=== PATIENT | female | born 1980 | race Caucasian/White ===

== ENCOUNTER 2016-11-21 04:15 | Emergency (ER) | payer BC, OTHER ==
[~2016-11-21] VITALS: Ht 160 cm; Wt 46.7 kg
[~2016-11-21 04:15] MED LIST: ASPI81TA28 PO; BUSP5TAB59 PO; CINN1CAP2 PO; FERR1TAB61 PO; GARL500T PO; MIRT15TA2 PO; MISCTAB26 PO; ONDA4TAB46 SL; PSYL55.43 PO; ZYP25 PO
[2016-11-21 04:24] VITALS: TEMP 37.1; Ht 160 cm; Wt 46.7 kg
[2016-11-21 05:11] LABS: BASO % 0.2 %; BASO ABS # 0.01 K/uL (0-0.2); COMPLETE YES; EOS % 8.4 %; IG% 0.5 %; LYMPH % 20.4 %; LYMPH ABS # 1.23 K/uL (1.2-3.4); MEAN CORPUSCULAR HEMOGLOBIN 28.9 pg (25-34); MEAN CORPUSCULAR HGB CONC 33.9 g/dl (32-36); MEAN PLATELET VOLUME 9.3 fL (7.4-10.4); MONO % 9.6 %; NEUT % 60.9 %; PLATELET COUNT 204 K/uL (130-400); RED BLOOD COUNT 4.47 M/uL (4.2-5.4); WHITE BLOOD COUNT 6.04 K/uL (4.8-10.8)
[2016-11-21 05:29] LABS: BUN/CREATININE RATIO 14.3 (10-20); CALCIUM 8.8 mg/dl (8.5-10.1); CREATININE 0.74 mg/dl (0.60-1.20); POTASSIUM 3.3 mmol/L (3.5-5.1)
[2016-11-21 05:31] LABS: ALB/GLOB RATIO 1.2 (0.9-2)
[2016-11-21 05:34] LABS: URINE APPEARANCE CLEAR (CLEAR); URINE BILIRUBIN NEG (NEG); URINE COLOR YELLOW; URINE EPITHELIAL CELL AUTO >30 /lpf (0-5); URINE NITRITE NEG (NEG); URINE PH 6.5 (4.5-7.5); URINE SPECIFIC GRAVITY 1.012 (1.000-1.030); UROBILINOGEN NEG (NEG); ZZUR CULT IF INDIC CLEAN CATCH YES
[2016-11-21 05:35] LABS: MANUAL MICROSCOPIC REQUIRED? NO; REVIEW REQ? YES
[2016-11-21] MEDS ORDERED: SEPTRA DS HOME PACK 1 EA VIAL PO ONE (06:15)
[2016-11-21] MEDS ORDERED: SULF800T23 PO (06:21)
[2016-11-21 06:48] VITALS: BP 103/65; PULSE 89; O2SAT 98
--- NOTE | 2016-11-21 09:18 | DIAGNOSTIC IMAGING REPORT ---
PA CHEST RADIOGRAPH AND UPRIGHT AND SUPINE AP RADIOGRAPHS OF THE ABDOMEN CLINICAL HISTORY: Left upper quadrant abdominal pain. Epigastric pain. COMPARISON STUDY: CT of the abdomen and pelvis April 16, 2013 and chest radiograph March 14, 2015. FINDINGS: Lung volumes are normal. Lungs are clear. There is no pneumothorax or pleural effusion. Nipple shadows project over each lower lung. Cardiomediastinal silhouette is normal. There is no free air. The bowel gas pattern is normal. There is a moderate amount of stool within the ascending colon. IMPRESSION: 1. No free air or evidence of bowel obstruction. 2. No acute cardiopulmonary findings. Electronically signed by: Arvin Page M.D. 11/21/2016 9:17 AM Dictated Date/Time: 11/21/2016 9:16 AM
--- NOTE | 2016-11-22 04:40 | EMERGENCY ROOM VISIT NOTE ---
History First contact with patient: 04:26 Chief Complaint: ABDOMINAL PAIN Stated Complaint: PAIN IN LEFT ABD AREA Nursing Triage Summary: History of Present Illness The patient is a 36 year old female who presents to the Emergency Room with complaints of left-sided abdominal/flank pain for the past 2-3 days. The patient has had difficulty sleeping tonight because of her symptoms, prompting her to come to the ER. She has not had fever or chills. No nausea, vomiting, diarrhea, or lower abdominal discomfort. She has been using the bathroom as normal. She denies chance of . Her discomfort does not radiate into her chest or across her abdomen. The pain as dull and rated a 4/10. She does not report aggravating or ameliorating symptoms. Review of Systems More than 10 systems were reviewed and otherwise negative with the exception of history of present illness. Past Medical/Surgical History Medical Problems: (1) Low BMI (2) Past Psych Meds (3) UTI (urinary tract infection) Surgical Problems: (1) H/O tubal ligation Family History Diabetes mellitus FH: heart disease Hypertension Social History Smoking Status: Current Every Day Smoker Alcohol Use: none Housing Status: lives with family Occupation Status: employed Current/Historical Medications Scheduled Amitriptyline HCl (Amitriptyline HCl), 10 MG PO HS Aspirin (Aspirin Ec), 81 MG PO DAILY Buspirone HCl (Buspirone HCl), 7.5 MG PO QAM Cinnamon (Cinnamon), 1,000 MG PO DAILY Garlic (Garlic), 1 TAB PO DAILY Mirtazapine (Mirtazapine), 7.5 MG PO HS Sulfa/Trimethoprim (Bactrim Ds 800MG/160MG), 1 TAB PO BID Allergies Coded Allergies: No Known Allergies (Unverified , 06/03/16) Physical Exam Vital Signs Date Time Temp Pulse Resp B/P Pulse Ox O2 Delivery O2 Flow Rate FiO2 11/21/16 06:48 89 18 103/65 98 Room Air 11/21/16 04:24 37.1 97 18 114/73 100 Room Air Pain Rating (0-10): 0 Physical Exam VITALS: Vitals are noted on the nurse's note and reviewed by myself. Vital signs stable. GENERAL: Well-developed, well-nourished, white female, who is in no acute distress and resting comfortably. Patient is cooperative with the examination. HEAD: Normocephalic atraumatic. EARS: External ear normal. External auditory canals clear, tympanic membranes pearly hodge without erythema or effusion bilaterally. EYES: Pupils equal round and reactive to light and accommodation. Conjunctivae without injection, sclerae without icterus. Extraocular movements intact. NOSE: Patent, turbinates without inflammation or discharge. MOUTH: Mucous membranes moist. Tonsils are not enlarged. Pharynx without erythema, blood, or exudate. Uvula midline. Airway patent. NECK: Supple without nuchal rigidity. No lymphadenopathy. No thyromegaly. Cervical spine is nontender. HEART: Regular rate and rhythm without murmurs gallops or rubs. LUNGS: Clear to auscultation bilaterally without wheezes, rales or rhonchi. No retractions or accessory muscle use. ABDOMEN: Positive normal bowel sounds x 4. Soft, nontender, without masses or organomegaly. No guarding or rebound tenderness. Medical Decision & Procedures ER Provider Diagnostic Interpretation: PA CHEST RADIOGRAPH AND UPRIGHT AND SUPINE AP RADIOGRAPHS OF THE ABDOMEN CLINICAL HISTORY: Left upper quadrant abdominal pain. Epigastric pain. COMPARISON STUDY: CT of the abdomen and pelvis April 16, 2013 and chest radiograph March 14, 2015. FINDINGS: Lung volumes are normal. Lungs are clear. There is no pneumothorax or pleural effusion. Nipple shadows project over each lower lung. Cardiomediastinal silhouette is normal. There is no free air. The bowel gas pattern is normal. There is a moderate amount of stool within the ascending colon. IMPRESSION: 1. No free air or evidence of bowel obstruction. 2. No acute cardiopulmonary findings. Laboratory Results 11/21/16 05:00 Red Blood Count 4.47, Mean Corpuscular Volume 85.0, Mean Corpuscular Hemoglobin 28.9, Mean Corpuscular Hemoglobin Concent 33.9, Mean Platelet Volume 9.3, Neutrophils (%) (Auto) 60.9, Lymphocytes (%) (Auto) 20.4, Monocytes (%) (Auto) 9.6, Eosinophils (%) (Auto) 8.4, Basophils (%) (Auto) 0.2, Neutrophils # (Auto) 3.68, Lymphocytes # (Auto) 1.23, Monocytes # (Auto) 0.58, Eosinophils # (Auto) 0.51, Basophils # (Auto) 0.01 11/21/16 05:00 Test 11/21/16 05:00 11/21/16 05:05 11/21/16 05:08 White Blood Count 6.04 K/uL (4.8-10.8) Red Blood Count 4.47 M/uL (4.2-5.4) Hemoglobin 12.9 g/dL (12.0-16.0) Hematocrit 38.0 % (37-47) Mean Corpuscular Volume 85.0 fL (80-100) Mean Corpuscular Hemoglobin 28.9 pg (25-34) Mean Corpuscular Hemoglobin Concent 33.9 g/dl (32-36) Platelet Count 204 K/uL (130-400) Mean Platelet Volume 9.3 fL (7.4-10.4) Neutrophils (%) (Auto) 60.9 % Lymphocytes (%) (Auto) 20.4 % Monocytes (%) (Auto) 9.6 % Eosinophils (%) (Auto) 8.4 % Basophils (%) (Auto) 0.2 % Neutrophils # (Auto) 3.68 K/uL (1.4-6.5) Lymphocytes # (Auto) 1.23 K/uL (1.2-3.4) Monocytes # (Auto) 0.58 K/uL (0.11-0.59) Eosinophils # (Auto) 0.51 K/uL (0-0.5) Basophils # (Auto) 0.01 K/uL (0-0.2) RDW Standard Deviation 38.1 fL (36.4-46.3) RDW Coefficient of Variation 12.4 % (11.5-14.5) Immature Granulocyte % (Auto) 0.5 % Immature Granulocyte # (Auto) 0.03 K/uL (0.00-0.02) Anion Gap 8.0 mmol/L (3-11) Est Creatinine Clear Calc Drug Dose 76.7 ml/min Estimated GFR () 120.0 Estimated GFR (Non- 103.5 BUN/Creatinine Ratio 14.3 (10-20) Calcium Level 8.8 mg/dl (8.5-10.1) Total Bilirubin 0.7 mg/dl (0.2-1) Aspartate Amino Transf (AST/SGOT) 15 U/L (15-37) Alanine Aminotransferase (ALT/SGPT) 35 U/L (12-78) Alkaline Phosphatase 55 U/L (45-117) Total Protein 7.4 gm/dl (6.4-8.2) Albumin 4.0 gm/dl (3.4-5.0) Globulin 3.4 gm/dl (2.5-4.0) Albumin/Globulin Ratio 1.2 (0.9-2) Lipase 100 U/L (73-393) Monoscreen NEG (NEG) Bedside Troponin I 0.000 ng/ml (0-0.045) Urine Color YELLOW Urine Appearance CLEAR (CLEAR) Urine pH 6.5 (4.5-7.5) Urine Specific Walker 1.012 (1.000-1.030) Urine Protein NEG (NEG) Urine Glucose (UA) NEG (NEG) Urine Ketones NEG (NEG) Urine Occult Blood TRACE (NEG) Urine Nitrite NEG (NEG) Urine Bilirubin NEG (NEG) Urine Urobilinogen NEG (NEG) Urine Leukocyte Esterase MODERATE (NEG) Urine WBC (Auto) 10-30 /hpf (0-5) Urine RBC (Auto) 0-4 /hpf (0-4) Urine Hyaline Casts (Auto) 1-5 /lpf (0-5) Urine Epithelial Cells (Auto) >30 /lpf (0-5) Urine Bacteria (Auto) 2+ (NEG) Urine Test NEG (NEG) Medications Administered Medications (Trade) Dose Ordered Sig/Zheng Route Start Time Stop Time Status Last Admin Dose Admin Trimethoprim/ Sulfamethoxazole (Sulfameth/ Trimeth Ds 800/ 160MG Home Pack) 1 homepack UD ONCE PO 11/21/16 06:15 11/21/16 06:17 DC 11/21/16 06:50 1 HOMEPACK ED Course Physical exam and history were performed. Nursing notes and EMR were reviewed. Patient appears to have vague left upper quadrant and left flank pain. On examination she does not have tenderness throughout the abdomen. She certainly does not appear toxic. IV access was established and labs were obtained. Plain films were performed and urine was collected. The patient will is as above and was reviewed. She does not have a significantly elevated white blood cell count, gross anemia, bandemia, or significant electrolyte imbalance. Lipase and transaminases are nondiagnostic. Andrew is negative. Troponin 1 is negative. X-ray does not show acute process of the chest or abdomen. The patient urinalysis is consistent with UTI , and the patient may have an uncomplicated early pyelonephritis. I discussed options of care with the patient, who states that she has had UTI symptoms in the past. She certainly does not seem to be septic or history to suggest ureteral calculi. While discussing the possibility of a UTI, she states that she has had some mild dysuria symptoms for the past one day, and this certainly could be the cause of her symptoms. She will be started on Bactrim and given a continuation course of the antibiotic. Recommended that she follow with her primary care physician in the next few days for recheck. She was otherwise invited back to the ER with any new, worsening, or concerning symptoms. The chart was completed utilizing [employer] Speech Voice Recognition Software. Grammatical errors, random word insertions, pronoun errors, and incomplete sentences are an occasional consequence of this system due to software limitations, ambient noise, and hardware issues. Any formal questions or concerns about the content, text, or information contained within the body of this dictation should be directly addressed to the provider for clarification. . Medical Decision Differential diagnosis: Etiologies such as renal colic, appendicitis, diverticulitis, mesenteric ischemia, aortic pathology, infections, inflammatory bowel disease, PUD, biliary pathology, UTI, as well as others were entertained. Impression Primary Impression: Urinary tract infection Departure Information Dispostion Home / Self-Care Condition GOOD Prescriptions Sulfa/Trimethoprim (Bactrim Ds 800MG/160MG) Tab 1 TAB PO BID for 6 Days, #12 TAB Prov: Frantz Weeks PA-C 11/21/16 Forms Call Back Authorization, HOME CARE DOCUMENTATION FORM, IMPORTANT VISIT INFORMATION Patient Instructions My [facility] Additional Instructions You were seen and evaluated today on an emergency basis only. This is not a substitute for, or an effort to provide, complete comprehensive medical care. It is not possible to recognize and treat all injuries or illnesses in a single emergency department visit. For this reason it is recommended that you followup with your primary care physician this week for ongoing care and evaluation. Trimethoprim-Sulfamethoxazole(Bactrim DS): Take one pill twice daily for 7 days for your infection. All antibiotics can cause diarrhea. If this occurs and you feel worse or it does not resolve in 1-2 days follow up with your doctor or return to the Emergency Department as this could be signs of serious underlying problems. Any medication can cause an allergic reaction, stop the pills immediately and return to the ER for rash, hives, breathing difficulties, or swelling. You are welcome to return to the emergency department anytime with new, worsening, or concerning symptoms.
--- NOTE | 2016-11-23 16:30 | Pharmacy Progress Note ---
ED Pharmacist Culture FollowUp Date of Service: Nov 23, 2016. Patient was sent home with a prescription for Bactrim, for pyelonephritis. Lactobacillus isolated from urine culture. UA with significant epithelial cells. This likely represents a contaminant. No intervention required. Case discussed with Frantz Weeks.
[2016-12-11] MEDS ORDERED: BSP15 PO (06:16)
[2016-12-11] MEDS ORDERED: MIRT1TAB27 PO (06:16)
== END 2016-11-21 06:51 | disposition home or self-care (01) ==
LOC: C.EDB 04:17
DX: N39.0 Urinary tract infection, site not specified (principal); F17.200 Nicotine dependence, unspecified, uncomplicated; R63.6 Underweight; Z79.82 Long term (current) use of aspirin; Z98.51 Tubal ligation status; Z83.3 Family history of diabetes mellitus; Z82.49 Family history of ischemic heart disease and other diseases of the circulatory system

== ENCOUNTER 2016-12-11 15:37 | Emergency (ER) | payer OTHER ==
[~2016-12-11] VITALS: Ht 162.6 cm; Wt 47.3 kg
[~2016-12-11 15:37] MED LIST changes: +BSP15 PO; -BUSP5TAB59 PO; -FERR1TAB61 PO; -MIRT15TA2 PO; +MIRT1TAB27 PO; -MISCTAB26 PO; -ONDA4TAB46 SL; -PSYL55.43 PO; -ZYP25 PO
[2016-12-11 15:40] VITALS: TEMP 36.9; Ht 162.6 cm; Wt 47.3 kg
[2016-12-11] MEDS ORDERED: ONDANSETRON 4MG OD TAB PO ONE (16:15)
--- NOTE | 2016-12-11 16:16 | EMERGENCY ROOM VISIT NOTE ---
History Report prepared by Mauricio: Aly Morales Under the Supervision of: Dr. Dagoberto Coppola D.O. First contact with patient: 15:49 Chief Complaint: MENTAL HEALTH EVALUATION Stated Complaint: NAUSEA,PAIN IN KIDNEYS,FATIGUE,POSSIBLY FROM MEDS History of Present Illness The patient is a 36 year old female who presents to the Emergency Room with complaints of fatigue and generalized malaise. The patient has a history of mental health problems. She's been seen in our facility before for similar episodes. She was recently started on a new antipsychotic medication. She is received 4 injections so far and she receives an injection every month. This was started after an admission to our facility for mental health inpatient management. The patient is currently from her significant other. She has been having significant fatigue. 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 She has had decreased energy. She also thinks she may have a urinary tract infection because she's been having abdominal pain and nausea which is been ongoing for quite some time. The patient denies having any rectal bleeding. She did have one episode of a very heavy period but states that she is not currently as far she knows. She denies having any recent fevers. She denies having any chest pain or cough. The patient denies having any suicidal or homicidal ideation but she states that she's had significant depression symptoms and feels as though this is the cause of her underlying issue today. Source of History: patient Onset: recently Position: other (global) Symptom Intensity: moderate Quality: other (fatigue) Timing: worsening Associated Symptoms: + abdominal pain, + nausea, No chest pain, No cough, No fevers Note: She is having significant depression symptoms. She denies any suicidal ideation or homicidal ideation. Review of Systems See HPI for pertinent positives & negatives. A total of 10 systems reviewed and were otherwise negative. Past Medical & Surgical Medical Problems: (1) Low BMI (2) Past Psych Meds (3) UTI (urinary tract infection) Surgical Problems: (1) H/O tubal ligation Family History Diabetes mellitus FH: heart disease Hypertension Social History Smoking Status: Current Some Day Smoker Alcohol Use: none Housing Status: lives with family Occupation Status: employed Current/Historical Medications Scheduled Amitriptyline HCl (Amitriptyline HCl), 10 MG PO HS Buspirone HCl (Buspirone HCl), 7.5 MG PO QAM Ciprofloxacin Hcl (Cipro), 500 MG PO BID Mirtazapine (Mirtazapine), 7.5 MG PO HS Multivit/Min/Iron/Fol Ac/Pren ( Vitamin), 1 TAB PO DAILY Allergies Coded Allergies: No Known Allergies (Unverified , 06/03/16) Physical Exam Vital Signs Date Time Temp Pulse Resp B/P Pulse Ox O2 Delivery O2 Flow Rate FiO2 12/11/16 17:35 84 16 102/72 99 Room Air 12/11/16 15:40 36.9 98 20 112/79 96 Room Air Physical Exam GENERAL: Patient is awake alert in no acute distress patient is resting comfortably and showing no signs of anxiety EYES: The conjunctivae are clear. The pupils are round and reactive. EARS, NOSE, MOUTH AND THROAT: The nose is without any evidence of any deformity. Mucous membranes are moist tongue is midline NECK: The neck is nontender and supple. RESPIRATORY: Normal respiratory effort is noted there is no evidence of wheezing rhonchi or rales CARDIOVASCULAR: Regular rate and rhythm noted there no murmurs rubs or gallops normal S1 normal S2 GASTROINTESTINAL: The abdomen is soft. Bowel sounds are present in all quadrants. Abdomen is nontender MUSCULOSKELETAL/EXTREMITIES: There is no evidence of gross deformity full range of motion is noted in the hips and shoulders SKIN: There is no obvious evidence of any rash. There are no petechiae, pallor or cyanosis noted. NEUROLOGIC: Patient is awake alert and oriented x3 strength is symmetric patellar reflexes are 2+ bilaterally PSYCH: Patient is awake and alert. She is currently denying any suicidal or homicidal ideation. Her affect is flat. She makes very poor eye contact. Medical Decision & Procedures Laboratory Results 12/11/16 16:14 Red Blood Count 4.40, Mean Corpuscular Volume 86.1, Mean Corpuscular Hemoglobin 29.8, Mean Corpuscular Hemoglobin Concent 34.6, Mean Platelet Volume 9.2, Neutrophils (%) (Auto) 67.9, Lymphocytes (%) (Auto) 23.1, Monocytes (%) (Auto) 5.2, Eosinophils (%) (Auto) 3.2, Basophils (%) (Auto) 0.3, Neutrophils # (Auto) 4.61, Lymphocytes # (Auto) 1.57, Monocytes # (Auto) 0.35, Eosinophils # (Auto) 0.22, Basophils # (Auto) 0.02 12/11/16 16:14 Test 12/11/16 15:58 12/11/16 16:14 Urine Color DK YELLOW Urine Appearance CLEAR (CLEAR) Urine pH 7.0 (4.5-7.5) Urine Specific Eckert 1.026 (1.000-1.030) Urine Protein NEG (NEG) Urine Glucose (UA) NEG (NEG) Urine Ketones 1+ (NEG) Urine Occult Blood NEG (NEG) Urine Nitrite NEG (NEG) Urine Bilirubin NEG (NEG) Urine Urobilinogen NEG (NEG) Urine Leukocyte Esterase MODERATE (NEG) Urine WBC (Auto) 5-10 /hpf (0-5) Urine RBC (Auto) 5-10 /hpf (0-4) Urine Hyaline Casts (Auto) 1-5 /lpf (0-5) Urine Epithelial Cells (Auto) >30 /lpf (0-5) Urine Bacteria (Auto) NEG (NEG) Urine Test NEG (NEG) Urine Opiates Screen NEG (NEG) Urine Methadone, Qualitative NEG (NEG) Urine Barbiturates NEG (NEG) Urine Phencyclidine (PCP) Level NEG (NEG) Ur Amphetamine/Methamphetamine NEG (NEG) MDMA (Ecstasy) Screen NEG (NEG) Urine Benzodiazepines Screen NEG (NEG) Urine Cocaine Metabolite NEG (NEG) Urine Marijuana (THC) NEG (NEG) White Blood Count 6.79 K/uL (4.8-10.8) Red Blood Count 4.40 M/uL (4.2-5.4) Hemoglobin 13.1 g/dL (12.0-16.0) Hematocrit 37.9 % (37-47) Mean Corpuscular Volume 86.1 fL (80-100) Mean Corpuscular Hemoglobin 29.8 pg (25-34) Mean Corpuscular Hemoglobin Concent 34.6 g/dl (32-36) Platelet Count 210 K/uL (130-400) Mean Platelet Volume 9.2 fL (7.4-10.4) Neutrophils (%) (Auto) 67.9 % Lymphocytes (%) (Auto) 23.1 % Monocytes (%) (Auto) 5.2 % Eosinophils (%) (Auto) 3.2 % Basophils (%) (Auto) 0.3 % Neutrophils # (Auto) 4.61 K/uL (1.4-6.5) Lymphocytes # (Auto) 1.57 K/uL (1.2-3.4) Monocytes # (Auto) 0.35 K/uL (0.11-0.59) Eosinophils # (Auto) 0.22 K/uL (0-0.5) Basophils # (Auto) 0.02 K/uL (0-0.2) RDW Standard Deviation 39.4 fL (36.4-46.3) RDW Coefficient of Variation 12.3 % (11.5-14.5) Immature Granulocyte % (Auto) 0.3 % Immature Granulocyte # (Auto) 0.02 K/uL (0.00-0.02) Anion Gap 5.0 mmol/L (3-11) Est Creatinine Clear Calc Drug Dose 62.5 ml/min Estimated GFR () 92.2 Estimated GFR (Non- 79.5 BUN/Creatinine Ratio 19.6 (10-20) Calcium Level 9.1 mg/dl (8.5-10.1) Total Bilirubin 1.3 mg/dl (0.2-1) Direct Bilirubin 0.2 mg/dl (0-0.2) Aspartate Amino Transf (AST/SGOT) 14 U/L (15-37) Alanine Aminotransferase (ALT/SGPT) 36 U/L (12-78) Alkaline Phosphatase 60 U/L (45-117) Total Protein 7.6 gm/dl (6.4-8.2) Albumin 4.2 gm/dl (3.4-5.0) Thyroid Stimulating Hormone (TSH) 1.180 uIu/ml (0.300-4.500) Laboratory results per my review. Medications Administered Medications (Trade) Dose Ordered Sig/Zheng Route Start Time Stop Time Status Last Admin Dose Admin Ondansetron HCl (Zofran Odt) 4 mg ONE ONCE PO 12/11/16 16:15 12/11/16 16:18 DC 12/11/16 16:27 4 MG Ciprofloxacin (Cipro Tab) 500 mg NOW STAT PO 12/11/16 17:42 12/11/16 17:43 DC 12/11/16 17:52 500 MG ED Course 1549: The patient was evaluated in room A6. A complete history and physical examination were performed. 1615: Ordered Zofran Odt 4 mg PO 1742: Ordered Cipro Tab 500 mg PO 1753: Upon reevaluation, the patient is resting. I discussed the results and treatment plan with her. She verbalized agreement of the treatment plan. She was discharged home. Medical Decision Differential diagnosis: Etiologies such as mood disorder, infection, hypoglycemia, electrolyte abnormalities, cardiac sources, intracerebral event, toxicologic, neurologic, as well as others were entertained. Nursing notes reviewed. The patient is a 36-year-old female who presented to the emergency department for an evaluation of mental health problems as well as generalized weakness. The patient has a history of mental health problems but also has been having problems with dysuria and thinks she may either have a urinary tract infection or possibly a kidney stone. Her abdominal exam was not consistent with an acute surgical abdomen. She did not have severe back pain. The patient was evaluated by the emergency Department mental health case finisher. She does not meet criteria for involuntary admission. At this time she does not meet criteria for involuntary admission either. I discussed patient's laboratory and radiographic studies with her. Urine was sent for culture and she was started on antibiotic. I encouraged her to drink plenty clear liquids and continue all medications as prescribed. She was also encouraged to follow-up with her primary care physician as well as her primary therapist this is possible. She was also encouraged to return to the emergency Department immediately if symptoms change worsen or the need arises. Impression Primary Impression: Generalized weakness Additional Impression: UTI (urinary tract infection) Scribe Attestation The scribe's documentation has been prepared under my direction and personally reviewed by me in its entirety. I confirm that the note above accurately reflects all work, treatment, procedures, and medical decision making performed by me. Departure Information Dispostion Home / Self-Care Prescriptions Ciprofloxacin Hcl (CIPRO) 500 Mg Tab 500 MG PO BID, #10 TAB Prov: Dagoberto Coppola, 12/11/16 Referrals Kimmy Griffin M.D. (PCP) Forms HOME CARE DOCUMENTATION FORM, IMPORTANT VISIT INFORMATION, Work Instructions Patient Instructions My [facility], Urinary Tract Infecs Women Additional Instructions Continue all medications as prescribed. Drink plenty clear liquids. Call crisis or return the emergency Department immediately if symptoms worsen or if need arises. Otherwise follow-up with your family as well as her primary care physician is possible. Problem Qualifiers Additional Impression: UTI (urinary tract infection) Urinary tract infection type: site unspecified Hematuria presence: without hematuria Qualified Codes: N39.0 - Urinary tract infection, site not specified
[2016-12-11] MEDS ORDERED: PRENTAB26 PO (16:29)
[2016-12-11 16:32] LABS: BASO % 0.3 %; BASO ABS # 0.02 K/uL (0-0.2); COMPLETE YES; EOS % 3.2 %; HEMATOCRIT 37.9 % (37-47); IG% 0.3 %; LYMPH % 23.1 %; LYMPH ABS # 1.57 K/uL (1.2-3.4); MEAN CELL VOLUME 86.1 fL (80-100); MEAN CORPUSCULAR HEMOGLOBIN 29.8 pg (25-34); MEAN CORPUSCULAR HGB CONC 34.6 g/dl (32-36); MEAN PLATELET VOLUME 9.2 fL (7.4-10.4); MONO % 5.2 %; NEUT % 67.9 %; PLATELET COUNT 210 K/uL (130-400); WHITE BLOOD COUNT 6.79 K/uL (4.8-10.8)
[2016-12-11 16:32] LABS: MANUAL MICROSCOPIC REQUIRED? NO; REVIEW REQ? NO; URINE APPEARANCE CLEAR (CLEAR); URINE BILIRUBIN NEG (NEG); URINE COLOR DK YELLOW; URINE EPITHELIAL CELL AUTO >30 /lpf (0-5); URINE NITRITE NEG (NEG); URINE SPECIFIC GRAVITY 1.026 (1.000-1.030); UROBILINOGEN NEG (NEG)
[2016-12-11 16:48] LABS: BUN/CREATININE RATIO 19.6 (10-20); CALCIUM 9.1 mg/dl (8.5-10.1); CREATININE 0.92 mg/dl (0.60-1.20); POTASSIUM 3.4 mmol/L (3.5-5.1)
[2016-12-11 16:52] LABS: BENZODIAZEPINE, URINE NEG (NEG); COCAINE,URINE NEG (NEG); PHENCYCLIDINE, URINE NEG (NEG)
[2016-12-11 16:58] LABS: THYROID STIMULATING HORMONE 1.18 uIu/ml (0.300-4.500)
[2016-12-11 17:35] VITALS: BP 102/72; PULSE 84; O2SAT 99
[2016-12-11] MEDS ORDERED: CIPROFLOXACIN 500 MG TAB PO STA (17:42)
[2016-12-11] MEDS ORDERED: CIPR-255 PO (17:43)
[2016-12-11] MEDS ORDERED: AMT10 PO (18:21)
== END 2016-12-11 17:58 | disposition home or self-care (01) ==
LOC: C.EDB 15:38 → C.EDA 17:58
DX: N39.0 Urinary tract infection, site not specified (principal); F17.200 Nicotine dependence, unspecified, uncomplicated; Z83.3 Family history of diabetes mellitus; Z82.49 Family history of ischemic heart disease and other diseases of the circulatory system

== ENCOUNTER 2016-12-27 13:15 | Emergency (ER) | payer OTHER ==
[~2016-12-27] VITALS: Ht 160 cm; Wt 46.5 kg
[~2016-12-27 13:15] MED LIST changes: +AMT10 PO; -ASPI81TA28 PO; -CINN1CAP2 PO; +CIPR-255 PO; -GARL500T PO; +PRENTAB26 PO
[2016-12-27 13:36] VITALS: TEMP 36.6; Ht 160 cm; Wt 46.5 kg
[2016-12-27 14:15] LABS: URINE APPEARANCE CLEAR (CLEAR); URINE BILIRUBIN NEG (NEG); URINE COLOR YELLOW; URINE EPITHELIAL CELL AUTO >30 /lpf (0-5); URINE NITRITE NEG (NEG); URINE SPECIFIC GRAVITY 1.011 (1.000-1.030); UROBILINOGEN NEG (NEG)
[2016-12-27] MEDS ORDERED: QUET1TAB32 PO (14:20)
[2016-12-27 14:22] LABS: MANUAL MICROSCOPIC REQUIRED? NO; REVIEW REQ? NO
[2016-12-27] MEDS ORDERED: PHEN-876 PO (14:25)
--- NOTE | 2016-12-27 14:25 | EMERGENCY ROOM VISIT NOTE ---
ED Visit Note First contact with patient: 13:50 CHIEF COMPLAINT: Frequent urination times one week HISTORY OF PRESENT ILLNESS: Patient is a 36-year-old female who presents to the emergency department complaining of urinary frequency. She notes that she is going to the bathroom more often and she has a throbbing pain across her low back. She took a home urine test which she reports was positive for a UTI. She denies any burning or hematuria. Patient recently finished a course of Cipro for urinary symptoms. She denies any fevers or vomiting. No vaginal discharge. Last menstrual period was 11/26/2016. REVIEW OF SYSTEMS: GENERAL: No fever or chills, easy fatigue, loss of appetite , or significant weight change. GASTROINTESTINAL: No abdominal pain, vomiting , loss of appetite, or diarrhea. PMH: Electronic medical records are reviewed and summarized as above/below. See Problem List. SOCIAL HISTORY: Patient lives at home. Smoker. PHYSICAL EXAM: Vital Signs: Reviewed Nurse's notes. CONSTITUTIONAL: Well-appearing 36-year-old white female who is awake and alert and in no acute distress. CARDIOVASCULAR: Regular rate and rhythm. RESPIRATORY: Breath sounds equal and clear to auscultation. ABDOMEN: Bowel sounds are present. Abdomen is soft, nontender, nondistended. No guarding, rebound or rigidity. No CVA tenderness. INTEGUMENTARY: No lesions or rash, normal skin turgor. LYMPH: No lymphadenopathy. EMERGENCY DEPARTMENT COURSE: The patient was seen and assessed as above. Her old records were reviewed. She recently finished a course of ciprofloxacin. Urine microscopy today noted moderate leukocyte esterase, 5-10 RBCs and greater than 30 epithelial cells indicating contamination. No bacteria and no nitrates. Past urine cultures were reviewed, and had never grown pathologic bacteria, only lactobacillus. Given this, and that the patient just recently finished antibiotics, it was recommended that the patient wait until the urine culture is resulted prior to initiation of any antibiotic therapy. This was reviewed with the patient and she expressed understanding. Differential diagnosis includes UTI, pyelonephritis, renal colic, cystitis, cervicitis, PID, among others. The patient was given a prescription for Pyridium and was encouraged to follow up with her primary care provider for further care and management. Problem List Medical Problems: (1) UTI (urinary tract infection) Status: Chronic Surgical Problems: (1) H/O tubal ligation Status: Resolved Current/Historical Medications Scheduled Amitriptyline HCl (Amitriptyline HCl), 10 MG PO HS Buspirone HCl (Buspirone HCl), 7.5 MG PO QAM Mirtazapine (Mirtazapine), 7.5 MG PO HS Multivit/Min/Iron/Fol Ac/Pren ( Vitamin), 1 TAB PO DAILY Phenazopyridine HCl (Pyridium), 200 MG PO TID Quetiapine Fumarate (Seroquel), 50 MG PO HS Allergies Coded Allergies: No Known Allergies (Unverified , 12/27/16) Vital Signs Date Time Temp Pulse Resp B/P Pulse Ox O2 Delivery O2 Flow Rate FiO2 12/27/16 14:57 80 18 118/76 100 12/27/16 13:36 36.6 82 18 116/79 100 Room Air Laboratory Results Test 12/27/16 13:50 Urine Color YELLOW Urine Appearance CLEAR (CLEAR) Urine pH 8.0 (4.5-7.5) Urine Specific [place] 1.011 (1.000-1.030) Urine Protein NEG (NEG) Urine Glucose (UA) NEG (NEG) Urine Ketones NEG (NEG) Urine Occult Blood NEG (NEG) Urine Nitrite NEG (NEG) Urine Bilirubin NEG (NEG) Urine Urobilinogen NEG (NEG) Urine Leukocyte Esterase MODERATE (NEG) Urine WBC (Auto) 1-5 /hpf (0-5) Urine RBC (Auto) 5-10 /hpf (0-4) Urine Hyaline Casts (Auto) 0 /lpf (0-5) Urine Epithelial Cells (Auto) >30 /lpf (0-5) Urine Bacteria (Auto) NEG (NEG) Departure Information Impression Primary Impression: Urinary frequency Prescriptions Phenazopyridine HCl (Pyridium) 200 Mg Tab 200 MG PO TID, #12 TAB Prov: Scarlet Dukes PA 12/27/16 Referrals Kimmy Griffin M.D. (PCP) Patient Instructions My [facility] Additional Instructions Pyridium 200mg: Take one pill three times daily as needed for urinary discomfort. This medication will turn your urine orange. This is normal and nothing to be concerned about. Ibuprofen(Motrin, Advil) may be used for fever or pain. Use 600mg every six hours as needed. Take with food. Avoid using more than 2400mg in a 24 hour period. Do not use 2400mg per day for more than three consecutive days without physician direction. Prolonged inappropriate use can lead to stomach upset or ulcers. This is available over the counter and typically comes in 200mg tablets. (AND/OR) Acetaminophen(Tylenol) may be used for fever or pain. Use 1000mg every eight hours as needed. Avoid using more than 3000mg in a 24 hour period. This is available over the counter. Read all the package inserts or medication information paperwork provided. If you have any questions or concerns call your primary provider, pharmacist or the ER for assistance. Rest and drink plenty of fluids. Continue current medications. Return to the ER immediately for worsening or persistent abdominal pain, vomiting, fevers, back or flank pain, worsening of your condition, or as needed. Follow up with your primary physician within 2-3 days for a recheck of the current condition.
[2016-12-27 14:57] VITALS: BP 118/76; PULSE 80; O2SAT 100
== END 2016-12-27 14:58 | disposition home or self-care (01) ==
LOC: C.EDB 13:16 → C.EDD 14:58
DX: R35.0 Frequency of micturition (principal); F17.200 Nicotine dependence, unspecified, uncomplicated; Z87.440 Personal history of urinary (tract) infections; Z98.51 Tubal ligation status; Z79.899 Other long term (current) drug therapy

== ENCOUNTER 2017-01-14 14:44 | Emergency (ER) | payer OTHER ==
[~2017-01-14] VITALS: Ht 160 cm; Wt 45.2 kg
[~2017-01-14 14:44] MED LIST changes: -CIPR-255 PO; +PHEN-876 PO; +QUET1TAB32 PO
[2017-01-14] MEDS ORDERED: SULF800T23 PO (14:57)
[2017-01-14] MEDS ORDERED: ONDA4TAB9 PO (14:57)
[2017-01-14 14:59] VITALS: Ht 160 cm; Wt 45.2 kg
[2017-01-14] MEDS ORDERED: SODIUM CHLORIDE 0.9% 1000ML 1,000 ML IV STA (14:59)
--- NOTE | 2017-01-14 15:16 | DIAGNOSTIC IMAGING REPORT ---
CHEST ONE VIEW PORTABLE CLINICAL HISTORY: EVALUATE ALTERED MENTAL STATUS/WEAKNESS dyspnea COMPARISON STUDY: 11/21/2016 FINDINGS: The bones soft tissues and hemidiaphragms are normal. The cardiomediastinal silhouette is normal. The lungs are clear. The pulmonary vasculature is normal. IMPRESSION: Negative chest. Electronically signed by: Adin Reyes M.D. 01/14/2017 3:15 PM Dictated Date/Time: 01/14/2017 3:15 PM
[2017-01-14 15:34] LABS: URINE APPEARANCE CLEAR (CLEAR); URINE BILIRUBIN NEG (NEG); URINE COLOR YELLOW; URINE EPITHELIAL CELL AUTO >30 /lpf (0-5); URINE NITRITE NEG (NEG); URINE PH 7.5 (4.5-7.5); URINE SPECIFIC GRAVITY 1.009 (1.000-1.030); UROBILINOGEN NEG (NEG)
[2017-01-14 15:34] LABS: BASO % 0.3 %; BASO ABS # 0.02 K/uL (0-0.2); COMPLETE YES; EOS % 1.5 %; HEMATOCRIT 37.6 % (37-47); IG% 0.3 %; LYMPH % 16.8 %; LYMPH ABS # 1.13 K/uL (1.2-3.4); MEAN CELL VOLUME 87.9 fL (80-100); MEAN CORPUSCULAR HEMOGLOBIN 29.9 pg (25-34); MEAN PLATELET VOLUME 9.3 fL (7.4-10.4); NEUT % 75.1 %; PLATELET COUNT 193 K/uL (130-400); RED BLOOD COUNT 4.28 M/uL (4.2-5.4); WHITE BLOOD COUNT 6.72 K/uL (4.8-10.8)
[2017-01-14 15:43] LABS: MANUAL MICROSCOPIC REQUIRED? NO; REVIEW REQ? NO; ZZUR CULT IF INDIC CLEAN CATCH YES
[2017-01-14 15:45] LABS: BENZODIAZEPINE, URINE NEG (NEG); COCAINE,URINE NEG (NEG); PHENCYCLIDINE, URINE NEG (NEG)
[2017-01-14 15:48] LABS: INR 1.1 (0.9-1.1); PARTIAL THROMBOPLASTIN RATIO 1.1; PROTHROMBIN TIME (PATIENT) 11.4 SECONDS (9.0-12.0)
[2017-01-14 15:53] LABS: ALT/SGPT 18 U/L (12-78); BLOOD UREA NITROGEN 7 mg/dl (7-18); BUN/CREATININE RATIO 8.4 (10-20); CARBON DIOXIDE 28 mmol/L (21-32); CHLORIDE 103 mmol/L (98-107); CREATININE 0.88 mg/dl (0.60-1.20); GLUCOSE 85 mg/dl (70-99); MAGNESIUM 2.2 mg/dl (1.8-2.4); POTASSIUM 3.7 mmol/L (3.5-5.1); SODIUM 138 mmol/L (136-145)
[2017-01-14 15:57] LABS: CALCIUM 9.3 mg/dl (8.5-10.1)
[2017-01-14 16:03] LABS: PREG INTERNAL NEGATIVE QC NEG CLEAR BACKGROUND; PREG INTERNAL POSITIVE QC POS CONTROL LINE
[2017-01-14 16:04] LABS: ALKALINE PHOSPHATASE 46 U/L (45-117); AST/SGOT 11 U/L (15-37); THYROID STIMULATING HORMONE 0.942 uIu/ml (0.300-4.500)
--- NOTE | 2017-01-14 17:01 | EMERGENCY ROOM VISIT NOTE ---
History Report prepared by Mauricio: Aly Morales Under the Supervision of: Dr. Ezra Bustillos D.O. First contact with patient: 14:50 History of Present Illness The patient is a 36 year old female who presents to the Emergency Room with complaints of an altered mental status that occurred today. She states that she is on Seroquel, but it has been making her feel "off." She then decided to stop taking the Seroquel and to increase her dosage of Remeron to 3 pills instead of 1. She took three last night and three this morning. She states that today she has been feeling very "spaced out." She states that she cannot take care of her kids like this. Her supervisor furnace room told her that she had a drooping right side to her mouth and abnormal speech, so she should go to the ER. She is currently being treated for a recurrent UTI. She denies any other abnormal symptoms. Her last menstrual period was November 27. She denies any . She says that this is the first time she has missed a menstrual cycle. Source of History: patient Onset: today Position: other (global) Symptom Intensity: moderate Quality: other (AMS) Timing: constant Note: She feels very "spaced out." She denies any other abnormal symptoms. Review of Systems See HPI for pertinent positives & negatives. A total of 10 systems reviewed and were otherwise negative. Past Medical & Surgical Medical Problems: (1) Low BMI (2) Past Psych Meds (3) UTI (urinary tract infection) Surgical Problems: (1) H/O tubal ligation Family History Diabetes mellitus FH: heart disease Hypertension Social History Smoking Status: Current Every Day Smoker Alcohol Use: none Housing Status: lives with family Occupation Status: employed Current/Historical Medications Scheduled Amitriptyline HCl (Amitriptyline HCl), 10 MG PO HS Buspirone HCl (Buspirone HCl), 7.5 MG PO QAM Mirtazapine (Mirtazapine), 7.5 MG PO HS Multivit/Min/Iron/Fol Ac/Pren ( Vitamin), 1 TAB PO DAILY Ondansetron (Ondansetron HCl), 4 MG PO Q8 Phenazopyridine HCl (Pyridium), 200 MG PO TID Quetiapine Fumarate (Seroquel), 50 MG PO HS Sulfa/Trimethoprim (Bactrim Ds 800MG/160MG), 1 TAB PO BID Allergies Coded Allergies: No Known Allergies (Unverified , 12/27/16) Physical Exam Vital Signs Date Time Temp Pulse Resp B/P Pulse Ox O2 Delivery O2 Flow Rate FiO2 01/14/17 16:04 76 18 100 01/14/17 16:01 122/83 01/14/17 15:59 73 15 100 01/14/17 15:54 78 14 99 01/14/17 15:49 73 14 100 01/14/17 15:44 83 19 99 01/14/17 15:39 78 28 99 01/14/17 15:34 79 19 98 01/14/17 15:30 128/77 01/14/17 15:29 80 20 98 01/14/17 15:25 112/74 01/14/17 15:24 80 18 01/14/17 15:19 82 27 01/14/17 15:17 86 01/14/17 15:14 84 22 01/14/17 14:59 36.7 90 18 117/79 95 Room Air 01/14/17 14:48 117/79 Physical Exam CONSTITUTIONAL/VITAL SIGNS: Reviewed / noted above. GENERAL: Non-toxic in appearance. INTEGUMENTARY: Warm, dry, and [place]. HEAD: Normocephalic. EYES: without scleral icterus or trauma. ENT/OROPHARYNX: clear and moist. LYMPHADENOPATHY/NECK: Is supple without lymphadenopathy or meningismus. RESPIRATORY: Lungs clear and equal. CARDIOVASCULAR: Regular rate and rhythm. GI/ABDOMEN: Soft and nontender. No organomegaly or pulsatile mass. No rebound or guarding. Normal bowel sounds. EXTREMITIES: Warm and well perfused. BACK: No CVA tenderness. NEUROLOGICAL: Intact without focal deficits. PSYCHIATRIC: Flat affect. MUSCULOSKELETAL: Normally developed with good muscle tone. Medical Decision & Procedures ER Provider Diagnostic Interpretation: X ray results and stated below per my interpretation and radiology interpretation. CHEST ONE VIEW PORTABLE CLINICAL HISTORY: EVALUATE ALTERED MENTAL STATUS/WEAKNESS dyspnea COMPARISON STUDY: 11/21/2016 FINDINGS: The bones soft tissues and hemidiaphragms are normal. The cardiomediastinal silhouette is normal. The lungs are clear. The pulmonary vasculature is normal. IMPRESSION: Negative chest. Electronically signed by: Adin Reyes M.D. 01/14/2017 3:15 PM Dictated Date/Time: 01/14/2017 3:15 PM Laboratory Results 01/14/17 15:20 Red Blood Count 4.28, Mean Corpuscular Volume 87.9, Mean Corpuscular Hemoglobin 29.9, Mean Corpuscular Hemoglobin Concent 34.0, Mean Platelet Volume 9.3, Neutrophils (%) (Auto) 75.1, Lymphocytes (%) (Auto) 16.8, Monocytes (%) (Auto) 6.0, Eosinophils (%) (Auto) 1.5, Basophils (%) (Auto) 0.3, Neutrophils # (Auto) 5.05, Lymphocytes # (Auto) 1.13, Monocytes # (Auto) 0.40, Eosinophils # (Auto) 0.10, Basophils # (Auto) 0.02 01/14/17 15:20 Test 01/14/17 15:05 01/14/17 15:20 Urine Color YELLOW Urine Appearance CLEAR (CLEAR) Urine pH 7.5 (4.5-7.5) Urine Specific [place] 1.009 (1.000-1.030) Urine Protein NEG (NEG) Urine Glucose (UA) NEG (NEG) Urine Ketones NEG (NEG) Urine Occult Blood TRACE (NEG) Urine Nitrite NEG (NEG) Urine Bilirubin NEG (NEG) Urine Urobilinogen NEG (NEG) Urine Leukocyte Esterase LARGE (NEG) Urine WBC (Auto) >30 /hpf (0-5) Urine RBC (Auto) 5-10 /hpf (0-4) Urine Hyaline Casts (Auto) 1-5 /lpf (0-5) Urine Epithelial Cells (Auto) >30 /lpf (0-5) Urine Bacteria (Auto) 1+ (NEG) Urine Opiates Screen NEG (NEG) Urine Methadone, Qualitative NEG (NEG) Urine Barbiturates NEG (NEG) Urine Phencyclidine (PCP) Level NEG (NEG) Ur Amphetamine/Methamphetamine NEG (NEG) MDMA (Ecstasy) Screen NEG (NEG) Urine Benzodiazepines Screen NEG (NEG) Urine Cocaine Metabolite NEG (NEG) Urine Marijuana (THC) NEG (NEG) White Blood Count 6.72 K/uL (4.8-10.8) Red Blood Count 4.28 M/uL (4.2-5.4) Hemoglobin 12.8 g/dL (12.0-16.0) Hematocrit 37.6 % (37-47) Mean Corpuscular Volume 87.9 fL (80-100) Mean Corpuscular Hemoglobin 29.9 pg (25-34) Mean Corpuscular Hemoglobin Concent 34.0 g/dl (32-36) Platelet Count 193 K/uL (130-400) Mean Platelet Volume 9.3 fL (7.4-10.4) Neutrophils (%) (Auto) 75.1 % Lymphocytes (%) (Auto) 16.8 % Monocytes (%) (Auto) 6.0 % Eosinophils (%) (Auto) 1.5 % Basophils (%) (Auto) 0.3 % Neutrophils # (Auto) 5.05 K/uL (1.4-6.5) Lymphocytes # (Auto) 1.13 K/uL (1.2-3.4) Monocytes # (Auto) 0.40 K/uL (0.11-0.59) Eosinophils # (Auto) 0.10 K/uL (0-0.5) Basophils # (Auto) 0.02 K/uL (0-0.2) RDW Standard Deviation 39.3 fL (36.4-46.3) RDW Coefficient of Variation 12.2 % (11.5-14.5) Immature Granulocyte % (Auto) 0.3 % Immature Granulocyte # (Auto) 0.02 K/uL (0.00-0.02) Prothrombin Time 11.4 SECONDS (9.0-12.0) Prothromb Time International Ratio 1.1 (0.9-1.1) Activated Partial Thromboplast Time 27.3 SECONDS (21.0-31.0) Partial Thromboplastin Ratio 1.1 Anion Gap 7.0 mmol/L (3-11) Est Creatinine Clear Calc Drug Dose 62.5 ml/min Estimated GFR () 97.3 Estimated GFR (Non- 83.9 BUN/Creatinine Ratio 8.4 (10-20) Calcium Level 9.3 mg/dl (8.5-10.1) Magnesium Level 2.2 mg/dl (1.8-2.4) Total Bilirubin 0.9 mg/dl (0.2-1) Direct Bilirubin 0.2 mg/dl (0-0.2) Aspartate Amino Transf (AST/SGOT) 11 U/L (15-37) Alanine Aminotransferase (ALT/SGPT) 18 U/L (12-78) Alkaline Phosphatase 46 U/L (45-117) Total Creatine Kinase 37 U/L (26-192) Creatine Kinase MB < 0.5 ng/ml (0.5-3.6) Creatine Kinase MB Ratio (0-3.0) Troponin I < 0.015 ng/ml (0-0.045) Total Protein 7.3 gm/dl (6.4-8.2) Albumin 4.2 gm/dl (3.4-5.0) Lipase 90 U/L (73-393) Thyroid Stimulating Hormone (TSH) 0.942 uIu/ml (0.300-4.500) Human Chorionic Gonadotropin, Qual NEG (NEG) Laboratory results as stated above per my review. Medications Administered Medications (Trade) Dose Ordered Sig/Zheng Route Start Time Stop Time Status Last Admin Dose Admin Sodium Chloride (Nss 1000ml) 1,000 ml @ 999 mls/hr Q1H1M STAT IV 01/14/17 14:59 01/14/17 15:59 DC 01/14/17 14:59 999 MLS/HR ECG Indication: altered mental status Rate (beats per minute): 81 Rhythm: normal sinus Findings: no acute ischemic change, no ectopy ED Course 1450: Previous medical records were reviewed. The patient was evaluated in room C9. A complete history and physical examination was performed. 1459: Ordered Sodium Chloride 1000 ml @ 999 mls/hr IV 1700: On reevaluation, the patient is resting. I discussed the results and findings with the patient. She verbalized agreement of the treatment plan. She was discharged home. Medical Decision Differential includes acute coronary syndrome, myocardial infarction, CVA, TIA, anemia, infection, pneumonia, UTI, pyelonephritis, poor nutrition, dehydration, electrolyte disturbance, hypoglycemia. This is a 36-year-old female who presents the ED with a chief complaint of feeling a sound and not her normal self. The patient states that she has been taking extra Remeron the past couple of nights to help her sleep. She denies any other specific complaints. Her exam was normal. Her vital signs are stable. Blood work including a CBC, complete metabolic panel, troponin and TSH are normal. Tox screen is negative. test was negative. Urine appears contaminated. She denies any urinary symptoms and is currently on Bactrim. We will await culture on this. The patient was told the results of the test. She has no additional complaints. She is felt to be stable for discharge. Impression Primary Impression: Malaise Additional Impression: inappropriate use of prescribed medications Scribe Attestation The scribe's documentation has been prepared under my direction and personally reviewed by me in its entirety. I confirm that the note above accurately reflects all work, treatment, procedures, and medical decision making performed by me. Departure Information Dispostion Home / Self-Care Referrals Kimmy Griffin M.D. (PCP) Forms HOME CARE DOCUMENTATION FORM, IMPORTANT VISIT INFORMATION, WORK / SCHOOL INSTRUCTIONS Patient Instructions My [facility] Additional Instructions Avoid taking extra medications that you are prescribed. Follow-up with your doctor for further care and evaluation in 1-2 days. Return to the emergency department for worsening or new symptoms or any concerns. You have been examined and treated today on an emergency basis only. This is not a substitute for, or an effort to provide, complete comprehensive medical care. It is impossible to recognize and treat all injuries or illnesses in a single emergency department visit. It is therefore important that you follow up closely with your doctor. Call as soon as possible for an appointment. Problem Qualifiers
[2017-01-14 17:09] VITALS: BP 122/75; PULSE 83; TEMP 36.7; O2SAT 98
== END 2017-01-14 17:10 | disposition home or self-care (01) ==
LOC: EDBD 14:44 → C.EDC 14:45
DX: R53.81 Other malaise (principal); Z91.14 Patient's other noncompliance with medication regimen; Z82.49 Family history of ischemic heart disease and other diseases of the circulatory system; Z83.3 Family history of diabetes mellitus; F17.200 Nicotine dependence, unspecified, uncomplicated

== ENCOUNTER → 2017-02-02 | Outpatient (CLI) | payer SELFPAY ==
[~2017-02-02] MED LIST changes: +CHOL1000 PO; +INVEGA INJ; +MULT-506 PO; +ONDA4TAB9 PO; +OREGCAP PO; +PHEN500T PO; +SULF800T23 PO; +TYRO500C2 PO
== END ==
LOC: C.LAB 08:28
PROVIDERS: ATTEND Nutritionist

== ENCOUNTER 2017-04-21 15:48 | Emergency (ER) | payer OTHER ==
[~2017-04-21] VITALS: Ht 160 cm; Wt 42.8 kg
[~2017-04-21 15:48] MED LIST changes: -CHOL1000 PO; -INVEGA INJ; -MULT-506 PO; -OREGCAP PO; -PHEN500T PO; -TYRO500C2 PO
[2017-04-21 15:52] VITALS: TEMP 36.8; Ht 160 cm; Wt 42.8 kg
[2017-04-21] MEDS ORDERED: PHEN500T PO (17:11)
[2017-04-21] MEDS ORDERED: OREGCAP PO (17:11)
[2017-04-21] MEDS ORDERED: INVEGA INJ (17:11)
[2017-04-21] MEDS ORDERED: TYRO500C2 PO (17:11)
[2017-04-21] MEDS ORDERED: CHOL1000 PO (17:11)
--- NOTE | 2017-04-21 17:36 | EMERGENCY ROOM VISIT NOTE ---
History Report prepared by Mauricio: Dariusz Soria Under the Supervision of: Juliette Gu.O. First contact with patient: 17:05 Chief Complaint: HEADACHE Stated Complaint: PRESSURE IN HEAD, FEELING ZONED OUT ALL DAY History of Present Illness The patient is a 37 year old female who presents to the Emergency Room with complaints of worsening, intermittent, pressure headaches beginning two weeks ago. The patient states that she has not been feeling well for the past two weeks with similar symptoms, but they have not been this severe. She reports that she has been out of it all day, can not concentrate, and has pressure in the back of her head. The patient notes that she has also been nauseous, but staying up on her fluids. She states that she just started Invega injections 3 days ago, and she thinks this may be the cause of her symptoms. The patient reports that she has been experiencing intermittent head pain on and off for the past year. She notes that she has seen her PCP, but she has not been diagnosed yet. The patient states that she called her PCP today and was told to come to the ED. She reports her last brain scan was performed in January 2016. The patient denies vomiting, vision changes, ringing in the ear, numbness, tingling , change in diet, chance of , recent injury, fever, chills, cough, and neck pain. Patient denies any other recent illness, denies any injury or head trauma. Patient denies any other systemic symptoms. Source of History: patient Onset: two weeks ago Position: head Quality: ache, pressure Timing: worsening Associated Symptoms: + nausea, No fevers, No chills, No cough, No neck pain , No vomiting, No numbness Note: The patient denies vision changes, ringing in the ear,tingling, change in diet, chance of , and recent injury. Review of Systems See HPI for pertinent positives & negatives. A total of 10 systems reviewed and were otherwise negative. Past Medical & Surgical Medical Problems: (1) Low BMI (2) Past Psych Meds (3) UTI (urinary tract infection) Surgical Problems: (1) H/O tubal ligation Family History Diabetes mellitus FH: heart disease Hypertension Social History Smoking Status: Former Smoker Alcohol Use: none Housing Status: lives with family Occupation Status: employed Current/Historical Medications Scheduled Cholecalciferol (Vitamin D3), 1,000 INTER.UNIT PO DAILY Multivit/Min/Iron/Fol Ac/Pren ( Vitamin), 1 TAB PO BID Oregano (Oil Of Oregano), 1,500 MG PO DAILY Phenylalanine (L-Phenylalanine), 1,000 MG PO BID Tyrosine (Tyrosine), 500 MG PO BID [Invega], 1 DOSE INJ Q4WK Allergies Coded Allergies: No Known Allergies (Unverified , 04/21/17) Physical Exam Vital Signs Date Time Temp Pulse Resp B/P (MAP) Pulse Ox O2 Delivery O2 Flow Rate FiO2 04/21/17 19:40 78 16 104/64 97 04/21/17 19:18 78 16 104/64 100 Room Air 04/21/17 18:10 88 16 120/80 100 04/21/17 15:52 36.8 99 16 124/83 98 Room Air Physical Exam GENERAL: alert, well appearing, well nourished, no distress, non-toxic EYE EXAM: normal conjunctiva, PERRL and EOM's grossly intact. Mild photophobia. OROPHARYNX: no exudate, no erythema, lips, buccal mucosa, and tongue normal and mucous membranes are moist NECK: supple, no nuchal rigidity, no adenopathy, non-tender LUNGS: Clear to auscultation. Normal chest wall mechanics HEART: no murmurs, S1 normal and S2 normal ABDOMEN: abdomen soft, non-tender, normo-active bowel sounds, no masses, no rebound or guarding. BACK: Back is symmetrical on inspection and there is no deformity, no midline tenderness, no CVA tenderness. SKIN: no rashes and no bruising UPPER EXTREMITIES: upper extremities are grossly normal. LOWER EXTREMITIES: No pitting edema. NEURO EXAM: Normal sensorium, cranial nerves II-XII grossly intact, normal speech, no gross weakness of arms, no gross weakness of legs. Medical Decision & Procedures ER Provider Diagnostic Interpretation: CT:Per my review, radiologist interpretation. CT SCAN OF THE BRAIN WITHOUT IV CONTRAST CLINICAL HISTORY: Headache. COMPARISON STUDY: No priors. TECHNIQUE: Unenhanced axial CT scan of the brain is performed from the vertex to the skull base. Automated dose control exposure was utilized. A dose lowering technique was utilized adhering to the principles of ALARA. CT DOSE: 537.48 mGy.cm FINDINGS: Brain parenchyma: The brain parenchyma is normal in appearance. There is no hemorrhage, mass effect, or evidence of acute territorial ischemia by CT criteria. Henderson-white matter is preserved. No extra-axial fluid collection is seen. Ventricles, sulci, cisterns: Normal in configuration. Intracranial vasculature: The visualized intracranial vasculature at the skull base is normal in appearance. Calvarium: Unremarkable. Sinuses and mastoids: The visualized paranasal sinuses are clear. The mastoid air cells are well pneumatized. Orbits: The bony orbits are grossly intact. IMPRESSION: No acute intracranial abnormality. Electronically signed by: Christian Betancourt M.D. 04/21/2017 6:56 PM Dictated Date/Time: 04/21/2017 6:54 PM Medications Administered Medications (Trade) Dose Ordered Sig/Zheng Route Start Time Stop Time Status Last Admin Dose Admin Ondansetron HCl (Zofran 8mg Iv) 8 mg NOW STAT IV 04/21/17 18:11 04/21/17 18:21 DC 04/21/17 18:35 8 MG Ketorolac Tromethamine (Toradol Inj) 30 mg NOW STAT IV 04/21/17 18:11 04/21/17 18:21 DC 04/21/17 18:37 30 MG Diphenhydramine HCl (Benadryl Inj) 25 mg NOW STAT IV 04/21/17 18:11 04/21/17 18:21 DC 04/21/17 18:36 25 MG Lorazepam (Ativan Inj) 0.5 mg NOW STAT IV 04/21/17 18:11 04/21/17 18:21 DC 04/21/17 18:36 0.5 MG Sodium Chloride 1,000 ml @ 999 mls/hr Q1H1M STAT IV 04/21/17 18:11 04/21/17 19:11 DC 04/21/17 18:35 999 MLS/HR Dexamethasone Sodium Phosphate (Decadron Inj) 10 mg STK-MED ONCE .ROUTE 04/21/17 18:23 04/21/17 18:24 DC 04/21/17 18:31 10 MG ED Course 1714: The patient was evaluated in room C11B. A complete history and physical exam was performed. 1810: Ordered Sodium Chloride 1000 ml @ 999 mls/hr IV, Ativan Inj 0.5mg IV, Benadryl Inj 25mg IV, Dexamethasone 10mg PO, Toradol Inj 30mg IV, Zofran 8mg IV 1822: Ordered Decadron Inj 10mg .ROUTE 1906: Upon reevaluation, the patient is feeling better. I discussed the findings and the treatment plan with the patient. She verbalizes agreement and understanding. The patient was discharged home. Medical Decision Differential Diagnosis includes but is not limited to headache, tension headache , cluster headache, migraine, subarachnoid hemorrhage, meningitis, mass, central venous thrombus, concussion, trauma and epidural/subdural hemorrhage. Doubt subarachnoid hemorrhage, meningitis, dissection, central venous sinus thrombus, CVA. Patient with a normal nonfocal exam at bedside. Feel there is possible component of underlying psychiatric illness. Patient admits to intermittent headaches over the course of last year with a prior head CT showed an system January of last year. Patient does follow up with neurology regarding her headaches as well as psychiatry for her underlying depression and anxiety. Patient had a recent medication change that she feels could've been contributing to worsening headaches over the last several days. Patient's head CT here reassuring, did not feel patient warranted additional neuro imaging such as MRI at this time. Patient with no fevers or other complaints, did not feel labs would be contributory. Patient's vital signs stable, patient felt improved following medications. Discussed with patient follow-up with PCP and neurology, symptoms to watch and return for, discussion of her medications with psychiatry, she verbalized understanding of all this was agreeable with plan. Medication Reconcilliation Current Medication List: was personally reviewed by me Blood Pressure Screening Patient's blood pressure: Normal blood pressure Impression Primary Impression: Headache Scribe Attestation The scribe's documentation has been prepared under my direction and personally reviewed by me in its entirety. I confirm that the note above accurately reflects all work, treatment, procedures, and medical decision making performed by me. Departure Information Dispostion Home / Self-Care Referrals Kimmy Griffin M.D. (PCP) Forms HOME CARE DOCUMENTATION FORM, IMPORTANT VISIT INFORMATION Patient Instructions [facility] Additional Instructions Please call and follow-up with your family doctor, neurologist, and/or psychiatrist. Please discuss with them the recent initiation of a new medication which could be contributing to worsening chronic headaches. If you develop any worsening headaches, vision changes, dizziness, fevers, vomiting, feels though you're going to faint, are unable to walk, or you have any other new concerns, please return to the emergency room. Problem Qualifiers Primary Impression: Headache Headache type: unspecified Headache chronicity pattern: unspecified pattern Intractability: not intractable Qualified Codes: R51 - Headache
[2017-04-21] MEDS ORDERED: ONDANSETRON 8 MG/54 ML D5W IV STA (18:11)
[2017-04-21] MEDS ORDERED: SODIUM CHLORIDE 0.9% 1000ML 1,000 ML IV STA (18:11)
[2017-04-21] MEDS ORDERED: DiphenhydrAMINE HCL 50 MG/ML VIAL IV STA (18:11)
[2017-04-21] MEDS ORDERED: KETOROLAC TROMETHAMINE 30 MG/ML VIAL IV STA (18:11)
[2017-04-21] MEDS ORDERED: LORAZEPAM 2 MG/ML 1 ML VIAL IV STA (18:11)
[2017-04-21] MEDS ORDERED: DEXAMETHASONE CONC 1 MG/ML 30 ML PO STA (18:11)
[2017-04-21] MEDS ORDERED: DEXAMETHASONE SOD INJ 10 MG/ML VIAL ONE (18:23)
--- NOTE | 2017-04-21 18:57 | DIAGNOSTIC IMAGING REPORT ---
CT SCAN OF THE BRAIN WITHOUT IV CONTRAST CLINICAL HISTORY: Headache. COMPARISON STUDY: No priors. TECHNIQUE: Unenhanced axial CT scan of the brain is performed from the vertex to the skull base. Automated dose control exposure was utilized. A dose lowering technique was utilized adhering to the principles of ALARA. CT DOSE: 537.48 mGy.cm FINDINGS: Brain parenchyma: The brain parenchyma is normal in appearance. There is no hemorrhage, mass effect, or evidence of acute territorial ischemia by CT criteria. Henderson-white matter is preserved. No extra-axial fluid collection is seen. Ventricles, sulci, cisterns: Normal in configuration. Intracranial vasculature: The visualized intracranial vasculature at the skull base is normal in appearance. Calvarium: Unremarkable. Sinuses and mastoids: The visualized paranasal sinuses are clear. The mastoid air cells are well pneumatized. Orbits: The bony orbits are grossly intact. IMPRESSION: No acute intracranial abnormality. Electronically signed by: Christian Betancourt M.D. 04/21/2017 6:56 PM Dictated Date/Time: 04/21/2017 6:54 PM
[2017-04-21 19:40] VITALS: BP 104/64; PULSE 78; O2SAT 97
== END 2017-04-21 19:41 | disposition home or self-care (01) ==
LOC: C.EDB 15:48 → C.EDC 19:41
DX: R51 Headache (principal); Z83.3 Family history of diabetes mellitus; Z82.49 Family history of ischemic heart disease and other diseases of the circulatory system; Z87.891 Personal history of nicotine dependence

== ENCOUNTER 2017-05-03 08:46 | Emergency (ER) | payer OTHER ==
[~2017-05-03] VITALS: Ht 160 cm; Wt 42.2 kg
[~2017-05-03 08:46] MED LIST changes: -AMT10 PO; -BSP15 PO; +CHOL1000 PO; +INVEGA INJ; -MIRT1TAB27 PO; -ONDA4TAB9 PO; +OREGCAP PO; -PHEN-876 PO; +PHEN500T PO; -QUET1TAB32 PO; -SULF800T23 PO; +TYRO500C2 PO
[2017-05-03 08:49] VITALS: TEMP 36.7; Ht 160 cm; Wt 42.2 kg
[2017-05-03] MEDS ORDERED: SODIUM CHLORIDE 0.9% 1000ML 1,000 ML IV STA (09:19)
[2017-05-03] MEDS ORDERED: MULT-506 PO (09:28)
[2017-05-03 09:50] LABS: URINE APPEARANCE CLEAR (CLEAR); URINE BILIRUBIN NEG (NEG); URINE COLOR YELLOW; URINE EPITHELIAL CELL AUTO >30 /lpf (0-5); URINE NITRITE NEG (NEG); URINE PH 6.5 (4.5-7.5); URINE SPECIFIC GRAVITY 1.024 (1.000-1.030); UROBILINOGEN NEG (NEG)
[2017-05-03 09:52] LABS: BASO % 0.1 %; BASO ABS # 0.01 K/uL (0-0.2); COMPLETE YES; EOS % 1.2 %; HEMATOCRIT 39.6 % (37-47); IG% 0.4 %; LYMPH ABS # 1.21 K/uL (1.2-3.4); MEAN CELL VOLUME 88.8 fL (80-100); MEAN CORPUSCULAR HEMOGLOBIN 28.5 pg (25-34); MEAN CORPUSCULAR HGB CONC 32.1 g/dl (32-36); MEAN PLATELET VOLUME 9.3 fL (7.4-10.4); MONO % 7.5 %; NEUT % 72.8 %; PLATELET COUNT 218 K/uL (130-400); RED BLOOD COUNT 4.46 M/uL (4.2-5.4); WHITE BLOOD COUNT 6.71 K/uL (4.8-10.8)
[2017-05-03 10:08] LABS: MANUAL MICROSCOPIC REQUIRED? NO; REVIEW REQ? NO
[2017-05-03 10:14] LABS: BUN/CREATININE RATIO 17.5 (10-20); CREATININE 0.81 mg/dl (0.60-1.20); POTASSIUM 3.6 mmol/L (3.5-5.1)
[2017-05-03 11:45] VITALS: BP 113/75; PULSE 70; O2SAT 99
--- NOTE | 2017-05-04 12:56 | EMERGENCY ROOM VISIT NOTE ---
ED Visit Note First contact with patient: 09:11 Chief Complaint: I'm having pain on the right side of my abdomen. History of Present Illness: Ms. Hendrickson is a 37 year-old white female complaining of anal over the lateral abdomen in the mid quadrant area on the right. . Historically patient reports no significant gastrointestinal disorders Patient reports for the last 2 weeks she has been having intermittent pain over the lateral aspect of the abdomen in the mid right quadrant area. She describes a pattern of acute onset with severe pain lasting for a proximally 30 seconds and then self resolving. She reports she can have up to 10-15 episodes of this cyclic pain per day. She describes her discomfort as a building pressure that becomes sharp. When she has her pain it radiates minimally inferiorly but not into the anterior abdomen. She has not identified any aggravating or alleviating factors related to the pain. Because it only lasts 30 seconds she does not take any medications for her pain. When she is having the pain she has not identified any associated symptoms. Currently she reports she is pain-free A onset of quadrant abdominal pain that started approximately hours ago. Since that time the pain has been . The pain is currently described as . The pain is nonradiating. The pain worsens with and is improved by . has been taken for pain and relief has been achieved. Associated with the pain there has been . Patient denies fevers, chills, sweats, skin eruptions, skin color changes, upper respiratory tract symptoms, shortness of breath, chest pain, nausea, vomiting, diarrhea, constipation, rectal bleeding, black/tarry stools, urinary symptoms, hematuria, vaginal bleeding, vaginal discharge, back/flank pain. Review of Systems: As noted above in history of present illness. All body systems were reviewed and found to be negative as noted above. Past Medical History: Asthma, pneumonia, frequent urinary tract infection, kidney stone, unspecified psychiatric disorders and status post tubal ligation. Current Medications: Medications Dose Route/Sig Max Daily Dose Days Date Category Multivitamin (Multivitamins) Tab 1 Tab PO BID 05/03/17 Reported Tyrosine 500 Mg Cap 500 Mg PO BID 04/21/17 Reported Vitamin D3 (Cholecalciferol) 1,000 Unit Tab 1,000 Inter.unit PO DAILY 90 04/21/17 Reported Oil Of Oregano (Oregano) 1,500 Mg Cap 1,500 Mg PO DAILY 04/21/17 Reported L-Phenylalanine (Phenylalanine) 500 Mg Tab 1,000 Mg PO BID 04/21/17 Reported [Invega] 1 Dose INJ Q4WK 04/21/17 Reported Allergies to Medications: Patient denies. Social History: Patient is not currently employed; she feels safe in her home environment; she denies tobacco and alcohol use. Physical Examination: Vital Signs: Date Time Temp Pulse Resp B/P (MAP) Pulse Ox O2 Delivery O2 Flow Rate FiO2 05/03/17 11:45 70 14 113/75 99 05/03/17 08:49 36.7 99 16 109/72 99 Room Air GENERAL: 37-year-old female in no acute distress, nontoxic-appearing, afebrile and hemodynamically stable. NEUROLOGICAL: Awake, alert and oriented to person, place and time. Answering questions appropriately and following commands. Normal gait. Good hand eye coordination. SKIN: Warm, dry and pink. No soft tissue eruptions or trauma noted. HEENT: Atraumatic and normocephalic. PERRL. Sclera white and conjunctiva pink. Oral cavity moist and pink. Pharynx is nonerythematous or edematous. Speech normal. No lymphadenopathy. Trachea midline. No jugular venous distention. BACK: No tenderness over the bony spine. No CVA tenderness. THORAX: Lungs sounds are clear to auscultation and equal bilaterally with symmetrical chest wall. No wheezing, rales or rhonchi. No crepitus, tenderness , subcutaneous air or deformities noted. HEART: Regular rate and rhythm. No gallops, rubs or murmurs are appreciated. ABDOMEN: Flat, soft and nontender. Positive bowel sounds in all quadrants. No guarding, rigidity or organomegaly. EXTREMITIES: Moves all extremities well on command and with purpose. All distal neurovascular statuses are intact and equal bilaterally. ED Course: Patient is assessed as noted above. Laboratory Testing: Test 05/03/17 09:02 05/03/17 09:35 Range/Units Urine Color YELLOW Urine Appearance CLEAR CLEAR Urine pH 6.5 4.5-7.5 Urine Specific [place] 1.024 1.000-1.030 Urine Protein NEG NEG Urine Glucose (UA) NEG NEG Urine Ketones NEG NEG Urine Occult Blood TRACE NEG Urine Nitrite NEG NEG Urine Bilirubin NEG NEG Urine Urobilinogen NEG NEG Urine Leukocyte Esterase SMALL NEG Urine WBC (Auto) 5-10 0-5 /hpf Urine RBC (Auto) 5-10 0-4 /hpf Urine Hyaline Casts (Auto) 1-5 0-5 /lpf Urine Epithelial Cells (Auto) >30 0-5 /lpf Urine Bacteria (Auto) NEG NEG White Blood Count 6.71 4.8-10.8 K/uL Red Blood Count 4.46 4.2-5.4 M/uL Hemoglobin 12.7 12.0-16.0 g/dL Hematocrit 39.6 37-47 % Mean Corpuscular Volume 88.8 80-100 fL Mean Corpuscular Hemoglobin 28.5 25-34 pg Mean Corpuscular Hemoglobin Concent 32.1 32-36 g/dl Platelet Count 218 130-400 K/uL Mean Platelet Volume 9.3 7.4-10.4 fL Neutrophils (%) (Auto) 72.8 % Lymphocytes (%) (Auto) 18.0 % Monocytes (%) (Auto) 7.5 % Eosinophils (%) (Auto) 1.2 % Basophils (%) (Auto) 0.1 % Neutrophils # (Auto) 4.88 1.4-6.5 K/uL Lymphocytes # (Auto) 1.21 1.2-3.4 K/uL Monocytes # (Auto) 0.50 0.11-0.59 K/uL Eosinophils # (Auto) 0.08 0-0.5 K/uL Basophils # (Auto) 0.01 0-0.2 K/uL RDW Standard Deviation 39.6 36.4-46.3 fL RDW Coefficient of Variation 12.4 11.5-14.5 % Immature Granulocyte % (Auto) 0.4 % Immature Granulocyte # (Auto) 0.03 0.00-0.02 K/uL Sodium Level 141 136-145 mmol/L Potassium Level 3.6 3.5-5.1 mmol/L Chloride Level 106 98-107 mmol/L Carbon Dioxide Level 30 21-32 mmol/L Anion Gap 5.0 3-11 mmol/L Blood Urea Nitrogen 14 7-18 mg/dl Creatinine 0.81 0.60-1.20 mg/dl Est Creatinine Clear Calc Drug Dose 62.7 ml/min Estimated GFR () 106.8 Estimated GFR (Non- 92.1 BUN/Creatinine Ratio 17.5 10-20 Random Glucose 98 70-99 mg/dl Calcium Level 9.0 8.5-10.1 mg/dl Total Bilirubin 1.5 0.2-1 mg/dl Direct Bilirubin 0.2 0-0.2 mg/dl Aspartate Amino Transf (AST/SGOT) 7 15-37 U/L Alanine Aminotransferase (ALT/SGPT) 16 12-78 U/L Alkaline Phosphatase 52 45-117 U/L Total Protein 6.9 6.4-8.2 gm/dl Albumin 3.8 3.4-5.0 gm/dl Lipase 122 73-393 U/L Patient was offered imaging study; initially a noncontrast CT of her abdomen because of her previous history of stones and blood in her urine, she initially accepted but then refused. Patient was hydrated with normal saline. Patient was reassessed multiple times during her stay in the emergency department. Patient was educated about today's findings and instructed on her treatment plan ; she verbalized understanding and agreement with this plan. Clinical Impression: Right lateral abdominal pain. Decision-Making: Initially my differential diagnosis I considered kidney stone, pyelonephritis, constipation, bowel obstruction, musculoskeletal disorder, early zoster and other causes. Disposition: Patient discharged home in stable condition; prior to departure she was reassessed and subjectively reported she was pain and symptom-free. Plan: Patient was encouraged use ibuprofen or acetaminophen as needed for pain. Patient was encouraged to stay well-hydrated with increased clear fluids. Patient was encouraged to call her family physician for follow-up care and treatment. Patient was encouraged return ED for worsening/uncontrolled pain, fevers, vomiting or any new/concerning symptoms.
== END 2017-05-03 11:45 | disposition home or self-care (01) ==
LOC: C.EDB 08:47 → C.EDC 11:45
DX: R10.9 Unspecified abdominal pain (principal); J45.909 Unspecified asthma, uncomplicated; Z87.440 Personal history of urinary (tract) infections; Z87.442 Personal history of urinary calculi; Z98.51 Tubal ligation status

== ENCOUNTER 2017-08-21 16:18 | Emergency (ER) | payer OTHER ==
[~2017-08-21] VITALS: Ht 160 cm; Wt 41.2 kg
[~2017-08-21 16:18] MED LIST changes: +MULT-506 PO; -PRENTAB26 PO
[2017-08-21 16:19] VITALS: TEMP 36.7; Ht 160 cm; Wt 41.2 kg
[2017-08-21] MEDS ORDERED: ASPIRIN 81 MG CHEW PO STA (16:28)
[2017-08-21] MEDS ORDERED: ASCO100061 PO (16:42)
[2017-08-21 16:54] LABS: BASO % 0.3 %; BASO ABS # 0.03 K/uL (0-0.2); COMPLETE YES; EOS % 1.8 %; HEMATOCRIT 43.5 % (37-47); IG% 0.5 %; LYMPH % 22.6 %; LYMPH ABS # 2.19 K/uL (1.2-3.4); MEAN CELL VOLUME 89.1 fL (80-100); MEAN CORPUSCULAR HEMOGLOBIN 30.5 pg (25-34); MEAN CORPUSCULAR HGB CONC 34.3 g/dl (32-36); MEAN PLATELET VOLUME 9.6 fL (7.4-10.4); MONO % 7.1 %; NEUT % 67.7 %; PLATELET COUNT 273 K/uL (130-400); RED BLOOD COUNT 4.88 M/uL (4.2-5.4); WHITE BLOOD COUNT 9.69 K/uL (4.8-10.8)
[2017-08-21 17:07] LABS: POINT OF CARE TROPONIN I < 0.030 ng/ml (0-0.045)
[2017-08-21 17:10] LABS: BUN/CREATININE RATIO 16.6 (10-20); CALCIUM 9.8 mg/dl (8.5-10.1); CREATININE 0.75 mg/dl (0.60-1.20); POTASSIUM 3.3 mmol/L (3.5-5.1)
[2017-08-21 17:15] LABS: MANUAL MICROSCOPIC REQUIRED? NO; REVIEW REQ? NO; URINE APPEARANCE CLEAR (CLEAR); URINE BILIRUBIN NEG (NEG); URINE COLOR YELLOW; URINE EPITHELIAL CELL AUTO >30 /lpf (0-5); URINE NITRITE NEG (NEG); URINE PH 6.5 (4.5-7.5); URINE SPECIFIC GRAVITY 1.013 (1.000-1.030); UROBILINOGEN NEG (NEG); ZZUR CULT IF INDIC CLEAN CATCH YES
[2017-08-21 17:31] VITALS: BP 108/79; PULSE 76; O2SAT 100
--- NOTE | 2017-08-21 17:37 | DIAGNOSTIC IMAGING REPORT ---
CHEST 2 VIEWS ROUTINE CLINICAL HISTORY: Atypical chest pain. Right-sided. Smoker. COMPARISON STUDY: 01/14/2017 FINDINGS: The cardiac and mediastinal contours are normal. There is no evidence of focal pulmonary consolidation. There is no evidence of failure. No pleural effusions are visualized.[ No pneumothorax is visualized. IMPRESSION: No active disease in the chest. Electronically signed by: Donell Malin M.D. 08/21/2017 5:36 PM Dictated Date/Time: 08/21/2017 5:36 PM
--- NOTE | 2017-08-21 18:10 | EMERGENCY ROOM VISIT NOTE ---
History Report prepared by Mauricio: Stephanie Adames Under the Supervision of: Dr. Melinda Marques M.D. First contact with patient: 16:23 Chief Complaint: CHEST PAIN Stated Complaint: SHARP PAINS R SIDE OF CHEST History of Present Illness The patient is a 37 year old female who presents to the Emergency Room with complaints of worsening right sided chest pains starting last night. The patient states that they became sharp. She reports that last night it was worse when taking a deep breath. She notes that she has been around her friend who has Pneumonia, but has been on antibiotics. The patient states that she felt like she had a fever last night, but didn't take it till this morning and it was normal. She notes that she normally smoke daily, but has not smoked all day today. The patient denies being on control, any recent travel, and swelling in her legs. She denies ever having a stress test, echocardiogram, and heart catheterization. The patient notes that she has a chance of since she recently had unprotected sex, but reports that she had a tubal ligation. The patient notes that she once saw on her records that she has coronary artery disease. Source of History: patient Onset: last night Position: chest (right) Quality: sharp Timing: worsening Modifying Factors (Worsening): breathing Associated Symptoms: + fevers Note: The patient denies swelling in her legs. Review of Systems See HPI for pertinent positives & negatives. A total of 10 systems reviewed and were otherwise negative. Past Medical & Surgical Medical Problems: (1) Low BMI (2) Past Psych Meds (3) UTI (urinary tract infection) Surgical Problems: (1) H/O tubal ligation Family History Diabetes mellitus FH: heart disease Hypertension Social History Smoking Status: Current Every Day Smoker Alcohol Use: none Housing Status: lives with family Occupation Status: employed Current/Historical Medications Scheduled Ascorbic Acid (Ascorbic Acid), 1 TAB PO DAILY Allergies Coded Allergies: No Known Allergies (Unverified , 08/21/17) Physical Exam Vital Signs Date Time Temp Pulse Resp B/P (MAP) Pulse Ox O2 Delivery O2 Flow Rate FiO2 08/21/17 17:31 76 15 108/79 100 Room Air 08/21/17 16:51 81 08/21/17 16:49 79 17 119/67 99 Room Air 08/21/17 16:37 99 Room Air 08/21/17 16:19 36.7 87 18 132/89 98 Room Air Physical Exam Vital signs reviewed. General: Well-appearing, in no significant distress. HEENT: No scleral icterus, PERRLA, neck supple. Atraumatic. Cardiovascular: Regular rate and rhythm, no extra sounds. Pulmonary: Clear to auscultation bilaterally, normal work of breathing. Abdomen: Soft, nontender, nondistended, positive bowel sounds. Musculoskeletal: Atraumatic, no peripheral edema. Neurologic: Patient awake alert and oriented x 3 Skin: Warm, dry, no rash Medical Decision & Procedures ER Provider Diagnostic Interpretation: Radiology results as stated below per my review and radiologist interpretation: CHEST 2 VIEWS ROUTINE CLINICAL HISTORY: Atypical chest pain. Right-sided. Smoker. COMPARISON STUDY: 01/14/2017 FINDINGS: The cardiac and mediastinal contours are normal. There is no evidence of focal pulmonary consolidation. There is no evidence of failure. No pleural effusions are visualized.[ No pneumothorax is visualized. IMPRESSION: No active disease in the chest. Electronically signed by: Donell Malin M.D. 08/21/2017 5:36 PM Dictated Date/Time: 08/21/2017 5:36 PM Laboratory Results 08/21/17 16:37 Red Blood Count 4.88, Mean Corpuscular Volume 89.1, Mean Corpuscular Hemoglobin 30.5, Mean Corpuscular Hemoglobin Concent 34.3, Mean Platelet Volume 9.6, Neutrophils (%) (Auto) 67.7, Lymphocytes (%) (Auto) 22.6, Monocytes (%) (Auto) 7.1, Eosinophils (%) (Auto) 1.8, Basophils (%) (Auto) 0.3, Neutrophils # (Auto) 6.56, Lymphocytes # (Auto) 2.19, Monocytes # (Auto) 0.69, Eosinophils # (Auto) 0.17, Basophils # (Auto) 0.03 08/21/17 16:37 Test 08/21/17 16:37 08/21/17 16:48 08/21/17 16:49 White Blood Count 9.69 K/uL (4.8-10.8) Red Blood Count 4.88 M/uL (4.2-5.4) Hemoglobin 14.9 g/dL (12.0-16.0) Hematocrit 43.5 % (37-47) Mean Corpuscular Volume 89.1 fL (80-100) Mean Corpuscular Hemoglobin 30.5 pg (25-34) Mean Corpuscular Hemoglobin Concent 34.3 g/dl (32-36) Platelet Count 273 K/uL (130-400) Mean Platelet Volume 9.6 fL (7.4-10.4) Neutrophils (%) (Auto) 67.7 % Lymphocytes (%) (Auto) 22.6 % Monocytes (%) (Auto) 7.1 % Eosinophils (%) (Auto) 1.8 % Basophils (%) (Auto) 0.3 % Neutrophils # (Auto) 6.56 K/uL (1.4-6.5) Lymphocytes # (Auto) 2.19 K/uL (1.2-3.4) Monocytes # (Auto) 0.69 K/uL (0.11-0.59) Eosinophils # (Auto) 0.17 K/uL (0-0.5) Basophils # (Auto) 0.03 K/uL (0-0.2) RDW Standard Deviation 41.4 fL (36.4-46.3) RDW Coefficient of Variation 12.8 % (11.5-14.5) Immature Granulocyte % (Auto) 0.5 % Immature Granulocyte # (Auto) 0.05 K/uL (0.00-0.02) Anion Gap 7.0 mmol/L (3-11) Est Creatinine Clear Calc Drug Dose 66.1 ml/min Estimated GFR () 117.2 Estimated GFR (Non- 101.1 BUN/Creatinine Ratio 16.6 (10-20) Calcium Level 9.8 mg/dl (8.5-10.1) Total Bilirubin 1.4 mg/dl (0.2-1) Direct Bilirubin 0.3 mg/dl (0-0.2) Aspartate Amino Transf (AST/SGOT) 16 U/L (15-37) Alanine Aminotransferase (ALT/SGPT) 26 U/L (12-78) Alkaline Phosphatase 69 U/L (45-117) Total Protein 8.7 gm/dl (6.4-8.2) Albumin 4.7 gm/dl (3.4-5.0) Bedside D-Dimer 104 ng/mlFEU (0-450) Bedside Troponin I < 0.030 ng/ml (0-0.045) Urine Color YELLOW Urine Appearance CLEAR (CLEAR) Urine pH 6.5 (4.5-7.5) Urine Specific [place] 1.013 (1.000-1.030) Urine Protein NEG (NEG) Urine Glucose (UA) NEG (NEG) Urine Ketones TRACE (NEG) Urine Occult Blood NEG (NEG) Urine Nitrite NEG (NEG) Urine Bilirubin NEG (NEG) Urine Urobilinogen NEG (NEG) Urine Leukocyte Esterase MODERATE (NEG) Urine WBC (Auto) 10-30 /hpf (0-5) Urine RBC (Auto) 5-10 /hpf (0-4) Urine Hyaline Casts (Auto) 0 /lpf (0-5) Urine Epithelial Cells (Auto) >30 /lpf (0-5) Urine Bacteria (Auto) NEG (NEG) Urine Test NEG (NEG) Laboratory results per my review. Medications Administered Medications (Trade) Dose Ordered Sig/Zheng Route Start Time Stop Time Status Last Admin Dose Admin Aspirin (Aspirin Chew) 324 mg NOW STAT PO 08/21/17 16:28 08/21/17 16:30 DC 08/21/17 16:32 324 MG ECG Indication: chest pain Rate (beats per minute): 81 Rhythm: normal sinus Findings: no acute ischemic change, no ectopy ED Course 1627: Past medical records reviewed. The patient was evaluated in room A2. A complete history and physical examination was performed. 162: Ordered Aspirin 324 mg PO. 1755: Upon reevaluation, the patient appeared to have improvement of her symptoms. I discussed findings with the patient. She verbalized agreement of the treatment plan. The patient was discharged home. Medical Decision Differential diagnosis: Etiologies such as cardiac ischemia, aortic dissection, pulmonary embolism, pneumonia, pneumothorax, musculoskeletal, infections, pericarditis, myocarditis , esophageal rupture, gastrointestinal, as well as others were entertained. This patient was evaluated and appeared to be in no significant distress. IV access was obtained and laboratory work was drawn. The patient was placed on the resourcing consultant and found to be in a normal sinus rhythm. EKG reveals no evidence of acute ischemic change. Patient was given aspirin 324 mg orally. Laboratory work including cardiac enzymes and a d-dimer is fairly reassuring. Chest x-ray is clear. Patient was advised of the findings. Patient was discharged follow-up with her PCP. She was advised to stop smoking and to use ibuprofen as needed for pain. She will return to the ER for worsening of symptoms or any medical concerns. Medication Reconcilliation Current Medication List: was personally reviewed by me Blood Pressure Screening Patient's blood pressure: Normal blood pressure Blood pressure disposition: Did not require urgent referral Impression Primary Impression: Atypical chest pain Scribe Attestation The scribe's documentation has been prepared under my direction and personally reviewed by me in its entirety. I confirm that the note above accurately reflects all work, treatment, procedures, and medical decision making performed by me. Departure Information Dispostion Home / Self-Care Referrals Kimmy Griffin M.D. (PCP) Forms Call Back Authorization, HOME CARE DOCUMENTATION FORM, IMPORTANT VISIT INFORMATION Patient Instructions My [facility] [employer] Additional Instructions Diagnosis: Chest pain Stop smoking Ibuprofen 600 mg every 6 hours as needed for pain with food Follow up with your doctor this week for reevaluation. Return to the ED for worsening of symptoms or any medical concerns.
== END 2017-08-21 18:56 | disposition left against medical advice (07) ==
LOC: C.EDB 16:18 → C.EDA 18:56
DX: R07.89 Other chest pain (principal); F17.200 Nicotine dependence, unspecified, uncomplicated; Z98.51 Tubal ligation status; Z83.3 Family history of diabetes mellitus; Z82.49 Family history of ischemic heart disease and other diseases of the circulatory system

== ENCOUNTER 2018-12-11 00:02 | Inpatient (IN) ==
[2018-12-11 01:07] LABS: Basophils # (auto) 0.01 K/uL (0-0.2); Basophils % (auto) 0.2 %; Eosinophils # (auto) 0.01 K/uL (0-0.5); Eosinophils % (auto) 0.2 %; Hematocrit (blood only) 39.9 % (37-47); Hemoglobin 13.7 g/dL (12.0-16.0); Immature Granulocytes # (auto) 0.03 K/uL (0.00-0.02); Immature Granulocytes % (auto) 0.5 %; Lymphocytes # (auto) 1.79 K/uL (1.2-3.4); Lymphocytes % (auto) 27.9 %; Mean Corpuscular Hgb Conc 34.3 g/dL (32-36); Mean Corpuscular Volume 87.1 fL (80-100); Mean Platelet Volume 9.8 fL (7.4-10.4); Monocytes # (auto) 0.44 K/uL (0.11-0.59); Monocytes % (auto) 6.9 %; Neutrophils # (auto) 4.14 K/uL (1.4-6.5); Neutrophils % (auto) 64.3 %; Platelet Count 247 K/uL (130-400); RDW Coefficient of Variation 11.6 % (11.5-14.5); RDW Standard Deviation 36.4 fL (36.4-46.3); Red Blood Count 4.58 M/uL (4.2-5.4); White Blood Count 6.42 K/uL (4.8-10.8)
[2018-12-11 01:25] LABS: Alanine Aminotransferase 15 U/L (12-78); Albumin Level 3.9 gm/dl (3.4-5.0); Aspartate Aminotransferase 8 U/L (15-37); BUN Creatinine Ratio 9.7 (10-20); Blood Urea Nitrogen 6 mg/dl (7-18); Calcium 8.7 mg/dl (8.5-10.1); Carbon Dioxide 20 mmol/L (21-32); Chloride 106 mmol/L (98-107); Est GFR (African American) 130.3; Est GFR (Non-African American) 112.4; Glucose 72 mg/dl (70-99); Potassium 3.5 mmol/L (3.5-5.1); Sodium 137 mmol/L (136-145)
[2018-12-11 01:35] LABS: Albumin Globulin Ratio 1.2 (0.9-2); Alkaline Phosphatase 45 U/L (45-117); Bilirubin,Total 1.8 mg/dl (0.2-1); Globulin 3.3 gm/dl (2.5-4.0); Total Protein 7.2 gm/dl (6.4-8.2)
[2018-12-11 02:36] LABS: Appearance Urine Clear (Clear); Bacteria Urine Automated Negative (Negative); Bilirubin Urine Negative (Negative); Blood Urine Trace (Negative); Color Urine Yellow; Epithelial Cell Urine Auto >30 /lpf (0-5); Glucose Urine UA Negative (Negative); Leukocyte Esterase Urine 1+ (Negative); Nitrite Urine Negative (Negative); Protein Urine Negative (Negative); RBC Urine Automated 0-4 /hpf (0-4); Specific Gravity Urine 1.016 (1.000-1.030); Urobilinogen Urine Negative (Negative); pH Urine 5.5 (4.5-7.5)
[2018-12-11 02:46] LABS: Ketones Urine 4+ (Negative)
--- NOTE | 2018-12-11 03:35 | Emergency Department Note ---
Entered by Dariusz Soria acting as a scribe for History of Present Illness General Chief complaint: Mental Health Evaluation Stated complaint: mental health Time Seen by Provider: 12/11/18 00:13 Source: patient History of Present Illness Onset (ago): day(s) (few) Location: head Pain Consistency: + other (worsening) Maximum Pain Intensity: 7 Quality: + other (SI) Associated symptoms: + other (headfullness) The patient is a 38 year old female who presents to the Emergency Room with complaints of worsening suicidal ideations beginning a few days ago. The patient states she used to live in the area but moved to [place] one year ago for a relationship. She reports the relationship was not abusive. The patient notes she has been suicidal with a plan to overdose on sleeping pills and/or alcohol. She states these thoughts have worsened, and she now has fullness in her head. The patient reports she took a bus here the other day and met her friends. She notes her friends called the ambulance on her tonight. The patient states she has a history of paranoid schizophrenia. She reports she was not able to eat today, and she has been losing weight recently. The patient notes she also has a history of fluctuating BSG (her BSG for EMS today was 71). She states she also has two children, 8 and 9 y/o, that stay with her parents. The patient reports she does not have a good relationship with her mother and father, and she last saw her children a year ago. She notes she does not have a past history or family history of diabetes. The patient states she does occasionally take cinnamon for her vision and elevated blood sugar. She denies alcohol and drug use. The patient notes she is voluntary for treatment currently. Home Medications Home Medications Medication Instructions Recorded Confirmed Type No Known Home Medications 12/11/18 12/11/18 History Allergies Allergy/AdvReac Type Severity Reaction Status Date / Time No Known Allergies Allergy Unverified 08/21/17 16:19 Past Med/Surg History Medical History UTI (urinary tract infection) (Chronic) Surgical History H/O tubal ligation (Resolved) Family History Other No pertinent family history Social History Feels Safe at Home: No Smoking Status: Current every day smoker Review of Systems See HPI for pertinent positives & negatives. and A total of 10 systems reviewed and were otherwise negative Physical Exam Vital Signs Vital Signs - 24 hr 12/11/18 00:17 Temperature 36.7 C Temperature Source Oral Sepsis Recent Fever Within 48 Hours No Sepsis Action Taken by Nursing No Action Required Pulse Rate 107 H Respiratory Rate 16 Blood Pressure 129/71 Blood Pressure Mean 90 Blood Pressure Position Sitting Pulse Oximetry 98 Oxygen Delivery Method Room Air HEENT: Head - normocephalic and atraumatic Pupils are equal, round, and reactive to light. Extraocular eye muscles are intact, and sclera are anicteric. Nose - moist nasal mucosa without discharge. Mouth - moist buccal mucosa. Oropharynx is nonerythematous and there is no tonsillar exudate or edema noted. Neck: Supple; no JVD, nuchal rigidity, cervical lymphadenopathy. Heart: Regular rate and rhythm. There is a normal S1 and S2 with no murmurs, clicks, or gallops appreciated. Lungs: Clear to auscultation bilaterally with no wheezes, rales, or rhonchi. Abdomen: Soft, completely nontender, nondistended, with good bowel sounds. There are no palpable pulsatile masses or hepatosplenomegaly. There is no guarding, rigidity, or rebound noted. Extremities: No evidence of cyanosis, clubbing, or edema. There are easily palpable peripheral pulses. Skin: warm and dry with good turgor and no rashes. Psych: Flat affect. Speaks softly with her eyes closed. Admits to SI with a plan to OD. Course 0011: The patient was evaluated in room A06, and a complete history and physical examination were performed. Previous electronic medical records were reviewed. 0131: I had a long conversation with the patient's friends. They state she moved to [place] to be with a man. Their relationship was going well until August. They note the patient then kept threatening to kill the people that lived above them because she was delusional. Even after moving into a house her symptoms worsened. They note they picked her up from the bus station the other day. They state that she has been unwilling to communicate with them and appeared catatonic today. I have known the patient for many years. They describe a long history of schizophrenia that has been untreated. The patient is not compliant with medications. 0311: The patient is medically cleared. A bed search is being conducted. 0415: The patient was accepted at [facility]. Medical Decision Making Differential Diagnosis Differential Diagnosis includes:mood disorder, thought disorder, drug abuse, hyperglycemia, dehydration Medical Records Attestation: I reviewed the patient's medical records. Home Medications Current Medication List: was personally reviewed by me Laboratory Data Attestation: I reviewed the patient's lab results. Result diagrams: 12/11/18 00:56 12/11/18 00:56 Lab Results 12/11/18 12/11/18 12/11/18 Range/Units 00:56 00:56 00:56 WBC 6.42 (4.8-10.8) K/uL RBC 4.58 (4.2-5.4) M/uL Hgb 13.7 (12.0-16.0) g/dL Hct 39.9 (37-47) % MCV 87.1 (80-100) fL MCH 29.9 (25-34) pg MCHC 34.3 (32-36) g/dL RDW Std Deviation 36.4 (36.4-46.3) fL RDW Coeff of Yaya 11.6 (11.5-14.5) % Plt Count 247 (130-400) K/uL MPV 9.8 (7.4-10.4) fL Immature Gran % (Auto) 0.5 % Neut % (Auto) 64.3 % Lymph % (Auto) 27.9 % Rock % (Auto) 6.9 % Eos % (Auto) 0.2 % Baso % (Auto) 0.2 % Immature Gran # (Auto) 0.03 H (0.00-0.02) K/uL Neut # (Auto) 4.14 (1.4-6.5) K/uL Lymph # (Auto) 1.79 (1.2-3.4) K/uL Rock # (Auto) 0.44 (0.11-0.59) K/uL Eos # (Auto) 0.01 (0-0.5) K/uL Baso # (Auto) 0.01 (0-0.2) K/uL Sodium 137 (136-145) mmol/L Potassium 3.5 (3.5-5.1) mmol/L Chloride 106 (98-107) mmol/L Carbon Dioxide 20 L (21-32) mmol/L Anion Gap 11.0 (3-11) BUN 6 L (7-18) mg/dl Creatinine 0.64 (0.6-1.2) mg/dl Est Cr Clr Drug Dosing Not Reportable Est GFR ( Amer) 130.3 Est GFR (Non-Af Amer) 112.4 BUN/Creatinine Ratio 9.7 L (10-20) Glucose 72 (70-99) mg/dl Calcium 8.7 (8.5-10.1) mg/dl Total Bilirubin 1.8 H (0.2-1) mg/dl AST 8 L (15-37) U/L ALT 15 (12-78) U/L Alkaline Phosphatase 45 (45-117) U/L Total Protein 7.2 (6.4-8.2) gm/dl Albumin 3.9 (3.4-5.0) gm/dl Globulin 3.3 (2.5-4.0) gm/dl Albumin/Globulin Ratio 1.2 (0.9-2) TSH 1.500 (0.300-4.500) uIu/ml Urine Color Urine Appearance (Clear) Urine pH (4.5-7.5) Ur Specific [place] (1.000-1.030) Urine Protein (Negative) Urine Glucose (UA) (Negative) Urine Ketones (Negative) Urine Blood (Negative) Urine Nitrite (Negative) Urine Bilirubin (Negative) Urine Urobilinogen (Negative) Ur Leukocyte Esterase (Negative) Urine WBC (Auto) (0-5) /hpf Urine RBC (Auto) (0-4) /hpf U Hyaline Cast (Auto) (0-5) /lpf U Epithel Cells (Auto) (0-5) /lpf Urine Bacteria (Auto) (Negative) POC Ur Test (NEG) Salicylates Cancelled Urine Opiates Screen (Neg) Ur Methadone, Qual (Neg) Acetaminophen Cancelled Urine Barbiturates (Neg) Ur Phencyclidine (PCP) (Neg) U Amphetamin/Meth Scrn (Neg) MDMA (Ecstasy) Screen (Neg) U Benzodiazepines Scrn (Neg) Ur Cocaine Metabolite (Neg) U Marijuana (THC) Screen (Neg) Ethyl Alcohol mg/dL (0-3) mg/dl 12/11/18 12/11/18 12/11/18 Range/Units 00:56 02:05 02:05 WBC (4.8-10.8) K/uL RBC (4.2-5.4) M/uL Hgb (12.0-16.0) g/dL Hct (37-47) % MCV (80-100) fL MCH (25-34) pg MCHC (32-36) g/dL RDW Std Deviation (36.4-46.3) fL RDW Coeff of Yaya (11.5-14.5) % Plt Count (130-400) K/uL MPV (7.4-10.4) fL Immature Gran % (Auto) % Neut % (Auto) % Lymph % (Auto) % Rock % (Auto) % Eos % (Auto) % Baso % (Auto) % Immature Gran # (Auto) (0.00-0.02) K/uL Neut # (Auto) (1.4-6.5) K/uL Lymph # (Auto) (1.2-3.4) K/uL Rock # (Auto) (0.11-0.59) K/uL Eos # (Auto) (0-0.5) K/uL Baso # (Auto) (0-0.2) K/uL Sodium (136-145) mmol/L Potassium (3.5-5.1) mmol/L Chloride (98-107) mmol/L Carbon Dioxide (21-32) mmol/L Anion Gap (3-11) BUN (7-18) mg/dl Creatinine (0.6-1.2) mg/dl Est Cr Clr Drug Dosing Est GFR ( Amer) Est GFR (Non-Af Amer) BUN/Creatinine Ratio (10-20) Glucose (70-99) mg/dl Calcium (8.5-10.1) mg/dl Total Bilirubin (0.2-1) mg/dl AST (15-37) U/L ALT (12-78) U/L Alkaline Phosphatase (45-117) U/L Total Protein (6.4-8.2) gm/dl Albumin (3.4-5.0) gm/dl Globulin (2.5-4.0) gm/dl Albumin/Globulin Ratio (0.9-2) TSH (0.300-4.500) uIu/ml Urine Color Urine Appearance (Clear) Urine pH (4.5-7.5) Ur Specific [place] (1.000-1.030) Urine Protein (Negative) Urine Glucose (UA) (Negative) Urine Ketones (Negative) Urine Blood (Negative) Urine Nitrite (Negative) Urine Bilirubin (Negative) Urine Urobilinogen (Negative) Ur Leukocyte Esterase (Negative) Urine WBC (Auto) (0-5) /hpf Urine RBC (Auto) (0-4) /hpf U Hyaline Cast (Auto) (0-5) /lpf U Epithel Cells (Auto) (0-5) /lpf Urine Bacteria (Auto) (Negative) POC Ur Test NEG (NEG) Salicylates Urine Opiates Screen Neg (Neg) Ur Methadone, Qual Neg (Neg) Acetaminophen Urine Barbiturates Neg (Neg) Ur Phencyclidine (PCP) Neg (Neg) U Amphetamin/Meth Scrn Neg (Neg) MDMA (Ecstasy) Screen Neg (Neg) U Benzodiazepines Scrn Neg (Neg) Ur Cocaine Metabolite Neg (Neg) U Marijuana (THC) Screen Neg (Neg) Ethyl Alcohol mg/dL < 3.0 (0-3) mg/dl 12/11/18 Range/Units 02:05 WBC (4.8-10.8) K/uL RBC (4.2-5.4) M/uL Hgb (12.0-16.0) g/dL Hct (37-47) % MCV (80-100) fL MCH (25-34) pg MCHC (32-36) g/dL RDW Std Deviation (36.4-46.3) fL RDW Coeff of Yaya (11.5-14.5) % Plt Count (130-400) K/uL MPV (7.4-10.4) fL Immature Gran % (Auto) % Neut % (Auto) % Lymph % (Auto) % Rock % (Auto) % Eos % (Auto) % Baso % (Auto) % Immature Gran # (Auto) (0.00-0.02) K/uL Neut # (Auto) (1.4-6.5) K/uL Lymph # (Auto) (1.2-3.4) K/uL Rock # (Auto) (0.11-0.59) K/uL Eos # (Auto) (0-0.5) K/uL Baso # (Auto) (0-0.2) K/uL Sodium (136-145) mmol/L Potassium (3.5-5.1) mmol/L Chloride (98-107) mmol/L Carbon Dioxide (21-32) mmol/L Anion Gap (3-11) BUN (7-18) mg/dl Creatinine (0.6-1.2) mg/dl Est Cr Clr Drug Dosing Est GFR ( Amer) Est GFR (Non-Af Amer) BUN/Creatinine Ratio (10-20) Glucose (70-99) mg/dl Calcium (8.5-10.1) mg/dl Total Bilirubin (0.2-1) mg/dl AST (15-37) U/L ALT (12-78) U/L Alkaline Phosphatase (45-117) U/L Total Protein (6.4-8.2) gm/dl Albumin (3.4-5.0) gm/dl Globulin (2.5-4.0) gm/dl Albumin/Globulin Ratio (0.9-2) TSH (0.300-4.500) uIu/ml Urine Color Yellow Urine Appearance Clear (Clear) Urine pH 5.5 (4.5-7.5) Ur Specific [place] 1.016 (1.000-1.030) Urine Protein Negative (Negative) Urine Glucose (UA) Negative (Negative) Urine Ketones 4+ H (Negative) Urine Blood Trace H (Negative) Urine Nitrite Negative (Negative) Urine Bilirubin Negative (Negative) Urine Urobilinogen Negative (Negative) Ur Leukocyte Esterase 1+ H (Negative) Urine WBC (Auto) 1-5 (0-5) /hpf Urine RBC (Auto) 0-4 (0-4) /hpf U Hyaline Cast (Auto) 1-5 (0-5) /lpf U Epithel Cells (Auto) >30 H (0-5) /lpf Urine Bacteria (Auto) Negative (Negative) POC Ur Test (NEG) Salicylates Urine Opiates Screen (Neg) Ur Methadone, Qual (Neg) Acetaminophen Urine Barbiturates (Neg) Ur Phencyclidine (PCP) (Neg) U Amphetamin/Meth Scrn (Neg) MDMA (Ecstasy) Screen (Neg) U Benzodiazepines Scrn (Neg) Ur Cocaine Metabolite (Neg) U Marijuana (THC) Screen (Neg) Ethyl Alcohol mg/dL (0-3) mg/dl Blood Pressure Blood Pressure Findings: Normal blood pressure Blood Pressure Disposition: did not require urgent referral MDM Narrative The patient is a 38 year old female who presents to the Emergency Room with complaints of worsening suicidal ideations beginning a few days ago. The patient has a history of paranoid schizophrenia and does not take any medications for it. She has recently returned home after living in [place]. The patient was not able to communicate with her friends. However, she did make suicidal threats stating that she was going to overdose. The patient was evaluated here in the emergency department and is willing to sign herself in voluntarily for inpatient psychiatric care. She will be admitted to [facility]. Impression & Plan Thought disorder Discharge Plan Visit Data Chief Complaint: Mental Health Evaluation Stated Complaint: mental health ED Provider: Marla Hammonds Discharge Problem: Thought disorder Patient Disposition: Transfer Behavioral Health Fac The scribe's documentation has been prepared under my direction and personally reviewed by me in its entirety. I confirm that the note above accurately reflects all work, treatment, procedures, and medical decision making performed by me.
[2018-12-11] MEDS ORDERED: ACETAMINOPHEN 325 MG TAB PO PRN (03:54)
[2018-12-11] MEDS ORDERED: MAGNESIUM HYDROXIDE SUSP 30 ML UDC PO PRN (03:54)
[2018-12-11] MEDS ORDERED: ALUMINUM/MAGNESIUM SUSP 30 ML UDC PO PRN (03:54)
[2018-12-11] MEDS ORDERED: BISMUTH SUBSALICYLATE PER ML OMNICELL CHARGE PO PRN (03:54)
[2018-12-11] MEDS ORDERED: SODIUM CHLORIDE 0.65% NA SOLN 45 ML (OCEAN) PRN (03:54)
[2018-12-11 03:55] LABS: Amphetamines+Metham, Urine Neg (Neg); Barbiturates, Urine Neg (Neg); Benzodiazepine, Urine Neg (Neg); Cocaine, Urine Neg (Neg); MDMA (Ecstacy), Urine Neg (Neg); Methadone, Urine Neg (Neg); Opiate, Urine Neg (Neg); Phencyclidine, Urine Neg (Neg)
--- NOTE | 2018-12-11 09:36 | History & Physical ---
Date of Service December 11, 2018 Impression / Recommendations Impression 38-year-old woman with paranoid schizophrenia, admitted with an acute exacerbation. She has not been on medications for more than a year and is presenting with depressed mood and delusional thoughts. Of concern is the fact that her BMI is 14.8 and she is showing 4+ ketones in her urine. We will need to place some focus on her eating, encouraging her to eat something at every meal. We will put her on weights 3 times per week. She is agreeable to medications and so we will target her mood with Lexapro 5 today increasing to 10 tomorrow. Risks, benefits and alternatives were reviewed and accepted. She is also willing to accept medications for her delusions and we will start Zyprexa 2.5 mg at bedtime +2.5 mg 3 times daily as needed psychosis. Risks, benefits, alternatives reviewed and accepted including risk for tardive dyskinesia. We will need to obtain last records from Dr. Baptiste, arrangements for psychiatric aftercare she is going to remain in this area. She is staying with friends and so they would likely be the people to have a meeting with. We will employ reality testing as well. At this time, the patient requires inpatient mental health treatment due to the severity of her condition and her inability to function outside of a structured environment. (1) Schizophrenia: 12/11 - Start Zyprexa 2.5 mg HS and 2.5 mg TID prn - FLP and FBS for monitoring on atypicals - Reality testing - Obtain last records from [facility] - Will need aftercare - Family meeting if indicated - Reality testing - Q 15 min checks for safety - Encourage participation in group and individual counseling - Safety planning Present on Admission?: Yes (2) Low body mass index (BMI): 12/11 - Will flag for dietary consult - Observe meal trays with each meal - Weights 3X per week Present on Admission?: Yes Inventory Assets Strengths: Has friends with whom she can stay Risk Factors Assessment Medication compliance Male: No : Yes Do You Have Access To A Gun?: No Health Problems: Yes Mental Health Diagnoses: Yes Substance Use Disorders: No Previous Attempt: No Family History of Suicide: No Previous Psychiatric Hospitalization: No Protective Factors Assessment : No Responsible for Young Children: No Employed: No Stable Relationships: No Supportive Family: No Psychiatric History Identifying Data MIRYAM BUSTOS is a 38-year-old F who returned to [place] from [place] last , presented to the ED at the encouragement of friends due to feeling unable to speak or function. She is admitted voluntarily. Information gathered by the patient is considered to be reliable. Chief Complaint "I was having a problem yesterday.". History of Present Illness Miryam is a 38 yo female, last seen on our unit in 2015 with delusions that she was diabetic. After discharge in [address] Baptiste at [facility], but didn't like the meds she was being prescribed and so stopped going. About a year ago she moved to [place] for a new boyfriend and by her description had been doing well until recently when she began to feel more depressed. She says that her boyfriend has been more "meredith" which she felt was making her own mood worse, and she felt that "bikers" were intentionally stopping of the road nearest her dining room window and intentionally rev'ing their engines to bother her. She also felt that she could hear someone "banging around" on the roof. This led her to returning to [place] last and is now staying with some friends. Over the last 2 days, she describes herself as feeling increasingly tired, unable to function, describing "head pressure, like there is fluid running through it" leading her to feel unable to walk or speak for several hours. Her friends became concerned and brought her to the ED. Today the patient continues to describe herself as depressed and admits to having thoughts that "my life isn't worth living" and having suicidal thoughts to OD on meds or alcohol. She denies having made any attempts and doesn't think that she would have the courage to do so. ED notes indicate that her friends think that she started to deteriorate sometime around July 2018 when her parents wouldn't allow her to talk with her children, of whom they have custody. She reports that her sleep has been increased for at least the last 3 days. Her appetite is "not that great" and reports that her weight has been decreasing over the last year. She also notes nausea especially in the morning. When asked about anxiety, she says "I always had a problem with that" but denies having panic attacks. She denies clear auditory or visual hallucinations but does as above, mentioned that she thought she heard people banging around on the roof. She endorses some paranoia, as above, saying that she felt that the bikers were intentionally revving their engines. She continues to have concerns about diabetes and is not eating, and she shows 4+ ketones in her urinalysis. She believes that all of her problems, physical and emotional, stem from an affair she had with a man in 2007. She also believes that she lost custody of her children because she felt "spaced out" on psychiatric medications. She denies that she is purging her food. She denies any discrete episodes of euphoric mood, sleeplessness or pleasure seeking behaviors that would be congruent with bipolar disorder. Past Psychiatric History Previous Psych History: 2 hospitalizations at [facility], one at the [facility] Current Psychiatric Diagnosis: Paranoid schizophrenia Outpatient Services: None Previous Psych Admissions: [facility] and [facility] Do You Have Access To A Gun?: No History of Previous Suicide Attempt: No Describe Attempts in the Past: Ideations, no attempts Past Medication Trials: Risperdaldid not like how she felt Effexor Paxil Allergies Allergy/AdvReac Type Severity Reaction Status Date / Time No Known Allergies Allergy Unverified 08/21/17 16:19 Home Medications Home Medications Medication Instructions Recorded Confirmed Type No Known Home Medications 12/11/18 12/11/18 History Family History Family History of: Depression Family Mental Health History Comment: Depression in mother Alcohol History Hx of Alcohol Use Over the Past 12 Months: No AUDIT Total Score: 0 Admits to a history of problems with alcohol, last drink October 2017 Smoking Use tobacco type: e-cigarettes Smoking Status: Current every day smoker Substance History Hx of Prescription Med Misuse Over the Past 12 Months: No Hx of Over the Counter Med Misuse Over the Past 12 Months: No Hx of Inhalent Misuse Over the Past 12 Months: No Hx of Organic Substance Use Over the Past 12 Months: No Hx of Illegal Substances/Street Drug Use Over Past 12 Months: No Problems as a Result of Past Substance Use: None Identified Personal History Living Arrangements: Home Living Arrangements Comments: Currently staying with friends Born In: Grew up locally. Raised by both mother and father. She has 2 sisters Highest Grade Completed: College (Bachelor's degree in [employer]) Employment Status: Disabled (For mental health reasons) Marital Status: Single Number Of Children: 2, ages 8 and 9, in the custody of her parents Beliefs That Will Affect Care: None Current Legal Problems: No Hx Traumatic Life Events: Yes Psychological Trauma History Comment: Thought there was a lot of chaos and yelling in her household growing up which she felt was traumatic Patient History Medical History UTI (urinary tract infection) (Chronic) Surgical History H/O tubal ligation (Resolved) Family History Other No pertinent family history Social History Preferred Language: Tongan Communication Ability: Effective Beliefs That Will Affect Care: None Feels Safe at Home: Yes Smoking Status: Current every day smoker Review of Systems All systems reviewed & are unremarkable except as noted in HPI & below Blurring in left eye occasionally Cardiovascular: + chest pain (When lying in bed occasionally, denies associated shortness of breath or other symptoms) Gastrointestinal: + nausea Physical Exam Mental Examination Exam performed by Dr. Hammonds in the emergency department has been reviewed and accepted as medical clearance for our unit Psychiatric Orientation: alert and cooperative Apperance: appropriately dressed and appropriately groomed Extremely lean Eye Contact: good eye contact Motor Behavior: steady gait and station and no abnormal motor movements Speech: normal rate/rhythm/volume of speech Affect: + anxious affect Mood: + depressed mood and + anxious mood Thought Process: goal directed thought process Thought Content: + delusions (Somatic delusions of diabetes, paranoid delusions) Suicidal Thoughts: denies suicidal intent; + reports suicidal thoughts and + reports suicidal plan Homicidal Thoughts: denies homicidal thoughts Hallucinations: + auditory hallucinations (Hears people on the roof) Cognition: recent memory grossly intact, remote memory grossly intact, attention grossly intact and language grossly intact Estimated Intelligence: average estimated intelligence Insight: + impaired insight Judgement: + impaired judgement Vital Signs (Past 24 Hours) Last Vital Signs Temp 36.9 C 12/11/18 06:56 Pulse 56 L 12/11/18 06:58 Resp 16 12/11/18 06:56 BP 123/85 12/11/18 06:58 Pulse Ox 98 12/11/18 04:30 Results & Data Laboratory Results Laboratory Results - last 24 hr 12/11/18 12/11/18 12/11/18 00:56 00:56 00:56 WBC 6.42 RBC 4.58 Hgb 13.7 Hct 39.9 MCV 87.1 MCH 29.9 MCHC 34.3 RDW Std Deviation 36.4 RDW Coeff of Yaya 11.6 Plt Count 247 MPV 9.8 Immature Gran % (Auto) 0.5 Neut % (Auto) 64.3 Lymph % (Auto) 27.9 Foard % (Auto) 6.9 Eos % (Auto) 0.2 Baso % (Auto) 0.2 Immature Gran # (Auto) 0.03 H Neut # (Auto) 4.14 Lymph # (Auto) 1.79 Foard # (Auto) 0.44 Eos # (Auto) 0.01 Baso # (Auto) 0.01 Sodium 137 Potassium 3.5 Chloride 106 Carbon Dioxide 20 L Anion Gap 11.0 BUN 6 L Creatinine 0.64 Est Cr Clr Drug Dosing Not Reportable Est GFR ( Amer) 130.3 Est GFR (Non-Af Amer) 112.4 BUN/Creatinine Ratio 9.7 L Glucose 72 Calcium 8.7 Total Bilirubin 1.8 H AST 8 L ALT 15 Alkaline Phosphatase 45 Total Protein 7.2 Albumin 3.9 Globulin 3.3 Albumin/Globulin Ratio 1.2 TSH 1.500 Urine Color Urine Appearance Urine pH Ur Specific [place] Urine Protein Urine Glucose (UA) Urine Ketones Urine Blood Urine Nitrite Urine Bilirubin Urine Urobilinogen Ur Leukocyte Esterase Urine WBC (Auto) Urine RBC (Auto) U Hyaline Cast (Auto) U Epithel Cells (Auto) Urine Bacteria (Auto) POC Ur Test Salicylates Cancelled Urine Opiates Screen Ur Methadone, Qual Acetaminophen Cancelled Urine Barbiturates Ur Phencyclidine (PCP) U Amphetamin/Meth Scrn MDMA (Ecstasy) Screen U Benzodiazepines Scrn Ur Cocaine Metabolite U Marijuana (THC) Screen Ethyl Alcohol mg/dL 12/11/18 12/11/18 12/11/18 00:56 02:05 02:05 WBC RBC Hgb Hct MCV MCH MCHC RDW Std Deviation RDW Coeff of Yaya Plt Count MPV Immature Gran % (Auto) Neut % (Auto) Lymph % (Auto) Foard % (Auto) Eos % (Auto) Baso % (Auto) Immature Gran # (Auto) Neut # (Auto) Lymph # (Auto) Foard # (Auto) Eos # (Auto) Baso # (Auto) Sodium Potassium Chloride Carbon Dioxide Anion Gap BUN Creatinine Est Cr Clr Drug Dosing Est GFR ( Amer) Est GFR (Non-Af Amer) BUN/Creatinine Ratio Glucose Calcium Total Bilirubin AST ALT Alkaline Phosphatase Total Protein Albumin Globulin Albumin/Globulin Ratio TSH Urine Color Urine Appearance Urine pH Ur Specific [place] Urine Protein Urine Glucose (UA) Urine Ketones Urine Blood Urine Nitrite Urine Bilirubin Urine Urobilinogen Ur Leukocyte Esterase Urine WBC (Auto) Urine RBC (Auto) U Hyaline Cast (Auto) U Epithel Cells (Auto) Urine Bacteria (Auto) POC Ur Test NEG Salicylates Urine Opiates Screen Neg Ur Methadone, Qual Neg Acetaminophen Urine Barbiturates Neg Ur Phencyclidine (PCP) Neg U Amphetamin/Meth Scrn Neg MDMA (Ecstasy) Screen Neg U Benzodiazepines Scrn Neg Ur Cocaine Metabolite Neg U Marijuana (THC) Screen Neg Ethyl Alcohol mg/dL < 3.0 12/11/18 02:05 WBC RBC Hgb Hct MCV MCH MCHC RDW Std Deviation RDW Coeff of Yaya Plt Count MPV Immature Gran % (Auto) Neut % (Auto) Lymph % (Auto) Foard % (Auto) Eos % (Auto) Baso % (Auto) Immature Gran # (Auto) Neut # (Auto) Lymph # (Auto) Foard # (Auto) Eos # (Auto) Baso # (Auto) Sodium Potassium Chloride Carbon Dioxide Anion Gap BUN Creatinine Est Cr Clr Drug Dosing Est GFR ( Amer) Est GFR (Non-Af Amer) BUN/Creatinine Ratio Glucose Calcium Total Bilirubin AST ALT Alkaline Phosphatase Total Protein Albumin Globulin Albumin/Globulin Ratio TSH Urine Color Yellow Urine Appearance Clear Urine pH 5.5 Ur Specific [place] 1.016 Urine Protein Negative Urine Glucose (UA) Negative Urine Ketones 4+ H Urine Blood Trace H Urine Nitrite Negative Urine Bilirubin Negative Urine Urobilinogen Negative Ur Leukocyte Esterase 1+ H Urine WBC (Auto) 1-5 Urine RBC (Auto) 0-4 U Hyaline Cast (Auto) 1-5 U Epithel Cells (Auto) >30 H Urine Bacteria (Auto) Negative POC Ur Test Salicylates Urine Opiates Screen Ur Methadone, Qual Acetaminophen Urine Barbiturates Ur Phencyclidine (PCP) U Amphetamin/Meth Scrn MDMA (Ecstasy) Screen U Benzodiazepines Scrn Ur Cocaine Metabolite U Marijuana (THC) Screen Ethyl Alcohol mg/dL Current Inpatient Medications Current Inpatient Medications: Current Inpatient Medications Acetaminophen (Tylenol) 650 mg PO Q4H PRN PRN Reason: Headache or Minor Fever Stop: 01/10/19 03:53 Al Hydrox/Mg Hydrox/Simethicone (Maalox) 30 ml PO Q4H PRN PRN Reason: GI Upset Stop: 01/10/19 03:53 Last Admin: 12/11/18 08:32 Dose: 30 ml Documented by: Bismuth Subsalicylate (Kaopectate) 15 ml PO PRN PRN PRN Reason: Loose Stool Stop: 01/10/19 03:53 Hydroxyzine HCl (Vistaril) 50 mg PO HSZ PRN PRN Reason: Insomnia Stop: 01/10/19 03:53 Hydroxyzine HCl (Vistaril) 25 mg PO Q4H PRN PRN Reason: Anxiety Stop: 01/10/19 03:53 Magnesium Hydroxide (Milk Of Magnesia) 30 ml PO DAILY PRN PRN Reason: Constipation Stop: 01/10/19 03:53 Sodium Chloride ([place] Nasal) 1 - 2 sprays NA PRN PRN PRN Reason: Nasal Dryness/Congestion Stop: 01/10/19 03:53 CPT Code CPT Code Initial Hospital Care: 98603
[2018-12-11] MEDS ORDERED: OLANZAPINE 2.5 MG TAB PO PRN (10:05)
[2018-12-11] MEDS ORDERED: ESCITALOPRAM OXALATE 10 MG TAB PO STA (10:05)
[2018-12-11] MEDS: OLANZAPINE 2.5 MG TAB PO SCH (21:06)
[2018-12-12 08:04] LABS: Glucose Fasting 81 mg/dl (70-99)
[2018-12-12 08:10] LABS: Chol HDL Ratio 3; Cholesterol 196 mg/dl (0-200); HDL Cholesterol 61 mg/dl; LDL Cholesterol Calculated 122 mg/dl; Triglycerides 63 mg/dl (0-150); VLDL Cholesterol 13 mg/dl
[2018-12-12] MEDS: ESCITALOPRAM OXALATE 10 MG TAB PO SCH (08:53)
[2018-12-12] MEDS: NICOTINE POLACRILEX 2 MG GUM MT PRN (09:48)
--- NOTE | 2018-12-12 10:03 | Psychiatric Progress Note ---
Date of Service December 12, 2018 Impression / Recommendations Impression 38-year-old woman with paranoid schizophrenia, admitted with an acute exacerbation. She has not been on medications for more than a year and is presenting with depressed mood and delusional thoughts. She is extremely underweight and malnourished, with BMI of 14.8 and 4+ ketones in her urine. Although she is reporting good appetite and eating here, we will continue to monitor this, as she shows evidence of starvation. Her friend indicates she has herbal pills to speed up her metabolism, and has been refusing to eat certain foods believing she has heart disease and diabetes. She has been started on escitalopram to target mood and olanzapine for psychosis. She requires inpatient mental health treatment due to the severity of her condition and her inability to function outside of a structured environment. (1) Schizophrenia: 12/11 - Start Zyprexa 2.5 mg HS and 2.5 mg TID prn - FLP and FBS for monitoring on atypicals - Reality testing - Obtain last records from [facility] - Will need aftercare - Family meeting if indicated - Reality testing - Q 15 min checks for safety - Encourage participation in group and individual counseling - Safety planning 12/12 - Continue olanzapine 2.5 mg at bedtime, and titrate as tolerated. Fasting glucose and lipid profile within normal limits. - Family meeting with friends who she is living with locally. - Social work to continue to explore options for aftercare, will need additional insurance coverage or financial assistance from the [facility]. Present on Admission?: Yes (2) Depression: 12/12 -continue escitalopram, which was increased to 10 mg today. Encourage the patient to be out of bed and attending and participating in rouej. -Patient reports ongoing suicidal thoughts, and encouraged her to notify staff if they are worsening or if she is feeling unsafe, which she agreed to do. -Reviewing history, patient appears to have dependent personality traits, given pattern of going to excessive lengths to obtain nurturance and support for others. Present on Admission?: Yes (3) Low body mass index (BMI): 12/11 - Will flag for dietary consult - Observe meal trays with each meal - Weights 3X per week 12/12 -There appears to be both an eating disorder component (taking supplements to speed up metabolism), as well as decreased p.o. intake as a result of delusions (that she has diabetes, that she cannot eat meat due to a heart condition). Continue to monitor intake and encourage adequate fluids and food. Present on Admission?: Yes Inventory Assets Strengths: Has friends with whom she can stay treatment Needs: Outpatient treatment, improved nutrition, antipsychotic medication Risk Factors Assessment Male: No : Yes Do You Have Access To A Gun?: No Health Problems: Yes Mental Health Diagnoses: Yes Substance Use Disorders: No Previous Attempt: No Family History of Suicide: No Previous Psychiatric Hospitalization: No Protective Factors Assessment : No Responsible for Young Children: No Employed: No Stable Relationships: No Supportive Family: No Interval History Chief Complaint "Feeling dizzy". Review of Systems Notes Reports dizziness, fatigue, and mild nausea. Denies chest pain or tightness, shortness of breath, weakness. Sleep Information Total Hours of Sleep: 0.75 Sleep Comments: pt NPO during the night. pt on q-15 minute checks Meal Information Percent Meal Consumed - Breakfast: 100 Percent Meal Consumed - Lunch: 80 Percent Meal Consumed - Dinner: 100 Subjective Subjective The patient was seen and assessed, and progress reviewed with nursing and social work. Staff report she has been cooperative with assessments, agreed to a referral to [facility] where she was seen in the past, and was withdrawn to her room much of the day yesterday, refusing most groups and coming out only for meals. When she did attend group, she had minimal to no participation. The social media specialist attempted to make a referral to [facility], who stated that due to her insurance, she will have to go through [facility] for financial assistance, she does not have coverage for outpatient treatment. The couple that she lives with visited last evening, and a meeting was scheduled with them for this afternoon. The social media specialist spoke with her friend today for selena reyes; she has known the patient since she was 17 years old, and believes she started showing signs of psychosis in [id number]. She was in [place] with a boyfriend at the time, became paranoid, thought people were watching her and was paranoid about food. Last year, she was living with her parents and children, when she met a man online (Nick) who lived in [place]. She said she was going to visit him for a few days, and did not return until a year later. In the interim, her parents got custody of her children. Although the patient reported issues in her relationship with Nick, he says he loves her and wants her to return to [place]. While living there, she was very picky about her food, would not eat at home, and would only eat if they went out. She said she cannot eat red meat because she has coronary heart disease and could not eat a lot of other food due to having diabetes, neither of which are true per her friend, and are delusions. He had told her friend that there were bikers parked outside her apartment, revving their engines to bother her, but at he said that was not true, and it was just school age kids on their bikes. She said the patient had herbal pills to help speed up her metabolism. On my assessment, the patient was seen in her room, where she is returned to bed after showering. She states that she felt dizzy and tired after her shower, reports this is a frequent occurrence, and says she has been eating and drinking well today. Mood remains depressed, has not changed since admission, and she reports ongoing "hopelessness about my life and my situation. Just wish I was someone else." She reports ongoing suicidal thoughts, and says she does not think she would hurt herself here as "it is impossible." When encouraged to go to staff if she is feeling unsafe, she says "no one can help me." She was encouraged to attend groups and talk about her stressors, but says she has gone to some and they did nothing for her. She is aware her friends are coming in this afternoon for a visit, and says that they are good supports "most of the time." She cannot think of any goals for her treatment here. She denies side effects to medications. Summary of Past History Diagnosed with schizophrenia during previous hospitalization here. Prior to that, she was diagnosed with depression. Previous hospitalizations here in 2014 and 2016. Medication Trials Risperidone Aripiprazole Venlafaxine Sertraline Physical Exam Psychiatric Orientation: alert and oriented x 3 Apperance: appropriately dressed and appropriately groomed Just showered. Extremely thin/cachectic. Eye Contact: + poor eye contact Motor Behavior: no abnormal motor movements Speech: normal rate/rhythm/volume of speech Affect: + depressed affect, + constricted affect and mood congruent with affect Mood: + depressed mood Thought Process: goal directed thought process Gives very brief answers Thought Content: + delusions (That she has diabetes) Suicidal Thoughts: + reports suicidal thoughts Report suicidal thoughts Homicidal Thoughts: denies homicidal thoughts Hallucinations: no auditory hallucinations Cognition: recent memory grossly intact, attention grossly intact and language grossly intact Estimated Intelligence: average estimated intelligence Insight: + severely impaired insight Judgement: + severely impaired judgement Vital Signs (Past 24 Hours) Last Vital Signs Temp 36.6 C 12/12/18 06:46 Pulse 105 H 12/12/18 06:48 Resp 16 12/12/18 06:46 BP 108/70 12/12/18 06:48 Pulse Ox 98 12/11/18 04:30 Results & Data Laboratory Results Laboratory Results - last 24 hr 12/12/18 07:19 Fasting Glucose 81 Triglycerides 63 Cholesterol 196 LDL Cholesterol, Calc 122 VLDL Cholesterol, Calc 13 HDL Cholesterol 61 Cholesterol/HDL Ratio 3 Current Inpatient Medications Current Inpatient Medications: Current Inpatient Medications Acetaminophen (Tylenol) 650 mg PO Q4H PRN PRN Reason: Headache or Minor Fever Stop: 01/10/19 03:53 Al Hydrox/Mg Hydrox/Simethicone (Maalox) 30 ml PO Q4H PRN PRN Reason: GI Upset Stop: 01/10/19 03:53 Last Admin: 12/11/18 08:32 Dose: 30 ml Documented by: Bismuth Subsalicylate (Kaopectate) 15 ml PO PRN PRN PRN Reason: Loose Stool Stop: 01/10/19 03:53 Escitalopram Oxalate (Lexapro) 10 mg PO QAM ABHIJEET Stop: 01/11/19 08:59 Last Admin: 12/12/18 08:53 Dose: 10 mg Documented by: Hydroxyzine HCl (Vistaril) 50 mg PO HSZ PRN PRN Reason: Insomnia Stop: 01/10/19 03:53 Hydroxyzine HCl (Vistaril) 25 mg PO Q4H PRN PRN Reason: Anxiety Stop: 01/10/19 03:53 Magnesium Hydroxide (Milk Of Magnesia) 30 ml PO DAILY PRN PRN Reason: Constipation Stop: 01/10/19 03:53 Nicotine Polacrilex (Nicorette 2mg) 1 piece MT PRN PRN PRN Reason: cravings Stop: 01/11/19 09:24 Last Admin: 12/12/18 09:48 Dose: 1 piece Documented by: Olanzapine (Zyprexa) 2.5 mg PO TID PRN PRN Reason: psychosis Stop: 01/10/19 13:59 Olanzapine (Zyprexa) 2.5 mg PO HS ABHIJEET Stop: 01/10/19 21:59 Last Admin: 12/11/18 21:06 Dose: 2.5 mg Documented by: Sodium Chloride ([place] Nasal) 1 - 2 sprays NA PRN PRN PRN Reason: Nasal Dryness/Congestion Stop: 01/10/19 03:53 Post Discharge Appointments Therapist Name of Therapist: denies Flight Crew Time Clerk Name of Flight Crew Time Clerk: Denies Contact Information Discharge Discharge Address: [address] [place] [address] CPT Code CPT Code 64320 (1) Schizophrenia Schizophrenia type: paranoid schizophrenia Qualified Code(s): F20.0 - Paranoid schizophrenia
[2018-12-12] MEDS: OLANZAPINE 2.5 MG TAB PO SCH (21:08)
[2018-12-13] MEDS: ESCITALOPRAM OXALATE 10 MG TAB PO SCH (09:03)
[2018-12-13] MEDS: NICOTINE POLACRILEX 2 MG GUM MT PRN ×3 (10:06→18:19)
--- NOTE | 2018-12-13 12:18 | Psychiatric Progress Note ---
Date of Service December 13, 2018 Impression / Recommendations Impression 38-year-old single female with a history of paranoid schizophrenia, admitted with psychosis after being out of treatment and off medications for more than a year. She has both severe depression and psychotic symptoms, with prominent delusions which have been influencing her behavior and leading to severe dietary restriction and very low body weight. She is extremely underweight and malnourished, with BMI of 14.8 and 4+ ketones in her urine on admission. Although she is reporting good appetite and eating here, we will continue to monitor this, as she shows evidence of starvation (weight up 1 kg from admission today). She has been living with friends, since returning from [place] where she had been with a boyfriend for the past year. Friend indicates she has herbal pills to speed up her metabolism, and has been refusing to eat certain foods believing she has heart disease and diabetes. They will have a family meeting today. She has been started on escitalopram to target mood and olanzapine for psychosis. She requires inpatient mental health treatment due to the severity of her condition and her inability to function outside of a structured environment. (1) Schizophrenia: 12/11 - Start Zyprexa 2.5 mg HS and 2.5 mg TID prn - FLP and FBS for monitoring on atypicals - Reality testing - Obtain last records from [facility] - Will need aftercare - Family meeting if indicated - Reality testing - Q 15 min checks for safety - Encourage participation in group and individual counseling - Safety planning 12/12 - Continue olanzapine 2.5 mg at bedtime, and titrate as tolerated. Fasting glucose and lipid profile within normal limits. - Family meeting with friends who she is living with locally. - Social work to continue to explore options for aftercare, will need additional insurance coverage or financial assistance from the [facility]. 12/13 -Continue current dose of olanzapine, as she continues to report feeling "spaced out" and intermittent dizziness, which may be side effects. She has not been focused on her delusions here, but will need to engage her in talking about these more while working on discharge plans. -Family meeting with friends she has been living with in [place] today. -She will need outpatient care, but currently does not have the appropriate insurance. We will need to refer her to the [facility] for financial assistance for outpatient treatment until she can obtain insurance. She would also benefit from a casey saw operator, and possibly psych rehab or [facility]. (2) Depression: 12/12 -continue escitalopram, which was increased to 10 mg today. Encourage the patient to be out of bed and attending and participating in groups. -Patient reports ongoing suicidal thoughts, and encouraged her to notify staff if they are worsening or if she is feeling unsafe, which she agreed to do. -Reviewing history, patient appears to have dependent personality traits, given pattern of going to excessive lengths to obtain nurturance and support for others. 12/13 -patient is reporting improved mood today, but low threshold to increase the dose of escitalopram if mood does not continue to improve. (3) Low body mass index (BMI): 12/11 - Will flag for dietary consult - Observe meal trays with each meal - Weights 3X per week 12/12 -There appears to be both an eating disorder component (taking supplements to speed up metabolism), as well as decreased p.o. intake as a result of delusions (that she has diabetes, that she cannot eat meat due to a heart condition). Continue to monitor intake and encourage adequate fluids and food. Inventory Assets Strengths: Has friends with whom she can stay, willing for treatment Needs: Outpatient treatment, improved nutrition, antipsychotic medication Risk Factors Assessment Male: No : Yes Do You Have Access To A Gun?: No Health Problems: Yes Mental Health Diagnoses: Yes Substance Use Disorders: No Previous Attempt: No Family History of Suicide: No Previous Psychiatric Hospitalization: No Protective Factors Assessment : No Responsible for Young Children: No Employed: No Stable Relationships: No Supportive Family: No Interval History Chief Complaint Okay"". Review of Systems Notes Denies dizziness since yesterday morning. Sleep Information Total Hours of Sleep: 9 Sleep Comments: pt NPO during the night. pt on q-15 minute checks Meal Information Percent Meal Consumed - Breakfast: 100 Percent Meal Consumed - Lunch: 100 Percent Meal Consumed - Dinner: 90 Medication Trials Risperidone Aripiprazole Venlafaxine Sertraline Subjective Subjective Patient was seen & assessed and interval progress reviewed with Treatment Team. Staff report she has been attending groups, but does not volunteer information or participate spontaneously. She says she misses her children, but did not want her father to bring them in for a visit, as he does not want to see him. She is eating 100% of meals, and weight today is increased 1 kg from admission. She spends her free time in her room reading. On my assessment, she was seen in her room, where she was lying on her bed reading a book. Although she answered questions, answers were vague and brief, and she did not look up from her book or make eye contact throughout the assessment. She says her mood is "okay," and when asked to clarify initially said "a little spaced out," but later stated she felt "a little bit better" than yesterday. Her suicidal thoughts are less intense today, and she is able to contract for safety within the hospital. She has a family meeting with her friend who she has been living with this afternoon, but says she is not sure what she wants to discuss. She is not sure how her friend can help support her after discharge, but states she plans to return to live with her. She cannot say what she does during the day, stating "I mostly sleep," and says she doesn't know how to structure her time after discharge. She cannot identify any goals for treatment here. Summary of Past History Diagnosed with schizophrenia during previous hospitalization here. Prior to that, she was diagnosed with depression. Previous hospitalizations here in 2013 and 2015. Medication Trials Risperidone Aripiprazole Venlafaxine Sertraline Physical Exam Psychiatric Orientation: alert and cooperative (But a limited historian, very vague in responses.) Apperance: appropriately dressed, appropriately groomed and appeared stated age Cachectic Eye Contact: + poor eye contact Does not look up from her book or make eye contact. Motor Behavior: no abnormal motor movements Speech is nonspontaneous, minimal, monotone Affect: + flat affect "Okay" Answers questions directly, goal-directed, but bag Thought Content: + delusions (That she has various medical conditions that restrict her diet) Suicidal Thoughts: + reports suicidal thoughts Homicidal Thoughts: denies homicidal thoughts Hallucinations: no auditory hallucinations and no visual hallucinations Cognition: attention grossly intact and language grossly intact Insight: + severely impaired insight Judgement: + severely impaired judgement Vital Signs (Past 24 Hours) Last Vital Signs Temp 36.4 C L 12/13/18 06:49 Pulse 98 H 12/13/18 06:50 Resp 16 12/13/18 06:49 BP 87/54 L 12/13/18 06:50 Pulse Ox 98 12/11/18 04:30 Results & Data Current Inpatient Medications Current Inpatient Medications: Current Inpatient Medications Acetaminophen (Tylenol) 650 mg PO Q4H PRN PRN Reason: Headache or Minor Fever Stop: 01/10/19 03:53 Al Hydrox/Mg Hydrox/Simethicone (Maalox) 30 ml PO Q4H PRN PRN Reason: GI Upset Stop: 01/10/19 03:53 Last Admin: 12/11/18 08:32 Dose: 30 ml Documented by: Bismuth Subsalicylate (Kaopectate) 15 ml PO PRN PRN PRN Reason: Loose Stool Stop: 01/10/19 03:53 Escitalopram Oxalate (Lexapro) 10 mg PO QAM ABHIJEET Stop: 01/11/19 08:59 Last Admin: 12/13/18 09:03 Dose: 10 mg Documented by: Hydroxyzine HCl (Vistaril) 50 mg PO HSZ PRN PRN Reason: Insomnia Stop: 01/10/19 03:53 Hydroxyzine HCl (Vistaril) 25 mg PO Q4H PRN PRN Reason: Anxiety Stop: 01/10/19 03:53 Magnesium Hydroxide (Milk Of Magnesia) 30 ml PO DAILY PRN PRN Reason: Constipation Stop: 01/10/19 03:53 Nicotine Polacrilex (Nicorette 2mg) 1 piece MT PRN PRN PRN Reason: cravings Stop: 01/11/19 09:24 Last Admin: 12/13/18 10:06 Dose: 1 piece Documented by: Olanzapine (Zyprexa) 2.5 mg PO TID PRN PRN Reason: psychosis Stop: 01/10/19 13:59 Olanzapine (Zyprexa) 2.5 mg PO HS ABHIJEET Stop: 01/10/19 21:59 Last Admin: 12/12/18 21:08 Dose: 2.5 mg Documented by: Sodium Chloride ([place] Nasal) 1 - 2 sprays NA PRN PRN PRN Reason: Nasal Dryness/Congestion Stop: 01/10/19 03:53 Post Discharge Appointments Therapist Name of Therapist: denies Wellness Nurse Name of Wellness Nurse: Denies Contact Information Discharge Discharge Address: [address] [place] [address] CPT Code CPT Code 85569 (1) Schizophrenia Schizophrenia type: paranoid schizophrenia Qualified Code(s): F20.0 - Paranoid schizophrenia
[2018-12-13] MEDS: OLANZAPINE 2.5 MG TAB PO SCH (21:02)
[2018-12-14] MEDS: ESCITALOPRAM OXALATE 10 MG TAB PO SCH (08:50)
--- NOTE | 2018-12-14 09:49 | Psychiatric Progress Note ---
Date of Service December 14, 2018 Impression / Recommendations Impression 38-year-old single female with a history of paranoid schizophrenia, admitted with psychosis after being out of treatment and off medications for more than a year. She has both severe depression and psychotic symptoms, with prominent delusions which have been influencing her behavior and leading to severe dietary restriction and very low body weight. She is extremely underweight and malnourished, with BMI of 14.8 and 4+ ketones in her urine on admission. Although she is reporting good appetite and eating here, we will continue to monitor this, as she shows evidence of starvation (weight up 1 kg from admission today). She has been living with friends, since returning from [place] where she had been with a boyfriend for the past year. Friend indicates she has herbal pills to speed up her metabolism, and has been refusing to eat certain foods believing she has heart disease and diabetes. They will have a family meeting today. She has been started on escitalopram to target mood and olanzapine for psychosis. Reporting cloudiness which may be related to initiation of olanzapine - patient encouraged to increase activity if able, as she has been very isolative this morning. Due to possible side effects, will continue current dose of olanzapine. Mood does not appear to be improved, but patient admits to feeling better, will hold on titration of escitalopram today until better able to observe mood and interaction on the unit. She requires inpatient mental health treatment due to the severity of her condition and her inability to function outside of a structured environment. (1) Schizophrenia: 12/11 - Start Zyprexa 2.5 mg HS and 2.5 mg TID prn - FLP and FBS for monitoring on atypicals - Reality testing - Obtain last records from [facility] - Will need aftercare - Family meeting if indicated - Reality testing - Q 15 min checks for safety - Encourage participation in group and individual counseling - Safety planning 12/12 - Continue olanzapine 2.5 mg at bedtime, and titrate as tolerated. Fasting glucose and lipid profile within normal limits. - Family meeting with friends who she is living with locally. - Social work to continue to explore options for aftercare, will need additional insurance coverage or financial assistance from the [facility]. 12/13 -Continue current dose of olanzapine, as she continues to report feeling "spaced out" and intermittent dizziness, which may be side effects. She has not been focused on her delusions here, but will need to engage her in talking about these more while working on discharge plans. -Family meeting with friends she has been living with in [place] today. -She will need outpatient care, but currently does not have the appropriate insurance. We will need to refer her to the [facility] ID office for financial assistance for outpatient treatment until she can obtain insurance. She would also benefit from a family service caseworker, and possibly psych rehab or [facility]. 12/14 - Continue current medications - unclear if clouding is due to medication side effects or a result of limited activity and engagement today - Minimally productive family meeting held yesterday - still requires a large amount of aftercare planning (2) Depression: 12/12 -continue escitalopram, which was increased to 10 mg today. Encourage the patient to be out of bed and attending and participating in groups. -Patient reports ongoing suicidal thoughts, and encouraged her to notify staff if they are worsening or if she is feeling unsafe, which she agreed to do. -Reviewing history, patient appears to have dependent personality traits, given pattern of going to excessive lengths to obtain nurturance and support for others. 12/13 -patient is reporting improved mood today, but low threshold to increase the dose of escitalopram if mood does not continue to improve. 12/14 - Continue escitalopram 10mg - consider further titration, admits mood is improving, though affect if not consistent with reports (3) Low body mass index (BMI): 12/11 - Will flag for dietary consult - Observe meal trays with each meal - Weights 3X per week 12/12 -There appears to be both an eating disorder component (taking supplements to speed up metabolism), as well as decreased p.o. intake as a result of delusions (that she has diabetes, that she cannot eat meat due to a heart condition). Continue to monitor intake and encourage adequate fluids and food. Inventory Assets Strengths: Has friends with whom she can stay, willing for treatment Needs: Outpatient treatment, improved nutrition, antipsychotic medication Risk Factors Assessment Male: No : Yes Do You Have Access To A Gun?: No Health Problems: Yes Mental Health Diagnoses: Yes Substance Use Disorders: No Previous Attempt: No Family History of Suicide: No Previous Psychiatric Hospitalization: No Protective Factors Assessment : No Responsible for Young Children: No Employed: No Stable Relationships: No Supportive Family: No Interval History Identifying Information CAROL BUSTOS is a 38-year-old F who returned to [place] from [place] last , presented to the ED at the encouragement of friends due to feeling unable to speak or function. She is admitted voluntarily. Information gathered by the patient is considered to be reliable. Chief Complaint "Tired". Review of Systems Notes Constitutional: reports fatigue, feeling "spaced out" Cardiovascular: denied Respiratory: denied Gastrointestinal: denied Neurological: denied Psychiatric: denies symptoms other than stated above Total of at least 10 systems reviewed, pertinent positives as above and in HPI. Sleep Information Total Hours of Sleep: 7.75 Sleep Comments: pt NPO during the night. pt on q-15 minute checks Meal Information Percent Meal Consumed - Breakfast: 75 Percent Meal Consumed - Lunch: 100 Percent Meal Consumed - Dinner: 100 Medication Trials Risperidone Aripiprazole Venlafaxine Sertraline Subjective Subjective Patient was seen & assessed and interval progress reviewed with Nursing. Staff reports the patient continues to partial participation in groups and recreational programming. She did complete a meeting yesterday with her roommate/friend's , patient reportedly unable to process various aspects of her delusions. Pt was seen today to assess progress since admission. Pt states she is "tired" today. Took several attempts to wake her from sleep for an interview. Pt reports feeling "spaced out" and "my thoughts aren't clear", but does not verbalized any specific delusions for this provider. She states she is not doing as well today as she had been yesterday - though admits her mood is still "better" when compared to admission. Pt does admit she was up to eat breakfast this morning, then returned to bed. Pt was encouraged to try some physical activity and get out of her room today in order to see if her cloudiness clears up when she is out of bed. Encouraged her to attend all groups today, pt was only minimally agreeable. She denies any needs at this time. Medication Trials Risperidone Aripiprazole Venlafaxine Sertraline Physical Exam Psychiatric Orientation: alert, oriented x 3 and cooperative (vague in responses, only minimal participation) Apperance: appropriately dressed, appropriately groomed and appeared stated age Eye Contact: + poor eye contact (participates in interview with eyes shut) Motor Behavior: no abnormal motor movements (observed while laying in bed) Speech: normal rate/rhythm/volume of speech Affect: + depressed affect, + flat affect and mood congruent with affect Mood: + depressed mood and + anxious mood "better" - when compared to admission; admits mood is reduced from yesterday Thought Process: goal directed thought process Thought Content: + delusions (that she has various medical conditions that restrict her diet) Suicidal Thoughts: denies suicidal intent; + reports suicidal thoughts and + reports suicidal plan Homicidal Thoughts: denies homicidal thoughts Hallucinations: no auditory hallucinations and no visual hallucinations Cognition: recent memory grossly intact, remote memory grossly intact, attention grossly intact and language grossly intact Estimated Intelligence: average estimated intelligence Insight: + impaired insight Judgement: + impaired judgement Vital Signs (Past 24 Hours) Last Vital Signs Temp 36.5 C 12/14/18 06:49 Pulse 96 H 12/14/18 06:50 Resp 16 12/14/18 06:49 BP 85/56 L 12/14/18 06:50 Pulse Ox 98 12/11/18 04:30 Results & Data Current Inpatient Medications Current Inpatient Medications: Current Inpatient Medications Acetaminophen (Tylenol) 650 mg PO Q4H PRN PRN Reason: Headache or Minor Fever Stop: 01/10/19 03:53 Al Hydrox/Mg Hydrox/Simethicone (Maalox) 30 ml PO Q4H PRN PRN Reason: GI Upset Stop: 01/10/19 03:53 Last Admin: 12/11/18 08:32 Dose: 30 ml Documented by: Bismuth Subsalicylate (Kaopectate) 15 ml PO PRN PRN PRN Reason: Loose Stool Stop: 01/10/19 03:53 Escitalopram Oxalate (Lexapro) 10 mg PO QAM ABHIJEET Stop: 01/11/19 08:59 Last Admin: 12/14/18 08:50 Dose: 10 mg Documented by: Hydroxyzine HCl (Vistaril) 50 mg PO HSZ PRN PRN Reason: Insomnia Stop: 01/10/19 03:53 Hydroxyzine HCl (Vistaril) 25 mg PO Q4H PRN PRN Reason: Anxiety Stop: 01/10/19 03:53 Magnesium Hydroxide (Milk Of Magnesia) 30 ml PO DAILY PRN PRN Reason: Constipation Stop: 01/10/19 03:53 Nicotine Polacrilex (Nicorette 2mg) 1 piece MT PRN PRN PRN Reason: cravings Stop: 01/11/19 09:24 Last Admin: 12/13/18 18:19 Dose: 1 piece Documented by: Olanzapine (Zyprexa) 2.5 mg PO TID PRN PRN Reason: psychosis Stop: 01/10/19 13:59 Olanzapine (Zyprexa) 2.5 mg PO HS ABHIJEET Stop: 01/10/19 21:59 Last Admin: 12/13/18 21:02 Dose: 2.5 mg Documented by: Sodium Chloride ([place] Nasal) 1 - 2 sprays NA PRN PRN PRN Reason: Nasal Dryness/Congestion Stop: 01/10/19 03:53 Post Discharge Appointments Therapist Name of Therapist: denies Sterilisation Technician Name of Sterilisation Technician: Denies Contact Information Discharge Discharge Address: [address] [place] [address] CPT Code CPT Code 63419 (1) Schizophrenia Schizophrenia type: paranoid schizophrenia Qualified Code(s): F20.0 - Paranoid schizophrenia
[2018-12-14] MEDS: OLANZAPINE 2.5 MG TAB PO SCH (21:26)
[2018-12-15] MEDS: ESCITALOPRAM OXALATE 10 MG TAB PO SCH (08:48)
--- NOTE | 2018-12-15 15:22 | Psychiatric Progress Note ---
Date of Service December 15, 2018 Impression / Recommendations Impression The patient is a 38-year-old woman who reportedly carries a diagnosis of schizophrenia (paranoid type). At the same time, she presents with significant symptoms of depression. Her affect is blunted and at times tearful. Much of the patient's thought content demonstrates hopelessness, helplessness, and a number of depressive themes. She has some insight into the fact that she is underweight and realizes that it is dangerous for her to not eat regularly and maintain normal body weight. At the same time, she continues to harbor delusional believes, such as the belief that she has diabetes and needs to avoid calorie intake in order to avoid elevated blood sugars. Today, she is able to discuss paranoid believes in the past tense, at least in reference to certain past events and circumstances. At the same time, she does continue to harbor certain delusional believes. For example, today she tells me that she was given a "secret" that she only learned about retrospectively from her sister. Her report is that she would not do the hospital, complained of nausea, was hooked up to an IV, and was given " medicine" through the IV. I am equally impressed with the patient's level of depression and her level of psychosis. In fact, if anything, she appears more depressed than thought disordered. Today, the patient tells me that she does feel that olanzapine has been helpful in organizing her thoughts and she has been "less spacey" and more organized since beginning to take it. She also feels that she has been somewhat less depressed. She was recently started on Lexapro, and while her report is that she has been somewhat less depressed, it seems unlikely that her improvement is secondary to the Lexapro 10 mg daily. Her report is that she has, in the past, responded favorably to the venlafaxine. She notes that she tends to have more energy with venlafaxine, is less anxious, less depressed, and may feel "more normal." Accordingly, I am recommending that we discontinue Lexapro 10 mg daily, in favor of venlafaxine extended release 75 mg daily, and titrate as indicated. We will also increase her dose of olanzapine from a dose of 2.5 mg at bedtime to a dose of 5 mg at bedtime. I reviewed the material risks and anticipated benefit of both of these medications with the patient, and she indicated understanding. I believe the patient's correct diagnosis may be schizoaffective disorder, depressed type. This may also be a somewhat atypical case of major depressive disorder, severe, with psychotic features. (1) Schizophrenia: 12/11 - Start Zyprexa 2.5 mg HS and 2.5 mg TID prn - FLP and FBS for monitoring on atypicals - Reality testing - Obtain last records from [facility] - Will need aftercare - Family meeting if indicated - Reality testing - Q 15 min checks for safety - Encourage participation in group and individual counseling - Safety planning 12/12 - Continue olanzapine 2.5 mg at bedtime, and titrate as tolerated. Fasting glucose and lipid profile within normal limits. - Family meeting with friends who she is living with locally. - Social work to continue to explore options for aftercare, will need additional insurance coverage or financial assistance from the [facility]. 12/13 -Continue current dose of olanzapine, as she continues to report feeling "spaced out" and intermittent dizziness, which may be side effects. She has not been focused on her delusions here, but will need to engage her in talking about these more while working on discharge plans. -Family meeting with friends she has been living with in [place] today. -She will need outpatient care, but currently does not have the appropriate insurance. We will need to refer her to the [facility] ID office for financial assistance for outpatient treatment until she can obtain insurance. She would also benefit from a complex case manager, and possibly psych rehab or [facility]. 12/14 - Continue current medications - unclear if clouding is due to medication side effects or a result of limited activity and engagement today - Minimally productive family meeting held yesterday - still requires a large amount of aftercare planning 12/15 -Today, the patient tells me that, if anything, she is feeling less "spacey" than she had prior to the admission, and thinks that perhaps olanzapine has been helpful to her in terms of helping her mood and helping her feel more "together." -We will increase the dose of olanzapine to 5 mg daily at bedtime. (2) Depression: 12/12 -continue escitalopram, which was increased to 10 mg today. Encourage the patient to be out of bed and attending and participating in groups. -Patient reports ongoing suicidal thoughts, and encouraged her to notify staff if they are worsening or if she is feeling unsafe, which she agreed to do. -Reviewing history, patient appears to have dependent personality traits, given pattern of going to excessive lengths to obtain nurturance and support for others. 12/13 -patient is reporting improved mood today, but low threshold to increase the dose of escitalopram if mood does not continue to improve. 12/14 - Continue escitalopram 10mg - consider further titration, admits mood is improving, though affect if not consistent with reports 12/15 -While the patient does report that her mood has improved somewhat and that she has been less depressed, it would seem unlikely that this is attributable to the Lexapro on day four. An option would be to increase the dose of Lexapro to a dose of 15-20 mg daily, and the patient does indicate that she is tolerating Lexapro well. However, following discussion with her, she tells me that she feels fairly strongly that of all the medication she is ever taken venlafaxine (dose unspecified dose (has been the most effective in terms of addressing her anxiety, her depression, and her "low energy." She told me that she would like a trial of venlafaxine at this point and I agreed to begin venlafaxine extended release 75 mg a day and discontinue escitalopram. (3) Low body mass index (BMI): 12/11 - Will flag for dietary consult - Observe meal trays with each meal - Weights 3X per week 12/12 -There appears to be both an eating disorder component (taking supplements to speed up metabolism), as well as decreased p.o. intake as a result of delusions (that she has diabetes, that she cannot eat meat due to a heart condition). Continue to monitor intake and encourage adequate fluids and food. 12/15 -The patient does seem to have some insight into the risks associated with her low body weight, and today she was able to accept that lab testing is not consistent with diabetes. She has been eating 100% of her meals on the unit, with support and encouragement from staff. Inventory Assets Strengths: Has friends with whom she can stay, willing for treatment Needs: Outpatient treatment, improved nutrition, antipsychotic medication Risk Factors Assessment Male: No : Yes Do You Have Access To A Gun?: No Health Problems: Yes Mental Health Diagnoses: Yes Substance Use Disorders: No Previous Attempt: No Family History of Suicide: No Previous Psychiatric Hospitalization: No Protective Factors Assessment : No Responsible for Young Children: No Employed: No Stable Relationships: No Supportive Family: No Interval History Identifying Information CAROL BUSTOS is a 38-year-old F who returned to [place] from [place] last , presented to the ED at the encouragement of friends due to feeling unable to speak or function. She is admitted voluntarily. Information gathered by the patient is considered to be reliable. Chief Complaint "I feel spacey". Review of Systems Sleep Information Total Hours of Sleep: 9.75 Sleep Comments: pt on q-15 minute checks Meal Information Percent Meal Consumed - Breakfast: 100 Percent Meal Consumed - Lunch: 100 Percent Meal Consumed - Dinner: 100 Medication Trials Risperidone Aripiprazole Venlafaxine Sertraline Subjective Subjective Patient was seen & assessed and interval progress reviewed with Treatment Team. I met with the patient individually in order to assess her current mental status, evaluate her response to treatment, make any necessary adjustments in her medication regimen and the patient, and address issues and concerns that may arise. The patient spontaneously tells me that she was admitted to the hospital after she came to [facility] from [facility] where she had been living with her boyfriend. She tells me that after arriving in [facility] where she is living with an old friend and her friend's , she began to feel a pressure in her head, difficulty coordinating her movements, inability to identify or form words, and gross confusion that persisted. She tells us that this lasted for "several days" but has improved since entering the hospital. Nevertheless, she continues to report that she feels "spacey" and "out of it." She attributes this to "[her] diabetes," and when I pointed out to her that she does not carry a diagnosis of diabetes and, in fact, her blood sugar was 78 at admission, the patient tells me that "I can just sense that my blood sugar is elevated." Patient also notes that she has been told that her diagnosis was "psychosis," and that, more recently, she was told that her diagnosis was "paranoid schizophrenia." She acknowledges that when she was living in [place], and at other times, she has felt as if she is being watched and, potentially threatened. For example, she describes situations such as hearing a motorcycle engine being gone and and worrying that that is a signal that she is in some sort of danger. She also tells me that she has had to leave jobs because she feels that people are watching her, trying to play tricks on her, or sabotaging her work. However, she reports that she has never experienced any perceptual disturbances, and she also reports that she feels that much of her time her mood has been depressed, particularly since her early 20s. During today's interview she was tearful on several occasions, for example when discussing the fact that she is from her children. She is also tearful while discussing the fact that her father tends to act as if he is angry or disappointed with her. There were also tears exhibited when she discussed her failed marriage and problems in her relationship with her boyfriend and saw. We reviewed the patient's medication history. She indicates that she has taken aripiprazole and risperidone in the past, but does not remember that they helped particularly. She does say that she feels that olanzapine has been somewhat helpful in organizing her thoughts and in improving her mood. The patient also says that of all the medication she is ever taken, venlafaxine is the one that seems to have helped her the most, both in terms of depression and anxiety. She has "I seem to have more energy and think more clearly when I take Effexor." We discussed several treatment options, the patient said that she would be interested in trying a somewhat higher dose of olanzapine and switching to venlafaxine from Lexapro, even though she does note that her mood has improved slightly since arriving at the hospital. Medication Trials Risperidone Aripiprazole Venlafaxine Sertraline Physical Exam Psychiatric Orientation: oriented x 3 Apperance: appropriately dressed The patient is mildly disheveled and significantly underweight. She reports that her appetite has been poor and, as above, she worries that she will develop "diabetes." Eye Contact: + fair eye contact Motor Behavior: + psychomotor retardation The patient's speech is spontaneous, but somewhat slowed and fairly soft. Affect: + depressed affect and + tearful affect Mood: + depressed mood and + anxious mood Thought Process: + looseness of associations (The patient will appear to be following a train of thought, but then will gradually slipping into a topic that is illogical, disconnected, or unable to be understood. She does respond to external structure.) Thought Content: + delusions (The patient tells me that she has diabetes, even though her blood sugars are consistently normal and she has never been told she has diabetes. She also tells me that when she went to the hospital for nausea they hooked her up to an IV "and gave me an ." She talks about believing that other people follow her, watch her, and may be making threatening gestures towards her.) and + derealization Suicidal Thoughts: denies suicidal thoughts The patient acknowledges that she has had suicidal thoughts in the past and Homicidal Thoughts: denies homicidal thoughts Hallucinations: no auditory hallucinations, no visual hallucinations, no tactile hallucinations and no gustatory hallucinations Cognition: recent memory grossly intact, remote memory grossly intact and language grossly intact Estimated Intelligence: average estimated intelligence Insight: + impaired insight Judgement: + poor judgement Vital Signs (Past 24 Hours) Last Vital Signs Temp 36.3 C L 12/15/18 06:45 Pulse 102 H 12/15/18 06:46 Resp 16 12/15/18 06:45 BP 84/54 L 12/15/18 06:46 Pulse Ox 98 12/11/18 04:30 Results & Data Current Inpatient Medications Current Inpatient Medications: Current Inpatient Medications Acetaminophen (Tylenol) 650 mg PO Q4H PRN PRN Reason: Headache or Minor Fever Stop: 01/10/19 03:53 Al Hydrox/Mg Hydrox/Simethicone (Maalox) 30 ml PO Q4H PRN PRN Reason: GI Upset Stop: 01/10/19 03:53 Last Admin: 12/11/18 08:32 Dose: 30 ml Documented by: Bismuth Subsalicylate (Kaopectate) 15 ml PO PRN PRN PRN Reason: Loose Stool Stop: 01/10/19 03:53 Hydroxyzine HCl (Vistaril) 50 mg PO HSZ PRN PRN Reason: Insomnia Stop: 01/10/19 03:53 Hydroxyzine HCl (Vistaril) 25 mg PO Q4H PRN PRN Reason: Anxiety Stop: 01/10/19 03:53 Magnesium Hydroxide (Milk Of Magnesia) 30 ml PO DAILY PRN PRN Reason: Constipation Stop: 01/10/19 03:53 Nicotine Polacrilex (Nicorette 2mg) 1 piece MT PRN PRN PRN Reason: cravings Stop: 01/11/19 09:24 Last Admin: 12/13/18 18:19 Dose: 1 piece Documented by: Olanzapine (Zyprexa) 2.5 mg PO TID PRN PRN Reason: psychosis Stop: 01/10/19 13:59 Olanzapine (Zyprexa) 5 mg PO HS ABHIJEET Stop: 01/14/19 21:59 Sodium Chloride (Pleak Nasal) 1 - 2 sprays NA PRN PRN PRN Reason: Nasal Dryness/Congestion Stop: 01/10/19 03:53 Venlafaxine HCl (Effexor Extended Release) 75 mg PO QAM ABHIJEET Stop: 01/15/19 08:59 Post Discharge Appointments Therapist Name of Therapist: denies Ditch Tender Name of Ditch Tender: [facility] Contact Information Discharge Discharge Address: [address] [place] [address] CPT Code CPT Code 86189 (1) Schizophrenia Schizophrenia type: paranoid schizophrenia Qualified Code(s): F20.0 - Paranoid schizophrenia
[2018-12-15] MEDS: OLANZapine 5 MG TABLET PO SCH (21:33)
[2018-12-16] MEDS: VENLAFAXINE HCL XR 75 MG CAPXR PO SCH (08:51)
[2018-12-16] MEDS: NICOTINE POLACRILEX 2 MG GUM MT PRN (10:16)
--- NOTE | 2018-12-16 16:04 | Psychiatric Progress Note ---
Date of Service December 16, 2018 Impression / Recommendations Impression The patient is a 38-year-old woman who reportedly carries a diagnosis of schizophrenia (paranoid type). At the same time, she presents with significant symptoms of depression. Her affect is blunted and at times tearful. Much of the patient's thought content demonstrates hopelessness, helplessness, and a number of depressive themes. She has some insight into the fact that she is underweight and realizes that it is dangerous for her to not eat regularly and maintain normal body weight. At the same time, she continues to harbor delusional believes, such as the belief that she has diabetes and needs to avoid calorie intake in order to avoid elevated blood sugars. Today, she is able to discuss paranoid believes in the past tense, at least in reference to certain past events and circumstances. At the same time, she does continue to harbor certain delusional believes. For example, today she tells me that she was given a "secret" that she only learned about retrospectively from her sister. Her report is that she would not do the hospital, complained of nausea, was hooked up to an IV, and was given " medicine" through the IV. I am equally impressed with the patient's level of depression and her level of psychosis. In fact, if anything, she appears more depressed than thought disordered. Today, the patient tells me that she does feel that olanzapine has been helpful in organizing her thoughts and she has been "less spacey" and more organized since beginning to take it. She also feels that she has been somewhat less depressed. She was recently started on Lexapro, and while her report is that she has been somewhat less depressed, it seems unlikely that her improvement is secondary to the Lexapro 10 mg daily. Her report is that she has, in the past, responded favorably to the venlafaxine. She notes that she tends to have more energy with venlafaxine, is less anxious, less depressed, and may feel "more normal." Accordingly, I am recommending that we discontinue Lexapro 10 mg daily, in favor of venlafaxine extended release 75 mg daily, and titrate as indicated. We will also increase her dose of olanzapine from a dose of 2.5 mg at bedtime to a dose of 5 mg at bedtime. I reviewed the material risks and anticipated benefit of both of these medications with the patient, and she indicated understanding. I believe the patient's correct diagnosis may be schizoaffective disorder, depressed type. This may also be a somewhat atypical case of major depressive disorder, severe, with psychotic features. (1) Schizophrenia: 12/11 - Start Zyprexa 2.5 mg HS and 2.5 mg TID prn - FLP and FBS for monitoring on atypicals - Reality testing - Obtain last records from [facility] - Will need aftercare - Family meeting if indicated - Reality testing - Q 15 min checks for safety - Encourage participation in group and individual counseling - Safety planning 12/12 - Continue olanzapine 2.5 mg at bedtime, and titrate as tolerated. Fasting glucose and lipid profile within normal limits. - Family meeting with friends who she is living with locally. - Social work to continue to explore options for aftercare, will need additional insurance coverage or financial assistance from the [facility]. 12/13 -Continue current dose of olanzapine, as she continues to report feeling "spaced out" and intermittent dizziness, which may be side effects. She has not been focused on her delusions here, but will need to engage her in talking about these more while working on discharge plans. -Family meeting with friends she has been living with in [place] today. -She will need outpatient care, but currently does not have the appropriate insurance. We will need to refer her to the [facility] ID office for financial assistance for outpatient treatment until she can obtain insurance. She would also benefit from a transplant case manager, and possibly psych rehab or [facility]. 12/14 - Continue current medications - unclear if clouding is due to medication side effects or a result of limited activity and engagement today - Minimally productive family meeting held yesterday - still requires a large amount of aftercare planning 12/15 -Today, the patient tells me that, if anything, she is feeling less "spacey" than she had prior to the admission, and thinks that perhaps olanzapine has been helpful to her in terms of helping her mood and helping her feel more "together." -We will increase the dose of olanzapine to 5 mg daily at bedtime. 12/16 maintained meds given changes from yesterday and responses to date, consider further increase of olanzapine (2) Depression: 12/12 -continue escitalopram, which was increased to 10 mg today. Encourage the patient to be out of bed and attending and participating in groups. -Patient reports ongoing suicidal thoughts, and encouraged her to notify staff if they are worsening or if she is feeling unsafe, which she agreed to do. -Reviewing history, patient appears to have dependent personality traits, given pattern of going to excessive lengths to obtain nurturance and support for others. 12/13 -patient is reporting improved mood today, but low threshold to increase the dose of escitalopram if mood does not continue to improve. 12/14 - Continue escitalopram 10mg - consider further titration, admits mood is improving, though affect if not consistent with reports 12/15 -While the patient does report that her mood has improved somewhat and that she has been less depressed, it would seem unlikely that this is attributable to the Lexapro on day four. An option would be to increase the dose of Lexapro to a dose of 15-20 mg daily, and the patient does indicate that she is tolerating Lexapro well. However, following discussion with her, she tells me that she feels fairly strongly that of all the medication she is ever taken venlafaxine (dose unspecified dose (has been the most effective in terms of addressing her anxiety, her depression, and her "low energy." She told me that she would like a trial of venlafaxine at this point and I agreed to begin venlafaxine extended release 75 mg a day and discontinue escitalopram. (3) Low body mass index (BMI): 12/11 - Will flag for dietary consult - Observe meal trays with each meal - Weights 3X per week 12/12 -There appears to be both an eating disorder component (taking supplements to speed up metabolism), as well as decreased p.o. intake as a result of delusions (that she has diabetes, that she cannot eat meat due to a heart condition). Continue to monitor intake and encourage adequate fluids and food. 12/15 -The patient does seem to have some insight into the risks associated with her low body weight, and today she was able to accept that lab testing is not consistent with diabetes. She has been eating 100% of her meals on the unit, with support and encouragement from staff. 12/16 continued to encouagee full po intake and reassure lack of DM concerns Inventory Assets Strengths: Has friends with whom she can stay, willing for treatment Needs: Outpatient treatment, improved nutrition, antipsychotic medication Risk Factors Assessment Male: No : Yes Do You Have Access To A Gun?: No Health Problems: Yes Mental Health Diagnoses: Yes Substance Use Disorders: No Previous Attempt: No Family History of Suicide: No Previous Psychiatric Hospitalization: No Protective Factors Assessment : No Responsible for Young Children: No Employed: No Stable Relationships: No Supportive Family: No Interval History Identifying Information CAROL BUSTOS is a 38-year-old F who returned to [place] from [place] last , presented to the ED at the encouragement of friends due to feeling unable to speak or function. She is admitted voluntarily. Information gathered by the patient is considered to be reliable. Chief Complaint "my spacines improved earleir today. Review of Systems Sleep Information Total Hours of Sleep: 7.5 Sleep Comments: pt on q-15 minute checks Meal Information Percent Meal Consumed - Breakfast: 75 Percent Meal Consumed - Lunch: 75 Percent Meal Consumed - Dinner: 90 Nutrition Comment: pt. reported she ate 75% but it appears she ate 100% Medication Trials Risperidone Aripiprazole Venlafaxine Sertraline Subjective Subjective Patient was seen & assessed and interval progress reviewed with nurses and social media director. Pt endorsed having her spaciness be milder today and improved by noon today instead of improving only in the evening the other day. She is comfortable with the med changes to date and denied s/e to the Meds. She thinks her anxiety is lessening and she seems to be less fixated in her paranoid delusional thinking. When telegraphic typewriter operator chief reviewed that she does not have DM she inquired why does her boost indicated glycemic controlled version and I reviewed how is tied to the hospital supply verus her being ordered it for her needing the GC version. Pt reported ok on that response but telegraphic typewriter operator chief is not sure if she accepted it. Pt earning 75-100 of recent meals. Seep intact. pt denied AH or VH. reported mood was ok this morning. Staff reported some concerns about her organization including today. denied eps or akathasia Medication Trials Risperidone Aripiprazole Venlafaxine Sertraline Physical Exam Psychiatric Orientation: alert, oriented x 3 and cooperative (vague in responses, only minimal participation) Apperance: appropriately dressed, appropriately groomed and appeared stated age Eye Contact: + fair eye contact Motor Behavior: steady gait and station, no abnormal motor movements (observed while laying in bed) and + psychomotor retardation Speech: normal rate/rhythm/volume of speech Affect: + depressed affect, + anxious affect and + constricted affect Mood: + anxious mood Thought Process: goal directed thought process Thought Content: + delusions (The patient tells me that she has diabetes, even though her blood sugars are consistently normal and she has never been told she has diabetes. She also tells me that when she went to the hospital for nausea they hooked her up to an IV "and gave me an ." She talks about believing that other people follow her, watch her, and may be making threatening gestures towards her.) and + derealization Suicidal Thoughts: denies suicidal thoughts Homicidal Thoughts: denies homicidal thoughts Hallucinations: no auditory hallucinations, no visual hallucinations, no tactile hallucinations and no gustatory hallucinations Cognition: recent memory grossly intact, remote memory grossly intact, attention grossly intact and language grossly intact Estimated Intelligence: average estimated intelligence Insight: + impaired insight Judgement: + poor judgement and + impaired judgement Vital Signs (Past 24 Hours) Last Vital Signs Temp 36.5 C 12/16/18 07:19 Pulse 112 H 12/16/18 07:20 Resp 16 12/16/18 07:19 BP 87/56 L 12/16/18 07:20 Pulse Ox 98 12/11/18 04:30 Results & Data Current Inpatient Medications Current Inpatient Medications: Current Inpatient Medications Acetaminophen (Tylenol) 650 mg PO Q4H PRN PRN Reason: Headache or Minor Fever Stop: 01/10/19 03:53 Al Hydrox/Mg Hydrox/Simethicone (Maalox) 30 ml PO Q4H PRN PRN Reason: GI Upset Stop: 01/10/19 03:53 Last Admin: 12/11/18 08:32 Dose: 30 ml Documented by: Bismuth Subsalicylate (Kaopectate) 15 ml PO PRN PRN PRN Reason: Loose Stool Stop: 01/10/19 03:53 Hydroxyzine HCl (Vistaril) 50 mg PO HSZ PRN PRN Reason: Insomnia Stop: 01/10/19 03:53 Hydroxyzine HCl (Vistaril) 25 mg PO Q4H PRN PRN Reason: Anxiety Stop: 01/10/19 03:53 Magnesium Hydroxide (Milk Of Magnesia) 30 ml PO DAILY PRN PRN Reason: Constipation Stop: 01/10/19 03:53 Nicotine Polacrilex (Nicorette 2mg) 1 piece MT PRN PRN PRN Reason: cravings Stop: 01/11/19 09:24 Last Admin: 12/16/18 10:16 Dose: 1 piece Documented by: Olanzapine (Zyprexa) 2.5 mg PO TID PRN PRN Reason: psychosis Stop: 01/10/19 13:59 Olanzapine (Zyprexa) 5 mg PO HS ABHIJEET Stop: 01/14/19 21:59 Last Admin: 12/15/18 21:33 Dose: 5 mg Documented by: Sodium Chloride (Corn Nasal) 1 - 2 sprays NA PRN PRN PRN Reason: Nasal Dryness/Congestion Stop: 01/10/19 03:53 Venlafaxine HCl (Effexor Extended Release) 75 mg PO QAM ABHIJEET Stop: 01/15/19 08:59 Last Admin: 12/16/18 08:51 Dose: 75 mg Documented by: Post Discharge Appointments Therapist Name of Therapist: denies Principal Investigator Name of Principal Investigator: Denies Contact Information Discharge Discharge Address: [address] [place] [address] CPT Code CPT Code 26030 (1) Schizophrenia Schizophrenia type: paranoid schizophrenia Qualified Code(s): F20.0 - Paranoid schizophrenia
[2018-12-16] MEDS: OLANZapine 5 MG TABLET PO SCH (21:27)
[2018-12-17] MEDS: VENLAFAXINE HCL XR 75 MG CAPXR PO SCH (08:26)
[2018-12-17] MEDS: NICOTINE POLACRILEX 2 MG GUM MT PRN ×2 (09:08→16:54)
--- NOTE | 2018-12-17 11:26 | Psychiatric Progress Note ---
Date of Service December 17, 2018 Impression / Recommendations Impression The patient is a 38-year-old woman who reportedly carries a diagnosis of schizophrenia (paranoid type). At the same time, she presents with significant symptoms of depression. Her affect is blunted and at times tearful. Much of the patient's thought content demonstrates hopelessness, helplessness, and a number of depressive themes. She has some insight into the fact that she is underweight and realizes that it is dangerous for her to not eat regularly and maintain normal body weight. At the same time, she continues to harbor delusional believes, such as the belief that she has diabetes and needs to avoid calorie intake in order to avoid elevated blood sugars. Today, she is able to discuss paranoid believes in the past tense, at least in reference to certain past events and circumstances. At the same time, she does continue to harbor certain delusional believes. For example, today she tells me that she was given a "secret" that she only learned about retrospectively from her sister. Her report is that she would not do the hospital, complained of nausea, was hooked up to an IV, and was given " medicine" through the IV. I am equally impressed with the patient's level of depression and her level of psychosis. In fact, if anything, she appears more depressed than thought disordered. Today, the patient tells me that she does feel that olanzapine has been helpful in organizing her thoughts and she has been "less spacey" and more organized since beginning to take it. She also feels that she has been somewhat less depressed. She was recently started on Lexapro, and while her report is that she has been somewhat less depressed, it seems unlikely that her improvement is secondary to the Lexapro 10 mg daily. Her report is that she has, in the past, responded favorably to the venlafaxine. She notes that she tends to have more energy with venlafaxine, is less anxious, less depressed, and may feel "more normal." Accordingly, I am recommending that we discontinue Lexapro 10 mg daily, in favor of venlafaxine extended release 75 mg daily, and titrate as indicated. We will also increase her dose of olanzapine from a dose of 2.5 mg at bedtime to a dose of 5 mg at bedtime. I reviewed the material risks and anticipated benefit of both of these medications with the patient, and she indicated understanding. I believe the patient's correct diagnosis may be schizoaffective disorder, depressed type. This may also be a somewhat atypical case of major depressive disorder, severe, with psychotic features. (1) Schizophrenia: 12/11 - Start Zyprexa 2.5 mg HS and 2.5 mg TID prn - FLP and FBS for monitoring on atypicals - Reality testing - Obtain last records from [facility] - Will need aftercare - Family meeting if indicated - Reality testing - Q 15 min checks for safety - Encourage participation in group and individual counseling - Safety planning 12/12 - Continue olanzapine 2.5 mg at bedtime, and titrate as tolerated. Fasting glucose and lipid profile within normal limits. - Family meeting with friends who she is living with locally. - Social work to continue to explore options for aftercare, will need additional insurance coverage or financial assistance from the [facility]. 12/13 -Continue current dose of olanzapine, as she continues to report feeling "spaced out" and intermittent dizziness, which may be side effects. She has not been focused on her delusions here, but will need to engage her in talking about these more while working on discharge plans. -Family meeting with friends she has been living with in [place] today. -She will need outpatient care, but currently does not have the appropriate insurance. We will need to refer her to the [facility] ID office for financial assistance for outpatient treatment until she can obtain insurance. She would also benefit from a case specialist, and possibly psych rehab or [facility]. 12/14 - Continue current medications - unclear if clouding is due to medication side effects or a result of limited activity and engagement today - Minimally productive family meeting held yesterday - still requires a large amount of aftercare planning 12/15 -Today, the patient tells me that, if anything, she is feeling less "spacey" than she had prior to the admission, and thinks that perhaps olanzapine has been helpful to her in terms of helping her mood and helping her feel more "together." -We will increase the dose of olanzapine to 5 mg daily at bedtime. 12/16 maintained meds given changes from yesterday and responses to date, consider further increase of olanzapine 12/17 raised olanzapine to 7.5mg hs, maintained venflaxine er at 75mg daily (2) Depression: 12/12 -continue escitalopram, which was increased to 10 mg today. Encourage the patient to be out of bed and attending and participating in groups. -Patient reports ongoing suicidal thoughts, and encouraged her to notify staff if they are worsening or if she is feeling unsafe, which she agreed to do. -Reviewing history, patient appears to have dependent personality traits, given pattern of going to excessive lengths to obtain nurturance and support for others. 12/13 -patient is reporting improved mood today, but low threshold to increase the dose of escitalopram if mood does not continue to improve. 12/14 - Continue escitalopram 10mg - consider further titration, admits mood is improving, though affect if not consistent with reports 12/15 -While the patient does report that her mood has improved somewhat and that she has been less depressed, it would seem unlikely that this is attributable to the Lexapro on day four. An option would be to increase the dose of Lexapro to a dose of 15-20 mg daily, and the patient does indicate that she is tolerating Lexapro well. However, following discussion with her, she tells me that she feels fairly strongly that of all the medication she is ever taken venlafaxine (dose unspecified dose (has been the most effective in terms of addressing her anxiety, her depression, and her "low energy." She told me that she would like a trial of venlafaxine at this point and I agreed to begin venlafaxine extended release 75 mg a day and discontinue escitalopram. (3) Low body mass index (BMI): 12/11 - Will flag for dietary consult - Observe meal trays with each meal - Weights 3X per week 12/12 -There appears to be both an eating disorder component (taking supplements to speed up metabolism), as well as decreased p.o. intake as a result of delusions (that she has diabetes, that she cannot eat meat due to a heart condition). Continue to monitor intake and encourage adequate fluids and food. 12/15 -The patient does seem to have some insight into the risks associated with her low body weight, and today she was able to accept that lab testing is not consistent with diabetes. She has been eating 100% of her meals on the unit, wi th support and encouragement from staff. 12/16 continued to encouraged po intake and reassure lack of DM concerns 12/17 plan unchanged Inventory Assets Strengths: Has friends with whom she can stay, willing for treatment Needs: Outpatient treatment, improved nutrition, antipsychotic medication Risk Factors Assessment Male: No : Yes Do You Have Access To A Gun?: No Health Problems: Yes Mental Health Diagnoses: Yes Substance Use Disorders: No Previous Attempt: No Family History of Suicide: No Previous Psychiatric Hospitalization: No Protective Factors Assessment : No Responsible for Young Children: No Employed: No Stable Relationships: No Supportive Family: No Interval History Identifying Information CAROL BUSTOS is a 38-year-old F who returned to [place] from [place] last , presented to the ED at the encouragement of friends due to feeling unable to speak or function. She is admitted voluntarily. Information gathered by the patient is considered to be reliable. Chief Complaint "I was spacey this morning". Review of Systems Sleep Information Total Hours of Sleep: 7 Sleep Comments: pt on q-15 minute checks Meal Information Percent Meal Consumed - Breakfast: 100 Percent Meal Consumed - Lunch: 75 Percent Meal Consumed - Dinner: 75 Nutrition Comment: pt. reported she ate 75% but it appears she ate 100% Medication Trials Risperidone Aripiprazole Venlafaxine Sertraline Subjective Subjective Patient was seen & assessed and interval progress reviewed with nurses. Pt endorsed times of various spaceiness during which her concentration is worsened and tasks like reading is harder for her. Staff noted that at times yesterday interactions with her were limited and pt would provide more yes or no responses to questions at such times. She did not complete her goals of showering by self or doing her laundry per staff. However, she indicated to staff that she read some yesterday. This morning she was struggling to read the newspaper. PT is still quite weary of DM and elevated blood sugar concerns. She does not view herself as having paranoid thinking and she thinks her anxiety is at her usual somewhat anxious baseline. She reports her depression has improved from a week or so ago and similar to yesterday. She denied SI or HI. She denied s/e to her Meds. She shared that she vapes significant throughout the day and can use up to 2 cartridges with her vape a day and that she thinks her spaceyness is impacted by not having that. She is using the nicotine gum Medication Trials Risperidone Aripiprazole Venlafaxine Sertraline Physical Exam Psychiatric Orientation: alert, oriented x 3 and cooperative (vague in responses, only mini mal participation) Apperance: appropriately dressed, appropriately groomed and appeared stated age Eye Contact: + fair eye contact Motor Behavior: steady gait and station and no abnormal motor movements (observed while laying in bed) Speech: normal rate/rhythm/volume of speech Affect: + constricted affect similar to yesterday Thought Process: goal directed thought process Thought Content: + delusions (The patient tells me that she has diabetes, even though her blood sugars are consistently normal and she has never been told she has diabetes. She also tells me that when she went to the hospital for nausea they hooked her up to an IV "and gave me an ." She talks about believing that other people follow her, watch her, and may be making threatening gestures towards her.) and + derealization Suicidal Thoughts: denies suicidal thoughts and denies suicidal intent; + reports suicidal plan Homicidal Thoughts: denies homicidal thoughts Hallucinations: no auditory hallucinations, no visual hallucinations, no tactile hallucinations and no gustatory hallucinations Cognition: recent memory grossly intact and language grossly intact concentration with some impairment Estimated Intelligence: average estimated intelligence Insight: + impaired insight Judgement: + impaired judgement Vital Signs (Past 24 Hours) Last Vital Signs Temp 36.7 C 12/17/18 06:53 Pulse 90 12/17/18 06:55 Resp 16 12/17/18 06:53 BP 73/48 L 12/17/18 06:55 Pulse Ox 98 12/11/18 04:30 Results & Data Current Inpatient Medications Current Inpatient Medications: Current Inpatient Medications Acetaminophen (Tylenol) 650 mg PO Q4H PRN PRN Reason: Headache or Minor Fever Stop: 01/10/19 03:53 Al Hydrox/Mg Hydrox/Simethicone (Maalox) 30 ml PO Q4H PRN PRN Reason: GI Upset Stop: 01/10/19 03:53 Last Admin: 12/11/18 08:32 Dose: 30 ml Documented by: Bismuth Subsalicylate (Kaopectate) 15 ml PO PRN PRN PRN Reason: Loose Stool Stop: 01/10/19 03:53 Hydroxyzine HCl (Vistaril) 50 mg PO HSZ PRN PRN Reason: Insomnia Stop: 01/10/19 03:53 Hydroxyzine HCl (Vistaril) 25 mg PO Q4H PRN PRN Reason: Anxiety Stop: 01/10/19 03:53 Magnesium Hydroxide (Milk Of Magnesia) 30 ml PO DAILY PRN PRN Reason: Constipation Stop: 01/10/19 03:53 Nicotine Polacrilex (Nicorette 2mg) 1 piece MT PRN PRN PRN Reason: cravings Stop: 01/11/19 09:24 Last Admin: 12/17/18 09:08 Dose: 1 piece Documented by: Olanzapine (Zyprexa) 2.5 mg PO TID PRN PRN Reason: psychosis Stop: 01/10/19 13:59 Olanzapine (Zyprexa) 7.5 mg PO HS ABHIJEET Stop: 01/16/19 21:59 Sodium Chloride ([place] Nasal) 1 - 2 sprays NA PRN PRN PRN Reason: Nasal Dryness/Congestion Stop: 01/10/19 03:53 Venlafaxine HCl (Effexor Extended Release) 75 mg PO QAM ABHIJEET Stop: 01/15/19 08:59 Last Admin: 12/17/18 08:26 Dose: 75 mg Documented by: Post Discharge Appointments Therapist Name of Therapist: denies Shell Assembler Name of Shell Assembler: Denies Contact Information Discharge Discharge Address: [address] [place] [address] CPT Code CPT Code 84470 (1) Schizophrenia Schizophrenia type: paranoid schizophrenia Qualified Code(s): F20.0 - Paranoid schizophrenia
[2018-12-17] MEDS: NICOTINE 14 MG/24 HR PATCH TD SCH (12:47)
[2018-12-17] MEDS: OLANZapine 5 MG TABLET PO SCH (21:10)
[2018-12-18] MEDS: NICOTINE 14 MG/24 HR PATCH TD SCH (08:34)
[2018-12-18] MEDS: VENLAFAXINE HCL XR 75 MG CAPXR PO SCH (08:34)
--- NOTE | 2018-12-18 09:33 | Psychiatric Progress Note ---
Date of Service December 18, 2018 Impression / Recommendations Impression Slow progress but still with somatic delusions, most recently that she is , but able to reality test. Social service is working on arranging aftercare through the [facility] as she only has Medicare inpatient, and will likely be referred to [facility], where she has been seen before. She notes that her mood is not where she wants it to be so will increase Effexor XR to 112.5 mg daily (1) Schizophrenia: 12/11 - Start Zyprexa 2.5 mg HS and 2.5 mg TID prn - FLP and FBS for monitoring on atypicals - Reality testing - Obtain last records from [facility] - Will need aftercare - Family meeting if indicated - Reality testing - Q 15 min checks for safety - Encourage participation in group and individual counseling - Safety planning 12/12 - Continue olanzapine 2.5 mg at bedtime, and titrate as tolerated. Fasting glucose and lipid profile within normal limits. - Family meeting with friends who she is living with locally. - Social work to continue to explore options for aftercare, will need additional insurance coverage or financial assistance from the [facility]. 12/13 -Continue current dose of olanzapine, as she continues to report feeling "spaced out" and intermittent dizziness, which may be side effects. She has not been focused on her delusions here, but will need to engage her in talking about these more while working on discharge plans. -Family meeting with friends she has been living with in [place] today. -She will need outpatient care, but currently does not have the appropriate insurance. We will need to refer her to the [facility] ID office for financial assistance for outpatient treatment until she can obtain insurance. She would also benefit from a pillowcase maker, and possibly psych rehab or [facility]. 12/14 - Continue current medications - unclear if clouding is due to medication side effects or a result of limited activity and engagement today - Minimally productive family meeting held yesterday - still requires a large amount of aftercare planning 12/15 -Today, the patient tells me that, if anything, she is feeling less "spacey" than she had prior to the admission, and thinks that perhaps olanzapine has been helpful to her in terms of helping her mood and helping her feel more "together." -We will increase the dose of olanzapine to 5 mg daily at bedtime. 12/16 maintained meds given changes from yesterday and responses to date, consider further increase of olanzapine 12/17 raised olanzapine to 7.5mg hs, maintained venflaxine er at 75mg daily 12/18 -Continue current dose of olanzapine (2) Depression: 12/12 -continue escitalopram, which was increased to 10 mg today. Encourage the patient to be out of bed and attending and participating in groups. -Patient reports ongoing suicidal thoughts, and encouraged her to notify staff if they are worsening or if she is feeling unsafe, which she agreed to do. -Reviewing history, patient appears to have dependent personality traits, given pattern of going to excessive lengths to obtain nurturance and support for others. 12/13 -patient is reporting improved mood today, but low threshold to increase the dose of escitalopram if mood does not continue to improve. 12/14 - Continue escitalopram 10mg - consider further titration, admits mood is improving, though affect if not consistent with reports 12/15 -While the patient does report that her mood has improved somewhat and that she has been less depressed, it would seem unlikely that this is attributable to the Lexapro on day four. An option would be to increase the dose of Lexapro to a dose of 15-20 mg daily, and the patient does indicate that she is tolerating Lexapro well. However, following discussion with her, she tells me that she feels fairly strongly that of all the medication she is ever taken venlafaxine (dose unspecified dose (has been the most effective in terms of addressing her anxiety, her depression, and her "low energy." She told me that she would like a trial of venlafaxine at this point and I agreed to begin venlafaxine extended release 75 mg a day and discontinue escitalopram. 12/18 - Increase Effexor XR to 112.5 mg daily (3) Low body mass index (BMI): 12/11 - Will flag for dietary consult - Observe meal trays with each meal - Weights 3X per week 12/12 -There appears to be both an eating disorder component (taking supplements to speed up metabolism), as well as decreased p.o. intake as a result of delusions (that she has diabetes, that she cannot eat meat due to a heart condition). Continue to monitor intake and encourage adequate fluids and food. 12/15 -The patient does seem to have some insight into the risks associated with her low body weight, and today she was able to accept that lab testing is not consistent with diabetes. She has been eating 100% of her meals on the unit, with support and encouragement from staff. 12/16 continued to encouraged po intake and reassure lack of DM concerns 12/17 plan unchanged Inventory Assets Strengths: Has friends with whom she can stay, willing for treatment Needs: Outpatient treatment, improved nutrition, antipsychotic medication Risk Factors Assessment Male: No : Yes Do You Have Access To A Gun?: No Health Problems: Yes Mental Health Diagnoses: Yes Substance Use Disorders: No Previous Attempt: No Family History of Suicide: No Previous Psychiatric Hospitalization: No Protective Factors Assessment : No Responsible for Young Children: No Employed: No Stable Relationships: No Supportive Family: No Interval History Identifying Information MIRYAM BUSTOS is a 38-year-old F who returned to [place] from [place] last , presented to the ED at the encouragement of friends due to feeling unable to speak or function. She is admitted voluntarily. Information gathered by the patient is considered to be reliable. Chief Complaint "I think I'm better. ". Review of Systems Sleep Information Total Hours of Sleep: 7.5 Sleep Comments: pt on q-15 minute checks Meal Information Percent Meal Consumed - Breakfast: 90 Percent Meal Consumed - Lunch: 75 Percent Meal Consumed - Dinner: 100 Nutrition Comment: pt. reported she ate 75% but it appears she ate 100% Medication Trials Risperidone Aripiprazole Venlafaxine Sertraline Subjective Subjective Patient was seen & assessed and interval progress reviewed with Treatment Team. Miryam says that overall, she is feeling better in terms of not feeling "foggy" on the meds. She says that her mood is better, but thinks it still needs to improve. We reviewed information from staff that she was thinking she was based on a perception that she felt something moving in her RLQ. I reviewed neg preg test and she replied, "That's good.". She says that she is ea ting, and sleeping OK. She denies SI/HI, denies aud/vis hallucinations. Nursing reports that she has had more spontaneous interaction with staff and peers and has been out of her room more. She denies side effects to meds. Medication Trials Risperidone Aripiprazole Venlafaxine Sertraline Physical Exam Psychiatric Orientation: alert and cooperative Apperance: appropriately dressed and appropriately groomed Extremely lean Eye Contact: + fair eye contact Motor Behavior: steady gait and station and no abnormal motor movements Speech: normal rate/rhythm/volume of speech Affect: + flat affect Mood: + depressed mood Thought Process: goal directed thought process Thought Content: + cognitive distortions (misinterpreting abd sensations as being ) Suicidal Thoughts: denies suicidal thoughts Homicidal Thoughts: denies homicidal thoughts Hallucinations: no auditory hallucinations and no visual hallucinations Cognition: recent memory grossly intact, remote memory grossly intact, attention grossly intact and language grossly intact Estimated Intelligence: consistent with education level Insight: + impaired insight Judgement: + impaired judgement Vital Signs (Past 24 Hours) Last Vital Signs Temp 36.5 C 12/18/18 06:47 Pulse 99 H 12/18/18 06:49 Resp 16 12/18/18 06:47 BP 101/67 12/18/18 06:49 Pulse Ox 98 12/11/18 04:30 Results & Data Current Inpatient Medications Current Inpatient Medications: Current Inpatient Medications Acetaminophen (Tylenol) 650 mg PO Q4H PRN PRN Reason: Headache or Minor Fever Stop: 01/10/19 03:53 Al Hydrox/Mg Hydrox/Simethicone (Maalox) 30 ml PO Q4H PRN PRN Reason: GI Upset Stop: 01/10/19 03:53 Last Admin: 12/11/18 08:32 Dose: 30 ml Documented by: Bismuth Subsalicylate (Kaopectate) 15 ml PO PRN PRN PRN Reason: Loose Stool Stop: 01/10/19 03:53 Hydroxyzine HCl (Vistaril) 50 mg PO HSZ PRN PRN Reason: Insomnia Stop: 01/10/19 03:53 Hydroxyzine HCl (Vistaril) 25 mg PO Q4H PRN PRN Reason: Anxiety Stop: 01/10/19 03:53 Magnesium Hydroxide (Milk Of Magnesia) 30 ml PO DAILY PRN PRN Reason: Constipation Stop: 01/10/19 03:53 Miscellaneous (Remove Nicoderm Patch) 1 ea N/A HS [facility] Stop: 01/16/19 20:59 Last Admin: 12/18/18 00:24 Dose: Not Given Documented by: Nicotine (Nicoderm Cq) 14 mg TD QAM ABHIJEET Stop: 01/16/19 11:29 Last Admin: 12/18/18 08:34 Dose: 14 mg Documented by: Nicotine Polacrilex (Nicorette 2mg) 1 piece MT PRN PRN PRN Reason: cravings Stop: 01/11/19 09:24 Last Admin: 12/17/18 16:54 Dose: 1 piece Documented by: Olanzapine (Zyprexa) 2.5 mg PO TID PRN PRN Reason: psychosis Stop: 01/10/19 13:59 Olanzapine (Zyprexa) 7.5 mg PO HS ABHIJEET Stop: 01/16/19 21:59 Last Admin: 12/17/18 21:10 Dose: 7.5 mg Documented by: Sodium Chloride ([place] Nasal) 1 - 2 sprays NA PRN PRN PRN Reason: Nasal Dryness/Congestion Stop: 01/10/19 03:53 Venlafaxine HCl (Effexor Extended Release) 75 mg PO QAM ABHIJEET Stop: 01/15/19 08:59 Last Admin: 12/18/18 08:34 Dose: 75 mg Documented by: Post Discharge Appointments Therapist Name of Therapist: bobbi Fretted String Instrument Repairer Name of Fretted String Instrument Repairer: Bobbi Contact Information Discharge Discharge Address: [address] [place] [address] CPT Code CPT Code 51427 (1) Schizophrenia Schizophrenia type: paranoid schizophrenia Qualified Code(s): F20.0 - Paranoid schizophrenia
[2018-12-18] MEDS: NICOTINE POLACRILEX 2 MG GUM MT PRN (18:29)
[2018-12-18] MEDS: OLANZapine 5 MG TABLET PO SCH (21:06)
[2018-12-19] MEDS: NICOTINE 14 MG/24 HR PATCH TD SCH (08:03)
--- NOTE | 2018-12-19 08:14 | Psychiatric Progress Note ---
Date of Service December 19, 2018 Impression / Recommendations Impression Slow progress but still with somatic delusions, most recently that she is , but able to reality test. Social service is working on arranging aftercare through the [facility] as she only has Medicare inpatient, and will likely be referred to [facility], where she has been seen before. She notes that her mood is not where she wants it to be so will increase Effexor XR to 112.5 mg daily (1) Schizophrenia: 12/11 - Start Zyprexa 2.5 mg HS and 2.5 mg TID prn - FLP and FBS for monitoring on atypicals - Reality testing - Obtain last records from [facility] - Will need aftercare - Family meeting if indicated - Reality testing - Q 15 min checks for safety - Encourage participation in group and individual counseling - Safety planning 12/12 - Continue olanzapine 2.5 mg at bedtime, and titrate as tolerated. Fasting glucose and lipid profile within normal limits. - Family meeting with friends who she is living with locally. - Social work to continue to explore options for aftercare, will need additional insurance coverage or financial assistance from the [facility]. 12/13 -Continue current dose of olanzapine, as she continues to report feeling "spaced out" and intermittent dizziness, which may be side effects. She has not been focused on her delusions here, but will need to engage her in talking about these more while working on discharge plans. -Family meeting with friends she has been living with in [place] today. -She will need outpatient care, but currently does not have the appropriate insurance. We will need to refer her to the [facility] ID office for financial assistance for outpatient treatment until she can obtain insurance. She would also benefit from a nurse case manager, and possibly psych rehab or [facility]. 12/14 - Continue current medications - unclear if clouding is due to medication side effects or a result of limited activity and engagement today - Minimally productive family meeting held yesterday - still requires a large amount of aftercare planning 12/15 -Today, the patient tells me that, if anything, she is feeling less "spacey" than she had prior to the admission, and thinks that perhaps olanzapine has been helpful to her in terms of helping her mood and helping her feel more "together." -We will increase the dose of olanzapine to 5 mg daily at bedtime. 12/16 maintained meds given changes from yesterday and responses to date, consider further increase of olanzapine 12/17 raised olanzapine to 7.5mg hs, maintained venflaxine er at 75mg daily 12/18 -Continue current dose of olanzapine (2) Depression: 12/12 -continue escitalopram, which was increased to 10 mg today. Encourage the patient to be out of bed and attending and participating in groups. -Patient reports ongoing suicidal thoughts, and encouraged her to notify staff if they are worsening or if she is feeling unsafe, which she agreed to do. -Reviewing history, patient appears to have dependent personality traits, given pattern of going to excessive lengths to obtain nurturance and support for others. 12/13 -patient is reporting improved mood today, but low threshold to increase the dose of escitalopram if mood does not continue to improve. 12/14 - Continue escitalopram 10mg - consider further titration, admits mood is improving, though affect if not consistent with reports 12/15 -While the patient does report that her mood has improved somewhat and that she has been less depressed, it would seem unlikely that this is attributable to the Lexapro on day four. An option would be to increase the dose of Lexapro to a dose of 15-20 mg daily, and the patient does indicate that she is tolerating Lexapro well. However, following discussion with her, she tells me that she feels fairly strongly that of all the medication she is ever taken venlafaxine (dose unspecified dose (has been the most effective in terms of addressing her anxiety, her depression, and her "low energy." She told me that she would like a trial of venlafaxine at this point and I agreed to begin venlafaxine extended release 75 mg a day and discontinue escitalopram. 12/18 - Increase Effexor XR to 112.5 mg daily (3) Low body mass index (BMI): 12/11 - Will flag for dietary consult - Observe meal trays with each meal - Weights 3X per week 12/12 -There appears to be both an eating disorder component (taking supplements to speed up metabolism), as well as decreased p.o. intake as a result of delusions (that she has diabetes, that she cannot eat meat due to a heart condition). Continue to monitor intake and encourage adequate fluids and food. 12/15 -The patient does seem to have some insight into the risks associated with her low body weight, and today she was able to accept that lab testing is not consistent with diabetes. She has been eating 100% of her meals on the unit, with support and encouragement from staff. 12/16 continued to encouraged po intake and reassure lack of DM concerns 12/17 plan unchanged Inventory Assets Strengths: Has friends with whom she can stay, willing for treatment Needs: Outpatient treatment, improved nutrition, antipsychotic medication Risk Factors Assessment Male: No : Yes Do You Have Access To A Gun?: No Health Problems: Yes Mental Health Diagnoses: Yes Substance Use Disorders: No Previous Attempt: No Family History of Suicide: No Previous Psychiatric Hospitalization: No Protective Factors Assessment : No Responsible for Young Children: No Employed: No Stable Relationships: No Supportive Family: No Interval History Identifying Information CAROL BUSTOS is a 38-year-old F who presented to the ED at the encouragement of friends due to feeling unable to speak or function. She is admitted voluntarily. Chief Complaint "[]". Review of Systems Sleep Information Total Hours of Sleep: 8.75 Sleep Comments: pt appeared to sleep 1.75 hrs during evening shift. pt on q-15 minute checks Meal Information Percent Meal Consumed - Breakfast: 90 Percent Meal Consumed - Lunch: 75 Percent Meal Consumed - Dinner: 75 Nutrition Comment: pt. reported she ate 75% but it appears she ate 100% Medication Trials Risperidone Aripiprazole Venlafaxine Sertraline Subjective Subjective Patient was seen & assessed and interval progress reviewed with Nursing and social work. Staff report she has been referred for a nurse case manager, and cannot get OP psychiatric care as she does not have insurance. Summary of Past History Diagnosed with schizophrenia during previous hospitalization here. Prior to that, she was diagnosed with depression. Previous hospitalizations here in 2013 and 2015. Medication Trials Risperidone Aripiprazole Venlafaxine Sertraline Physical Exam Vital Signs (Past 24 Hours) Last Vital Signs Temp 36.3 C L 12/19/18 06:56 Pulse 103 H 12/19/18 06:58 Resp 16 12/19/18 06:56 BP 75/46 L 12/19/18 06:58 Pulse Ox 98 12/11/18 04:30 Results & Data Current Inpatient Medications Current Inpatient Medications: Current Inpatient Medications Acetaminophen (Tylenol) 650 mg PO Q4H PRN PRN Reason: Headache or Minor Fever Stop: 01/10/19 03:53 Al Hydrox/Mg Hydrox/Simethicone (Maalox) 30 ml PO Q4H PRN PRN Reason: GI Upset Stop: 01/10/19 03:53 Last Admin: 12/11/18 08:32 Dose: 30 ml Documented by: Bismuth Subsalicylate (Kaopectate) 15 ml PO PRN PRN PRN Reason: Loose Stool Stop: 01/10/19 03:53 Hydroxyzine HCl (Vistaril) 50 mg PO HSZ PRN PRN Reason: Insomnia Stop: 01/10/19 03:53 Hydroxyzine HCl (Vistaril) 25 mg PO Q4H PRN PRN Reason: Anxiety Stop: 01/10/19 03:53 Magnesium Hydroxide (Milk Of Magnesia) 30 ml PO DAILY PRN PRN Reason: Constipation Stop: 01/10/19 03:53 Miscellaneous (Remove Nicoderm Patch) 1 ea N/A [facility] Stop: 01/16/19 20:59 Last Admin: 12/18/18 21:08 Dose: Not Given Documented by: Nicotine (Nicoderm Cq) 14 mg TD [facility] Stop: 01/16/19 11:29 Last Admin: 12/19/18 08:03 Dose: 14 mg Documented by: Nicotine Polacrilex (Nicorette 2mg) 1 piece MT PRN PRN PRN Reason: cravings Stop: 01/11/19 09:24 Last Admin: 12/18/18 18:29 Dose: 1 piece Documented by: Olanzapine (Zyprexa) 2.5 mg PO TID PRN PRN Reason: psychosis Stop: 01/10/19 13:59 Olanzapine (Zyprexa) 7.5 mg PO [facility] Stop: 01/16/19 21:59 Last Admin: 12/18/18 21:06 Dose: 7.5 mg Documented by: Sodium Chloride ([place] Nasal) 1 - 2 sprays NA PRN PRN PRN Reason: Nasal Dryness/Congestion Stop: 01/10/19 03:53 Venlafaxine HCl (Effexor Extended Release) 112.5 mg PO QAM [facility] Stop: 01/18/19 08:59 Last Admin: 12/19/18 08:03 Dose: 112.5 mg Documented by: Post Discharge Appointments Therapist Name of Therapist: denies Straight Ruling Machine Operator Name of Straight Ruling Machine Operator: Denies Contact Information Discharge Discharge Address: [address] [place] [address] CPT Code CPT Code 69332 [id number] (1) Schizophrenia Schizophrenia type: paranoid schizophrenia Qualified Code(s): F20.0 - Paranoid schizophrenia
[2018-12-19] MEDS ORDERED: VENLAFAXINE HCL XR 37.5 MG CAPXR PO SCH (09:00)
--- NOTE | 2018-12-19 09:05 | Discharge Summary ---
Date of Service December 19, 2018 History of Present Illness Miryam is a 38 yo female, last seen on our unit in 2016 with delusions that she was diabetic. After discharge in [address] Baptiste at [facility], but didn't like the meds she was being prescribed and so stopped going. About a year ago she moved to [place] for a new boyfriend and by her description had been doing well until recently when she began to feel more depressed. She says that her boyfriend has been more "meredith" which she felt was making her own mood worse, and she felt that "bikers" were intentionally stopping of the road nearest her dining room window and intentionally rev'ing their engines to bother her. She also felt that she could hear someone "banging around" on the roof. This led her to returning to [place] last and is now staying with some friends. Over the last 2 days, she describes herself as feeling increasingly tired, unable to function, describing "head pressure, like there is fluid running through it" leading her to feel unable to walk or speak for several hours. Her friends became concerned and brought her to the ED. Today the patient continues to describe herself as depressed and admits to having thoughts that "my life isn't worth living" and having suicidal thoughts to OD on meds or alcohol. She denies having made any attempts and doesn't think that she would have the courage to do so. ED notes indicate that her friends think that she started to deteriorate sometime around July 2018 when her parents wouldn't allow her to talk with her children, of whom they have custody. She reports that her sleep has been increased for at least the last 3 days. Her appetite is "not that great" and reports that her weight has been decreasing over the last year. She also notes nausea especially in the morning. When asked about anxiety, she says "I always had a problem with that" but denies having panic attacks. She denies clear auditory or visual hallucinations but does as above, mentioned that she thought she heard people banging around on the roof. She endorses some paranoia, as above, saying that she felt that the bikers were intentionally revving their engines. She continues to have concerns about diabetes and is not eating, and she shows 4+ ketones in her urinalysis. She believes that all of her problems, physical and emotional, stem from an affair she had with a man in 2007. She also believes that she lost custody of her children because she felt "spaced out" on psychiatric medications. She denies that she is purging her food. She denies any discrete episodes of euphoric mood, sleeplessness or pleasure seeking behaviors that would be congruent with bipolar disorder. Physical Exam Mental Examination Extremely thin white female, casually dressed, good grooming and hygiene. Se ated in no acute distress, with poor eye contact and no abnormal movements. Gait and station are normal. Alert and oriented. Calm and cooperative with the assessment. Speech is nonspontaneous, slightly slowed, normal volume and tone. Mood is "okay," and affect is blunted. Thoughts are linear and goal directed. Denies SI, HI, paranoia, and hallucinations. Ongoing delusions that she has multiple medical conditions that limit what food she can eat. Attention and language are grossly intact. Insight and judgment are impaired. Vital Signs (Past 24 Hours) Last Vital Signs Temp 36.3 C L 12/19/18 06:56 Pulse 103 H 12/19/18 06:58 Resp 16 12/19/18 06:56 BP 75/46 L 12/19/18 06:58 Pulse Ox 98 12/11/18 04:30 Principal Diagnosis Schizophrenia Major depressive disorder, recurrent, severe Low body weight Psychiatric Data Patient was hospitalized on our unit for 8 days. On admission, she reported she had not been in psychiatric treatment for at least a year, with prominent depressive and psychotic symptoms. She was also noted to be severely underweight and malnourished, stating she was not eating because she believes she had diabetes and heart disease, which is not supported by laboratory data or past records. She was started on olanzapine, which was titrated to 7.5 mg daily at bedtime, and escitalopram to target depressive symptoms. She later reported that venlafaxine XR had been very beneficial in the past for anxiety, depression, and low energy, so escitalopram was discontinued and venlafaxine started, and her dose increased to 112.5 mg daily. She was prescribed a nicotine patch and gum for cravings to smoke. She tolerated her medications well. She had a dietary consult given her extremely low body weight (115 pounds, BMI 14.8), and was noted to be eating well on the unit. Although she denied symptoms of eating disorder, there was concern that she was intentionally maintaining a low weight, as the friend who she was living with reported the patient had been taking supplements to speed up metabolism. She maintained her delusions throughout hospitalization that she cannot eat many foods because she has diabetes and heart disease, although neither of these things have been diagnosed in her fasting blood sugar here was 81. She met with the dietitian, and agreed to add Boost and snacks. She stated barriers to good nutrition were that she did not like to prepare food, and that at times appetite was low which she attributed to stress over the loss of her children. Her weight went up slightly (1 kg) over the course of her hospitalization, and no purging behavior or excessive exercise was observed. Her mood improved throughout her hospitalization, as initially she was extremely depressed, isolated in bed in her room, and gave very short vague answers to questions on interview. She gradually came out of her room more, was able to participate in groups and programming, and talk about her stressors. Her psychotic symptoms also improved, specifically her disorganization and thought blocking, but she continued to endorse delusions regarding her medical conditions. She had visits from her friends, Chelsea and Rodrigue, whom she was staying with prior to admission. Chelsea provided collateral information: she has known the patient since she was 17 years old, and believes she started showing signs of psychosis in [id number]. She was in [place] with a boyfriend at the time, became paranoid, thought people were watching her and was paranoid about food. Last year, she was living with her parents and children, when she met a man online (Nick) who lived in [place]. She said she was going to visit him for a few days, and did not return until a year later. In the interim, her parents got custody of her children. Although the patient reported issues in her relationship with Nick, he says he loves her and wants her to return to [place]. While living there, she was very picky about her food, would not eat at home, and would only eat if they went out. She said she cannot eat red meat because she has coronary heart disease and could not eat a lot of other food due to having diabetes, neither of which are true per her friend, and are delusions. He had told her friend that there were bikers parked outside her apartment, revving their engines to bother her, but at he said that was not true, and it was just school age kids on their bikes. A family meeting was held with Chelsea and Rodrigue on 12/13/2018. She indicated she was not sure if she intended to stay in [place] long-term, or might return to [place] with her boyfriend, Nick, at some point. Her friends attempted to point out her delusions, but she demonstrated very poor insight, and insisted that they were true. She said her relationship with her boyfriend had been good until the last month, when he got "meredith," which made her mood worse and led to her moving back to [place]. She agreed to outpatient services in [facility], and was referred to the [facility] for case management. Attempts were made to refer her for outpatient psychiatric care and therapy, but appointments were unable to be scheduled due to her lack of insurance. A request for assistance with funding was submitted to [facility], but we have not yet received an answer from them at the time of discharge, so she is being given information on [facility] for therapy and [facility] for medical and psychiatric care. Day of Discharge Assessment Staff report the patient has been attending groups, has consistently been eating and sleeping well here, and is performing her ADLs independently with good grooming and hygiene, is reporting improved mood, clear thoughts, denying thoughts of harming herself or others. She is stating hope for the future, and is planning to contact her mother after discharge to arrange a visit with her children. She is complaining of being bored in the hospital, and is requesting discharge. On my assessment, she states her mood is "okay," "better than it was." She denies thoughts of harming herself or anyone else, hallucinations, and paranoia. She continues to believe that she has diabetes and heart disease, despite evidence to the contrary, but is eating well here and weight has increased from admission. She continues to have episodic lightheadedness and "feels spaced out," with episodic low blood pressure. She says she is drinking water throughout the day, and denies syncopal episodes and falls. She plans to return to live with her friends Chelsea and Rodrigue, and is hoping to eventually get her own place, or to possibly move in with her sister. She is willing to follow up with outpatient care, and was encouraged to follow through on obtaining appropriate insurance so that she can be scheduled with an outpatient psychiatrist and therapist. She denies any safety concerns with leaving the hospital, but states she fears she will be "bored" at her friends' house in [place]. She was encouraged to explore options for activities in the community and ways to get her out of the house and around other people. She denies side effects to medications. She says she has not yet talked to her mother, but plans to contact her after discharge, and hopes to set up a time to visit with her children. She is able to review her discharge safety plan, including calling her sister, talking with her friends whom she lives with, calling her window caser, 911, or going to the ER. Transition of Care Transition Of Care Record: was reviewed with the patient Advance Directives Advance Directives Information Provided: Yes Advance Directives: No Mental Health Advance Directive: No Advance Directives on File: No Living Will: No Power of Automation Lead: No Advance Directives Reason:: Declines as Mental Health Visit. Risk Factors Assessment Risk factors were mitigated by admission to the inpatient unit, use of medications to target mood and psychotic symptoms, addressing low body weight with a dietary consult, monitoring oral intake and weights, and education regarding the importance of good nutrition, psychoeducation about her diagnoses and the recommended treatments, involving her in groups and therapy, working on healthy coping skills and a discharge safety plan, a family meeting with her friends whom she is living with, and referring her for outpatient care. She has demonstrated improvement in mood and psychotic symptoms, is eating and sleeping well, taking medications as prescribed, performing ADLs independently, and consistently denying thoughts of harming herself or others. She is requesting discharge, and as she is no longer at acute risk of harm to herself, can be managed as an outpatient at this time. She does not have significant risk factors for harm to others. Male: No : Yes Do You Have Access To A Gun?: No Health Problems: Yes Mental Health Diagnoses: Yes Substance Use Disorders: No Previous Attempt: No Family History of Suicide: No Previous Psychiatric Hospitalization: No Protective Factors Assessment : No Responsible for Young Children: No Employed: No Stable Relationships: No Supportive Family: No Tobacco Cessation at Discharge Tobacco Cessation Medication Prescribed at Discharge: Offered & Prescribed Total Time Total Time Spent: Greater Than 30 Minutes Total Time Includes: Examination of the patient, Discharge Planning and Medication Reconciliation Discharge Data Lab Results 12/11/18 12/11/18 12/11/18 00:56 00:56 00:56 WBC 6.42 RBC 4.58 Hgb 13.7 Hct 39.9 MCV 87.1 MCH 29.9 MCHC 34.3 RDW Std Deviation 36.4 RDW Coeff of Yaya 11.6 Plt Count 247 MPV 9.8 Immature Gran % (Auto) 0.5 Neut % (Auto) 64.3 Lymph % (Auto) 27.9 Cass % (Auto) 6.9 Eos % (Auto) 0.2 Baso % (Auto) 0.2 Immature Gran # (Auto) 0.03 H Neut # (Auto) 4.14 Lymph # (Auto) 1.79 Cass # (Auto) 0.44 Eos # (Auto) 0.01 Baso # (Auto) 0.01 Sodium 137 Potassium 3.5 Chloride 106 Carbon Dioxide 20 L Anion Gap 11.0 BUN 6 L Creatinine 0.64 Est Cr Clr Drug Dosing Not Reportable Est GFR ( Amer) 130.3 Est GFR (Non-Af Amer) 112.4 BUN/Creatinine Ratio 9.7 L Glucose 72 Fasting Glucose Calcium 8.7 Total Bilirubin 1.8 H AST 8 L ALT 15 Alkaline Phosphatase 45 Total Protein 7.2 Albumin 3.9 Globulin 3.3 Albumin/Globulin Ratio 1.2 Triglycerides Cholesterol LDL Cholesterol, Calc VLDL Cholesterol, Calc HDL Cholesterol Cholesterol/HDL Ratio TSH 1.500 Urine Color Urine Appearance Urine pH Ur Specific [place] Urine Protein Urine Glucose (UA) Urine Ketones Urine Blood Urine Nitrite Urine Bilirubin Urine Urobilinogen Ur Leukocyte Esterase Urine WBC (Auto) Urine RBC (Auto) U Hyaline Cast (Auto) U Epithel Cells (Auto) Urine Bacteria (Auto) POC Ur Test Salicylates Cancelled Urine Opiates Screen Ur Methadone, Qual Acetaminophen Cancelled Urine Barbiturates Ur Phencyclidine (PCP) U Amphetamin/Meth Scrn MDMA (Ecstasy) Screen U Benzodiazepines Scrn Ur Cocaine Metabolite U Marijuana (THC) Screen Ethyl Alcohol mg/dL 0412/11/18 12/11/18 00:56 02:05 02:05 WBC RBC Hgb Hct MCV MCH MCHC RDW Std Deviation RDW Coeff of Yaya Plt Count MPV Immature Gran % (Auto) Neut % (Auto) Lymph % (Auto) Cass % (Auto) Eos % (Auto) Baso % (Auto) Immature Gran # (Auto) Neut # (Auto) Lymph # (Auto) Cass # (Auto) Eos # (Auto) Baso # (Auto) Sodium Potassium Chloride Carbon Dioxide Anion Gap BUN Creatinine Est Cr Clr Drug Dosing Est GFR ( Amer) Est GFR (Non-Af Amer) BUN/Creatinine Ratio Glucose Fasting Glucose Calcium Total Bilirubin AST ALT Alkaline Phosphatase Total Protein Albumin Globulin Albumin/Globulin Ratio Triglycerides Cholesterol LDL Cholesterol, Calc VLDL Cholesterol, Calc HDL Cholesterol Cholesterol/HDL Ratio TSH Urine Color Urine Appearance Urine pH Ur Specific [place] Urine Protein Urine Glucose (UA) Urine Ketones Urine Blood Urine Nitrite Urine Bilirubin Urine Urobilinogen Ur Leukocyte Esterase Urine WBC (Auto) Urine RBC (Auto) U Hyaline Cast (Auto) U Epithel Cells (Auto) Urine Bacteria (Auto) POC Ur Test NEG Salicylates Urine Opiates Screen Neg Ur Methadone, Qual Neg Acetaminophen Urine Barbiturates Neg Ur Phencyclidine (PCP) Neg U Amphetamin/Meth Scrn Neg MDMA (Ecstasy) Screen Neg U Benzodiazepines Scrn Neg Ur Cocaine Metabolite Neg U Marijuana (THC) Screen Neg Ethyl Alcohol mg/dL < 3.0 12/11/18 12/12/18 02:05 07:19 WBC RBC Hgb Hct MCV MCH MCHC RDW Std Deviation RDW Coeff of Yaya Plt Count MPV Immature Gran % (Auto) Neut % (Auto) Lymph % (Auto) Cass % (Auto) Eos % (Auto) Baso % (Auto) Immature Gran # (Auto) Neut # (Auto) Lymph # (Auto) Cass # (Auto) Eos # (Auto) Baso # (Auto) Sodium Potassium Chloride Carbon Dioxide Anion Gap BUN Creatinine Est Cr Clr Drug Dosing Est GFR ( Amer) Est GFR (Non-Af Amer) BUN/Creatinine Ratio Glucose Fasting Glucose 81 Calcium Total Bilirubin AST ALT Alkaline Phosphatase Total Protein Albumin Globulin Albumin/Globulin Ratio Triglycerides 63 Cholesterol 196 LDL Cholesterol, Calc 122 VLDL Cholesterol, Calc 13 HDL Cholesterol 61 Cholesterol/HDL Ratio 3 TSH Urine Color Yellow Urine Appearance Clear Urine pH 5.5 Ur Specific [place] 1.016 Urine Protein Negative Urine Glucose (UA) Negative Urine Ketones 4+ H Urine Blood Trace H Urine Nitrite Negative Urine Bilirubin Negative Urine Urobilinogen Negative Ur Leukocyte Esterase 1+ H Urine WBC (Auto) 1-5 Urine RBC (Auto) 0-4 U Hyaline Cast (Auto) 1-5 U Epithel Cells (Auto) >30 H Urine Bacteria (Auto) Negative POC Ur Test Salicylates Urine Opiates Screen Ur Methadone, Qual Acetaminophen Urine Barbiturates Ur Phencyclidine (PCP) U Amphetamin/Meth Scrn MDMA (Ecstasy) Screen U Benzodiazepines Scrn Ur Cocaine Metabolite U Marijuana (THC) Screen Ethyl Alcohol mg/dL Hospital Course (1) Schizophrenia: 12/11 - Start Zyprexa 2.5 mg HS and 2.5 mg TID prn - FLP and FBS for monitoring on atypicals - Reality testing - Obtain last records from [facility] - Will need aftercare - Family meeting if indicated - Reality testing - Q 15 min checks for safety - Encourage participation in group and individual counseling - Safety planning 12/12 - Continue olanzapine 2.5 mg at bedtime, and titrate as tolerated. Fasting glucose and lipid profile within normal limits. - Family meeting with friends who she is living with locally. - Social work to continue to explore options for aftercare, will need additional insurance coverage or financial assistance from the [facility]. 12/13 -Continue current dose of olanzapine, as she continues to report feeling "spaced out" and intermittent dizziness, which may be side effects. She has not been focused on her delusions here, but will need to engage her in talking about these more while working on discharge plans. -Family meeting with friends she has been living with in [place] today. -She will need outpatient care, but currently does not have the appropriate insurance. We will need to refer her to the [facility] office for financial assistance for outpatient treatment until she can obtain insurance. She would also benefit from a window caser, and possibly psych rehab or [facility]. 12/14 - Continue current medications - unclear if clouding is due to medication side effects or a result of limited activity and engagement today - Minimally productive family meeting held yesterday - still requires a large amount of aftercare planning 12/15 -Today, the patient tells me that, if anything, she is feeling less "spacey" than she had prior to the admission, and thinks that perhaps olanzapine has been helpful to her in terms of helping her mood and helping her feel more "together." -We will increase the dose of olanzapine to 5 mg daily at bedtime. 12/16 maintained meds given changes from yesterday and responses to date, consider further increase of olanzapine 12/17 raised olanzapine to 7.5mg hs, maintained venflaxine er at 75mg daily 12/18 -Continue current dose of olanzapine 12/19 -discharge to friend's home. Prescriptions issued for 30-day supply of olanzapine 7.5 mg at bedtime and venlafaxine XR 112.5 mg daily. -Prescription issued for nicotine patch, and patient will be referred to the [facility] for smoking cessation. -Follow-up with blended window caser at [facility]. -Attempted to refer to [facility] for therapy and psychiatric care, but they were unable to schedule her due to lack of insurance. Requested financial assistance through [facility] for appointments until she can get adequate outpatient insurance. In the interim, we will schedule follow up with her PCP [facility], and we will give her information on [facility] for therapy. (2) Depression: 12/12 -continue escitalopram, which was increased to 10 mg today. Encourage the patient to be out of bed and attending and participating in groups. -Patient reports ongoing suicidal thoughts, and encouraged her to notify staff if they are worsening or if she is feeling unsafe, which she agreed to do. -Reviewing history, patient appears to have dependent personality traits, given pattern of going to excessive lengths to obtain nurturance and support for others. 12/13 -patient is reporting improved mood today, but low threshold to increase the dose of escitalopram if mood does not continue to improve. 12/14 - Continue escitalopram 10mg - consider further titration, admits mood is improving, though affect if not consistent with reports 12/15 -While the patient does report that her mood has improved somewhat and that she has been less depressed, it would seem unlikely that this is attributable to the Lexapro on day four. An option would be to increase the dose of Lexapro to a dose of 15-20 mg daily, and the patient does indicate that she is tolerating Lexapro well. However, following discussion with her, she tells me that she feels fairly strongly that of all the medication she is ever taken venlafaxine (dose unspecified dose (has been the most effective in terms of addressing her anxiety, her depression, and her "low energy." She told me that she would like a trial of venlafaxine at this point and I agreed to begin venlafaxine extended release 75 mg a day and discontinue escitalopram. 12/18 - Increase Effexor XR to 112.5 mg daily (3) Low body mass index (BMI): 12/11 - Will flag for dietary consult - Observe meal trays with each meal - Weights 3X per week 12/12 -There appears to be both an eating disorder component (taking supplements to speed up metabolism), as well as decreased p.o. intake as a result of delusions (that she has diabetes, that she cannot eat meat due to a heart condition). Continue to monitor intake and encourage adequate fluids and food. 12/15 -The patient does seem to have some insight into the risks associated with her low body weight, and today she was able to accept that lab testing is not consistent with diabetes. She has been eating 100% of her meals on the unit, with support and encouragement from staff. 12/16 continued to encouraged po intake and reassure lack of DM concerns 12/17 plan unchanged Post Discharge Appointments Therapist Name of Therapist: denies Pack Press Operator Name of Pack Press Operator: Denies Smoking Cessation Counseling Tobacco Cessation Medication Prescribed at Discharge: Offered & Prescribed Contact Information Discharge Discharge Address: [address] [place] [address] Discharge Plan Discharge Items Patient Disposition: Home - Self-Care Reason For Visit: PARANOID SCHIZOPHRENIA Discharge Diagnosis: Schizophrenia and depression Discharge Goals: Decrease discomfort, Improve disease control, Improve function, Improve nutritional status, Learn about illness, Specific goals and Therapeutic intervention Specific Goals: Refer for outpatient care Activity: Per 'Additional Instructions' section Non-emergency contact: Primary Care Provider, Psychiatrist, Therapist and Electric Organ Inspector And Repairer Call non-emergency contact if: you have any medication questions and your symptoms worsen Follow-up/Referrals: Kimmy Griffin MD [Primary Care Provider] - Diet: Regular Addtl Provider Instructions: SPECIAL CARE INSTRUCTIONS: 1. Follow through with your scheduled aftercare appointments. If unable to keep an appointment, please call to reschedule. 2. Take your medication only as prescribed. Medication should not be changed or stopped without the approval of your doctor. In the event of worsening symptoms or concerns about side effects, contact your doctor immediately. 3. Utilize new healthy coping skills, anger management skills, and stress management skills learned during your hospitalization. Journal feelings and process them with a support person. Identify stressors or situations that may result in relapse, deterioration or inappropriate behaviors and develop a plan to deal with those issues. 4. If your coping skills are ineffective and you are in crisis, contact your outpatient providers for direction. If unable to reach your providers, please call the CAN HELP LINE AT or go to the closest Emergency Room. 5. Avoid alcohol and un-prescribed drugs. 6. You have been provided with the Mental Health Advance Directives Pamphlet for your review. AFTERCARE APPOINTMENTS: * Please call your insurance company prior to your scheduled appointment to confirm your aftercare providers are covered. Take your insurance information to your appointments. WHO TO CALL AND WHEN: Medical Emergencies: For questions or emergencies related to your hospital stay, please contact the Inpatient Behavioral Health Unit at [phone]. A tax accountant is on-call 21/03 for the Behavioral Health Unit for emergencies At any time you feel your situation is an emergency, you may also call 911 immediately. Your Doctors Instructions noted above were prepared by provider Alina Biswas MD. Prescriptions: New venlafaxine 37.5 mg Capsule,Extended Release 24hr 112.5 mg PO QAM Qty: 90 RF: 0 nicotine [Nicoderm CQ] 14 mg/24 hr Patch 24 Hour 14 mg transdermal QAM Qty: 14 RF: 0 olanzapine 5 mg Tablet 7.5 mg PO HS Qty: 45 RF: 0 No Action No Known Home Medications RF: 0 Stand-Alone Forms: [facility] Discharge Orders: Discharge Order (Routine); Ordered 12/19/18 Ordered By: Alina Biswas Admission Data Admit Date/Time: 12/11/18 03:54 Attending Provider: Alina Biswas Admit Provider: Huan Rockwell Primary Care Provider: Kimmy Griffin Service: Psychiatry Other Interventions: PSY Interdisciplinary Discharge Planning Last Done: 12/12/18 09:46 Pending Studies at Discharge: No
== END 2018-12-19 12:55 | disposition home or self-care (01) | DRG 885 ==
LOC: ED 00:02 → 3S 03:54

== ENCOUNTER 2020-03-27 14:31 | Inpatient (IN) ==
--- NOTE | 2020-03-27 15:03 | Emergency Department Note ---
Impression & Plan Overdose, Depression with suicidal ideation ED Provider Note Provider: Rickie Rod MD DATE OF SERVICE: 03/27/2020 CHIEF COMPLAINT: Overdose HISTORY OF PRESENT ILLNESS: Patient is a 39-year-old female history of schizophrenia presenting today after an overdose attempt. Patient states yest erday around 4:30 5:30 PM she took 8 tablets of [id number]-[id number] sleep aid. Patient states she made her somewhat sleepy but then she was up all night. Came here for further evaluation today. Patient states she is been more depressed over last several weeks she broke up with her boyfriend. She does not like how her psychiatric medications make her feel has not been taking it reliably. Patient denies way to harm anybody else. Patient states she has had some delusional thoughts but denies any visual or auditory hallucinations. Patient is unsure she needs further inpatient care or not. Patient denies any physical pain or actual falls. REVIEW OF SYSTEMS: A total of 10 review of systems was obtained and negative except as stated above in the HPI. PAST MEDICAL HISTORY: As noted above and includes a history of anorexia MEDICATIONS: Reviewed home medication list SOCIAL HISTORY: Patient states she is chews Nicorette gum and is no longer smoker, denies alcohol use today. PHYSICAL EXAM: GENERAL: alert and oriented in no acute distress on stretcher, thin in appearance Head: normocephalic and atraumatic EYES: No injection, discharge or icterus. Pupils are moderately dilated bilaterally. NECK: Trachea midline. Supple. ENT: Mucous membranes pink and moist. LUNGS: Airway patent. No retractions. Breath sounds clear HEART: Regular rate and rhythm. No chest wall tenderness SKIN: Acyanotic, warm, dry, without rashes EXTREMITIES: Without swelling or deformity NEUROLOGICAL: No focal deficits. No aphasia. No facial droop or slurred speech.\Ambulatory. Psych: States no SI at this time but did have SI last night and overdosed and attempt to kill her self. Patient denies hallucinations but does states she has some delusional thoughts at times. EK 6 bpm sinus rhythm with PVC noted. No acute ST segment elevation is notable. QTC 465. No PACs. Patient's hypertension was referred to PCP HOSPITAL COURSE: 1450 Patient was first seen and H&P performed. 1605 Patient reassessed and updated. Patient was endorsing some urinary frequency. Discussed plan for IV fluids and recollect of laboratory studies. 191 reevaluate the patient is resting comfortably in bed. Patient requesting dinner tray. Will add PRN nicotine gum. 1955 discussed the case with the Poison Control Center regarding difficulty obtaining Tylenol level. They they recommend a repeat LFT panel at 11 PM to ensure no elevation of AST ALT. Would be medically cleared at this time. 2020 signed to my colleague pending medical clearance. Patient's laboratory studies and imaging reviewed. Differential includes Mood disorder, infection, hypoglycemia, electrolyte abnormalities, cardiac sources, intracerebral event, toxicologic, trauma, neurologic, as well as other pathologies. IMPRESSION/MEDICAL DECISION MAKING: Patient presents after attempting to overdose last night and her life complaining of delusions as well. States she does not like her psychiatric medications not compliant with it. Denies acute SI at this time however given the history I have concerns for her safety. Seen conjunction with the psych educates manager ecommerce. Medical clearance was completed. Almost 24 hours out from the event and no obvious sedation at this point. No trauma history reported no signs of significant trauma the patient. Initial Tylenol and salicylate levels had difficulty in lab due to mild bilirubin elevation. Given some fluid. Does endorse of urinary symptoms and treated with Macrobid for question of UTI. I doubt pyelonephritis. Repeat Tylenol and salicylate levels were sent and still on reportable. Patient is obviously not in a salicylate overdose as she has no stigmata on exam consistent with this. I believe likely she overdosed on a anticholinergic/antihistamine substance probably along the lines of Benadryl but again now 24 hours out. I discussed the case with poison control who states an abundance of caution I recommend a 30-hour LFT level at 11 PM tonight and if there is no evidence of significant abnormality at that time patient will be medically cleared. Given the signed to my colleague pending medical clearance and then psychiatric bed placement. DIAGNOSIS: Overdose, depression with suicidal ideation, delusions DISPOSITION: Signed out pending medical clearance for inpatient psychiatric care on a voluntary basis Observation note: Indication: Medical clearance from overdose Patient, with Family History of depression, was first seen at 1450 hrs and the observation time began at 1450 hrs and was necessary in order to determine safety after overdose and avoid unnecessary medical admission. Signed to my colleague pending repeat laboratory studies recommended poison control to ensure no liver injury as Tylenol level is unable be resulted in the lab at this time. Patient resting calmly and wishes for voluntary inpatient treatment will be made when this is available. Past Med/Surg History Social History Smoking Status: Former smoker Preferred Language: Lao Communication Ability: Effective Beliefs That Will Affect Care: None Feels Safe at Home: Yes Allergies Allergies Allergy/AdvReac Type Severity Reaction Status Date / Time No Known Drug Allergies Allergy Verified 01/29/20 14:59 Home Meds Home Medications Medication Instructions Recorded Confirmed paliperidone 3 mg PO QAM 03/27/20 03/27/20 Results & Data (ED) Vital Signs Vital Signs - 24 hr 03/27/20 14:32 03/27/20 16:41 Temperature 36.9 C Temperature Source Oral Pulse Rate 95 H Pulse Rate [Finger] 85 Respiratory Rate 16 17 Blood Pressure 135/80 Blood Pressure [Right Arm] 127/81 Blood Pressure Mean 98 Blood Pressure Mean [Right Arm] 96 Pulse Oximetry 98 99 Oxygen Delivery Method Room Air Room Air Sepsis Recent Fever Within 48 Hours No Sepsis New/Unexplained Change in Mental Status N/A Sepsis Action Taken by Nursing No Action Required Laboratory Data Result diagrams: 03/27/20 15:09 03/27/20 15:09 Lab Results 03/27/20 03/27/20 03/27/20 Range/Units 14:42 14:42 14:42 WBC (4.8-10.8) K/uL RBC (4.2-5.4) M/uL Hgb (12.0-16.0) g/dL Hct (37-47) % MCV (80-100) fL MCH (25-34) pg MCHC (32-36) g/dL RDW Std Deviation (36.4-46.3) fL RDW Coeff of Yaya (11.5-14.5) % Plt Count (130-400) K/uL MPV (7.4-10.4) fL Immature Gran % (Auto) % Neut % (Auto) % Lymph % (Auto) % [place]duffie % (Auto) % Eos % (Auto) % Baso % (Auto) % Neut # (Auto) (1.4-6.5) K/uL Lymph # (Auto) (1.2-3.4) K/uL Mcduffie # (Auto) (0.11-0.59) K/uL Eos # (Auto) (0-0.5) K/uL Baso # (Auto) (0-0.2) K/uL Immature Gran # (Auto) (0.00-0.02) K/uL Sodium (136-145) mmol/L Potassium (3.5-5.1) mmol/L Chloride (98-107) mmol/L Carbon Dioxide (21-32) mmol/L Anion Gap (3-11) BUN (7-18) mg/dl Creatinine (0.6-1.2) mg/dl Est Cr Clr Drug Dosing ml/min Est GFR ( Amer) Est GFR (Non-Af Amer) BUN/Creatinine Ratio (10-20) Glucose (70-99) mg/dl Calcium (8.5-10.1) mg/dl Total Bilirubin (0.2-1) mg/dl AST (15-37) U/L ALT (12-78) U/L Alkaline Phosphatase (45-117) U/L Total Protein (6.4-8.2) gm/dl Albumin (3.4-5.0) gm/dl Globulin (2.5-4.0) gm/dl Albumin/Globulin Ratio (0.9-2) TSH (0.300-4.500) uIu/ml Urine Color [place] Urine Appearance Cloudy A (Clear) Urine pH 7.5 (4.5-7.5) Ur Specific [place] 1.007 (1.000-1.030) Urine Protein 1+ H (Negative) Urine Glucose (UA) Negative (Negative) Urine Ketones 1+ H (Negative) Urine Blood 3+ H (Negative) Urine Nitrite Negative (Negative) Urine Bilirubin Negative (Negative) Urine Urobilinogen Negative (Negative) Ur Leukocyte Esterase 3+ H (Negative) Urine WBC (Auto) >30 H (0-5) /hpf Urine RBC (Auto) 5-10 H (0-4) /hpf U Hyaline Cast (Auto) 0 (0-5) /lpf U Epithel Cells (Auto) >30 H (0-5) /lpf Urine Bacteria (Auto) 1+ H (Negative) Urine Yeast Not Reportable POC Ur Test NEG (NEG) Salicylates Urine Opiates Screen Neg (Neg) Ur Methadone, Qual Neg (Neg) Acetaminophen Urine Barbiturates Neg (Neg) Ur Phencyclidine (PCP) Neg (Neg) U Amphetamin/Meth Scrn Neg (Neg) MDMA (Ecstasy) Screen Neg (Neg) U Benzodiazepines Scrn Neg (Neg) Ur Cocaine Metabolite Neg (Neg) U Marijuana (THC) Screen Neg (Neg) Ethyl Alcohol mg/dL (0-3) mg/dl 03/27/20 03/27/20 03/27/20 Range/Units 15:09 15:09 15:09 WBC 8.75 (4.8-10.8) K/uL RBC 4.71 (4.2-5.4) M/uL Hgb 14.1 (12.0-16.0) g/dL Hct 40.8 (37-47) % MCV 86.6 (80-100) fL MCH 29.9 (25-34) pg MCHC 34.6 (32-36) g/dL RDW Std Deviation 39.7 (36.4-46.3) fL RDW Coeff of Yaya 12.4 (11.5-14.5) % Plt Count 277 (130-400) K/uL MPV 9.7 (7.4-10.4) fL Immature Gran % (Auto) 0.3 % Neut % (Auto) 73.9 % Lymph % (Auto) 18.3 % [place]duffie % (Auto) 6.9 % Eos % (Auto) 0.5 % Baso % (Auto) 0.1 % Neut # (Auto) 6.47 (1.4-6.5) K/uL Lymph # (Auto) 1.60 (1.2-3.4) K/uL [place]duffie # (Auto) 0.60 H (0.11-0.59) K/uL Eos # (Auto) 0.04 (0-0.5) K/uL Baso # (Auto) 0.01 (0-0.2) K/uL Immature Gran # (Auto) 0.03 H (0.00-0.02) K/uL Sodium 137 (136-145) mmol/L Potassium 3.8 (3.5-5.1) mmol/L Chloride 105 (98-107) mmol/L Carbon Dioxide 26 (21-32) mmol/L Anion Gap 6.0 (3-11) BUN 7 (7-18) mg/dl Creatinine 0.75 (0.6-1.2) mg/dl Est Cr Clr Drug Dosing 61.4 ml/min Est GFR ( Amer) 115.6 Est GFR (Non-Af Amer) 99.7 BUN/Creatinine Ratio 9.6 L (10-20) Glucose 107 H (70-99) mg/dl Calcium 9.7 (8.5-10.1) mg/dl Total Bilirubin 2.2 H (0.2-1) mg/dl AST 11 L (15-37) U/L ALT 19 (12-78) U/L Alkaline Phosphatase 48 (45-117) U/L Total Protein 7.9 (6.4-8.2) gm/dl Albumin 4.4 (3.4-5.0) gm/dl Globulin 3.5 (2.5-4.0) gm/dl Albumin/Globulin Ratio 1.3 (0.9-2) TSH 2.200 (0.300-4.500) uIu/ml Urine Color Urine Appearance (Clear) Urine pH (4.5-7.5) Ur Specific [place] (1.000-1.030) Urine Protein (Negative) Urine Glucose (UA) (Negative) Urine Ketones (Negative) Urine Blood (Negative) Urine Nitrite (Negative) Urine Bilirubin (Negative) Urine Urobilinogen (Negative) Ur Leukocyte Esterase (Negative) Urine WBC (Auto) (0-5) /hpf Urine RBC (Auto) (0-4) /hpf U Hyaline Cast (Auto) (0-5) /lpf U Epithel Cells (Auto) (0-5) /lpf Urine Bacteria (Auto) (Negative) Urine Yeast POC Ur Test (NEG) Salicylates Cancelled Urine Opiates Screen (Neg) Ur Methadone, Qual (Neg) Acetaminophen Cancelled Urine Barbiturates (Neg) Ur Phencyclidine (PCP) (Neg) U Amphetamin/Meth Scrn (Neg) MDMA (Ecstasy) Screen (Neg) U Benzodiazepines Scrn (Neg) Ur Cocaine Metabolite (Neg) U Marijuana (THC) Screen (Neg) Ethyl Alcohol mg/dL (0-3) mg/dl 03/27/20 03/27/20 Range/Units 15:09 17:53 WBC (4.8-10.8) K/uL RBC (4.2-5.4) M/uL Hgb (12.0-16.0) g/dL Hct (37-47) % MCV (80-100) fL MCH (25-34) pg MCHC (32-36) g/dL RDW Std Deviation (36.4-46.3) fL RDW Coeff of Yaya (11.5-14.5) % Plt Count (130-400) K/uL MPV (7.4-10.4) fL Immature Gran % (Auto) % Neut % (Auto) % Lymph % (Auto) % [place]duffie % (Auto) % Eos % (Auto) % Baso % (Auto) % Neut # (Auto) (1.4-6.5) K/uL Lymph # (Auto) (1.2-3.4) K/uL [place]duff[place] # (Auto) (0.11-0.59) K/uL Eos # (Auto) (0-0.5) K/uL Baso # (Auto) (0-0.2) K/uL Immature Gran # (Auto) (0.00-0.02) K/uL Sodium (136-145) mmol/L Potassium (3.5-5.1) mmol/L Chloride (98-107) mmol/L Carbon Dioxide (21-32) mmol/L Anion Gap (3-11) BUN (7-18) mg/dl Creatinine (0.6-1.2) mg/dl Est Cr Clr Drug Dosing ml/min Est GFR ( Amer) Est GFR (Non-Af Amer) BUN/Creatinine Ratio (10-20) Glucose (70-99) mg/dl Calcium (8.5-10.1) mg/dl Total Bilirubin (0.2-1) mg/dl AST (15-37) U/L ALT (12-78) U/L Alkaline Phosphatase (45-117) U/L Total Protein (6.4-8.2) gm/dl Albumin (3.4-5.0) gm/dl Globulin (2.5-4.0) gm/dl Albumin/Globulin Ratio (0.9-2) TSH (0.300-4.500) uIu/ml Urine Color Urine Appearance (Clear) Urine pH (4.5-7.5) Ur Specific [place] (1.000-1.030) Urine Protein (Negative) Urine Glucose (UA) (Negative) Urine Ketones (Negative) Urine Blood (Negative) Urine Nitrite (Negative) Urine Bilirubin (Negative) Urine Urobilinogen (Negative) Ur Leukocyte Esterase (Negative) Urine WBC (Auto) (0-5) /hpf Urine RBC (Auto) (0-4) /hpf U Hyaline Cast (Auto) (0-5) /lpf U Epithel Cells (Auto) (0-5) /lpf Urine Bacteria (Auto) (Negative) Urine Yeast POC Ur Test (NEG) Salicylates Cancelled Urine Opiates Screen (Neg) Ur Methadone, Qual (Neg) Acetaminophen Cancelled Urine Barbiturates (Neg) Ur Phencyclidine (PCP) (Neg) U Amphetamin/Meth Scrn (Neg) MDMA (Ecstasy) Screen (Neg) U Benzodiazepines Scrn (Neg) Ur Cocaine Metabolite (Neg) U Marijuana (THC) Screen (Neg) Ethyl Alcohol mg/dL < 3.0 (0-3) mg/dl Administered Medications Discontinued Medications Sodium Chloride (Nss 1000ml) 1,000 mls @ 999 mls/hr IV .[id number] ONE Stop: 03/27/20 16:58 Last Infusion: 03/27/20 17:43 Dose: 0 mls/hr Documented by: [id number] Admin: 03/27/20 16:41 Dose: 999 mls/hr Documented by: [id number] Nitrofurantoin Macrocrystals (Macrobid) 100 mg PO NOW STA Stop: 03/27/20 16:10 Last Admin: 03/27/20 17:15 Dose: 100 mg Documented by: [id number] Discharge Plan Visit Data Chief Complaint: Overdose (Intentional) Stated Complaint: OVERDOSE ON SLEEPING PILLS LAST NIGHT ED Provider: Rickie Rod Discharge Problem: Overdose, Depression with suicidal ideation Forms Stand Alone Forms: [facility], Suicide Prevention Resources Prescriptions Prescriptions: No Action paliperidone 3 mg Tablet Extended Release 24hr 3 mg PO QAM RF: 0 Discharge Problem: Overdose Qualifiers: Encounter type: initial encounter Injury intent: intentional self-harm Qualified Code(s): T50.902A - Poisoning by unspecified drugs, medicaments and biological substances, intentional self-harm, initial encounter
[2020-03-27 15:20] LABS: Appearance Urine Cloudy (Clear); Bacteria Urine Automated 1+ (Negative); Bilirubin Urine Negative (Negative); Blood Urine 3+ (Negative); Color Urine Orange; Epithelial Cell Urine Auto >30 /lpf (0-5); Glucose Urine UA Negative (Negative); Ketones Urine 1+ (Negative); Leukocyte Esterase Urine 3+ (Negative); Nitrite Urine Negative (Negative); Specific Gravity Urine 1.007 (1.000-1.030); Urobilinogen Urine Negative (Negative); WBC Urine Automated >30 /hpf (0-5); pH Urine 7.5 (4.5-7.5)
[2020-03-27 15:22] LABS: Protein Urine 1+ (Negative)
[2020-03-27 15:24] LABS: Basophils # (auto) 0.01 K/uL (0-0.2); Basophils % (auto) 0.1 %; Eosinophils # (auto) 0.04 K/uL (0-0.5); Eosinophils % (auto) 0.5 %; Hematocrit (blood only) 40.8 % (37-47); Hemoglobin 14.1 g/dL (12.0-16.0); Immature Granulocytes # (auto) 0.03 K/uL (0.00-0.02); Immature Granulocytes % (auto) 0.3 %; Lymphocytes % (auto) 18.3 %; Mean Corpuscular Hemoglobin 29.9 pg (25-34); Mean Corpuscular Hgb Conc 34.6 g/dL (32-36); Mean Corpuscular Volume 86.6 fL (80-100); Mean Platelet Volume 9.7 fL (7.4-10.4); Monocytes % (auto) 6.9 %; Neutrophils # (auto) 6.47 K/uL (1.4-6.5); Neutrophils % (auto) 73.9 %; Platelet Count 277 K/uL (130-400); RDW Coefficient of Variation 12.4 % (11.5-14.5); RDW Standard Deviation 39.7 fL (36.4-46.3); Red Blood Count 4.71 M/uL (4.2-5.4); White Blood Count 8.75 K/uL (4.8-10.8)
[2020-03-27 15:28] LABS: Sulfosalicylic Acid Urine Positive (Negative)
[2020-03-27 15:31] LABS: Cast Urine Automated 0 /lpf (0-5)
[2020-03-27 15:34] LABS: Amphetamines+Metham, Urine Neg (Neg); Barbiturates, Urine Neg (Neg); Benzodiazepine, Urine Neg (Neg); Cocaine, Urine Neg (Neg); MDMA (Ecstacy), Urine Neg (Neg); Methadone, Urine Neg (Neg); Opiate, Urine Neg (Neg); Phencyclidine, Urine Neg (Neg)
[2020-03-27 15:42] LABS: Albumin Level 4.4 gm/dl (3.4-5.0); BUN Creatinine Ratio 9.6 (10-20); Calcium 9.7 mg/dl (8.5-10.1); Creatinine Clr Calc Pharmacy 61.4 ml/min; Est GFR (African American) 115.6; Est GFR (Non-African American) 99.7; Potassium 3.8 mmol/L (3.5-5.1)
[2020-03-27 15:53] LABS: Albumin Globulin Ratio 1.3 (0.9-2); Bilirubin,Total 2.2 mg/dl (0.2-1); Globulin 3.5 gm/dl (2.5-4.0); Thyroid Stimulating Hormone 2.2 uIu/ml (0.300-4.500); Total Protein 7.9 gm/dl (6.4-8.2)
[2020-03-27] MEDS ORDERED: SODIUM CHLORIDE 0.9% 1000ML 1,000 ML IV ONE (15:58)
[2020-03-27] MEDS ORDERED: NITROFURANTOIN MONOHYDRATE 100 MG CAP PO STA (16:09)
[2020-03-27] MEDS ORDERED: NICOTINE POLACRILEX 2 MG GUM MT PRN (20:17)
[2020-03-27 20:18] LABS: Albumin Level 4.2 gm/dl (3.4-5.0); Bilirubin Direct 0.3 mg/dl (0-0.2); Bilirubin,Total 2.4 mg/dl (0.2-1); Total Protein 7.4 gm/dl (6.4-8.2)
[2020-03-27 23:40] LABS: Bilirubin Direct 0.4 mg/dl (0-0.2); Bilirubin,Total 2.7 mg/dl (0.2-1)
--- NOTE | 2020-03-28 01:09 | Emergency Department Note ---
ED Visit Note I did assume care from Dr. Rod pending reevaluation disposition. The patient reportedly had taken some sleeping medication but the patient reportedly had an elevated bilirubin and was too icteric in order to result a Tylenol level. The patient is already had unremarkable AST and ALT but does have a repeat transaminase levels pending at 11 PM. Patient's repeat liver enzymes are unremarkable with regard AST ALT and alk phos. The patient does have an elevated bilirubin. Dr. Rod spoke with poison control and the patient had a 30-hour level at this point without any change in the AST or ALT the patient would be deemed medically cleared. Patient was subsequently medically cleared and admitted to [facility] for voluntary inpatient psychiatric treatment. Observation: Patient has PMX of depression. Observation began at 1459 and was necessary in order to rule out, monitor, reassess and mitigate the risk of the patient, ensure their relative safety, and potentially avoid a medical admission. Upon re-evaluation, observation revealed that the patient could be safely admitted to inpatient psychiatry at this time after multiple repeat liver function testing which did not show a rise in her AST or ALT after 10 hours of observation and a 30-hour AST and ALT resulted normally. Patient was subsequently admitted to inpatient psych. . : Overdose Qualifiers: Encounter type: initial encounter Injury intent: intentional self-harm Qualified Code(s): T50.902A - Poisoning by unspecified drugs, medicaments and biological substances, intentional self-harm, initial encounter
[2020-03-28] MEDS ORDERED: ALUMINUM/MAGNESIUM SUSP 30 ML UDC PO PRN (02:02)
[2020-03-28] MEDS ORDERED: ACETAMINOPHEN 325 MG TAB PO PRN (02:02)
[2020-03-28] MEDS ORDERED: MAGNESIUM HYDROXIDE SUSP 30 ML UDC PO PRN (02:02)
[2020-03-28] MEDS ORDERED: BISMUTH SUBSALICYLATE PER ML OMNICELL CHARGE PO PRN (02:02)
[2020-03-28] MEDS ORDERED: SODIUM CHLORIDE 0.65% NA SOLN 45 ML (OCEAN) PRN (02:02)
[2020-03-28] MEDS: NICOTINE POLACRILEX 2 MG GUM MT PRN ×3 (07:33→20:36)
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
[2020-03-28] MEDS: NITROFURANTOIN MONOHYDRATE 100 MG CAP PO SCH ×2 (11:28→21:15)
[2020-03-28] MEDS: PALIPERIDONE 3 MG TABCR PO SCH (11:30)
--- NOTE | 2020-03-29 06:50 | Electrocardiogram Report ---
Test Reason : Blood Pressure : / mmHG Vent. Rate : 066 BPM Atrial Rate : 066 BPM P-R Int : 138 ms QRS Dur : 076 ms QT Int : 444 ms P-R-T Axes : 060 073 073 degrees QTc Int : 465 ms Sinus rhythm with frequent Premature ventricular complexes Otherwise normal ECG When compared with ECG of 21-AUG-2017 16:25, Premature ventricular complexes are now Present Confirmed by Rolly Cuevas ([id number]) on 03/29/2020 6:50:02 AM Referred By: REFERRED SELF Confirmed By:Rolly Cuevas
[2020-03-29] MEDS: NITROFURANTOIN MONOHYDRATE 100 MG CAP PO SCH ×2 (09:28→21:17)
[2020-03-29] MEDS: NICOTINE POLACRILEX 2 MG GUM MT PRN ×3 (09:28→21:42)
[2020-03-29] MEDS: PALIPERIDONE 3 MG TABCR PO SCH (09:28)
--- NOTE | 2020-03-29 12:08 | Psychiatric Progress Note ---
Date of Service March 29, 2020 Impression / Recommendations Impression 39-year-old female admitted voluntarily for inpatient psychiatric treatment on 03/28/2020 after presenting to the ED and reporting an intentional overdose of OTC sleeping pills in a suicide attempt. Pt has a historical diagnosis of paranoid schizophrenia which had been reported during her stay on our unit in 11/2018. Outpatient psychology records indicate diagnoses of schizoaffective disorder, depressed type and eating disorder unspecified. At this time, patient's major concern is increased depression related to a recent break-up with her boyfriend of almost 3 years. Pt admits that she had suicidal ideation about 1 week prior to admission when she took 4 OTC sleeping pills - "I didn't want to be alive, but I was too scared to take a large amount." The day prior to her ED presentation, the patient admits to taking 8 of the same OTC sleeping pills in an attempt to end her life. Pt did not seek psychiatric treatment immediately - in fact, she attended an eye doctor appointment and had a brief call with her therapist before presenting to the ED with ongoing SI and concern she might overdose if not in the hospital. Pt is being treated with paliperidone on an outpatient basis. She admits the dose was increased to 3mg daily within the last week, but she has not started taking this amount. Outpatient provider suggest a goal of initiating Invega Sustenna, as they are concern about patient's poor medication compliance. Pt was agreeable with titrating her dose of paliperidone to 3mg while in the hospital - with further titration or initiation of Sustenna if agreeable. Will attempt to gather collateral information from patient's outpatient providers. Will encourage phone meeting with parents or other outpatient supports. Will suggest patient process the break-up through either individual counseling on the unit, or in group programming if she feels comfortable. Inpatient psychiatric treatment remains medically necessary as patient continues to be at high risk of suicide if she is discharged prematurely. 03/29--reviewed. (1) Overdose: 03/28 - Overdose on 8 tablets of OTC sleeping pills the night prior to her ED presentation, but came to the ED the next day with ongoing depression and concerns she would attempt to overdose again - Pt denies active SI at present, but is unable to contract for safety outside of the hospital setting - Pt cleared medically in the ED prior to referral and acceptance to our unit 03/29--reviewed (2) Depression with suicidal ideation: 03/28 - Pt reports depressive symptoms for the past two weeks, since breaking up with her boyfriend. - Given short duration of depressive symptoms, will begin with recommendation for supportive treatment which includes attendance of group programming and individual counseling as indicated - Pt denies active SI at this time, but is not necessarily remorseful about her suicide attempt. She is frustrated and confused about her request to end the relationship and would benefit from processing these thoughts and feelings - Encourage development of healthy and effective coping strategies - Schedule phone meeting with outpatient supports 03/29--consider Remeron given BMI and presentation. (3) Schizoaffective disorder, depressive type: 03/28 - Historical diagnosis of paranoid schizophrenia reported during 11/2018 admission to our unit. More recent records indicate a diagnosis of schizoaffective disorder, depressed type - no clearly active symptomatology at this time; however, recommendations for adjustment of paliperidone have been made by her outpatient psychiatrist which certainly seems reasonable - We have requested records and will attempt to coordinate care with her outpatient providers - Will order paliperidone 3mg (patient states she had not started the increased dose prior to admission) - Discuss consideration for an MCCULLOUGH to ensure compliance 03/29--tolerating Invega, consider dose increase tomorrow, she is not yet agreeing to MCCULLOUGH. (4) Eating disorder, unspecified: 03/28 - Pt is denying active eating disorder symptoms, but BMI is concerning at 14.9 - Potassium and other electrolytes appeared stable in the ED - Encourage patient to eat regular meals and make healthy food choices during admission, monitor intake per usual - Likely to trigger for dietary involvement due to low BMI - Assist with outpatient referrals for livestock nutritionist or eating disorder treatment if willing 03/29--unclear how much boost is taking, if no improvement today in PO will repeat labs and institute regular weights. (5) Urinary tract infection: 03/28 - Patient initiated on UTI treatment from the ED with recommendation for Macrobid 100mg BID x 5 days - will finish recommended course - Sample sent for culture, results pending 03/29--culture grew normal mixed syeda, will d/c Macrobid if N worsened. Currently requested Zofran. Risk Factors Assessment Male: No : Yes Do You Have Access To A Gun?: No Mental Health Diagnoses: Yes Substance Use Disorders: No Previous Attempt: Yes Family History of Suicide: No Previous Psychiatric Hospitalization: Yes Hopelessness: Yes Smoker: No (quit 2 weeks prior to admission with use of nicotine gum) Protective Factors Assessment Amish Beliefs: No : No Responsible for Young Children: No (2 children in custody of patient's parents) Employed: No Stable Relationships: No Supportive Family: Yes Interval History Chief Complaint "I didn't take meds before because they made me feel spacey, this is better so far.". Review of Systems Sleep Information Total Hours of Sleep: 5 Sleep Comments: fransisco was awake shortly before 0300, requested and received a prn hs dose of vistaril to get back to sleep/stay asleep. Meal Information Percent Meal Consumed - Breakfast: 50 Percent Meal Consumed - Lunch: 0 Percent Meal Consumed - Dinner: 90 Nutrition Comment: Pt stated that she was not feeling well this morning Subjective Subjective Patient was seen & assessed and interval progress reviewed with nursing and social work. Reports regret for breaking up with boyfriend in [place] for not being able to sleep in same bed. Today tells me spent much of the day anxious in her room yesterday as her vision was blurry and believed this meant she was losing her sight and would never see her kids again. Staff report only ate 1 meal yesterday. C/o N today but unclear if anxiety related or if to avoid meal. Seems to have some thought blocking as very rote in conversation, perhaps due to chronic malnutririon/low BMI. Physical Exam Psychiatric Orientation: alert, oriented x 3 and cooperative (superificially ) Apperance: appropriately dressed and appropriately groomed; + did not appear stated age Eye Contact: + poor eye contact (avoiding direct eye contact - focused on floor and paperwork) Motor Behavior: steady gait and station and no abnormal motor movements Speech: + abnormal rate/rhythm/volume of speech (speech is slowed, long pauses prior to responding to questions) Affect: + depressed affect and + constricted affect Mood: + depressed mood Thought Process: + thought blocking (significant delay prior to answering questions) and + concrete thought process Thought Content: + preoccupation (questioning decision to break up with her boyfriend ), + hopelessness and + loneliness Suicidal Thoughts: denies suicidal thoughts Homicidal Thoughts: denies homicidal thoughts Hallucinations: no auditory hallucinations and no visual hallucinations Cognition: + attention not intact Estimated Intelligence: + below average estimated intelligence Insight: + impaired insight Judgement: + impaired judgement Vital Signs (Past 24 Hours) Last Vital Signs Temp 36.2 C L 03/29/20 06:46 Pulse 109 H 03/29/20 06:47 Resp 18 03/29/20 06:46 BP 90/58 L 03/29/20 06:47 Pulse Ox 99 03/27/20 23:00 Results & Data ([facility]) Current Inpatient Medications Current Inpatient Medications: Current Inpatient Medications Acetaminophen (Tylenol) 650 mg PO Q4H PRN PRN Reason: Headache or Minor Fever Stop: 04/27/20 02:01 Al Hydrox/Mg Hydrox/Simethicone (Maalox) 30 ml PO Q4H PRN PRN Reason: GI Upset Stop: 04/27/20 02:01 Last Admin: 03/29/20 11:37 Dose: 30 ml Documented by: Bismuth Subsalicylate (Kaopectate) 15 ml PO PRN PRN PRN Reason: Loose Stool Stop: 04/27/20 02:01 Hydroxyzine HCl (Vistaril) 50 mg PO HSZ PRN PRN Reason: Insomnia Stop: 04/27/20 02:01 Last Admin: 03/29/20 03:01 Dose: 50 mg Documented by: Hydroxyzine HCl (Vistaril) 25 mg PO Q4H PRN PRN Reason: Anxiety Stop: 04/27/20 02:01 Magnesium Hydroxide (Milk Of Magnesia) 30 ml PO DAILY PRN PRN Reason: Constipation Stop: 04/27/20 02:01 Nicotine Polacrilex (Nicorette 2mg) 1 piece MT PRN PRN PRN Reason: nicotine withdrawal Stop: 04/27/20 02:04 Last Admin: 03/29/20 09:28 Dose: 1 piece Documented by: Nitrofurantoin Macrocrystals (Macrobid) 100 mg PO BID ABHIJEET; Protocol Stop: 04/01/20 11:14 Last Admin: 03/29/20 09:28 Dose: 100 mg Documented by: Paliperidone (Invega) 3 mg PO QAM ABHIJEET Stop: 04/27/20 11:14 Last Admin: 03/29/20 09:28 Dose: 3 mg Documented by: Sodium Chloride ([place] Nasal) 1 - 2 sprays NA PRN PRN PRN Reason: Nasal Dryness/Congestion Stop: 04/27/20 02:01 Mental Health & Subst Abuse Tx Psychiatrist Name of Psychiatrist: Shelly Farrar Psychiatrist's Date of Appointment with Psychiatrist: 04/22/20 Time of Appointment with Psychiatrist: 1:30 p.m. Psychiatric Appointment Comment: [address] [facility], [place], [place] Therapist Name of Therapist: Haroldo BOX Therapist's Date of Therapist Appointment: 04/03/20 Time of Therapist Appointment: 2:00 p.m. Therapy Appointment Comment: Telehealth Final Inspector Motorcyles Name of Final Inspector Motorcyles: MAXIMINO, gaby started Phone Number for Final Inspector Motorcyles: [phone] Time of Appointment with Final Inspector Motorcyles: As needed Case Management Appointment Comment: [address] [facility], [address], [place] Post Discharge Appointments Primary Care Physician Name Of Family Doctor: Dr. Camilo BOX, Dr. Elias Leslie Primary Care Date of Appointment with PCP: 04/17/20 Time of Appointment with PCP: 10:30 a.m. Provider Appointment Comment: [facility], [place] [address] Contact Information Discharge Discharge Address: [address] [place] [id number] (1) Overdose Encounter type: initial encounter Injury intent: intentional self-harm Qualified Code(s): T50.902A - Poisoning by unspecified drugs, medicaments and biological substances, intentional self-harm, initial encounter
[2020-03-29] MEDS: ONDANSETRON 4 MG OD TAB PO PRN (12:57)
[2020-03-30 08:36] LABS: Calcium 8.9 mg/dl (8.5-10.1); Magnesium 2.2 mg/dl (1.8-2.4)
[2020-03-30 08:43] LABS: Phosphorus 3.7 mg/dl (2.5-4.9)
--- NOTE | 2020-03-30 11:18 | Psychiatric Progress Note ---
Date of Service March 30, 2020 Impression / Recommendations Impression 39-year-old female admitted voluntarily for inpatient psychiatric treatment on 03/28/2020 after presenting to the ED and reporting an intentional overdose of OTC sleeping pills in a suicide attempt. Pt has a historical diagnosis of paranoid schizophrenia which had been reported during her stay on our unit in 11/2018. Outpatient psychology records indicate diagnoses of schizoaffective disorder, depressed type and eating disorder unspecified. At this time, patient's major concern is increased depression related to a recent break-up with her boyfriend of almost 3 years. Pt admits that she had suicidal ideation about 1 week prior to admission when she took 4 OTC sleeping pills - "I didn't want to be alive, but I was too scared to take a large amount." The day prior to her ED presentation, the patient admits to taking 8 of the same OTC sleeping pills in an attempt to end her life. Pt did not seek psychiatric treatment immediately - in fact, she attended an eye doctor appointment and had a brief call with her therapist before presenting to the ED with ongoing SI and concern she might overdose if not in the hospital. Pt is being treated with paliperidone on an outpatient basis. She admits the dose was increased to 3mg daily within the last week, but she has not started taking this amount. Outpatient provider suggest a goal of initiating Invega Sustenna, as they are concern about patient's poor medication compliance. Pt was agreeable with titrating her dose of paliperidone to 3mg while in the hospital - with further titration or initiation of Sustenna if agreeable. Will attempt to gather collateral information from patient's outpatient providers. Will encourage phone meeting with parents or other outpatient supports. Will suggest patient process the break-up through either individual counseling on the unit, or in group programming if she feels comfortable. Inpatient psychiatric treatment remains medically necessary as patient continues to be at high risk of suicide if she is discharged prematurely. 03/29--reviewed. 03/30--ongoing depression, visual symptoms likely somatic delusion, encourage fluids (1) Overdose: 03/28 - Overdose on 8 tablets of OTC sleeping pills the night prior to her ED presentation, but came to the ED the next day with ongoing depression and concerns she would attempt to overdose again - Pt denies active SI at present, but is unable to contract for safety outside of the hospital setting - Pt cleared medically in the ED prior to referral and acceptance to our unit 03/29--reviewed (2) Depression with suicidal ideation: 03/28 - Pt reports depressive symptoms for the past two weeks, since breaking up with her boyfriend. - Given short duration of depressive symptoms, will begin with recommendation for supportive treatment which includes attendance of group programming and individual counseling as indicated - Pt denies active SI at this time, but is not necessarily remorseful about her suicide attempt. She is frustrated and confused about her request to end the relationship and would benefit from processing these thoughts and feelings - Encourage development of healthy and effective coping strategies - Schedule phone meeting with outpatient supports 03/29--consider Remeron given BMI and presentation. (3) Schizoaffective disorder, depressive type: 03/28 - Historical diagnosis of paranoid schizophrenia reported during 11/2018 admission to our unit. More recent records indicate a diagnosis of schizoaffective disorder, depressed type - no clearly active symptomatology at this time; however, recommendations for adjustment of paliperidone have been made by her outpatient psychiatrist which certainly seems reasonable - We have requested records and will attempt to coordinate care with her outpatient providers - Will order paliperidone 3mg (patient states she had not started the increased dose prior to admission) - Discuss consideration for an MCCULLOUGH to ensure compliance 03/29--tolerating Invega, consider dose increase tomorrow, she is not yet agreeing to MCCULLOUGH. 03/30--unable to increase Invega today given physical complaints (4) Eating disorder, unspecified: 03/28 - Pt is denying active eating disorder symptoms, but BMI is concerning at 14.9 - Potassium and other electrolytes appeared stable in the ED - Encourage patient to eat regular meals and make healthy food choices during admission, monitor intake per usual - Likely to trigger for dietary involvement due to low BMI - Assist with outpatient referrals for utility aide or eating disorder treatment if willing 03/29--unclear how much boost is taking, if no improvement today in PO will repeat labs and institute regular weights. (5) Urinary tract infection: 03/28 - Patient initiated on UTI treatment from the ED with recommendation for Macrobid 100mg BID x 5 days - will finish recommended course - Sample sent for culture, results pending 03/29--culture grew normal mixed syeda, will d/c Macrobid if N worsened. Currently requested Zofran. 8/2--d/c Macrobid as could be contributing to N, Zofran could contribute to visual complaints though could also be hypoglycemia. Risk Factors Assessment Male: No : Yes Do You Have Access To A Gun?: No Mental Health Diagnoses: Yes Substance Use Disorders: No Previous Attempt: Yes Family History of Suicide: No Previous Psychiatric Hospitalization: Yes Hopelessness: Yes Smoker: No (quit 2 weeks prior to admission with use of nicotine gum) Protective Factors Assessment Congregational Beliefs: No : No Responsible for Young Children: No (2 children in custody of patient's parents) Employed: No Stable Relationships: No Supportive Family: Yes Interval History Chief Complaint "I'm pretty sure I'm going blind". Review of Systems Sleep Information Total Hours of Sleep: 6 Sleep Comments: fransisco was awake shortly before 0300, requested and received a prn hs dose of vistaril to get back to sleep/stay asleep. Meal Information Percent Meal Consumed - Breakfast: 0 Percent Meal Consumed - Lunch: 50 Percent Meal Consumed - Dinner: 0 Nutrition Comment: Pt stated that she was not feeling well this morning Subjective Subjective Patient was seen & assessed and interval progress reviewed with nursing and social work. PO intake sporadic particularly for fluids, no lytes on am labs but labs only remarkable for glu 69. No response to birthday wish. Cannot recall when she spoke with her parents and children. Physical Exam Psychiatric Orientation: + guarded Apperance: + disheveled; + did not appear stated age Eye Contact: + poor eye contact (avoiding direct eye contact - focused on floor and paperwork) Motor Behavior: no abnormal motor movements Speech: + abnormal rate/rhythm/volume of speech (speech is slowed, long pauses prior to responding to questions) Affect: + depressed affect and + constricted affect Mood: + depressed mood Thought Process: + thought blocking (significant delay prior to answering questions) and + concrete thought process Thought Content: + preoccupation (going blind); not paranoid and no delusions Suicidal Thoughts: denies suicidal thoughts Homicidal Thoughts: denies homicidal thoughts Hallucinations: no auditory hallucinations and no visual hallucinations Cognition: + attention not intact Estimated Intelligence: + below average estimated intelligence Insight: + impaired insight Judgement: + impaired judgement Vital Signs (Past 24 Hours) Last Vital Signs Temp 36.8 C 03/30/20 06:44 Pulse 99 H 03/30/20 06:44 Resp 18 03/30/20 06:44 BP 104/68 03/30/20 06:44 Pulse Ox 99 03/27/20 23:00 Results & Data ([facility]) Laboratory Results Laboratory Results - last 24 hr 03/30/20 07:54 Fasting Glucose 69 L Calcium 8.9 Phosphorus 3.7 Magnesium 2.2 Triglycerides 91 Cholesterol 201 H LDL Cholesterol, Calc 124 VLDL Cholesterol, Calc 18 HDL Cholesterol 59 Cholesterol/HDL Ratio 3 Current Inpatient Medications Current Inpatient Medications: Current Inpatient Medications Acetaminophen (Tylenol) 650 mg PO Q4H PRN PRN Reason: Headache or Minor Fever Stop: 04/27/20 02:01 Al Hydrox/Mg Hydrox/Simethicone (Maalox) 30 ml PO Q4H PRN PRN Reason: GI Upset Stop: 04/27/20 02:01 Last Admin: 03/29/20 11:37 Dose: 30 ml Documented by: Bismuth Subsalicylate (Kaopectate) 15 ml PO PRN PRN PRN Reason: Loose Stool Stop: 04/27/20 02:01 Lorazepam (Ativan) 0.5 mg PO Q6 PRN PRN Reason: Anxiety/Insomnia Stop: 04/28/20 17:23 Magnesium Hydroxide (Milk Of Magnesia) 30 ml PO DAILY PRN PRN Reason: Constipation Stop: 04/27/20 02:01 Nicotine Polacrilex (Nicorette 2mg) 1 piece MT PRN PRN PRN Reason: nicotine withdrawal Stop: 04/27/20 02:04 Last Admin: 03/29/20 21:42 Dose: 1 piece Documented by: Nitrofurantoin Macrocrystals (Macrobid) 100 mg PO BID [facility]; Protocol Stop: 04/01/20 11:14 Last Admin: 03/29/20 21:17 Dose: 100 mg Documented by: Ondansetron HCl (Zofran Odt) 4 mg PO Q8H PRN PRN Reason: Nausea Stop: 04/28/20 12:06 Last Admin: 03/29/20 12:57 Dose: 4 mg Documented by: Paliperidone (Invega) 3 mg PO QAM ABHIJEET Stop: 04/27/20 11:14 Last Admin: 03/29/20 09:28 Dose: 3 mg Documented by: Sodium Chloride ([place] Nasal) 1 - 2 sprays NA PRN PRN PRN Reason: Nasal Dryness/Congestion Stop: 04/27/20 02:01 Mental Health & Subst Abuse Tx Psychiatrist Name of Psychiatrist: Shelly Farrar Psychiatrist's Date of Appointment with Psychiatrist: 04/22/20 Time of Appointment with Psychiatrist: 1:30 p.m. Psychiatric Appointment Comment: [address] [facility], [place], [place] Therapist Name of Therapist: Haroldo BOX Therapist's Date of Therapist Appointment: 04/03/20 Time of Therapist Appointment: 2:00 p.m. Therapy Appointment Comment: Telehealth Vinyl Hanger Name of Vinyl Hanger: MAXIMINO, gaby sparrow Phone Number for Vinyl Hanger: [phone] Time of Appointment with Vinyl Hanger: As needed Case Management Appointment Comment: [address] [facility], [address], [place] Post Discharge Appointments Primary Care Physician Name Of Family Doctor: Dr. Camilo BOX, Dr. Elias Leslie Primary Care Date of Appointment with PCP: 04/17/20 Time of Appointment with PCP: 10:30 a.m. Provider Appointment Comment: [address], [place] [address] Contact Information Discharge Discharge Address: [address] [place] [id number] (1) Overdose Encounter type: initial encounter Injury intent: intentional self-harm Qualified Code(s): T50.902A - Poisoning by unspecified drugs, medicaments and biological substances, intentional self-harm, initial encounter
[2020-03-30] MEDS: PALIPERIDONE 3 MG TABCR PO SCH (11:33)
[2020-03-30] MEDS: NITROFURANTOIN MONOHYDRATE 100 MG CAP PO SCH (12:11)
[2020-03-30 12:20] LABS: Creatinine Clr Calc Pharmacy 68.4 ml/min; Est GFR (African American) 127.8; Est GFR (Non-African American) 110.3; Potassium 3.8 mmol/L (3.5-5.1)
[2020-03-30] MEDS: NICOTINE POLACRILEX 2 MG GUM MT PRN (13:56)
[2020-03-31] MEDS: PALIPERIDONE 3 MG TABCR PO SCH (10:39)
[2020-03-31] MEDS: NICOTINE POLACRILEX 2 MG GUM MT PRN ×3 (11:07→18:37)
[2020-03-31] MEDS: VENLAFAXINE HCL XR 37.5 MG CAPXR PO SCH (13:06)
--- NOTE | 2020-03-31 13:47 | Psychiatric Progress Note ---
Date of Service March 31, 2020 Impression / Recommendations Impression 39-year-old female admitted voluntarily for inpatient psychiatric treatment on 03/28/2020 after presenting to the ED and reporting an intentional overdose of OTC sleeping pills in a suicide attempt. Pt has a historical diagnosis of paranoid schizophrenia which had been reported during her stay on our unit in 11/2018. Outpatient psychology records indicate diagnoses of schizoaffective disorder, depressed type and eating disorder unspecified. At this time, patient's major concern is increased depression related to a recent break-up with her boyfriend of almost 3 years. Pt admits that she had suicidal ideation about 1 week prior to admission when she took 4 OTC sleeping pills - "I didn't want to be alive, but I was too scared to take a large amount." The day prior to her ED presentation, the patient admits to taking 8 of the same OTC sleeping pills in an attempt to end her life. Pt did not seek psychiatric treatment immediately - in fact, she attended an eye doctor appointment and had a brief call with her therapist before presenting to the ED with ongoing SI and concern she might overdose if not in the hospital. Pt is being treated with paliperidone on an outpatient basis. She admits the dose was increased to 3mg daily within the last week, but she has not started taking this amount. Outpatient provider suggest a goal of initiating Invega Sustenna, as they are concern about patient's poor medication compliance. Pt was agreeable with titrating her dose of paliperidone to 3mg while in the hospital - with further titration or initiation of Sustenna if agreeable. Will attempt to gather collateral information from patient's outpatient providers. Will encourage phone meeting with parents or other outpatient supports. Will suggest patient process the break-up through either individual counseling on the unit, or in group programming if she feels comfortable. Inpatient psychiatric treatment remains medically necessary as patient continues to be at high risk of suicide if she is discharged prematurely. 03/29--reviewed. 03/30--ongoing depression, visual symptoms likely somatic delusion, encourage fluids 03/31--more verbal this am, agrees to trial of antidepressant, less visual complaints today and no nausea. (1) Overdose: 03/28 - Overdose on 8 tablets of OTC sleeping pills the night prior to her ED presentation, but came to the ED the next day with ongoing depression and concerns she would attempt to overdose again - Pt denies active SI at present, but is unable to contract for safety outside of the hospital setting - Pt cleared medically in the ED prior to referral and acceptance to our unit 03/29--reviewed (2) Depression with suicidal ideation: 03/28 - Pt reports depressive symptoms for the past two weeks, since breaking up with her boyfriend. - Given short duration of depressive symptoms, will begin with recommendation for supportive treatment which includes attendance of group programming and individual counseling as indicated - Pt denies active SI at this time, but is not necessarily remorseful about her suicide attempt. She is frustrated and confused about her request to end the relationship and would benefit from processing these thoughts and feelings - Encourage development of healthy and effective coping strategies - Schedule phone meeting with outpatient supports 03/29--consider Remeron given BMI and presentation. 03/31--reviewed past med trials, included Remeron, states most helpful was Effexor XR 12 years ago when living in [place], would like to retry that rather than a new medication. Risks/benefits/alternatives reviewed and ordered Effexor XR 37.5 mg daily. (3) Schizoaffective disorder, depressive type: 03/28 - Historical diagnosis of paranoid schizophrenia reported during 11/2018 admission to our unit. More recent records indicate a diagnosis of schizoaffective disorder, depressed type - no clearly active symptomatology at this time; however, recommendations for adjustment of paliperidone have been made by her outpatient psychiatrist which certainly seems reasonable - We have requested records and will attempt to coordinate care with her outpatient providers - Will order paliperidone 3mg (patient states she had not started the increased dose prior to admission) - Discuss consideration for an MCCULLOUGH to ensure compliance 03/29--tolerating Invega, consider dose increase tomorrow, she is not yet agreeing to MCCULLOUGH. 03/30--unable to increase Invega today given physical complaints (4) Eating disorder, unspecified: 03/28 - Pt is denying active eating disorder symptoms, but BMI is concerning at 14.9 - Potassium and other electrolytes appeared stable in the ED - Encourage patient to eat regular meals and make healthy food choices during admission, monitor intake per usual - Likely to trigger for dietary involvement due to low BMI - Assist with outpatient referrals for shoe puller or eating disorder treatment if willing 03/29--unclear how much boost is taking, if no improvement today in PO will repeat labs and institute regular weights. (5) Urinary tract infection: 03/28 - Patient initiated on UTI treatment from the ED with recommendation for Macrobid 100mg BID x 5 days - will finish recommended course - Sample sent for culture, results pending 03/29--culture grew normal mixed syeda, will d/c Macrobid if N worsened. Currently requested Zofran. 03/30--d/c Macrobid as could be contributing to N, Zofran could contribute to visual complaints though could also be hypoglycemia. Risk Factors Assessment Male: No : Yes Do You Have Access To A Gun?: No Mental Health Diagnoses: Yes Substance Use Disorders: No Previous Attempt: Yes Family History of Suicide: No Previous Psychiatric Hospitalization: Yes Hopelessness: Yes Smoker: No (quit 2 weeks prior to admission with use of nicotine gum) Protective Factors Assessment Judaism Beliefs: No : No Responsible for Young Children: No (2 children in custody of patient's parents) Employed: No Stable Relationships: No Supportive Family: Yes Interval History Chief Complaint "I am very depressed, I may not be going blind but I do think if I eat my vision gets worse". Review of Systems Sleep Information Total Hours of Sleep: 6 Sleep Comments: fransisco was awake shortly before 0300, requested and received a prn hs dose of vistaril to get back to sleep/stay asleep. Meal Information Percent Meal Consumed - Breakfast: 0 Percent Meal Consumed - Lunch: 0 Percent Meal Consumed - Dinner: 95 Nutrition Comment: per meal record Subjective Subjective Patient was seen & assessed and interval progress reviewed with treatment team. Patient had spent most of am in bed yesterday but rallied after later in day. Parents brought her a cake which she did eat some of and then the children called her while they were in the healing garden so she could see them through window. She clearly states she was suicidal when she took the OTC meds and denies regretting it though denies SI in hospital. She is still not eating consistently shift to shift and says that her typical adult weight has been 95 lbs for some time and that currently she feels underweight. She did confirm that she has her menses at this time. She denies feeling spacey here due to Invega but is also not getting up as early as at home. Physical Exam Psychiatric Orientation: alert, oriented x 3 and cooperative (superificially ) Apperance: appropriately groomed Eye Contact: + poor eye contact (avoiding direct eye contact - focused on floor and paperwork) Motor Behavior: no abnormal motor movements Speech: + abnormal rate/rhythm/volume of speech (speech is slowed, long pauses prior to responding to questions) Affect: + depressed affect and + constricted affect Mood: + depressed mood Thought Process: + thought blocking (significant delay prior to answering questions) and + concrete thought process Thought Content: + preoccupation (going blind), + delusions (somatic proportions), + loneliness and + guilt Suicidal Thoughts: denies suicidal thoughts Homicidal Thoughts: denies homicidal thoughts Hallucinations: no auditory hallucinations and no visual hallucinations Cognition: + attention not intact Estimated Intelligence: + below average estimated intelligence Insight: + impaired insight Judgement: + impaired judgement Vital Signs (Past 24 Hours) Last Vital Signs Temp 36.6 C 03/31/20 07:05 Pulse 101 H 03/31/20 07:06 Resp 16 03/31/20 07:05 BP 93/59 L 03/31/20 07:06 Pulse Ox 99 03/27/20 23:00 Results & Data ([facility]) Current Inpatient Medications Current Inpatient Medications: Current Inpatient Medications Acetaminophen (Tylenol) 650 mg PO Q4H PRN PRN Reason: Headache or Minor Fever Stop: 04/27/20 02:01 Al Hydrox/Mg Hydrox/Simethicone (Maalox) 30 ml PO Q4H PRN PRN Reason: GI Upset Stop: 04/27/20 02:01 Last Admin: 03/29/20 11:37 Dose: 30 ml Documented by: Bismuth Subsalicylate (Kaopectate) 15 ml PO PRN PRN PRN Reason: Loose Stool Stop: 04/27/20 02:01 Lorazepam (Ativan) 0.5 mg PO Q6 PRN PRN Reason: Anxiety/Insomnia Stop: 04/28/20 17:23 Magnesium Hydroxide (Milk Of Magnesia) 30 ml PO DAILY PRN PRN Reason: Constipation Stop: 04/27/20 02:01 Nicotine Polacrilex (Nicorette 2mg) 1 piece MT PRN PRN PRN Reason: nicotine withdrawal Stop: 04/27/20 02:04 Last Admin: 03/31/20 13:39 Dose: 1 piece Documented by: Ondansetron HCl (Zofran Odt) 4 mg PO Q8H PRN PRN Reason: Nausea Stop: 04/28/20 12:06 Last Admin: 03/29/20 12:57 Dose: 4 mg Documented by: Paliperidone (Invega) 3 mg PO QAM [facility] Stop: 04/27/20 11:14 Last Admin: 03/31/20 10:39 Dose: 3 mg Documented by: Sodium Chloride ([place] Nasal) 1 - 2 sprays NA PRN PRN PRN Reason: Nasal Dryness/Congestion Stop: 04/27/20 02:01 Venlafaxine HCl (Effexor Extended Release) 37.5 mg PO QAM [facility] Stop: 04/30/20 10:44 Last Admin: 03/31/20 13:06 Dose: 37.5 mg Documented by: Mental Health & Subst Abuse Tx Psychiatrist Name of Psychiatrist: [facility] Psych[facility]rist's Date of Appointment with Psychiatrist: 04/22/20 Time of Appointment with Psychiatrist: 1:30 p.m. Psychiatric Appointment Comment: [address] [facility], [place], [place] Therapist Name of Therapist: Haroldo BOX Therapist's Date of Therapist Appointment: 04/03/20 Time of Therapist Appointment: 2:00 p.m. Therapy Appointment Comment: Telehealth Deputy Felony Clerk Name of Deputy Felony Clerk: gaby STANTON Phone Number for Deputy Felony Clerk: [phone] Time of Appointment with Deputy Felony Clerk: As needed Case Management Appointment Comment: [address] [facility], [address], [place] Post Discharge Appointments Primary Care Physician Name Of Family Doctor: Dr. Camilo BOX, Dr. Elias [facility] Date of Appointment with PCP: 04/17/20 Time of Appointment with PCP: 10:30 a.m. Provider Appointment Comment: Saroj Segovia, [place] [address] Contact Information Discharge Discharge Address: [address] [place] [id number] (1) Overdose Encounter type: initial encounter Injury intent: intentional self-harm Qualified Code(s): T50.902A - Poisoning by unspecified drugs, medicaments and biological substances, intentional self-harm, initial encounter
[2020-03-31] MEDS: LORazepam 0.5 MG TAB PO PRN (22:56)
[2020-04-01] MEDS: PALIPERIDONE 3 MG TABCR PO SCH (10:03)
[2020-04-01] MEDS: VENLAFAXINE HCL XR 37.5 MG CAPXR PO SCH (10:03)
--- NOTE | 2020-04-01 10:55 | Psychiatric Progress Note ---
Date of Service April 01, 2020 Impression / Recommendations Impression 39-year-old female admitted voluntarily for inpatient psychiatric treatment on 03/28/2020 after presenting to the ED and reporting an intentional overdose of OTC sleeping pills in a suicide attempt. Pt has a historical diagnosis of paranoid schizophrenia which had been reported during her stay on our unit in 11/2018. Outpatient psychology records indicate diagnoses of schizoaffective disorder, depressed type and eating disorder unspecified. At this time, patient's major concern is increased depression related to a recent break-up with her boyfriend of almost 3 years. Pt admits that she had suicidal ideation about 1 week prior to admission when she took 4 OTC sleeping pills - "I didn't want to be alive, but I was too scared to take a large amount." The day prior to her ED presentation, the patient admits to taking 8 of the same OTC sleeping pills in an attempt to end her life. Pt did not seek psychiatric treatment immediately - in fact, she attended an eye doctor appointment and had a brief call with her therapist before presenting to the ED with ongoing SI and concern she might overdose if not in the hospital. Pt is being treated with paliperidone on an outpatient basis. She admits the dose was increased to 3mg daily within the last week, but she has not started taking this amount. Outpatient provider suggest a goal of initiating Invega Sustenna, as they are concern about patient's poor medication compliance. Pt was agreeable with titrating her dose of paliperidone to 3mg while in the hospital - with further titration or initiation of Sustenna if agreeable. Will attempt to gather collateral information from patient's outpatient providers. Will encourage phone meeting with parents or other outpatient supports. Will suggest patient process the break-up through either individual counseling on the unit, or in group programming if she feels comfortable. Inpatient psychiatric treatment remains medically necessary as patient continues to be at high risk of suicide if she is discharged prematurely. (1) Overdose: 03/28 - Overdose on 8 tablets of OTC sleeping pills the night prior to her ED presentation, but came to the ED the next day with ongoing depression and concerns she would attempt to overdose again - Pt denies active SI at present, but is unable to contract for safety outside of the hospital setting - Pt cleared medically in the ED prior to referral and acceptance to our unit 03/29--reviewed (2) Depression with suicidal ideation: 03/28 - Pt reports depressive symptoms for the past two weeks, since breaking up with her boyfriend. - Given short duration of depressive symptoms, will begin with recommendation for supportive treatment which includes attendance of group programming and individual counseling as indicated - Pt denies active SI at this time, but is not necessarily remorseful about her suicide attempt. She is frustrated and confused about her request to end the relationship and would benefit from processing these thoughts and feelings - Encourage development of healthy and effective coping strategies - Schedule phone meeting with outpatient supports 03/29--consider Remeron given BMI and presentation. 03/31--reviewed past med trials, included Remeron, states most helpful was Effexor XR 12 years ago when living in [place], would like to retry that rather than a new medication. Risks/benefits/alternatives reviewed and ordered Effexor XR 37.5 mg daily. 04/01 - Continue paliperidone and venlafaxine - titrating venlafaxine to 75mg tomorrow morning. Risks and potential side effects reviewed with patient, who is agreeable with dose increase - Schedule phone meeting with family, as patient continues to be somatically preoccupied and is limited in her ability to verbalize concrete treatment goals (3) Schizoaffective disorder, depressive type: 03/28 - Historical diagnosis of paranoid schizophrenia reported during 11/2018 admission to our unit. More recent records indicate a diagnosis of schizoaffective disorder, depressed type - no clearly active symptomatology at this time; however, recommendations for adjustment of paliperidone have been made by her outpatient psychiatrist which certainly seems reasonable - We have requested records and will attempt to coordinate care with her outpatient providers - Will order paliperidone 3mg (patient states she had not started the increased dose prior to admission) - Discuss consideration for an MCCULLOUGH to ensure compliance 03/29--tolerating Invega, consider dose increase tomorrow, she is not yet agreeing to MCCULLOUGH. 03/30--unable to increase Invega today given physical complaints 04/01 - Pt reports she is not interested in titrating paliperidone due to various somatic complaints - collateral received from outpatient psychiatrist suggests that these complaints may actually be somatic preoccupation related to delusions - Pt remains unwilling to consider an MCCULLOUGH at this time - will continue conversation (4) Eating disorder, unspecified: 03/28 - Pt is denying active eating disorder symptoms, but BMI is concerning at 14.9 - Potassium and other electrolytes appeared stable in the ED - Encourage patient to eat regular meals and make healthy food choices during admission, monitor intake per usual - Likely to trigger for dietary involvement due to low BMI - Assist with outpatient referrals for ship painter helper or eating disorder treatment if willing 03/29--unclear how much boost is taking, if no improvement today in PO will repeat labs and institute regular weights. (5) Urinary tract infection: 03/28 - Patient initiated on UTI treatment from the ED with recommendation for Macrobid 100mg BID x 5 days - will finish recommended course - Sample sent for culture, results pending 03/29--culture grew normal mixed syeda, will d/c Macrobid if N worsened. Currently requested Zofran. 03/30--d/c Macrobid as could be contributing to N, Zofran could contribute to visual complaints though could also be hypoglycemia. Risk Factors Assessment Male: No : Yes Do You Have Access To A Gun?: No Mental Health Diagnoses: Yes Substance Use Disorders: No Previous Attempt: Yes Family History of Suicide: No Previous Psychiatric Hospitalization: Yes Hopelessness: Yes Smoker: No (quit 2 weeks prior to admission with use of nicotine gum) Protective Factors Assessment Voodoo Beliefs: No : No Responsible for Young Children: No (2 children in custody of patient's parents) Employed: No Stable Relationships: No Supportive Family: Yes Interval History Identifying Information FRANSISCO ECKERT is a 39-year-old F who currently lives in [place] with her parents and the patient's 2 children (of whom the patient's parents have custody) Pt has a historical diagnosis of paranoid schizophrenia; however she was admitted on 03/28/20 01:00 on a 201 voluntary commitment for increased depression related to a recent break-up and intentional overdose of OTC sleeping pills in a suicide attempt. Chief Complaint "Ok. A little tired." Review of Systems Notes Constitutional: reports ongoing vision concerns, possibly somatic delusions based on history Cardiovascular: denied Respiratory: denied Gastrointestinal: denied; denies nausea today Neurological: denied Psychiatric: denies symptoms other than stated above Total of at least 10 systems reviewed, pertinent positives as above and in HPI. Sleep Information Total Hours of Sleep: 6.25 Sleep Comments: fransisco was awake shortly before 0300, requested and received a prn hs dose of vistaril to get back to sleep/stay asleep. Meal Information Percent Meal Consumed - Breakfast: 0 Percent Meal Consumed - Lunch: 60 Percent Meal Consumed - Dinner: 75 Nutrition Comment: per meal record Subjective Subjective Patient was seen & assessed and interval progress reviewed with nursing and social work. Staff report the patient has been isolative and demonstrating rather slow improvement. She is appropriate with peers and seems to benefit from group programming, but is often declining to attend. Based on collateral obtained from outpatient providers and patient's reports during this admission, it is questioned if patient's various physial complaints are somatic delusions associated with her psychiatric diagnoses. Will assess if patient is appropriate to participate in a phone meeting with outpatient supports. Pt was seen today to assess progress since admission, pt observed while curled up in bed. Pt states she is "ok. A little tired." Pt states that she had a good weekend, and was able to talk with her mother on the phone. She also states that her family brought a "Happy Birthday" banner to the hospital grounds and patient was able to see them from the window, which brightened her day. Pt continues to verbalize complaints about her vision, stating "I was really concerned about my vision. It was better for two days, and then it got worse last night." Pt continues to only verbalize vague complaints of "vision concerns" and feeling "spacey", but is not able to describe these in any greater detail. We again discussed the recommendation for an MCCULLOUGH, which patient is declining, stating "I was on those before, they made me spacey and didn't help." This provider shared information obtained from her outpatient psychiatrist, that it was presumed that she actually was demonstrated the most stability when on Risperdal Consta in the past. Pt continues to disagree with these statements. She is also declining titration of oral paliperidone at this time. When asked about her treatment goals, the patient pauses for a significant time. She then states "just work on figuring out my vision and feeling less depressed." We did discuss titration of venlafaxine, which patient was agreeable with. She reported some nausea when the medication was initiated, but states this has since resolved. Pt denies SI presently, but does states "if my vision doesn't get better, I'm still going to want to just end it." Pt denies any new physical concerns today. Physical Exam Psychiatric Orientation: alert, oriented x 3 and + guarded (superficially cooperative ) Apperance: + disheveled (hair appearing somewhat unkempt) and appeared stated age Covered up to her neck in blanket Eye Contact: + fair eye contact (prolonged staring off in the distance; intermittent direct eye contact) Motor Behavior: no abnormal motor movements (observed while laying in bed, in position, covered in blanket) Speech: + abnormal rate/rhythm/volume of speech (slowed speech, long delays before responding to questions) Affect: + flat affect and + constricted affect Mood: + depressed mood Thought Process: + thought blocking (paucity of thought), + perseveration and + concrete thought process Thought Content: + preoccupation, + delusions (presumed somatic delusions) and + hopelessness Suicidal Thoughts: denies suicidal thoughts But remains focused on perceived vision changes and is unable at this time to contract for safety outside of the hospital setting Homicidal Thoughts: denies homicidal thoughts Cognition: language grossly intact; + attention not intact Insight: + impaired insight Judgement: + impaired judgement Vital Signs (Past 24 Hours) Last Vital Signs Temp 36.8 C 04/01/20 06:00 Pulse 112 H 04/01/20 06:37 Resp 16 04/01/20 06:00 BP 91/58 L 04/01/20 06:37 Pulse Ox 99 03/27/20 23:00 Results & Data ([facility]) Current Inpatient Medications Current Inpatient Medications: Current Inpatient Medications Acetaminophen (Tylenol) 650 mg PO Q4H PRN PRN Reason: Headache or Minor Fever Stop: 04/27/20 02:01 Al Hydrox/Mg Hydrox/Simethicone (Maalox) 30 ml PO Q4H PRN PRN Reason: GI Upset Stop: 04/27/20 02:01 Last Admin: 03/29/20 11:37 Dose: 30 ml Documented by: Bismuth Subsalicylate (Kaopectate) 15 ml PO PRN PRN PRN Reason: Loose Stool Stop: 04/27/20 02:01 Lorazepam (Ativan) 0.5 mg PO Q6 PRN PRN Reason: Anxiety/Insomnia Stop: 04/28/20 17:23 Last Admin: 03/31/20 22:56 Dose: 0.5 mg Documented by: Magnesium Hydroxide (Milk Of Magnesia) 30 ml PO DAILY PRN PRN Reason: Constipation Stop: 04/27/20 02:01 Nicotine Polacrilex (Nicorette 2mg) 1 piece MT PRN PRN PRN Reason: nicotine withdrawal Stop: 04/27/20 02:04 Last Admin: 03/31/20 18:37 Dose: 1 piece Documented by: Ondansetron HCl (Zofran Odt) 4 mg PO Q8H PRN PRN Reason: Nausea Stop: 04/28/20 12:06 Last Admin: 03/29/20 12:57 Dose: 4 mg Documented by: Paliperidone (Invega) 3 mg PO QAM ABHIJEET Stop: 04/27/20 11:14 Last Admin: 04/01/20 10:03 Dose: 3 mg Documented by: Sodium Chloride ([place] Nasal) 1 - 2 sprays NA PRN PRN PRN Reason: Nasal Dryness/Congestion Stop: 04/27/20 02:01 Venlafaxine HCl (Effexor Extended Release) 37.5 mg PO QAM ABHIJEET Stop: 04/30/20 10:44 Last Admin: 04/01/20 10:03 Dose: 37.5 mg Documented by: Mental Health & Subst Abuse Tx Psychiatrist Name of Psychiatrist: Shelly Farrar Psychiatrist's Date of Appointment with Psychiatrist: 04/22/20 Time of Appointment with Psychiatrist: 1:30 p.m. Psychiatric Appointment Comment: [id number] [facility], [place] Therapist Name of Therapist: Haroldo BOX Therapist's Date of Therapist Appointment: 04/03/20 Time of Therapist Appointment: 2:00 p.m. Therapy Appointment Comment: Telehealth Library Clerical Assistant Name of Library Clerical Assistant: gaby STANTON Phone Number for Library Clerical Assistant: [phone] Time of Appointment with Library Clerical Assistant: As needed Case Management Appointment Comment: [address] [facility], [address], [place] Post Discharge Appointments Primary Care Physician Name Of Family Doctor: ISAURO, Dr. Page, Dr. Elias Leslie Primary [facility] Date of Appointment with PCP: 04/17/20 Time of Appointment with PCP: 10:30 a.m. Provider Appointment Comment: [address], [place] [address] Other #1: Name of Aftercare Appointment: ISAURO Shelley Phone Number of Aftercare Appointment: Aftercare Appointment Comment: [address], [place] [address] Contact Information Discharge Discharge Address: [address] [place] [address] (1) Overdose Encounter type: initial encounter Injury intent: intentional self-harm Abdirahman lified Code(s): T50.902A - Poisoning by unspecified drugs, medicaments and biological substances, intentional self-harm, initial encounter
[2020-04-01] MEDS: NICOTINE POLACRILEX 2 MG GUM MT PRN ×2 (11:07→14:46)
[2020-04-01] MEDS: LORazepam 0.5 MG TAB PO PRN (23:40)
[2020-04-02] MEDS: PALIPERIDONE 3 MG TABCR PO SCH (09:46)
[2020-04-02] MEDS: VENLAFAXINE HCL XR 75 MG CAPXR PO SCH (09:46)
[2020-04-02] MEDS: NICOTINE POLACRILEX 2 MG GUM MT PRN (12:10)
--- NOTE | 2020-04-02 12:43 | Psychiatric Progress Note ---
Date of Service April 02, 2020 Impression / Recommendations Impression 39-year-old female admitted voluntarily for inpatient psychiatric treatment on 03/28/2020 after presenting to the ED and reporting an intentional overdose of OTC sleeping pills in a suicide attempt. When hospitalized here in 2018 she was diagnosed with paranoid schizophrenia, and current outpatient records indicate diagnoses of schizoaffective disorder, depressed type and eating disorder unspecified. She presented with depression related to a recent break-up with her boyfriend of almost 3 years, somatic delusions, limited medication adherence, and is underweight with a BMI of 14.9. She admitted to 2 intentional overdoses of oxsc-ulj-xjvheem sleep medication in suicide attempts, and did not seek psychiatric treatment immediately. She is prescribed paliperidone on an outpatient basis, but has been noncompliant, and although transition to Sustenna has been recommended, she is refusing that. She is cognitively impaired and severely slowed, likely multifactorial and due to depression, cognitive impairm ent from starvation, and psychosis. She is also been started on venlafaxine XR as she reported a previous good response to it. Family meeting was held with parents today, who expressed frustration at her ongoing symptoms. Inpatient treatment remains medically necessary due to the severity of her symptoms and risk for harm to self/ either as a result of inadequate p.o. intake and/or intentional overdose or self-harm. (1) Overdose: 03/28 - Overdose on 8 tablets of OTC sleeping pills the night prior to her ED presentation, but came to the ED the next day with ongoing depression and concerns she would attempt to overdose again - Pt denies active SI at present, but is unable to contract for safety outside of the hospital setting - Pt cleared medically in the ED prior to referral and acceptance to our unit 03/29--reviewed (2) Schizoaffective disorder, depressive type: 03/28 - Historical diagnosis of paranoid schizophrenia reported during 11/2018 admission to our unit. More recent records indicate a diagnosis of schizoaffective disorder, depressed type - no clearly active symptomatology at this time; however, recommendations for adjustment of paliperidone have been made by her outpatient psychiatrist which certainly seems reasonable - We have requested records and will attempt to coordinate care with her outpatient providers - Will order paliperidone 3mg (patient states she had not started the increased dose prior to admission) - Discuss consideration for an MCCULLOUGH to ensure compliance - Pt reports depressive symptoms for the past two weeks, since breaking up with her boyfriend. - Given short duration of depressive symptoms, will begin with recommendation for supportive treatment which includes attendance of group programming and individual counseling as indicated - Pt denies active SI at this time, but is not necessarily remorseful about her suicide attempt. She is frustrated and confused about her request to end the relationship and would benefit from processing these thoughts and feelings - Encourage development of healthy and effective coping strategies - Schedule phone meeting with outpatient supports 03/29--tolerating Invega, consider dose increase tomorrow, she is not yet agreeing to MCCULLOUGH. -consider Remeron given BMI and presentation. 03/30--unable to increase Invega today given physical complaints 03/31--reviewed past med trials, included Remeron, states most helpful was Effexor XR 12 years ago when living in [place], would like to retry that rather than a new medication. Risks/benefits/alternatives reviewed and ordered Effexor XR 37.5 mg daily. 04/01 - Pt reports she is not interested in titrating paliperidone due to various somatic complaints - collateral received from outpatient psychiatrist suggests that these complaints may actually be somatic preoccupation related to delusions - Pt remains unwilling to consider an MCCULLOUGH at this time - will continue conversation - Continue paliperidone and venlafaxine - titrating venlafaxine to 75mg tomorrow morning. Risks and potential side effects reviewed with patient, who is agreeable with dose increase - Schedule phone meeting with family, as patient continues to be somatically preoccupied and is limited in her ability to verbalize concrete treatment goals 04/02 -Patient continues to decline recommendations to increase paliperidone as well as transition to Sustenna. She remains psychotic, with poor insight and judgment. She is endorsing delusions that food she eats or medication she takes might cause her to lose her vision. She is severely underweight, is malnourished and some of her cognitive impairment is likely due to that. -Family meeting held with parents today. -Encourage increased outpatient supports, including a blended continuous pillowcase cutter and day programming. (3) Eating disorder, unspecified: 03/28 - Pt is denying active eating disorder symptoms, but BMI is concerning at 14.9 - Potassium and other electrolytes appeared stable in the ED - Encourage patient to eat regular meals and make healthy food choices during admission, monitor intake per usual - Likely to trigger for dietary involvement due to low BMI - Assist with outpatient referrals for journeyman mechanic or eating disorder treatment if willing 03/29--unclear how much boost is taking, if no improvement today in PO will repeat labs and institute regular weights. 04/02 -patient refusing multiple meals daily, appears severely malnourished, cachectic. Will start daily weights, encourage increased oral intake, and consult the dietitian for assistance with supplementation. (4) Urinary tract infection: 03/28 - Patient initiated on UTI treatment from the ED with recommendation for Macrobid 100mg BID x 5 days - will finish recommended course - Sample sent for culture, results pending 03/29--culture grew normal mixed syeda, will d/c Macrobid if N worsened. Currently requested Zofran. 03/30--d/c Macrobid as could be contributing to N, Zofran could contribute to visual complaints though could also be hypoglycemia. Risk Factors Assessment Male: No : Yes Do You Have Access To A Gun?: No Health Problems: Yes Mental Health Diagnoses: Yes Substance Use Disorders: No Previous Attempt: Yes Family History of Suicide: No Previous Psychiatric Hospitalization: Yes Hopelessness: Yes Smoker: No (quit 2 weeks prior to admission with use of nicotine gum) Protective Factors Assessment Confucianist Beliefs: No : No Responsible for Young Children: No (2 children in custody of patient's parents) Employed: No Stable Relationships: No Supportive Family: Yes Interval History Identifying Information FRANSISCO ECKERT is a 39-year-old F who currently lives in [place] with her parents and the patient's 2 children (of whom the patient's parents have custody) Pt has a historical diagnosis of paranoid schizophrenia; however she was admitted on 03/28/20 01:00 on a 201 voluntary commitment for increased depression related to a recent break-up and intentional overdose of OTC sleeping pills in a suicide attempt. Chief Complaint "Alright". Review of Systems Notes 10 systems reviewed; negative except as stated above. Sleep Information Total Hours of Sleep: 5.5 Sleep Comments: fransisco was awake shortly before 0300, requested and received a prn hs dose of vistaril to get back to sleep/stay asleep. Meal Information Percent Meal Consumed - Breakfast: 0 Percent Meal Consumed - Lunch: 50 Percent Meal Consumed - Dinner: 100 Nutrition Comment: per meal record Subjective Subjective Patient was seen & assessed and interval progress reviewed with treatment team. Staff report the patient isolates in her room in bed most of the time, refused groups yesterday, and was slowed and lethargic. She continues to refuse a referral for case management, but continuous pillowcase cutter from the [facility] attempted to meet with and engage her. She continues to ruminate about somatic concerns, stating she feels tired and "foggy" when she gets up in the morning, which she attributes to medications. She also reported regarding the decision to break-up with her boyfriend, stating it was impulsive. She reported fears of confronting her father in the family meeting, stating that he gets upset with her when she stays in bed all day and accuses her of fabricating symptoms. She also reported that her overdose was impulsive in the context of feeling hopeless and that she was unable to function. She has been requesting and receiving lorazepam 0.5 mg nightly. This morning she was late to community meeting and appeared groggy, and reported feeling lightheaded. She is not eating, refusing breakfast daily, and eating only part of lunch and dinner. She had a family meeting with her parents and the social group worker today, during which her parents expressed frustration that treatment had not worked for the patient, feeling that "something has to work" and stating they were "exhausted." The patient was willing for referrals for outpatient therapy and neuro feedback, and was focused on her lack of energy. She is on the wait list for low income housing with a plan to get her own apartment. She saw her primary problem as poor sleep, which is a chronic issue. On my assessment, she states that her mood is improved since admission and rates it as 7/10. She denies suicidal thoughts, reports ongoing anxiety which is triggered by "bad vision, cloudy," and fears that she will lose her vision. She perseverates on this, but is poorly able to describe symptoms or delineate the time course. She initially says it is a new symptom and she wonders if it is from her overdose on the day of admission, but later says it is an ongoing concern and she has been seeing an eye doctor, whom she actually saw the day prior to admission, and who told her that her vision was unchanged from her last exam several years prior. She returned to this topic repeatedly, at one point stating she thinks her medications might be causing it. She continues to refuse recommendations for a long-acting injectable antipsychotic, stating that she thinks medications are causing her to have low energy and feel groggy. Reviewed that this is much more likely to be due to starvation, and that both her physical and mental health will not be optimal if she is not eating. She says that she weighs 83 pounds and has lost 12 pounds and an unclear timeframe, and that her baseline weight is 95 pounds, which is also significantly underweight. She says she is not eating at times because she thinks that it is causing her visual symptoms. She says that when she is in the hospital, "meds work for me, but when I get home, they don't seem to work for me, I feel spaced out, they make me feel like I'm worthless." She is unable to identify any goals for treatment, and when encouraged to reconsider transitioning to Sustenna, so she does not want to do that as she did not like the Risperdal Consta when she was on it in the past, because "it wasn't good at all." She continues to say that she does not need a BCM, saying her family provides the support she needs. Physical Exam Psychiatric Orientation: alert and cooperative Poor historian, gives vague answers and is unable to elaborate. Apperance: appropriately dressed Extremely thin, cachectic female. Casually dressed, seated crosslegged on her bed in no acute distress. Trying to fill out her menu, and appears to be struggling with that. Eye Contact: + poor eye contact Motor Behavior: + psychomotor retardation Very slowed movements. Minimal, slowed, significant delay Affect: + depressed affect, + blunted affect and + constricted affect; + mood not congruent with affect "All right." Thought Process: + concrete thought process Thought Content: + paranoid and + delusions (That food she eats her medication she takes are causing her to lose her vision) Paucity of thought content Suicidal Thoughts: denies suicidal thoughts Homicidal Thoughts: denies homicidal thoughts Hallucinations: no auditory hallucinations and no visual hallucinations Cognition: language grossly intact; + recent memory not intact and + attention not intact Insight: + poor insight Judgement: + poor judgement Vital Signs (Past 24 Hours) Last Vital Signs Temp 36.6 C 04/02/20 07:10 Pulse 98 H 04/02/20 07:11 Resp 16 04/02/20 07:10 BP 75/47 L 04/02/20 07:11 Pulse Ox 99 03/27/20 23:00 Results & Data ([facility]) Current Inpatient Medications Current Inpatient Medications: Current Inpatient Medications Acetaminophen (Tylenol) 650 mg PO Q4H PRN PRN Reason: Headache or Minor Fever Stop: 04/27/20 02:01 Al Hydrox/Mg Hydrox/Simethicone (Maalox) 30 ml PO Q4H PRN PRN Reason: GI Upset Stop: 04/27/20 02:01 Last Admin: 03/29/20 11:37 Dose: 30 ml Documented by: Bismuth Subsalicylate (Kaopectate) 15 ml PO PRN PRN PRN Reason: Loose Stool Stop: 04/27/20 02:01 Lorazepam (Ativan) 0.5 mg PO Q6 PRN PRN Reason: Anxiety/Insomnia Stop: 04/28/20 17:23 Last Admin: 04/01/20 23:40 Dose: 0.5 mg Documented by: Magnesium Hydroxide (Milk Of Magnesia) 30 ml PO DAILY PRN PRN Reason: Constipation Stop: 04/27/20 02:01 Nicotine Polacrilex (Nicorette 2mg) 1 piece MT PRN PRN PRN Reason: nicotine withdrawal Stop: 04/27/20 02:04 Last Admin: 04/02/20 12:10 Dose: 1 piece Documented by: Ondansetron HCl (Zofran Odt) 4 mg PO Q8H PRN PRN Reason: Nausea Stop: 04/28/20 12:06 Last Admin: 03/29/20 12:57 Dose: 4 mg Documented by: Paliperidone (Invega) 3 mg PO QAM ABHIJEET Stop: 04/27/20 11:14 Last Admin: 04/02/20 09:46 Dose: 3 mg Documented by: Sodium Chloride (Leslie Nasal) 1 - 2 sprays NA PRN PRN PRN Reason: Nasal Dryness/Congestion Stop: 04/27/20 02:01 Venlafaxine HCl (Effexor Extended Release) 75 mg PO QAM [facility] Stop: 05/02/20 08:59 Last Admin: 04/02/20 09:46 Dose: 75 mg Documented by: Mental Health & Subst Abuse Tx Psychiatrist Name of Psychiatrist: Shelly Farrar Psychiatrist's Date of Appointment with Psychiatrist: 04/22/20 Time of Appointment with Psychiatrist: 1:30 p.m. Psychiatric Appointment Comment: [id number] [facility], [place], [place] Therapist Name of Therapist: . Therapist's Phone Number: . Date of Therapist Appointment: 04/03/20 Time of Therapist Appointment: . Therapy Appointment Comment: . Relay Telegrapher Name of Relay Telegrapher: [facility] - contact them with any questions or to continue intake if agreeable Phone Number for Relay Telegrapher: [phone] Time of Appointment with Relay Telegrapher: As needed Case Management Appointment Comment: [address], [address], [place] Post Discharge Appointments Primary Care Physician Name Of Family Doctor: ISAURO Page [facility] Date of Appointment with PCP: 04/17/20 Time of Appointment with PCP: 10:30 a.m. Provider Appointment Comment: [address], [place] [address] Contact Information Discharge Discharge [address]: [address] [place] [address] (1) Overdose Encounter type: initial encounter Injury intent: intentional self-harm Qualified Code(s): T50.902A - Poisoning by unspecified drugs, medicaments and biological substances, intentional self-harm, initial encounter
[2020-04-02 15:26] LABS: BUN Creatinine Ratio 15.3 (10-20); Calcium 9.5 mg/dl (8.5-10.1); Creatinine Clr Calc Pharmacy 54.6 ml/min; Est GFR (African American) 101.5; Est GFR (Non-African American) 87.6; Potassium 3.8 mmol/L (3.5-5.1)
[2020-04-03] MEDS: PALIPERIDONE 3 MG TABCR PO SCH (08:41)
[2020-04-03] MEDS: VENLAFAXINE HCL XR 75 MG CAPXR PO SCH (08:41)
--- NOTE | 2020-04-03 12:11 | Psychiatric Progress Note ---
Date of Service April 03, 2020 Impression / Recommendations Impression 39-year-old female admitted voluntarily for inpatient psychiatric treatment on 03/28/2020 after presenting to the ED and reporting an intentional overdose of OTC sleeping pills in a suicide attempt. When hospitalized here in 2018 she was diagnosed with paranoid schizophrenia, and current outpatient records indicate diagnoses of schizoaffective disorder, depressed type and eating disorder unspecified. She presented with depression related to a recent break-up with her boyfriend of almost 3 years, somatic delusions, limited medication adherence, and is underweight with a BMI of 14.9. She admitted to 2 intentional overdoses of [id number] sleep medication in suicide attempts, and did not seek psychiatric treatment immediately. She is prescribed paliperidone on an outpatient basis, but has been noncompliant, and although transition to Sustenna has been recommended, she is refusing that. She is cognitively impaired and severely slowed, likely multifactorial and due to depression, cognitive impairm ent from starvation, and psychosis. She has also been started on venlafaxine XR as she reported a previous good response to it. Inpatient treatment remains medically necessary due to the severity of her symptoms and risk for harm to self/ either as a result of inadequate p.o. intake and/or intentional overdose or self-harm. (1) Overdose: 03/28 - Overdose on 8 tablets of OTC sleeping pills the night prior to her ED presentation, but came to the ED the next day with ongoing depression and concerns she would attempt to overdose again - Pt denies active SI at present, but is unable to contract for safety outside of the hospital setting - Pt cleared medically in the ED prior to referral and acceptance to our unit 03/29--reviewed (2) Schizoaffective disorder, depressive type: 03/28 - Historical diagnosis of paranoid schizophrenia reported during 11/2018 admission to our unit. More recent records indicate a diagnosis of schizoaffective disorder, depressed type - no clearly active symptomatology at this time; however, recommendations for adjustment of paliperidone have been made by her outpatient psychiatrist which certainly seems reasonable - We have requested records and will attempt to coordinate care with her outpatient providers - Will order paliperidone 3mg (patient states she had not started the increased dose prior to admission) - Discuss consideration for an MCCULLOUGH to ensure compliance - Pt reports depressive symptoms for the past two weeks, since breaking up with her boyfriend. - Given short duration of depressive symptoms, will begin with recommendation for supportive treatment which includes attendance of group programming and individual counseling as indicated - Pt denies active SI at this time, but is not necessarily remorseful about her suicide attempt. She is frustrated and confused about her request to end the relationship and would benefit from processing these thoughts and feelings - Encourage development of healthy and effective coping strategies - Schedule phone meeting with outpatient supports 03/29--tolerating Invega, consider dose increase tomorrow, she is not yet agreeing to MCCULLOUGH. -consider Remeron given BMI and presentation. 03/30--unable to increase Invega today given physical complaints 03/31--reviewed past med trials, included Remeron, states most helpful was Effexor XR 12 years ago when living in [place], would like to retry that rather than a new medication. Risks/benefits/alternatives reviewed and ordered Effexor XR 37.5 mg daily. 04/01 - Pt reports she is not interested in titrating paliperidone due to various somatic complaints - collateral received from outpatient psychiatrist suggests that these complaints may actually be somatic preoccupation related to delusions - Pt remains unwilling to consider an MCCULLOUGH at this time - will continue conversation - Continue paliperidone and venlafaxine - titrating venlafaxine to 75mg tomorrow morning. Risks and potential side effects reviewed with patient, who is agreeable with dose increase - Schedule phone meeting with family, as patient continues to be somatically preoccupied and is limited in her ability to verbalize concrete treatment goals 04/02 -Patient continues to decline recommendations to increase paliperidone as well as transition to Sustenna. She remains psychotic, with poor insight and judgment. She is endorsing delusions that food she eats or medication she takes might cause her to lose her vision. She is severely underweight, is malnourished and some of her cognitive impairment is likely due to that. -Family meeting held with parents today. -Encourage increased outpatient supports, including a blended window caser and day programming. 04/03 -Increase paliperidone to 6 mg daily. Encourage transition to Invega Sustenna given history of poor compliance. -Continue venlafaxine XR 75 mg daily, and further increase dose over the next few days. -Encourage [facility] referral, and consider [facility] (although currently here voluntarily). -Encourage patient to be out of her bed during the day and fully participating in treatment. (3) Eating disorder, unspecified: 03/28 - Pt is denying active eating disorder symptoms, but BMI is concerning at 14.9 - Potassium and other electrolytes appeared stable in the ED - Encourage patient to eat regular meals and make healthy food choices during admission, monitor intake per usual - Likely to trigger for dietary involvement due to low BMI - Assist with outpatient referrals for vocational technical education teacher or eating disorder treatment if willing 03/29--unclear how much boost is taking, if no improvement today in PO will repeat labs and institute regular weights. 04/02 -patient refusing multiple meals daily, appears severely malnourished, cachectic. Will start daily weights, encourage increased oral intake, and consu lt the dietitian for assistance with supplementation. Weight 38.8 kg (increased from admission when it was 38.3 kg). 04/03 -nutrition has seen the patient twice since admission, initially ordered boost, but patient then refused it. Continue offering small snacks throughout the day. Electrolytes rechecked yesterday and were normal. She remains hypotensive and tachycardic, continue to encourage adequate fluid intake. (4) Urinary tract infection: 03/28 - Patient initiated on UTI treatment from the ED with recommendation for Macrobid 100mg BID x 5 days - will finish recommended course - Sample sent for culture, results pending 03/29--culture grew normal mixed syeda, will d/c Macrobid if N worsened. Currently requested Zofran. 03/30--d/c Macrobid as could be contributing to N, Zofran could contribute to visual complaints though could also be hypoglycemia. Risk Factors Assessment Male: No : Yes Do You Have Access To A Gun?: No Health Problems: Yes Mental Health Diagnoses: Yes Substance Use Disorders: No Previous Attempt: Yes Family History of Suicide: No Previous Psychiatric Hospitalization: Yes Hopelessness: Yes Smoker: No (quit 2 weeks prior to admission with use of nicotine gum) Protective Factors Assessment Adventism Beliefs: No : No Responsible for Young Children: No (2 children in custody of patient's parents) Employed: No Stable Relationships: No Supportive Family: Yes Interval History Identifying Information FRANSISCO ECKERT is a 39-year-old F who currently lives in [place] with her parents and the patient's 2 children (of whom the patient's parents have custody) Pt has a historical diagnosis of paranoid schizophrenia; however she was admitted on 03/28/20 01:00 on a 201 voluntary commitment for increased depression related to a recent break-up and intentional overdose of OTC sleeping pills in a suicide attempt. Chief Complaint "Alright". Review of Systems Sleep Information Total Hours of Sleep: 7.5 Sleep Comments: fransisco was awake shortly before 0300, requested and received a prn hs dose of vistaril to get back to sleep/stay asleep. Meal Information Percent Meal Consumed - Breakfast: 75 Percent Meal Consumed - Lunch: 10 Percent Meal Consumed - Dinner: 75 Nutrition Comment: pt ate a bowl of fresh fruit for lunch. She has sipped on fluids. Subjective Subjective Patient was seen & assessed and interval progress reviewed with nursing and social work. Staff reports she has required encouragement to eat and drink, and is still eating very little overall. She is withdrawn and isolative, but is attending some groups. She continues to focus on concerns about her vision, and reported it was blurred yesterday. She had a family meeting with her parents during which they all expressed concern that her doctor had not "found the right medication," and attributed her low energy and fogginess to her medication. The patient processed with staff after her meeting, and said she was surprised that her father was more supportive than she expected. On my assessment today she was seen in her room where she has returned to bed midmorning. She describes mood as "all right," and answers multiple questions with "all right." She says her mood has not improved at all since admission, and that she still feels tired and "foggy." She says that her vision is fine today, but she is still worrying about it constantly, stating that "when I first came in, it caused problems anytime I ate anything." She denies suicidal thoughts, and when asked about her discharge planning and discussion with her family, she says "I dunno." She has not able to provide any information about her plans when she goes home or how she will manage that change. She says she does not feel ready to go as she is "worried about being in bed all day and spaced out." Discussed the need to titrate her medications to an effective dose, and she agreed to an increase in Invega. Physical Exam Psychiatric Orientation: alert and cooperative Apperance: appropriately dressed Extremely thin, lying in bed awake and in no acute distress. Does not make any eye contact, gaze is averted. Motor Behavior: + psychomotor retardation Minimal, slowed, long delays prior to answering, sometimes up to 30 seconds. Affect: + blunted affect; + mood not congruent with affect "All right." Thought Content: + delusions and + hopelessness Suicidal Thoughts: denies suicidal thoughts Homicidal Thoughts: denies homicidal thoughts Hallucinations: no auditory hallucinations Cognition: + recent memory not intact and + attention not intact Insight: + severely impaired insight Judgement: + severely impaired judgement Vital Signs (Past 24 Hours) Last Vital Signs Temp 36.3 C L 04/03/20 07:07 Pulse 105 H 04/03/20 07:10 Resp 16 04/03/20 07:07 BP 96/60 L 04/03/20 07:10 Pulse Ox 99 03/27/20 23:00 Results & Data ([facility]) Laboratory Results Laboratory Results - last 24 hr 04/02/20 14:34 Sodium 136 Potassium 3.8 Chloride 101 Carbon Dioxide 31 Anion Gap 4.0 BUN 13 Creatinine 0.83 Est Cr Clr Drug Dosing 54.6 Est GFR ( Amer) 101.5 Est GFR (Non-Af Amer) 87.6 BUN/Creatinine Ratio 15.3 Glucose 102 H Calcium 9.5 Current Inpatient Medications Current Inpatient Medications: Current Inpatient Medications Acetaminophen (Tylenol) 650 mg PO Q4H PRN PRN Reason: Headache or Minor Fever Stop: 04/27/20 02:01 Al Hydrox/Mg Hydrox/Simethicone (Maalox) 30 ml PO Q4H PRN PRN Reason: GI Upset Stop: 04/27/20 02:01 Last Admin: 03/29/20 11:37 Dose: 30 ml Documented by: Bismuth Subsalicylate (Kaopectate) 15 ml PO PRN PRN PRN Reason: Loose Stool Stop: 04/27/20 02:01 Lorazepam (Ativan) 0.5 mg PO Q6 PRN PRN Reason: Anxiety/Insomnia Stop: 04/28/20 17:23 Last Admin: 04/01/20 23:40 Dose: 0.5 mg Documented by: Magnesium Hydroxide (Milk Of Magnesia) 30 ml PO DAILY PRN PRN Reason: Constipation Stop: 04/27/20 02:01 Nicotine Polacrilex (Nicorette 2mg) 1 piece MT PRN PRN PRN Reason: nicotine withdrawal Stop: 04/27/20 02:04 Last Admin: 04/02/20 12:10 Dose: 1 piece Documented by: Ondansetron HCl (Zofran Odt) 4 mg PO Q8H PRN PRN Reason: Nausea Stop: 04/28/20 12:06 Last Admin: 03/29/20 12:57 Dose: 4 mg Documented by: Paliperidone (Invega) 3 mg PO QAM ABHIJEET Stop: 04/27/20 11:14 Last Admin: 04/03/20 08:41 Dose: 3 mg Documented by: Sodium Chloride (Wayne Nasal) 1 - 2 sprays NA PRN PRN PRN Reason: Nasal Dryness/Congestion Stop: 04/27/20 02:01 Venlafaxine HCl (Effexor Extended Release) 75 mg PO QAM [facility] Stop: 05/02/20 08:59 Last Admin: 04/03/20 08:41 Dose: 75 mg Documented by: Mental Health & Subst Abuse Tx Psychiatrist Name of Psychiatrist: [facility] Psychiatrist's Date of Appointment with Psychiatrist: 04/22/20 Time of Appointment with Psychiatrist: 1:30 p.m. Psychiatric Appointment Comment: [address] [facility], [place], [place] Therapist Name of Therapist: . Therapist's Phone Number: . Date of Therapist Appointment: 04/03/20 Time of Therapist Appointment: . Therapy Appointment Comment: . Manager English Name of Manager English: [facility] - contact them with any questions or to continue intake if agreeable Phone Number for Manager English: [phone] Time of Appointment with Manager English: As needed Case Management Appointment Comment: [address] [facility], [address], [place] Post Discharge Appointments Primary Care Physician Name Of Family Doctor: ISAURO [facility] Date of Appointment with PCP: 04/17/20 Time of Appointment with PCP: 10:30 a.m. Provider Appointment Comment: [facility], [place] [address] Contact Information Discharge Discharge [address]: [address] [place] [id number] (1) Overdose Encounter type: initial encounter Injury intent: intentional self-harm Qualified Code(s): T50.902A - Poisoning by unspecified drugs, medicaments and biological substances, intentional self-harm, initial encounter
[2020-04-03] MEDS: NICOTINE POLACRILEX 2 MG GUM MT PRN (14:59)
[2020-04-03] MEDS: LORazepam 0.5 MG TAB PO PRN (22:05)
[2020-04-04] MEDS: PALIPERIDONE 3 MG TABCR PO SCH (08:52)
[2020-04-04] MEDS: VENLAFAXINE HCL XR 75 MG CAPXR PO SCH (08:52)
[2020-04-04] MEDS ORDERED: CEROVITE ADV FORMULA TAB PO SCH (09:00)
--- NOTE | 2020-04-04 09:57 | Psychiatric Progress Note ---
Date of Service April 04, 2020 Impression / Recommendations Impression 39-year-old female admitted voluntarily for inpatient psychiatric treatment on 03/28/2020 after presenting to the ED and reporting an intentional overdose of OTC sleeping pills in a suicide attempt. When hospitalized here in 2018 she was diagnosed with paranoid schizophrenia, and current outpatient records indicate diagnoses of schizoaffective disorder, depressed type and eating disorder unspecified. She presented with depression related to a recent break-up with her boyfriend of almost 3 years, somatic delusions, limited medication adherence, and is underweight with a BMI of 14.9. She admitted to 2 intentional overdoses of istp-[id number] sleep medication in suicide attempts, and did not seek psychiatric treatment immediately. She is prescribed paliperidone on an outpatient basis, but has been noncompliant, and although transition to Sustenna has been recommended, she is refusing that. She is cognitively impaired and severely slowed, likely multifactorial and due to depression, cognitive impairm ent from starvation, and psychosis. She has also been started on venlafaxine XR as she reported a previous good response to it. Inpatient treatment remains medically necessary due to the severity of her symptoms and risk for harm to self/ either as a result of inadequate p.o. intake and/or intentional overdose or self-harm. Consider filing for a 304 IOC given history of noncompliance with medications and aftercare and significantly limited insight related to her nutritional status (which is possibly rooted in her delusional system). (1) Overdose: 03/28 - Overdose on 8 tablets of OTC sleeping pills the night prior to her ED presentation, but came to the ED the next day with ongoing depression and concerns she would attempt to overdose again - Pt denies active SI at present, but is unable to contract for safety outside of the hospital setting - Pt cleared medically in the ED prior to referral and acceptance to our unit 03/29--reviewed (2) Schizoaffective disorder, depressive type: 03/28 - Historical diagnosis of paranoid schizophrenia reported during 11/2018 admission to our unit. More recent records indicate a diagnosis of schizoaffective disorder, depressed type - no clearly active symptomatology at this time; however, recommendations for adjustment of paliperidone have been made by her outpatient psychiatrist which certainly seems reasonable - We have requested records and will attempt to coordinate care with her outpatient providers - Will order paliperidone 3mg (patient states she had not started the increased dose prior to admission) - Discuss consideration for an MCCULLOUGH to ensure compliance - Pt reports depressive symptoms for the past two weeks, since breaking up with her boyfriend. - Given short duration of depressive symptoms, will begin with recommendation for supportive treatment which includes attendance of group programming and individual counseling as indicated - Pt denies active SI at this time, but is not necessarily remorseful about her suicide attempt. She is frustrated and confused about her request to end the relationship and would benefit from processing these thoughts and feelings - Encourage development of healthy and effective coping strategies - Schedule phone meeting with outpatient supports 03/29--tolerating Invega, consider dose increase tomorrow, she is not yet agreeing to MCCULLOUGH. -consider Remeron given BMI and presentation. 03/30--unable to increase Invega today given physical complaints 03/31--reviewed past med trials, included Remeron, states most helpful was Effexor XR 12 years ago when living in [place], would like to retry that rather than a new medication. Risks/benefits/alternatives reviewed and ordered Effexor XR 37.5 mg daily. 04/01 - Pt reports she is not interested in titrating paliperidone due to various somatic complaints - collateral received from outpatient psychiatrist suggests that these complaints may actually be somatic preoccupation related to delusions - Pt remains unwilling to consider an MCCULLOUGH at this time - will continue conversation - Continue paliperidone and venlafaxine - titrating venlafaxine to 75mg tomorrow morning. Risks and potential side effects reviewed with patient, who is agreeable with dose increase - Schedule phone meeting with family, as patient continues to be somatically preoccupied and is limited in her ability to verbalize concrete treatment goals 04/02 -Patient continues to decline recommendations to increase paliperidone as well as transition to Sustenna. She remains psychotic, with poor insight and judgment. She is endorsing delusions that food she eats or medication she takes might cause her to lose her vision. She is severely underweight, is malnourished and some of her cognitive impairment is likely due to that. -Family meeting held with parents today. -Encourage increased outpatient supports, including a blended family preservation caseworker and day programming. 04/03 -Increase paliperidone to 6 mg daily. Encourage transition to Invega Sustenna given history of poor compliance. -Continue venlafaxine XR 75 mg daily, and further increase dose over the next few days. -Encourage [facility] referral, and consider 304 IO (although currently here voluntarily). -Encourage patient to be out of her bed during the day and fully parti cipating in treatment. 04/04 - Continue as above, patient tolerating initial dose of paliperidone 6mg. Pt aware of plan to consider further titration over time and verbalized agreement. - Continue current dosage of venlafaxine 75mg, did not titrate today given reported episode of emesis (though nausea is reported to be chronic) - Will likely move forward with filing for an involuntary outpatient commitment given patient's history of noncompliance with outpatient treatment and limited willingness for appropriate outpatient psychiatric services, hesitancy to consent to appropriate titrate psychotropic medications to effective dosing, and refusal of recommended MCCULLOUGH. (3) Eating disorder, unspecified: 03/28 - Pt is denying active eating disorder symptoms, but BMI is concerning at 14.9 - Potassium and other electrolytes appeared stable in the ED - Encourage patient to eat regular meals and make healthy food choices during admission, monitor intake per usual - Likely to trigger for dietary involvement due to low BMI - Assist with outpatient referrals for hairspring truing inspector or eating disorder treatment if willing 03/29--unclear how much boost is taking, if no improvement today in PO will repeat labs and institute regular weights. 04/02 -patient refusing multiple meals daily, appears severely malnourished, cachectic. Will start daily weights, encourage increased oral intake, and consult the dietitian for assistance with supplementation. Weight 38.8 kg (increased from admission when it was 38.3 kg). 04/03 -nutrition has seen the patient twice since admission, initially ordered boost, but patient then refused it. Continue offering small snacks throughout the day. Electrolytes rechecked yesterday and were normal. She remains hypotensive and tachycardic, continue to encourage adequate fluid intake. 04/04 - Continue as above, patient's BMI is 15.2 today and nutritional intake as been slightly improved. - Pt did have an episode of emesis today after taking her prescribed multivitamin, denies history of purging or any volitional aspect to this event - Appreciate input from dietitian. Continue to encourage appropriate intake and regular healthy snacks. - Unfortunately, it is unlikely patient will make significant progress with improving her eating habits without also demonstrating investment in her mental health treatment, as it is possible some of her disordered eating behaviors may be rooted in delusional thinking. Will continue to work on treatment for patient's entire clinical picture, including adequate nutrition. - There is consideration to pursue an involuntary outpatient commitment, which will likely indirectly benefit patient's consistency with her nutrition and aftercare appointments. (4) Urinary tract infection: 03/28 - Patient initiated on UTI treatment from the ED with recommendation for Macrobid 100mg BID x 5 days - will finish recommended course - Sample sent for culture, results pending 03/29--culture grew normal mixed syeda, will d/c Macrobid if N worsened. Currently requested Zofran. 03/30--d/c Macrobid as could be contributing to N, Zofran could contribute to visual complaints though could also be hypoglycemia. Risk Factors Assessment Male: No : Yes Do You Have Access To A Gun?: No Health Problems: Yes Mental Health Diagnoses: Yes Substance Use Disorders: No Previous Attempt: Yes Family History of Suicide: No Previous Psychiatric Hospitalization: Yes Hopelessness: Yes Smoker: No (quit 2 weeks prior to admission with use of nicotine gum) Protective Factors Assessment Cheondoism Beliefs: No : No Responsible for Young Children: No (2 children in custody of patient's parents) Employed: No Stable Relationships: No Supportive Family: Yes Interval History Identifying Information MIRYAM ECKERT is a 39-year-old F who currently lives in [place] with her parents and the patient's 2 children (of whom the patient's parents have custody) Pt has a historical diagnosis of paranoid schizophrenia; however she was admitted on 03/28/20 01:00 on a 201 voluntary commitment for increased depression related to a recent break-up and intentional overdose of OTC sleeping pills in a suicide attempt. Chief Complaint "Um, better now. I was pretty nauseous this morning. I actually threw up." Review of Systems Notes Constitutional: reports fatigue, dizziness HEENT: reports occasional "floaters" Cardiovascular: denied Respiratory: denied Gastrointestinal: reports nausea, admits to episode of emesis this morning Neurological: feels "like my head is filling up with fluid sometimes" Psychiatric: denies symptoms other than stated above Total of at least 10 systems reviewed, pertinent positives as above and in HPI. Sleep Information Total Hours of Sleep: 6.5 Sleep Comments: received a prn dose of ativan for anxiety management/sleep aid. awakened before getting a new roommate to inform her Meal Information Percent Meal Consumed - Breakfast: 75 Percent Meal Consumed - Lunch: 75 Percent Meal Consumed - Dinner: 100 Nutrition Comment: pt ate a bowl of fresh fruit for lunch. She has sipped on fluids. Subjective Subjective This provider received a return phone call from the patient's mother - psychiatrist had reached out several days ago to discuss patient's history of treatment and current recommendations, but there was no returned call until now. Mother, Ana Maria, feels the patient is "better than when she went in", based on mother's impression during a phone family meeting a few days ago. Mother states "when she's on medications, all she wants to do is sleep. When she's doing well, she wants to be active, she even cooks." This provider attempted to gather what behaviors/factors were apparent during times of stability - but mother was not able to provide any patterns. Mother states the patient was doing well "about 1 year ago when she was at the [facility]", but then clarifies that she means only while the patient was actively hospitalized on their unit. We discussed concern for the patient's poor nutrition and that this is likely the cause of patient's various physical complaints. 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 She did well for a while, but Miryam didn't want to keep up with it." Mother also states the patient believes she is diabetic, and that she believes this is the explanation for the "floaters" the patient complains of in her vision. About 2 years ago, the mother found the patient giving herself insulin to treat the "diabetes", and it was reported "she just got it from someone at a pharmacy, without a prescription." Mother admits she is concerned about the patient and wants to be supportive, but numerous times states "she is not a child or a teenager, I can't be doing things for her." This provider thanked the mother for the additional information. Mother was provided with an explanation of a 304 involuntary outpatient commitment and we did discuss the recommendation for an MCCULLOUGH. Mother was in favor of both options, if the patient was agreeable. Mother was encouraged to call the unit with any questions or concerns. Patient was seen & assessed and interval progress reviewed with treatment team. Staff report the patient continues to be rather somatically preoccupied which continues to contribute to limited nutritional intake (though at least improved since admission). Pt continues to be slowed, though does attend groups with significant prompting. Pt was seen today to assess progress since admission. Pt states that she is feeling "better now. I was pretty nauseous this morning. I actually threw up." Pt states she believes her emesis was related in some way to taking a multivitamin this morning. Explanation for the multivitamin was explained to the patient and she was informed it would be given with all of her morning medications tomorrow. Pt admits to chronic nausea, but denied routine purging and states the emesis was not volitional today. We discussed the increased dose of paliperidone, and this provider outlined potential plan to continue to increase the medication to effective doses over the next few days. Pt hesitated somewhat before simply responding with "ok." Pt was asked again about willingness to consider an MCCULLOUGH, and she states "No, not right now. I just never did well when I was on them." This provider rather bluntly informed the patient that her outpatient providers have evidence to suggest this is not the case, and that the patient has actually had the most stability when she is on an MCCULLOUGH. Pt then begins to verbalize concerns that the medications would contribute to worsening vision or "feeling spacey." Again, this provider bluntly explained to the patient that based on history obtained, it is more likely that these concerns are actually stemming from patient's limited nutritional intake. This provider voiced concerns that patient's diet is not sufficient to adequate fuel her body, and that her poor nutrition is more likely the cause of the complaints she perceives to be "side effects." Pt does not agree with this theory, stating only "I've been doing better and I'm still having the side effects." This provider repeated numerous times that the spacey feelings, dizziness, perceived vision changes, and fatigue are more likely related to patient not adequately fueling her body than to medications she is taking. Pt does admit that her mood is somewhat improved today. She denies SI at this time, but remains preoccupied with "medication side effects." She denies other needs or concerns at this time. Physical Exam Psychiatric Orientation: alert, oriented x 3 and + guarded (superficially cooperative) Apperance: appropriately dressed (casually, in pajama pants and a sweater), appropriately groomed and appeared stated age Appearing cachectic, very frail Eye Contact: + fair eye contact (prolonged staring) Motor Behavior: no abnormal motor movements (observed while laying in bed) Speech: normal rate/rhythm/volume of speech (slowed, brief response to questions. Responses are less delayed today.) Affect: + flat affect and + constricted affect Mood: no depressed mood ("better") and no anxious mood Thought Process: + thought blocking (mild improvement in paucity of thought, but responses are still slowed) and + perseveration (on various somatic complaints) Thought Content: + preoccupation and + delusions Suicidal Thoughts: denies suicidal thoughts Hallucinations: no auditory hallucinations and no visual hallucinations Cognition: attention grossly intact and language grossly intact Insight: + severely impaired insight Judgement: + impaired judgement Vital Signs (Past 24 Hours) Last Vital Signs Temp 36.6 C 04/04/20 06:59 Pulse 95 H 04/04/20 06:59 Resp 16 04/04/20 06:59 BP 87/57 L 04/04/20 06:59 Pulse Ox 99 03/27/20 23:00 Results & Data ([facility]) Current Inpatient Medications Current Inpatient Medications: Current Inpatient Medications Acetaminophen (Tylenol) 650 mg PO Q4H PRN PRN Reason: Headache or Minor Fever Stop: 04/27/20 02:01 Al Hydrox/Mg Hydrox/Simethicone (Maalox) 30 ml PO Q4H PRN PRN Reason: GI Upset Stop: 04/27/20 02:01 Last Admin: 03/29/20 11:37 Dose: 30 ml Documented by: Bismuth Subsalicylate (Kaopectate) 15 ml PO PRN PRN PRN Reason: Loose Stool Stop: 04/27/20 02:01 Lorazepam (Ativan) 0.5 mg PO Q6 PRN PRN Reason: Anxiety/Insomnia Stop: 04/28/20 17:23 Last Admin: 04/03/20 22:05 Dose: 0.5 mg Documented by: Magnesium Hydroxide (Milk Of Magnesia) 30 ml PO DAILY PRN PRN Reason: Constipation Stop: 04/27/20 02:01 Multivitamins/Minerals (Multivitamin W/ Minerals Tab) 1 tab PO QAM ABHIJEET Stop: 05/04/20 08:59 Last Admin: 04/04/20 09:42 Dose: 1 tab Documented by: Nicotine Polacrilex (Nicorette 2mg) 1 piece MT PRN PRN PRN Reason: nicotine withdrawal Stop: 04/27/20 02:04 Last Admin: 04/03/20 14:59 Dose: 1 piece Documented by: Ondansetron HCl (Zofran Odt) 4 mg PO Q8H PRN PRN Reason: Nausea Stop: 04/28/20 12:06 Last Admin: 03/29/20 12:57 Dose: 4 mg Documented by: Paliperidone (Invega) 6 mg PO QAM ABHIJEET Stop: 05/04/20 08:59 Last Admin: 04/04/20 08:52 Dose: 6 mg Documented by: Sodium Chloride (Dickens Nasal) 1 - 2 sprays NA PRN PRN PRN Reason: Nasal Dryness/Congestion Stop: 04/27/20 02:01 Venlafaxine HCl (Effexor Extended Release) 75 [facility] Stop: 05/02/20 08:59 Last Admin: 04/04/20 08:52 Dose: 75 mg Documented by: Mental Health & Subst Abuse Tx Psychiatrist Name of Psychiatrist: Shelly Farrar Psychiatrist's Date of Appointment with Psychiatrist: 04/22/20 Time of Appointment with Psychiatrist: 1:30 p.m. Psychiatric Appointment Comment: [id number] [facility], [place], [place] Therapist Name of Therapist: . Therapist's Phone Number: . Date of Therapist Appointment: 04/03/20 Time of Therapist Appointment: . Therapy Appointment Comment: . Group Worker Name of Group Worker: [facility] - contact them with any questions or to continue int herbert if agreeable Phone Number for Group Worker: [phone] Time of Appointment with Group Worker: As needed Case Management Appointment Comment: [address] [facility], [address], [place] Post Discharge Appointments Primary Care Physician Name Of Family Doctor: ISAURO Page [facility] Date of Appointment with PCP: 04/17/20 Time of Appointment with PCP: 10:30 a.m. Provider Appointment Comment: [address], [place] [address] Other #1: Name of Aftercare Appointment: ISAURO Alexandria Daphney Phone Number of Aftercare Appointment: Time of Aftercare Appointment: Follow up as needed Aftercare Appointment Comment: [address], [place] [address] Contact Information Discharge Discharge [address]: [address] [place] [address] (1) Overdose Encounter type: initial encounter Injury intent: intentional self-harm Qualified Code(s): T50.902A - Poisoning by unspecified drugs, medicaments and biological substances, intentional self-harm, initial encounter
[2020-04-04] MEDS: ONDANSETRON 4 MG OD TAB PO PRN (12:22)
[2020-04-04] MEDS: NICOTINE POLACRILEX 2 MG GUM MT PRN (13:25)
[2020-04-05] MEDS: ONDANSETRON 4 MG OD TAB PO PRN ×2 (07:39→15:30)
[2020-04-05] MEDS: VENLAFAXINE HCL XR 75 MG CAPXR PO SCH (09:58)
[2020-04-05] MEDS: PALIPERIDONE 3 MG TABCR PO SCH (09:58)
--- NOTE | 2020-04-05 10:01 | Psychiatric Progress Note ---
Date of Service April 05, 2020 Impression / Recommendations Impression 39-year-old female admitted voluntarily for inpatient psychiatric treatment on 03/28/2020 after presenting to the ED and reporting an intentional overdose of OTC sleeping pills in a suicide attempt. When hospitalized here in 2018 she was diagnosed with paranoid schizophrenia, and current outpatient records indicate diagnoses of schizoaffective disorder, depressed type and eating disorder unspecified. She presented with depression related to a recent break-up with her boyfriend of almost 3 years, somatic delusions, limited medication adherence, and is underweight with a BMI of 14.9. She admitted to 2 intentional overdoses of okbq-psa-yewwcto sleep medication in suicide attempts, and did not seek psychiatric treatment immediately. She is prescribed paliperidone on an outpatient basis, but has been noncompliant, and although transition to Sustenna has been recommended, she is refusing that. She is cognitively impaired and severely slowed, likely multifactorial and due to depression, cognitive impairm ent from starvation, and psychosis. She has also been started on venlafaxine XR as she reported a previous good response to it. Inpatient treatment remains medically necessary due to the severity of her symptoms and risk for harm to self/ either as a result of inadequate p.o. intake and/or intentional overdose or self-harm. Consider filing for a 304 IOC given history of noncompliance with medications and aftercare and significantly limited insight related to her nutritional status (which is possibly rooted in her delusional system). (1) Overdose: 03/28 - Overdose on 8 tablets of OTC sleeping pills the night prior to her ED presentation, but came to the ED the next day with ongoing depression and concerns she would attempt to overdose again - Pt denies active SI at present, but is unable to contract for safety outside of the hospital setting - Pt cleared medically in the ED prior to referral and acceptance to our unit 03/29--reviewed (2) Schizoaffective disorder, depressive type: 03/28 - Historical diagnosis of paranoid schizophrenia reported during 11/2018 admission to our unit. More recent records indicate a diagnosis of schizoaffective disorder, depressed type - no clearly active symptomatology at this time; however, recommendations for adjustment of paliperidone have been made by her outpatient psychiatrist which certainly seems reasonable - We have requested records and will attempt to coordinate care with her outpatient providers - Will order paliperidone 3mg (patient states she had not started the increased dose prior to admission) - Discuss consideration for an MCCULLOUGH to ensure compliance - Pt reports depressive symptoms for the past two weeks, since breaking up with her boyfriend. - Given short duration of depressive symptoms, will begin with recommendation for supportive treatment which includes attendance of group programming and individual counseling as indicated - Pt denies active SI at this time, but is not necessarily remorseful about her suicide attempt. She is frustrated and confused about her request to end the relationship and would benefit from processing these thoughts and feelings - Encourage development of healthy and effective coping strategies - Schedule phone meeting with outpatient supports 03/29--tolerating Invega, consider dose increase tomorrow, she is not yet agreeing to MCCULLOUGH. -consider Remeron given BMI and presentation. 03/30--unable to increase Invega today given physical complaints 03/31--reviewed past med trials, included Remeron, states most helpful was Effexor XR 12 years ago when living in [place], would like to retry that rather than a new medication. Risks/benefits/alternatives reviewed and ordered Effexor XR 37.5 mg daily. 04/01 - Pt reports she is not interested in titrating paliperidone due to various somatic complaints - collateral received from outpatient psychiatrist suggests that these complaints may actually be somatic preoccupation related to delusions - Pt remains unwilling to consider an MCCULLOUGH at this time - will continue conversation - Continue paliperidone and venlafaxine - titrating venlafaxine to 75mg tomorrow morning. Risks and potential side effects reviewed with patient, who is agreeable with dose increase - Schedule phone meeting with family, as patient continues to be somatically preoccupied and is limited in her ability to verbalize concrete treatment goals 04/02 -Patient continues to decline recommendations to increase paliperidone as well as transition to Sustenna. She remains psychotic, with poor insight and judgment. She is endorsing delusions that food she eats or medication she takes might cause her to lose her vision. She is severely underweight, is malnourished and some of her cognitive impairment is likely due to that. -Family meeting held with parents today. -Encourage increased outpatient supports, including a blended human services case manager and day programming. 04/03 -Increase paliperidone to 6 mg daily. Encourage transition to Invega Sustenna given history of poor compliance. -Continue venlafaxine XR 75 mg daily, and further increase dose over the next few days. -Encourage BCM referral, and consider [facility] (although currently here voluntarily). -Encourage patient to be out of her bed during the day and fully parti cipating in treatment. 04/04 - Continue as above, patient tolerating initial dose of paliperidone 6mg. Pt aware of plan to consider further titration over time and verbalized agreement. - Continue current dosage of venlafaxine 75mg, did not titrate today given reported episode of emesis (though nausea is reported to be chronic) - Will likely move forward with filing for an involuntary outpatient commitment given patient's history of noncompliance with outpatient treatment and limited willingness for appropriate outpatient psychiatric services, hesitancy to consent to appropriate titrate psychotropic medications to effective dosing, and refusal of recommended MCCULLOUGH. 04/05 continue as above, exploring potential to titrate paliperidone and venlafaxine er further but maintaining at current doses for now given nausea concerns and these medications can have this s/e mj as starting and raising doses. as detailed below in eating disorder problem section switching MVI to chewable form and changing to be taken at dinner to minimize risk of nausea coming from MVI. (3) Eating disorder, unspecified: 03/28 - Pt is denying active eating disorder symptoms, but BMI is concerning at 14.9 - Potassium and other electrolytes appeared stable in the ED - Encourage patient to eat regular meals and make healthy food choices during admission, monitor intake per usual - Likely to trigger for dietary involvement due to low BMI - Assist with outpatient referrals for ship construction teacher or eating disorder treatment if willing 03/29--unclear how much boost is taking, if no improvement today in PO will repeat labs and institute regular weights. 04/02 -patient refusing multiple meals daily, appears severely malnourished, cachectic. Will start daily weights, encourage increased oral intake, and consult the dietitian for assistance with supplementation. Weight 38.8 kg (increased from admission when it was 38.3 kg). 04/03 -nutrition has seen the patient twice since admission, initially ordered boost, but patient then refused it. Continue offering small snacks throughout the day. Electrolytes rechecked yesterday and were normal. She remains hypotensive and tachycardic, continue to encourage adequate fluid intake. 04/04 - Continue as above, patient's BMI is 15.2 today and nutritional intake as been slightly improved. - Pt did have an episode of emesis today after taking her prescribed multivitamin, denies history of purging or any volitional aspect to this event - Appreciate input from dietitian. Continue to encourage appropriate intake and regular healthy snacks. - Unfortunately, it is unlikely patient will make significant progress with improving her eating habits without also demonstrating investment in her mental health treatment, as it is possible some of her disordered eating behaviors may be rooted in delusional thinking. Will continue to work on treatment for patient's entire clinical picture, including adequate nutrition. - There is consideration to pursue an involuntary outpatient commitment, which will likely indirectly benefit patient's consistency with her nutrition and aftercare appointments. 04/05 - reviewed ship construction teacher note from 04/05 and switching MVI to chewable form and converting to dinner timing of administration to minimize risk of nausea from MVI (4) Urinary tract infection: 03/28 - Patient initiated on UTI treatment from the ED with recommendation for Macrobid 100mg BID x 5 days - will finish recommended course - Sample sent for culture, results pending 03/29--culture grew normal mixed syeda, will d/c Macrobid if N worsened. Currently requested Zofran. 03/30--d/c Macrobid as could be contributing to N, Zofran could contribute to visual complaints though could also be hypoglycemia. Risk Factors Assessment Male: No : Yes Do You Have Access To A Gun?: No Health Problems: Yes Mental Health Diagnoses: Yes Substance Use Disorders: No Previous Attempt: Yes Family History of Suicide: No Previous Psychiatric Hospitalization: Yes Hopelessness: Yes Smoker: No (quit 2 weeks prior to admission with use of nicotine gum) Protective Factors Assessment Jehovah'S Witness Beliefs: No : No Responsible for Young Children: No (2 children in custody of patient's parents) Employed: No Stable Relationships: No Supportive Family: Yes Interval History Identifying Information CAROL ECKERT is a 39-year-old F who currently lives in [place] with her parents and the patient's 2 children (of whom the patient's parents have custody) Pt has a historical diagnosis of paranoid schizophrenia; however she was admitted on 03/28/20 01:00 on a 201 voluntary commitment for increased depression related to a recent break-up and intentional overdose of OTC sleeping pills in a suicide attempt. Chief Complaint "Don't feel well". Review of Systems Sleep Information Total Hours of Sleep: 8 Sleep Comments: received a prn dose of ativan for anxiety management/sleep aid. awakened before getting a new roommate to inform her Meal Information Percent Meal Consumed - Breakfast: 0 Percent Meal Consumed - Lunch: 100 Percent Meal Consumed - Dinner: 100 Nutrition Comment: Per pt. request; yogurt parfait was dated, labeled and refrigerated Subjective Subjective Patient was seen & assessed and interval progress reviewed with nursing and social work. Pt was assessed by automobile and property underwriter in her room with her laying in her bed. She indicated not feeling well due to nausea this morning. She had obtained a zofran dose about 2 hours prior to this assessment. She was covering her mouth and part of the rest of her face with her blnaket as she layed down on her bed while assessment occured and refused to adjsut the blanket from covering her mouth or sitting upright. She was in process of standing up just prior to automobile and property underwriter starting assessment though. Her only spotanseous speech was that she does not feel well and sorry. She answered automobile and property underwriter's questions with hesitance and very soft quiet speech of just a few words. She indicated ongoing severe depression and severe general anxiety. She expressed conceerns about her health but would not elaborate despite attempts to have her do so. Physical Exam Psychiatric Orientation: alert, oriented x 3 and + guarded (superficially cooperative); + uncooperative Apperance: appropriately dressed (casually, in pajama pants and a sweater), appropriately groomed, + disheveled (hair appearing somewhat unkempt) and appeared stated age Eye Contact: + poor eye contact Motor Behavior: steady gait and station, no abnormal motor movements (observed while laying in bed) and + psychomotor retardation soft minimum speech, hard to hear mj with her blanket covering her mouth Affect: + depressed affect, + blunted affect, + constricted affect and mood congruent with affect Mood: + depressed mood and + anxious mood Thought Process: + thought blocking (mild improvement in paucity of thought, but responses are still slowed) Thought Content: + preoccupation, + paranoid and + delusions Suicidal Thoughts: denies suicidal thoughts Homicidal Thoughts: denies homicidal thoughts Hallucinations: no auditory hallucinations and no visual hallucinations Cognition: language grossly intact Estimated Intelligence: + below average estimated intelligence Insight: + severely impaired insight Judgement: + impaired judgement Vital Signs (Past 24 Hours) Last Vital Signs Temp 36.5 C 04/05/20 06:39 Pulse 118 H 04/05/20 06:43 Resp 16 04/05/20 06:39 BP 75/41 L 04/05/20 06:43 Pulse Ox 99 03/27/20 23:00 Results & Data ([facility]) Current Inpatient Medications Current Inpatient Medications: Current Inpatient Medications Acetaminophen (Tylenol) 650 mg PO Q4H PRN PRN Reason: Headache or Minor Fever Stop: 04/27/20 02:01 Al Hydrox/Mg Hydrox/Simethicone (Maalox) 30 ml PO Q4H PRN PRN Reason: GI Upset Stop: 04/27/20 02:01 Last Admin: 03/29/20 11:37 Dose: 30 ml Documented by: Bismuth Subsalicylate (Kaopectate) 15 ml PO PRN PRN PRN Reason: Loose Stool Stop: 04/27/20 02:01 Lorazepam (Ativan) 0.5 mg PO Q6 PRN PRN Reason: Anxiety/Insomnia Stop: 04/28/20 17:23 Last Admin: 04/03/20 22:05 Dose: 0.5 mg Documented by: Magnesium Hydroxide (Milk Of Magnesia) 30 ml PO DAILY PRN PRN Reason: Constipation Stop: 04/27/20 02:01 Multivitamins/Folic Acid/Vitamin C (Flintstones Complete Chew Tab) 1 tab PO QDD [facility] Stop: 05/06/20 17:44 Nicotine Polacrilex (Nicorette 2mg) 1 piece MT PRN PRN PRN Reason: nicotine withdrawal Stop: 04/27/20 02:04 Last Admin: 04/04/20 13:25 Dose: 1 piece Documented by: Ondansetron HCl (Zofran Odt) 4 mg PO Q8H PRN PRN Reason: Nausea Stop: 04/28/20 12:06 Last Admin: 04/05/20 07:39 Dose: 4 mg Documented by: Paliperidone (Invega) 6 mg PO QAM ABHIJEET Stop: 05/04/20 08:59 Last Admin: 04/04/20 08:52 Dose: 6 mg Documented by: Sodium Chloride (Craig Nasal) 1 - 2 sprays NA PRN PRN PRN Reason: Nasal Dryness/Congestion Stop: 04/27/20 02:01 Venlafaxine HCl (Effexor Extended Release) 75 mg PO QAM ABHIJEET Stop: 05/02/20 08:59 Last Admin: 04/04/20 08:52 Dose: 75 mg Documented by: Mental Health & Subst Abuse Tx Psychiatrist Name of Psychiatrist: Shelly Farrar Psychiatrist's Date of Appointment with Psychiatrist: 04/22/20 Time of Appointment with Psychiatrist: 1:30 p.m. Psychiatric Appointment Comment: [address], [place] Therapist Name of Therapist: . Therapist's Phone Number: . Date of Therapist Appointment: 04/03/20 Time of Therapist Appointment: . Therapy Appointment Comment: . Cage Unloader Name of Cage Unloader: [facility] - contact them with any questions or to continue intake if agreeable Phone Number for Cage Unloader: [phone] Time of Appointment with Cage Unloader: As needed Case Management Appointment Comment: [address] [facility], [address], [place] Post Discharge Appointments Primary Care Physician Name Of Family Doctor: ISAURO Page Primary [facility] Date of Appointment with PCP: 04/17/20 Time of Appointment with PCP: 10:30 a.m. Provider Appointment Comment: [address], [place] [address] Other #1: Name of Aftercare Appointment: ISAURO Shelley Phone Number of Aftercare Appointment: Time of Aftercare Appointment: Follow up as needed Aftercare Appointment Comment: [address], [place] [address] Contact Information Discharge Discharge [address]: [address] [place] [id number] (1) Overdose Encounter type: initial encounter Injury intent: intentional self-harm Qualified Code(s): T50.902A - Poisoning by unspecified drugs, medicaments and biological substances, intentional self-harm, initial encounter
[2020-04-05] MEDS: LORazepam 0.5 MG TAB PO PRN (21:49)
[2020-04-06] MEDS: PALIPERIDONE 3 MG TABCR PO SCH (08:35)
[2020-04-06] MEDS: VENLAFAXINE HCL XR 75 MG CAPXR PO SCH (08:35)
[2020-04-06] MEDS: NICOTINE POLACRILEX 2 MG GUM MT PRN ×2 (10:05→15:23)
--- NOTE | 2020-04-06 15:02 | Psychiatric Progress Note ---
Date of Service April 06, 2020 Impression / Recommendations Impression 39-year-old female admitted voluntarily for inpatient psychiatric treatment on 03/28/2020 after presenting to the ED and reporting an intentional overdose of OTC sleeping pills in a suicide attempt. When hospitalized here in 2018 she was diagnosed with paranoid schizophrenia, and current outpatient records indicate diagnoses of schizoaffective disorder, depressed type and eating disorder unspecified. She presented with depression related to a recent break-up with her boyfriend of almost 3 years, somatic delusions, limited medication adherence, and is underweight with a BMI of 14.9. She admitted to 2 intentional overdoses of [id number] sleep medication in suicide attempts, and did not seek psychiatric treatment immediately. She is prescribed paliperidone on an outpatient basis, but has been noncompliant, and although transition to Sustenna has been recommended, she is refusing that. She is cognitively impaired and severely slowed, likely multifactorial and due to depression, cognitive impair ment from starvation, and psychosis. She has also been started on venlafaxine XR as she reported a previous good response to it. Inpatient treatment remains medically necessary due to the severity of her symptoms and risk for harm to self/ either as a result of inadequate p.o. intake and/or intentional overdose or self-harm. Consider filing for a 304 IOC given history of noncompliance with medications and aftercare and significantly limited insight related to her nutritional status (which is possibly rooted in her delusional system). nausea resolved on 04/06 and eating improving on 04/06 as is engagement, mood and affect improved till pt starts thinking about her breaking up with bf and how she regrets that then depressed. She is wary to raise her med doses at this point as of 04/06 (1) Overdose: 03/28 - Overdose on 8 tablets of OTC sleeping pills the night prior to her ED presentation, but came to the ED the next day with ongoing depression and concerns she would attempt to overdose again - Pt denies active SI at present, but is unable to contract for safety outside of the hospital setting - Pt cleared medically in the ED prior to referral and acceptance to our unit 03/29--reviewed (2) Schizoaffective disorder, depressive type: 03/28 - Historical diagnosis of paranoid schizophrenia reported during 11/2018 admission to our unit. More recent records indicate a diagnosis of schizoaffective disorder, depressed type - no clearly active symptomatology at this time; however, recommendations for adjustment of paliperidone have been made by her outpatient psychiatrist which certainly seems reasonable - We have requested records and will attempt to coordinate care with her outpatient providers - Will order paliperidone 3mg (patient states she had not started the increased dose prior to admission) - Discuss consideration for an MCCULLOUGH to ensure compliance - Pt reports depressive symptoms for the past two weeks, since breaking up with her boyfriend. - Given short duration of depressive symptoms, will begin with recommendation for supportive treatment which includes attendance of group programming and individual counseling as indicated - Pt denies active SI at this time, but is not necessarily remorseful about her suicide attempt. She is frustrated and confused about her request to end the relationship and would benefit from processing these thoughts and feelings - Encourage development of healthy and effective coping strategies - Schedule phone meeting with outpatient supports 03/29--tolerating Invega, consider dose increase tomorrow, she is not yet agreeing to MCCULLOUGH. -consider Remeron given BMI and presentation. 03/30--unable to increase Invega today given physical complaints 03/31--reviewed past med trials, included Remeron, states most helpful was Effexor XR 12 years ago when living in [place], would like to retry that rather than a new medication. Risks/benefits/alternatives reviewed and ordered Effexor XR 37.5 mg daily. 04/01 - Pt reports she is not interested in titrating paliperidone due to various somatic complaints - collateral received from outpatient psychiatrist suggests that these complaints may actually be somatic preoccupation related to delusions - Pt remains unwilling to consider an MCCULLOUGH at this time - will continue conve rsation - Continue paliperidone and venlafaxine - titrating venlafaxine to 75mg tomorrow morning. Risks and potential side effects reviewed with patient, who is agreeable with dose increase - Schedule phone meeting with family, as patient continues to be somatically preoccupied and is limited in her ability to verbalize concrete treatment goals 04/02 -Patient continues to decline recommendations to increase paliperidone as well as transition to Sustenna. She remains psychotic, with poor insight and judgment. She is endorsing delusions that food she eats or medication she takes might cause her to lose her vision. She is severely underweight, is malnourished and some of her cognitive impairment is likely due to that. -Family meeting held with parents today. -Encourage increased outpatient supports, including a blended employment case manager and day programming. 04/03 -Increase paliperidone to 6 mg daily. Encourage transition to Invega Sustenna given history of poor compliance. -Continue venlafaxine XR 75 mg daily, and further increase dose over the next few days. -Encourage BCM referral, and consider [facility] (although currently here voluntarily). -Encourage patient to be out of her bed during the day and fully participating in treatment. 04/04 - Continue as above, patient tolerating initial dose of paliperidone 6mg. Pt aware of plan to consider further titration over time and verbalized agreement. - Continue current dosage of venlafaxine 75mg, did not titrate today given reported episode of emesis (though nausea is reported to be chronic) - Will likely move forward with filing for an involuntary outpatient commitment given patient's history of noncompliance with outpatient treatment and limited willingness for appropriate outpatient psychiatric services, hesitancy to consent to appropriate titrate psychotropic medications to effective dosing, and refusal of recommended MCCULLOUGH. 04/05 continue as above, exploring potential to titrate paliperidone and venlafaxine er further but maintaining at current doses for now given nausea concerns and these medications can have this s/e mj as starting and raising doses. as detailed below in eating disorder problem section switching MVI to chewable form and changing to be taken at dinner to minimize risk of nausea coming from MVI. 04/06 miantained meds unchanged to minimize risk of s/e at this time, consider raising doses as appropiate (3) Eating disorder, unspecified: 03/28 - Pt is denying active eating disorder symptoms, but BMI is concerning at 14.9 - Potassium and other electrolytes appeared stable in the ED - Encourage patient to eat regular meals and make healthy food choices during admission, monitor intake per usual - Likely to trigger for dietary involvement due to low BMI - Assist with outpatient referrals for yarn preparation supervisor or eating disorder treatment if willing 03/29--unclear how much boost is taking, if no improvement today in PO will repeat labs and institute regular weights. 04/02 -patient refusing multiple meals daily, appears severely malnourished, cachectic. Will start daily weights, encourage increased oral intake, and consult the dietitian for assistance with supplementation. Weight 38.8 kg (increased from admission when it was 38.3 kg). 04/03 -nutrition has seen the patient twice since admission, initially ordered boost, but patient then refused it. Continue offering small snacks throughout the day. Electrolytes rechecked yesterday and were normal. She remains hypotensive and tachycardic, continue to encourage adequate fluid intake. 04/04 - Continue as above, patient's BMI is 15.2 today and nutritional intake as been slightly improved. - Pt did have an episode of emesis today after taking her prescribed multivitamin, denies history of purging or any volitional aspect to this event - Appreciate input from dietitian. Continue to encourage appropriate intake and regular healthy snacks. - Unfortunately, it is unlikely patient will make significant progress with improving her eating habits without also demonstrating investment in her mental health treatment, as it is possible some of her disordered eating behaviors may be rooted in delusional thinking. Will continue to work on treatment for patient's entire clinical picture, including adequate nutrition. - There is consideration to pursue an involuntary outpatient commitment, which will likely indirectly benefit patient's consistency with her nutrition and aftercare appointments. 04/05 - reviewed yarn preparation supervisor note from 04/05 and switching MVI to chewable form and converting to dinner timing of administration to minimize risk of nausea from MVI 04/06 eating appears to be improving as of lunch today (4) Urinary tract infection: 03/28 - Patient initiated on UTI treatment from the ED with recommendation for Macrobid 100mg BID x 5 days - will finish recommended course - Sample sent for culture, results pending 03/29--culture grew normal mixed syeda, will d/c Macrobid if N worsened. Currently requested Zofran. 03/30--d/c Macrobid as could be contributing to N, Zofran could contribute to visual complaints though could also be hypoglycemia. Risk Factors Assessment Male: No : Yes Do You Have Access To A Gun?: No Health Problems: Yes Mental Health Diagnoses: Yes Substance Use Disorders: No Previous Attempt: Yes Family History of Suicide: No Previous Psychiatric Hospitalization: Yes Hopelessness: Yes Smoker: No (quit 2 weeks prior to admission with use of nicotine gum) Protective Factors Assessment Jehovah'S Witness Beliefs: No : No Responsible for Young Children: No (2 children in custody of patient's parents) Employed: No Stable Relationships: No Supportive Family: Yes Interval History Identifying Information CAROL ECKETR is a 39-year-old F who currently lives in [place] with her parents and the patient's 2 children (of whom the patient's parents have custody) Pt has a historical diagnosis of paranoid schizophrenia; however she was admitted on 03/28/20 01:00 on a 201 voluntary commitment for increased depression related to a recent break-up and intentional overdose of OTC sleeping pills in a suicide attempt. Chief Complaint "rupset about breaking up with boyfriend". Review of Systems Sleep Information Total Hours of Sleep: 7.5 Meal Information Percent Meal Consumed - Breakfast: 25 Percent Meal Consumed - Lunch: 100 Percent Meal Consumed - Dinner: 5 Nutrition Comment: pt. late to get OOB due to nausea; states she will try a few bites after showering Subjective Subjective Patient was seen & assessed and interval progress reviewed with nursing and social work. Pt denied nausea today after experiencing it most of yesterday, did not eat beyond few bites of food yesterday but eat a piece of toast with jelly on it this morning and 100% of her lunch today. She sleep well last night. She is upset about breaking up with her boyfriend, indicating that she does not trust her decisions that she makes. She has had contact with her bf today and both indicated that they love each other but she does is distressed over the breakup and seems quite unsure of what to do and if can even get back together with him if she sought that. This concern. She is engaging with staff and spending time in the dayroom today. She is brighter in mood and feels good per report till subject goes to her boyfriend then she is depressed in mood and upset rest of the assessment. Physical Exam Psychiatric Orientation: alert, oriented x 3 and cooperative; not guarded (superficially cooperative) Apperance: appropriately dressed (casually, in pajama pants and a sweater), appropriately groomed and appeared stated age Eye Contact: good eye contact Motor Behavior: steady gait and station and no abnormal motor movements (observed while laying in bed) Speech: normal rate/rhythm/volume of speech (slowed, brief response to questions. Responses are less delayed today.) Affect: euthymic affect (at first ), + depressed affect (once subejct moved to her boyfriend ) and + flat affect Mood: + depressed mood (once subject moved to her boyfriend ) Thought Process: + perseveration (on various somatic complaints) and + concrete thought process Thought Content: + preoccupation, + delusions, + loneliness and + guilt Suicidal Thoughts: denies suicidal thoughts Homicidal Thoughts: denies homicidal thoughts Hallucinations: no auditory hallucinations and no visual hallucinations Cognition: attention grossly intact and language grossly intact; + recent memory not intact Estimated Intelligence: + below average estimated intelligence Insight: + severely impaired insight Judgement: + impaired judgement Vital Signs (Past 24 Hours) Last Vital Signs Temp 36.4 C L 04/06/20 06:41 Pulse 88 04/06/20 06:41 Resp 15 04/06/20 06:41 BP 105/70 04/06/20 06:41 Pulse Ox 99 03/27/20 23:00 Results & Data ([facility]) Current Inpatient Medications Current Inpatient Medications: Current Inpatient Medications Acetaminophen (Tylenol) 650 mg PO Q4H PRN PRN Reason: Headache or Minor Fever Stop: 04/27/20 02:01 Al Hydrox/Mg Hydrox/Simethicone (Maalox) 30 ml PO Q4H PRN PRN Reason: GI Upset Stop: 04/27/20 02:01 Last Admin: 03/29/20 11:37 Dose: 30 ml Documented by: Bismuth Subsalicylate (Kaopectate) 15 ml PO PRN PRN PRN Reason: Loose Stool Stop: 04/27/20 02:01 Lorazepam (Ativan) 0.5 mg PO Q6 PRN PRN Reason: Anxiety/Insomnia Stop: 04/28/20 17:23 Last Admin: 04/05/20 21:49 Dose: 0.5 mg Documented by: Magnesium Hydroxide (Milk Of Magnesia) 30 ml PO DAILY PRN PRN Reason: Constipation Stop: 04/27/20 02:01 Multivitamins/Folic Acid/Vitamin C (Flintstones Complete Chew Tab) 1 tab PO QDD ABHIJEET Stop: 05/06/20 17:44 Nicotine Polacrilex (Nicorette 2mg) 1 piece MT PRN PRN PRN Reason: nicotine withdrawal Stop: 04/27/20 02:04 Last Admin: 04/06/20 10:05 Dose: 1 piece Documented by: Ondansetron HCl (Zofran Odt) 4 mg PO Q8H PRN PRN Reason: Nausea Stop: 04/28/20 12:06 Last Admin: 04/05/20 15:30 Dose: 4 mg Documented by: Paliperidone (Invega) 6 mg PO QAM [facility] Stop: 05/04/20 08:59 Last Admin: 04/06/20 08:35 Dose: 6 mg Documented by: Sodium Chloride (Yellowstone Nasal) 1 - 2 sprays NA PRN PRN PRN Reason: Nasal Dryness/Congestion Stop: 04/27/20 02:01 Venlafaxine HCl (Effexor Extended Release) 75 mg PO QAM [facility] Stop: 05/02/20 08:59 Last Admin: 04/06/20 08:35 Dose: 75 mg Documented by: Mental Health & Subst Abuse Tx Psychiatrist Name of Psychiatrist: Shelly Farrar Psychiatrist's Date of Appointment with Psychiatrist: 04/22/20 Time of Appointment with Psychiatrist: 1:30 p.m. Psychiatric Appointment Comment: [address] [facility], [place], [place] Therapist Name of Therapist: . Therapist's Phone Number: . Date of Therapist Appointment: 04/03/20 Time of Therapist Appointment: . Therapy Appointment Comment: . Family Nurse Name of Family Nurse: [facility] - contact them with any questions or to continue intake if agreeable Phone Number for Family Nurse: [phone] Time of Appointment with Family Nurse: As needed Case Management Appointment Comment: [id number] [facility], [address], [place] Post Discharge Appointments Primary Care Physician Name Of Family Doctor: ISAURO Page Primary [facility] Date of Appointment with PCP: 04/17/20 Time of Appointment with PCP: 10:30 a.m. Provider Appointment Comment: [id number], [place] [address] Contact Information Discharge Discharge Address: [address] [place] [id number] (1) Overdose Encounter type: initial encounter Injury intent: intentional self-harm Qualified Code(s): T50.902A - Poisoning by unspecified drugs, medicaments and biological substances, intentional self-harm, initial encounter
[2020-04-06] MEDS: FLINTSTONES COMPLETE CHEWABLE TAB PO SCH (17:27)
[2020-04-07] MEDS: VENLAFAXINE HCL XR 75 MG CAPXR PO SCH (08:29)
[2020-04-07] MEDS: PALIPERIDONE 3 MG TABCR PO SCH (08:29)
--- NOTE | 2020-04-07 08:36 | Psychiatric Progress Note ---
Date of Service April 07, 2020 Impression / Recommendations Impression 39-year-old female admitted voluntarily for inpatient psychiatric treatment on 03/28/2020 after presenting to the ED and reporting an intentional overdose of OTC sleeping pills in a suicide attempt. When hospitalized here in 2018 she was diagnosed with paranoid schizophrenia, and current outpatient records indicate diagnoses of schizoaffective disorder, depressed type and eating disorder unspecified. She presented with depression related to a recent break-up with her boyfriend of almost 3 years, somatic delusions, limited medication adherence, and is underweight. She admitted that in the 2 weeks prior to p resentation she had 2 suicide attempts by overdoses of [id number] sleep medication, and did not seek psychiatric treatment immediately. She is prescribed paliperidone on an outpatient basis, but has been noncompliant, and although transition to Sustenna has been recommended, she is refusing that. She is also refused recommendations for blended case management services. She is cognitively impaired and severely slowed, likely multifactorial and due to depression, cognitive impairment from starvation, and psychosis. She has been started on venlafaxine XR as she reported a previous good response to it. Inpatient treatment remains medically necessary due to the severity of her symptoms and risk for harm to self/ either as a result of inadequate p.o. intake and/or intentional overdose or self-harm. After discussion with her outpatient psychiatrist, I have filed for a 304 IOC given history of noncompliance with medications and aftercare and significantly limited insight related to her mental illness and nutritional status (which is possibly rooted in her delusional system). She has been very reluctant to accept recommended medication changes/dose increases. (1) Overdose: 03/28 - Overdose on 8 tablets of OTC sleeping pills the night prior to her ED presentation, but came to the ED the next day with ongoing depression and conc erns she would attempt to overdose again - Pt denies active SI at present, but is unable to contract for safety outside of the hospital setting - Pt cleared medically in the ED prior to referral and acceptance to our unit 03/29--reviewed 04/07 -patient continues to deny SI, but is unable to engage in safety planning. (2) Schizoaffective disorder, depressive type: 03/28 - Historical diagnosis of paranoid schizophrenia reported during 11/2018 admission to our unit. More recent records indicate a diagnosis of schizoaffective disorder, depressed type - no clearly active symptomatology at this time; however, recommendations for adjustment of paliperidone have been made by her outpatient psychiatrist which certainly seems reasonable - We have requested records and will attempt to coordinate care with her outpatient providers - Will order paliperidone 3mg (patient states she had not started the increased dose prior to admission) - Discuss consideration for an MCCULLOUGH to ensure compliance - Pt reports depressive symptoms for the past two weeks, since breaking up with her boyfriend. - Given short duration of depressive symptoms, will begin with recommendation for supportive treatment which includes attendance of group programming and individual counseling as indicated - Pt denies active SI at this time, but is not necessarily remorseful about her suicide attempt. She is frustrated and confused about her request to end the relationship and would benefit from processing these thoughts and feelings - Encourage development of healthy and effective coping strategies - Schedule phone meeting with outpatient supports 03/29--tolerating Invega, consider dose increase tomorrow, she is not yet agreeing to MCCULLOUGH. -consider Remeron given BMI and presentation. 03/30--unable to increase Invega today given physical complaints 03/31--reviewed past med trials, included Remeron, states most helpful was Effexor XR 12 years ago when living in [place], would like to retry that rather than a new medication. Risks/benefits/alternatives reviewed and ordered Effexor XR 37.5 mg daily. 04/01 - Pt reports she is not interested in titrating paliperidone due to various somatic complaints - collateral received from outpatient psychiatrist suggests that these complaints may actually be somatic preoccupation related to delusions - Pt remains unwilling to consider an MCCULLOUGH at this time - will continue conversation - Continue paliperidone and venlafaxine - titrating venlafaxine to 75mg tomorrow morning. Risks and potential side effects reviewed with patient, who is agreeable with dose increase - Schedule phone meeting with family, as patient continues to be somatically preoccupied and is limited in her ability to verbalize concrete treatment goals 04/02 -Patient continues to decline recommendations to increase paliperidone as well as transition to Sustenna. She remains psychotic, with poor insight and judgment. She is endorsing delusions that food she eats or medication she takes might cause her to lose her vision. She is severely underweight, is malnourished and some of her cognitive impairment is likely due to that. -Family meeting held with parents today. -Encourage increased outpatient supports, including a blended assistant case manager and day programming. 04/03 -Increase paliperidone to 6 mg daily. Encourage transition to Invega Sustenna given history of poor compliance. -Continue venlafaxine XR 75 mg daily, and further increase dose over the next few days. -Encourage BCM referral, and consider 304 IOC (although currently here voluntarily). -Encourage patient to be out of her bed during the day and fully participating in treatment. 04/04 - Continue as above, patient tolerating initial dose of paliperidone 6mg. Pt aware of plan to consider further titration over time and verbalized agreement. - Continue current dosage of venlafaxine 75mg, did not titrate today given reported episode of emesis (though nausea is reported to be chronic) - Will likely move forward with filing for an involuntary outpatient commitment given patient's history of noncompliance with outpatient treatment and limited willingness for appropriate outpatient psychiatric services, hesitancy to consent to appropriate titrate psychotropic medications to effective dosing, and refusal of recommended MCCULLOUGH. 04/05 - continue as above, exploring potential to titrate paliperidone and venlafaxine er further but maintaining at current doses for now given nausea concerns and these medications can have this s/e mj as starting and raising doses. as detailed below in eating disorder problem section switching MVI to chewable form and changing to be taken at dinner to minimize risk of nausea coming from MVI. 04/06 - maintained meds unchanged to minimize risk of s/e at this time, consider raising doses as appropriate. 04/07 - Encouraging MCCULLOUGH (Sustenna) which patient is still refusing; continue paliperidone 6 mg daily. Fasting labs were performed 03/30/2020; cholesterol 201, glucose 69. -Reviewed case w/ outpatient psychiatrist Dr. Duke who [facility] and all are in favor of a 304 IOC. -Continue venlafaxine XR 75 mg daily. (3) Eating disorder, unspecified: 03/28 - Pt is denying active eating disorder symptoms, but BMI is concerning at 14.9 - Potassium and other electrolytes appeared stable in the ED - Encourage patient to eat regular meals and make healthy food choices during admission, monitor intake per usual - Likely to trigger for dietary involvement due to low BMI - Assist with outpatient referrals for editorial assistant or eating disorder treatment if willing 03/29--unclear how much boost is taking, if no improvement today in PO will repeat labs and institute regular weights. 04/02 -patient refusing multiple meals daily, appears severely malnourished, cachectic. Will start daily weights, encourage increased oral intake, and consult the dietitian for assistance with supplementation. Weight 38.8 kg (increased from admission when it was 38.3 kg). 04/03 -nutrition has seen the patient twice since admission, initially ordered boost, but patient then refused it. Continue offering small snacks throughout the day. Electrolytes rechecked yesterday and were normal. She remains hypotensive and tachycardic, continue to encourage adequate fluid intake. 04/04 - Continue as above, patient's BMI is 15.2 today and nutritional intake as been slightly improved. - Pt did have an episode of emesis today after taking her prescribed multivitamin, denies history of purging or any volitional aspect to this event - Appreciate input from dietitian. Continue to encourage appropriate intake and regular healthy snacks. - Unfortunately, it is unlikely patient will make significant progress with improving her eating habits without also demonstrating investment in her mental health treatment, as it is possible some of her disordered eating behaviors may be rooted in delusional thinking. Will continue to work on treatment for patient's entire clinical picture, including adequate nutrition. - There is consideration to pursue an involuntary outpatient commitment, which will likely indirectly benefit patient's consistency with her nutrition and aftercare appointments. 04/05 - reviewed editorial assistant note from 04/05 and switching MVI to chewable form and converting to dinner timing of administration to minimize risk of nausea from MVI 04/06 - eating appears to be improving as of lunch today (4) Urinary tract infection: 03/28 - Patient initiated on UTI treatment from the ED with recommendation for Macrobid 100mg BID x 5 days - will finish recommended course - Sample sent for culture, results pending 03/29--culture grew normal mixed syeda, will d/c Macrobid if N worsened. Currently requested Zofran. 03/30--d/c Macrobid as could be contributing to N, Zofran could contribute to visual complaints though could also be hypoglycemia. Risk Factors Assessment Male: No : Yes Do You Have Access To A Gun?: No Health Problems: Yes Mental Health Diagnoses: Yes Substance Use Disorders: No Previous Attempt: Yes Family History of Suicide: No Previous Psychiatric Hospitalization: Yes Hopelessness: Yes Smoker: No (quit 2 weeks prior to admission with use of nicotine gum) Protective Factors Assessment Mosque Beliefs: No : No Responsible for Young Children: No (2 children in custody of patient's parents) Employed: No Stable Relationships: No Supportive Family: Yes Interval History Identifying Information CAROL ECKERT is a 39-year-old F who currently lives in [place] with her parents and the patient's 2 children (of whom the patient's parents have custody) Pt has a historical diagnosis of paranoid schizophrenia; however she was admitted on 03/28/20 01:00 on a 201 voluntary commitment for increased depression related to a recent break-up and intentional overdose of OTC sleeping pills in a suicide attempt. Chief Complaint " Okay". Review of Systems Sleep Information Total Hours of Sleep: 7.5 Sleep Comments: received a prn dose of ativan for anxiety management/sleep aid. awakened before getting a new roommate to inform her Meal Information Percent Meal Consumed - Breakfast: 25 Percent Meal Consumed - Lunch: 100 Percent Meal Consumed - Dinner: 100 Nutrition Comment: pt. late to get OOB due to nausea; states she will try a few bites after showering Subjective Subjective Patient was seen & assessed and interval progress reviewed with treatment team. Staff report she is going to groups but has limited participation. She continues to report frequent nausea and has poor po intake, although it has improved from admission. On my assessment, she reports mood is "okay, well yesterday was good, Tuesday was not so great." She spent the day in bed because she was nauseated and "my vision was cloudy." She denies problems with nausea or her vision for the past 24 hours, and states she is no longer worried that eating or taking medications will cause her to lose her vision. She admits she is still spending much of her day in bed, but denies suicidal thoughts and thinks that mood is improving. She has been focused on "breaking up with my boyfriend, and bad decisions, taking sleeping pills." She talked to her parents and children on the phone over the weekend, and says it went well. When asked about the recommendations for a assistant case manager, she says "I do not really know," but struggles to explain this, as she also states that she had a assistant case manager in the past and found it helpful, and cannot identify why she has been resistant to the recommendation to work with the assistant case manager. She struggles to identify goals for the future, and when asked about her previous stated goal to get her own place and move out of her parents home, she says she does not think that she could do this because she has "no energy, too spacey." She continues to refuse recommendations for a long-acting injectable antipsychotic, stating "every time I took it before, it just caused more problems." She denies side effects to her current medications. Reviewed treatment recommendations including the recommendations for an involuntary outpatient commitment, and answered her questions about this. Physical Exam Psychiatric Orientation: alert and cooperative Limited historian, vague answers. Apperance: appropriately dressed and appropriately groomed Very thin, lying in bed in no acute distress, awake. Eye Contact: + poor eye contact Makes no eye contact, gaze averted. Motor Behavior: + psychomotor retardation Slowed movements. Minimal, very short answers. Affect: + blunted affect; + mood not congruent with affect "Okay." Thought Process: goal directed thought process Slowed, blocking. Paucity of thought content. Perseverating on "bad decisions," including breaking up with her boyfriend and overdosing. Suicidal Thoughts: denies suicidal thoughts Homicidal Thoughts: denies homicidal thoughts Hallucinations: no auditory hallucinations and no visual hallucinations Cognition: language grossly intact Insight: + impaired insight Judgement: + impaired judgement Vital Signs (Past 24 Hours) Last Vital Signs Temp 36.6 C 04/07/20 06:00 Pulse 90 04/07/20 06:03 Resp 15 04/07/20 06:00 BP 93/62 L 04/07/20 06:03 Pulse Ox 99 03/27/20 23:00 Results & Data (U) Current Inpatient Medications Current Inpatient Medications: Current Inpatient Medications Acetaminophen (Tylenol) 650 mg PO Q4H PRN PRN Reason: Headache or Minor Fever Stop: 04/27/20 02:01 Al Hydrox/Mg Hydrox/Simethicone (Maalox) 30 ml PO Q4H PRN PRN Reason: GI Upset Stop: 04/27/20 02:01 Last Admin: 03/29/20 11:37 Dose: 30 ml Documented by: Bismuth Subsalicylate (Kaopectate) 15 ml PO PRN PRN PRN Reason: Loose Stool Stop: 04/27/20 02:01 Lorazepam (Ativan) 0.5 mg PO Q6 PRN PRN Reason: Anxiety/Insomnia Stop: 04/28/20 17:23 Last Admin: 04/05/20 21:49 Dose: 0.5 mg Documented by: Magnesium Hydroxide (Milk Of Magnesia) 30 ml PO DAILY PRN PRN Reason: Constipation Stop: 04/27/20 02:01 Multivitamins/Folic Acid/Vitamin C (Flintstones Complete Chew Tab) 1 tab PO QDD [facility] Stop: 05/06/20 17:44 Last Admin: 04/06/20 17:27 Dose: Not Given Documented by: Nicotine Polacrilex (Nicorette 2mg) 1 piece MT PRN PRN PRN Reason: nicotine withdrawal Stop: 04/27/20 02:04 Last Admin: 04/06/20 15:23 Dose: 1 piece Documented by: Ondansetron HCl (Zofran Odt) 4 mg PO Q8H PRN PRN Reason: Nausea Stop: 04/28/20 12:06 Last Admin: 04/05/20 15:30 Dose: 4 mg Documented by: Paliperidone (Invega) 6 mg PO QAM [facility] Stop: 05/04/20 08:59 Last Admin: 04/07/20 08:29 Dose: 6 mg Documented by: Sodium Chloride (Converse Nasal) 1 - 2 sprays NA PRN PRN PRN Reason: Nasal Dryness/Congestion Stop: 04/27/20 02:01 Venlafaxine HCl (Effexor Extended Release) 75 mg PO QAM [facility] Stop: 05/02/20 08:59 Last Admin: 04/07/20 08:29 Dose: 75 mg Documented by: Mental Health & Subst Abuse Tx Psychiatrist Name of Psychiatrist: Shelly Farrar Psychiatrist's Date of Appointment with Psychiatrist: 04/22/20 Time of Appointment with Psychiatrist: 1:30 p.m. Psychiatric Appointment Comment: [address] [facility], [place] Therapist Name of Therapist: . Therapist's Phone Number: . Date of Therapist Appointment: 04/03/20 Time of Therapist Appointment: . Therapy Appointment Comment: . Materials Engineer Name of Materials Engineer: MAXIMINO - contact them with any questions or to continue intake if agreeable Phone Number for Materials Engineer: [phone] Time of Appointment with Materials Engineer: As needed Case Management Appointment Comment: [address] [facility], [address], [place] Post Discharge Appointments Primary Care Physician Name Of Family Doctor: ISAURO Page Primary [facility] Date of Appointment with PCP: 04/17/20 Time of Appointment with PCP: 10:30 a.m. Provider Appointment Comment: [facility] [address], [place] [address] Contact Information Discharge Discharge [address]: [address] [place] [id number] (1) Overdose Encounter type: initial encounter Injury intent: intentional self-harm Qualified Code(s): T50.902A - Poisoning by unspecified drugs, medicaments and biological substances, intentional self-harm, initial encounter
[2020-04-07] MEDS: NICOTINE POLACRILEX 2 MG GUM MT PRN (13:10)
[2020-04-07] MEDS: FLINTSTONES COMPLETE CHEWABLE TAB PO SCH (17:20)
[2020-04-07] MEDS: LORazepam 0.5 MG TAB PO PRN (22:34)
[2020-04-08] MEDS: PALIPERIDONE 3 MG TABCR PO SCH (08:35)
[2020-04-08] MEDS: VENLAFAXINE HCL XR 75 MG CAPXR PO SCH (08:35)
[2020-04-08] MEDS: NICOTINE POLACRILEX 2 MG GUM MT PRN ×2 (09:28→12:10)
--- NOTE | 2020-04-08 12:51 | Psychiatric Progress Note ---
Date of Service April 08, 2020 Impression / Recommendations Impression 39-year-old female admitted voluntarily for inpatient psychiatric treatment on 03/28/2020 after presenting to the ED and reporting an intentional overdose of OTC sleeping pills in a suicide attempt. When hospitalized here in 2018 she was diagnosed with paranoid schizophrenia, and current outpatient records indicate diagnoses of schizoaffective disorder, depressed type and eating disorder unspecified. She presented with depression related to a recent break-up with her boyfriend of almost 3 years, somatic delusions, limited medication adherence, and is underweight. She admitted that in the 2 weeks prior to p resentation she had 2 suicide attempts by overdoses of [id number] sleep medication, and did not seek psychiatric treatment immediately. She is prescribed paliperidone on an outpatient basis, but has been noncompliant, and although transition to Sustenna has been recommended, she is refusing that. She is also refused recommendations for blended case management services. She is cognitively impaired and severely slowed, likely multifactorial and due to depression, cognitive impairment from starvation, and psychosis. She has been started on venlafaxine XR as she reported a previous good response to it. Inpatient treatment remains medically necessary due to the severity of her symptoms and risk for harm to self/ either as a result of inadequate p.o. intake and/or intentional overdose or self-harm. After discussion with her outpatient psychiatrist, request for a 304 IOC has been filed - given history of noncompliance with medications and aftercare and significantly limited insight related to her mental illness and nutritional status (which is possibly rooted in her delusional system). She has been very reluctant to accept recommended medication changes/dose increases. (1) Overdose: 03/28 - Overdose on 8 tablets of OTC sleeping pills the night prior to her ED presentation, but came to the ED the next day with ongoing depression and concerns she would attempt to overdose again - Pt denies active SI at present, but is unable to contract for safety outside of the hospital setting - Pt cleared medically in the ED prior to referral and acceptance to our unit 03/29--reviewed 04/07 -patient continues to deny SI, but is unable to engage in safety planning. 04/08 - patient continues to deny SI (2) Schizoaffective disorder, depressive type: 03/28 - Historical diagnosis of paranoid schizophrenia reported during 11/2018 admission to our unit. More recent records indicate a diagnosis of schizoaffective disorder, depressed type - no clearly active symptomatology at this time; however, recommendations for adjustment of paliperidone have been made by her outpatient psychiatrist which certainly seems reasonable - We have requested records and will attempt to coordinate care with her outpatient providers - Will order paliperidone 3mg (patient states she had not started the in creased dose prior to admission) - Discuss consideration for an MCCULLOUGH to ensure compliance - Pt reports depressive symptoms for the past two weeks, since breaking up with her boyfriend. - Given short duration of depressive symptoms, will begin with recommendation for supportive treatment which includes attendance of group programming and individual counseling as indicated - Pt denies active SI at this time, but is not necessarily remorseful about her suicide attempt. She is frustrated and confused about her request to end the relationship and would benefit from processing these thoughts and feelings - Encourage development of healthy and effective coping strategies - Schedule phone meeting with outpatient supports 03/29--tolerating Invega, consider dose increase tomorrow, she is not yet agreeing to MCCULLOUGH. -consider Remeron given BMI and presentation. 03/30--unable to increase Invega today given physical complaints 03/31--reviewed past med trials, included Remeron, states most helpful was Effexor XR 12 years ago when living in [place], would like to retry that rather than a new medication. Risks/benefits/alternatives reviewed and ordered Effexor XR 37.5 mg daily. 04/01 - Pt reports she is not interested in titrating paliperidone due to various somatic complaints - collateral received from outpatient psychiatrist suggests that these complaints may actually be somatic preoccupation related to delusions - Pt remains unwilling to consider an MCCULLOUGH at this time - will continue conversation - Continue paliperidone and venlafaxine - titrating venlafaxine to 75mg tomorrow morning. Risks and potential side effects reviewed with patient, who is agreeable with dose increase - Schedule phone meeting with family, as patient continues to be somatically preoccupied and is limited in her ability to verbalize concrete treatment goals 04/02 -Patient continues to decline recommendations to increase paliperidone as well as transition to Sustenna. She remains psychotic, with poor insight and judgment. She is endorsing delusions that food she eats or medication she takes might cause her to lose her vision. She is severely underweight, is malnourished and some of her cognitive impairment is likely due to that. -Family meeting held with parents today. -Encourage increased outpatient supports, including a blended upper caser and day programming. 04/03 -Increase paliperidone to 6 mg daily. Encourage transition to Invega Sustenna given history of poor compliance. -Continue venlafaxine XR 75 mg daily, and further increase dose over the next few days. -Encourage BCM referral, and consider 304 IOC (although currently here voluntarily). -Encourage patient to be out of her bed during the day and fully participating in treatment. 04/04 - Continue as above, patient tolerating initial dose of paliperidone 6mg. Pt aware of plan to consider further titration over time and verbalized agreement. - Continue current dosage of venlafaxine 75mg, did not titrate today given reported episode of emesis (though nausea is reported to be chronic) - Will likely move forward with filing for an involuntary outpatient commitment given patient's history of noncompliance with outpatient treatment and limited willingness for appropriate outpatient psychiatric services, hesitancy to consent to appropriate titrate psychotropic medications to effective dosing, and refusal of recommended MCCULLOUGH. 04/05 - continue as above, exploring potential to titrate paliperidone and venlafaxine er further but maintaining at current doses for now given nausea concerns and these medications can have this s/e mj as starting and raising doses. as detailed below in eating disorder problem section switching MVI to chewable form and changing to be taken at dinner to minimize risk of nausea coming from MVI. 04/06 - maintained meds unchanged to minimize risk of s/e at this time, consider raising doses as appropriate. 04/07 - Encouraging MCCULLOUGH (Sustenna) which patient is still refusing; continue paliperidone 6 mg daily. Fasting labs were performed 03/30/2020; cholesterol 201, glucose 69. -Reviewed case w/ outpatient psychiatrist Dr. Duke who has [facility] and all are in favor of a 304 IOC. -Continue venlafaxine XR 75 mg daily. 04/08 - Continue as above - patient is still refusing to consider an MCCULLOUGH at this time - Continue current medication regimen - 304 hearing scheduled for tomorrow morning, anticipating discharge home after the hearing (3) Eating disorder, unspecified: 03/28 - Pt is denying active eating disorder symptoms, but BMI is concerning at 14.9 - Potassium and other electrolytes appeared stable in the ED - Encourage patient to eat regular meals and make healthy food choices during admission, monitor intake per usual - Likely to trigger for dietary involvement due to low BMI - Assist with outpatient referrals for podiatric medicine doctor or eating disorder treatment if willing 03/29--unclear how much boost is taking, if no improvement today in PO will repeat labs and institute regular weights. 04/02 -patient refusing multiple meals daily, appears severely malnourished, cachectic. Will start daily weights, encourage increased oral intake, and consult the dietitian for assistance with supplementation. Weight 38.8 kg (increased from admission when it was 38.3 kg). 04/03 -nutrition has seen the patient twice since admission, initially ordered boost, but patient then refused it. Continue offering small snacks throughout the day. Electrolytes rechecked yesterday and were normal. She remains hypotensive and tachycardic, continue to encourage adequate fluid intake. 04/04 - Continue as above, patient's BMI is 15.2 today and nutritional intake as been slightly improved. - Pt did have an episode of emesis today after taking her prescribed multivitamin, denies history of purging or any volitional aspect to this event - Appreciate input from dietitian. Continue to encourage appropriate intake and regular healthy snacks. - Unfortunately, it is unlikely patient will make significant progress with improving her eating habits without also demonstrating investment in her mental health treatment, as it is possible some of her disordered eating behaviors may be rooted in delusional thinking. Will continue to work on treatment for patient's entire clinical picture, including adequate nutrition. - There is consideration to pursue an involuntary outpatient commitment, which will likely indirectly benefit patient's consistency with her nutrition and aftercare appointments. 04/05 - reviewed podiatric medicine doctor note from 04/05 and switching MVI to chewable form and converting to dinner timing of administration to minimize risk of nausea from MVI 04/06 - eating appears to be improving as of lunch today (4) Urinary tract infection: 03/28 - Patient initiated on UTI treatment from the ED with recommendation for Macrobid 100mg BID x 5 days - will finish recommended course - Sample sent for culture, results pending 03/29--culture grew normal mixed syeda, will d/c Macrobid if N worsened. Currently requested Zofran. 03/30--d/c Macrobid as could be contributing to N, Zofran could contribute to visual complaints though could also be hypoglycemia. Risk Factors Assessment Male: No : Yes Do You Have Access To A Gun?: No Health Problems: Yes Mental Health Diagnoses: Yes Substance Use Disorders: No Previous Attempt: Yes Family History of Suicide: No Previous Psychiatric Hospitalization: Yes Hopelessness: Yes Smoker: No (quit 2 weeks prior to admission with use of nicotine gum) Protective Factors Assessment Adventist Beliefs: No : No Responsible for Young Children: No (2 children in custody of patient's parents) Employed: No Stable Relationships: No Supportive Family: Yes Interval History Identifying Information CAROL ECKERT is a 39-year-old F who currently lives in [place] with her parents and the patient's 2 children (of whom the patient's parents have custody) Pt has a historical diagnosis of paranoid schizophrenia; however she was admitted on 03/28/20 01:00 on a 201 voluntary commitment for increased depression related to a recent break-up and intentional overdose of OTC sleeping pills in a suicide attempt. Chief Complaint "Um, ok." Review of Systems Notes Constitutional: reports weakness and "vision problems" today Cardiovascular: denied Respiratory: denied Gastrointestinal: denied Neurological: denied Psychiatric: denies symptoms other than stated above Total of at least 10 systems reviewed, pertinent positives as above and in HPI. Sleep Information Total Hours of Sleep: 6.75 Sleep Comments: received a prn dose of ativan for anxiety management/sleep aid. awakened before getting a new roommate to inform her Meal Information Percent Meal Consumed - Breakfast: 75 Percent Meal Consumed - Lunch: 75 Percent Meal Consumed - Dinner: 65 Nutrition Comment: pt. late to get OOB due to nausea; states she will try a few bites after showering Subjective Subjective Patient was seen & assessed and interval progress reviewed with nursing and social work. Staff report the patient has continued to be cooperative. Discharge is anticipated for tomorrow following a hearing requesting a 304 IOC. Pt was seen today to assess progress since admission. Pt states she is "ok" today. She reports her mood is improved, though states it continues to be somewhat variable throughout the day. Pt states she continues to be focused on whether or not she made the right decision in breaking up with her boyfriend. She states she did receive a message from him saying he loved and misses her - she states this made her feel happy. We again discussed recommendation to consider Invega Sustenna. 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 Pt was encouraged to discuss this topic further with her outpatient provider when she transitions to [place]. Pt denies SI at this time, and denied safety concerns related to anticipated discharge tomorrow. Pt is aware of [facility] hearing tomorrow. She denies other needs or concerns today. Physical Exam Psychiatric Orientation: alert, oriented x 3 and + guarded (superficial conversation) Apperance: appropriately dressed, appropriately groomed and appeared stated age Eye Contact: + fair eye contact (prolonged staring ) Motor Behavior: steady gait and station and + psychomotor retardation Speech: normal rate/rhythm/volume of speech (delayed responses) Affect: + flat affect and + blunted affect Mood: no depressed mood ("probably a 7, I feel better") Thought Process: goal directed thought process and + concrete thought process Thought Content: + preoccupation (with various somatic complaints); no hopelessness Suicidal Thoughts: denies suicidal thoughts, denies suicidal plan and denies suicidal intent Homicidal Thoughts: denies homicidal thoughts Hallucinations: no auditory hallucinations and no visual hallucinations Cognition: language grossly intact Insight: + limited insight Judgement: + limited judgement Vital Signs (Past 24 Hours) Last Vital Signs Temp 36.3 C L 04/08/20 06:48 Pulse 91 H 04/08/20 06:49 Resp 18 04/08/20 06:48 BP 99/63 L 04/08/20 06:49 Pulse Ox 99 03/27/20 23:00 Results & Data ([facility]) Current Inpatient Medications Current Inpatient Medications: Current Inpatient Medications Acetaminophen (Tylenol) 650 mg PO Q4H PRN PRN Reason: Headache or Minor Fever Stop: 04/27/20 02:01 Al Hydrox/Mg Hydrox/Simethicone (Maalox) 30 ml PO Q4H PRN PRN Reason: GI Upset Stop: 04/27/20 02:01 Last Admin: 03/29/20 11:37 Dose: 30 ml Documented by: Bismuth Subsalicylate (Kaopectate) 15 ml PO PRN PRN PRN Reason: Loose Stool Stop: 04/27/20 02:01 Lorazepam (Ativan) 0.5 mg PO Q6 PRN PRN Reason: Anxiety/Insomnia Stop: 04/28/20 17:23 Last Admin: 04/07/20 22:34 Dose: 0.5 mg Documented by: Magnesium Hydroxide (Milk Of Magnesia) 30 ml PO DAILY PRN PRN Reason: Constipation Stop: 04/27/20 02:01 Multivitamins/Folic Acid/Vitamin C (Flintstones Complete Chew Tab) 1 tab PO QDD ABHIJEET Stop: 05/06/20 17:44 Last Admin: 04/07/20 17:20 Dose: Not Given Documented by: Nicotine Polacrilex (Nicorette 2mg) 1 piece MT PRN PRN PRN Reason: nicotine withdrawal Stop: 04/27/20 02:04 Last Admin: 04/08/20 12:10 Dose: 1 piece Documented by: Ondansetron HCl (Zofran Odt) 4 mg PO Q8H PRN PRN Reason: Nausea Stop: 04/28/20 12:06 Last Admin: 04/05/20 15:30 Dose: 4 mg Documented by: Paliperidone (Invega) 6 mg PO QAM ABHIJEET Stop: 05/04/20 08:59 Last Admin: 04/08/20 08:35 Dose: 6 mg Documented by: Sodium Chloride ([place] Nasal) 1 - 2 sprays NA PRN PRN PRN Reason: Nasal Dryness/Congestion Stop: 04/27/20 02:01 Venlafaxine HCl (Effexor Extended Release) 75 mg PO QAM [facility] Stop: 05/02/20 08:59 Last Admin: 04/08/20 08:35 Dose: 75 mg Documented by: Mental Health & Subst Abuse Tx Psychiatrist Name of Psychiatrist: [facility] Psychiatrist's Date of Appointment with Psychiatrist: 04/22/20 Time of Appointment with Psychiatrist: 1:30 p.m. Psychiatric Appointment Comment: [address] [facility], [place], [place] Therapist Name of Therapist: ISAURO Foster Therapist's Date of Therapist Appointment: 04/22/20 Time of Therapist Appointment: 11:00 a.m. Therapy Appointment Comment: In person - [address], [place] [address] Linux Admin Engineer Name of Linux Admin Engineer: MAXIMINO Solorzano Phone Number for Linux Admin Engineer: [phone] Time of Appointment with Linux Admin Engineer: Will contact you Case Management Appointment Comment: [address], [address], [place] Post Discharge Appointments Primary Care Physician Name Of Family Doctor: ISAURO Page Primary Care Date of Appointment with PCP: 04/17/20 Time of Appointment with PCP: 10:30 a.m. Provider Appointment Comment: In person - [address], [place] [address] Other #1: Name of Aftercare Appointment: ISAURO Shelley Phone Number of Aftercare Appointment: Time of Aftercare Appointment: Follow up as needed Aftercare Appointment Comment: [address], [place] [address] Contact Information Discharge Discharge [address]: [address] [place] [address] (1) Overdose Encounter type: initial encounter Injury intent: intentional self-harm Qualified Code(s): T50.902A - Poisoning by unspecified drugs, medicaments and biological substances, intentional self-harm, initial encounter
[2020-04-08] MEDS: FLINTSTONES COMPLETE CHEWABLE TAB PO SCH (17:44)
[2020-04-09] MEDS: NICOTINE POLACRILEX 2 MG GUM MT PRN ×2 (07:44→10:33)
--- NOTE | 2020-04-09 08:36 | Discharge Summary ---
Date of Service April 09, 2020 History of Present Illness Miryam Brizuela is a 39-year-old female admitted voluntarily for inpatient psychiatric treatment on 03/28/2020 after presenting to the ED with worsening depression and SI in the context of a recent break. Pt also admitted that she had taken 8 OTC sleeping pills the day prior to her presentation in a suicide attempt. Pt was observed in the ED with poison control recommendations, and was referred to our unit for admission once medically cleared. She was last admitted to our unit in 11/2018 with a historical diagnosis of paranoid schizophrenia and had been reporting delusions and ideas of reference that individuals were intentionally revving their engines outside of her residence in an attempt to bother her. Pt has apparently been living with her parents recently, and the patient's two young children are living in the home as well. Pt reports "I've just been depressed. Mostly about health issues, I feel spaced out from my medications. I also broke up with my boyfriend." Pt states that she traveled to [place] two weeks prior to her admission to visit her boyfriend. While there, the patient ended the relationship, but is now seeming to regret her decision. Pt reports she has attempted to contact her boyfriend, but he has not returned her calls/texts. With regard to the break-up, the patient claims "I didn't think it through, I've just been doing a lot of crazy stuff lately." Pt admits she took the overdose with the intent to end her life, thinking "I'd be better off ." The patient admits that she did not believe the amount of sleeping pills she took would be enough to cause serious harm, but she had hoped she would . Pt admits to a similar event about 1-2 weeks ago, where she had thoughts to end her life but "only took 4 because I was scared about what the medication would do." Pt states that she did not present to the ED initially after the overdose, but actually went to sleep and woke up the next day to attend her scheduled eye doctor appointment. Pt had a brief conversation with her therapist while waiting for her eye doctor as "I forgot we had an appointment, so he was just checking in on me. I didn't tell him about the pills because we only had about 5 minutes to talk." Pt reports that her depressive symptoms have only been exacerbated in the context of the break-up. She admits to difficulty sleeping, poor appetite, decreased energy, and limited motivation. In regard to symptoms consistent with schizophrenia/schizoaffective disorder, patient denies any delusional or bizarre thought content. She admits she is anxious about an event where she was involved with a man who had a girlf riend, and "I think about the woman and feel she's still involved in my life" - but denies feeling as though she is being watched or monitored. Pt denies auditory or visual hallucinations. Pt admits she is receiving treatment from providers at [facility], with plan to transition to services through [facility] in the near future. Her paliperidone was recently increased to 3mg daily; however, the patient admits she has not started the higher dose yet. Pt is somewhat reluctant to discuss medications or consider an MCCULLOUGH as "every medication I've been on has made me feel spacy. I don't like feeling that way." Pt denies SI presently, but admits she was concerned she would overdose again if she did not come in to the hospital. She denies HI, SIB, A/V hallucinations, paranoia, leann/hypomania, other symptoms more suggestive of a bipolar presentation, OCD, PTSD, and other specific psychiatric symptoms. She does have a diagnosis of eating disorder, unspecified - appears anorexic and BMI is 14.9. She admits to decreased appetite, but states she consistently eats two meals a day - even prior to the break up. She denies other concerning mental health symptoms at this time. Physical Exam Psychiatric Orientation: alert, oriented x 3 and cooperative Apperance: appropriately dressed and appropriately groomed Very thin, lying in bed awake and in no acute distress. Eye Contact: + fair eye contact Motor Behavior: no abnormal motor movements Speech is slightly slowed, but normal volume and tone. Affect: + blunted affect "Okay." Thought Process: goal directed thought process Thought Content: reality based without delusions Suicidal Thoughts: denies suicidal thoughts Homicidal Thoughts: denies homicidal thoughts Hallucinations: no auditory hallucinations and no visual hallucinations Cognition: recent memory grossly intact, attention grossly intact and language grossly intact Insight: + limited insight Judgement: + limited judgement Vital Signs (Past 24 Hours) Last Vital Signs Temp 36.5 C 04/09/20 06:51 Pulse 103 H 04/09/20 06:52 Resp 18 04/09/20 06:51 BP 88/52 L 04/09/20 06:52 Pulse Ox 99 03/27/20 23:00 Principal Diagnosis Schizoaffective disorder, depressive type Eating disorder NOS Treatment nonadherence Psychiatric Data The patient was hospitalized for 12 days. On admission, the case was reviewed and discussed with her outpatient psychiatrist, Dr. Duke, at [facility]. She also has a therapist, Dr. Zarco's go to [facility] there. They recommended an MCCULLOUGH in [address] [place] [address] given her long history of medication noncompliance and resulting poor symptom control and functional impairment. She had done well on Risperdal Consta but refused to continue taking it in 2017, and decompensated at that point, with multiple somatic psychotic symptoms. Had been difficult to engage her in psychiatric treatment, and she had fallen out of care for several months. She is also struggled with eating disorder and is chronically underweight, and has not been actively engaged in eating disorder treatment. She was initially continued on her home dose of paliperidone 3 mg daily, and refused recommendations to increase the dose for the first week in the hospital, but ultimately agreed to increase to 6 mg daily. The recommendations for transition to [facility] were reviewed repeatedly, but she refused the MCCULLOUGH, stating that she did not think she had done well when on other MCCULLOUGH's in the past. She often reported somatic symptoms that she thought were side effects of medications (feeling tired, low energy, foggy thinking), but it appeared much more likely that these were psychotic symptoms or effects of her caloric restriction and malnutrition. Education was provided regarding her diagnoses and the treatment recommendations as well as the importance of good nutrition for optimal brain function, and her po intake did improve in the hospital with the support of staff. She was seen by the mess attendant crew and declined recommendations for Boost, and was started on a multivitamin. Daily weights were tracked and increased over the course of hospitalization. She was started on venlafaxine XR to target depressive symptoms, as after a review of her previous antidepressant medication trials, she identified it as being helpful in the past. Her dose was titrated to 75 mg daily. She was quite somatically focused, initially expressing delusions that if she ate food or took medications it would cause her to lose her vision. She frequently reported visual disturbances, and stated this has been going on for years. She reported she had seen her eye doctor just prior to admission and had an eye exam, and was informed that there had been no visual changes since her previous eye exam 3 years prior. She struggled to reality test regarding her somatic symptoms, but they gradually reduced in frequency and intensity over the course of hospitalization. She initially spent most of her day in bed, but by the end of her hospital stay was getting up to attend groups, although often retreated to bed during free time. She had a family meeting with the social science manager and her parents on 04/02/2020, they were supportive although appeared to have limited insight about the role of noncompliance and her lack of response to treatment, instead feeling that "the right medication" just had not been found. Referrals were made for a therapist in the community and [facility] in order to transition her from [facility] to community services. She refused recommendations for a returned case inspector, but was ultimately assigned one as part of the plan for a [address] [place] [address]. Day of Discharge Assessment Staff report the patient attended groups yesterday and reported that her mood had improved and was a 6/10, said she was feeling hopeful and looking forward to discharge. She discussed plans she made with her parents to go out to dinner to celebrate her birthday, which occurred while she was hospitalized. She has been sleeping well overnight, and continues to complain of intermittent blurred vision. She has been processing the break-up with her boyfriend, who contacted her by text to tell her that he missed and loved her, but remains ambivalent about getting back together with him. She continues to express concerns that she will not be able to function well when she returns home, and continues to retreat to bed during the day, and struggle to get out of bed in the morning. On my assessment she was seen in her room where she had returned to bed after breakfast. She states that she feels "like a zombie" this morning, which is t ypical of her mornings, and makes it hard for her to get out of bed. Discussed her normal morning routine and ways that she might be able to boost energy in the morning, such as getting up to shower and put on clean clothes, making plans to engage with others, and improving her caloric intake and nutrition. She says she had a good day yesterday, went to groups and found them helpful, but could n ot recall anything in particular that she discussed her found helpful. She denies thoughts of harming herself or anyone else, denies paranoia and hallucinations, and feels safe leaving the hospital. She is looking forward to returning home today and seeing her family. She did not contact her publications distribution clerk, and so she does not want to attend her involuntary commitment hearing. We reviewed the requirements of the 304 IOC, and the importance of adhering with her medications and continuing to work on her nutrition. The 304 IOC was granted. Transition of Care Transition Of Care Record: was reviewed with the patient Advance Directives Advance Directives Information Provided: Yes Advance Directives: No Mental Health Advance Directive: No Advance Directives on File: No Living Will: No Power of Printed Circuit Designer: No Advance Directives Reason:: Declines as Mental Health Visit. Risk Factors Assessment Risk factors were mitigated by admission to the inpatient unit, use of medications to target mood and psychotic symptoms, psychoeducation about her diagnoses and the recommended treatment, dietary consultation due to eating disorder and low body weight, monitoring of p.o. intake and strategies to improve nutrition, family meeting with her parents, coordination of care with outpatient clinicians, referral for new services in the community, participation in groups and therapy, working on healthy coping skills and discharge safety plan, and placing her on a 304 IOC due to her history of nonadherence with treatment. She was also referred for a blended case management services. She has demonstrated improvement in mood and psychotic symptoms, resolution of suicidal thoughts and delusions, and is less somatically preoccupied. She is taking medications orally, and although we recommended an MCCULLOUGH, she consistently refused this. She will be returning to live with her parents and 2 children, who are in agreement with the discharge plan. She is no longer at acute risk of harm to herself, so can be managed as an outpatient at this time. She is not at imminent risk for harm to others. Male: No : Yes Do You Have Access To A Gun?: No Health Problems: Yes Mental Health Diagnoses: Yes Substance Use Disorders: No Previous Attempt: Yes Family History of Suicide: No Previous Psychiatric Hospitalization: Yes Hopelessness: Yes Smoker: No (quit 2 weeks prior to admission with use of nicotine gum) Protective Factors Assessment Rastafari Beliefs: No : No Responsible for Young Children: No (2 children in custody of patient's parents) Employed: No Stable Relationships: No Supportive Family: Yes Good Rapport with Provider: Yes Tobacco Cessation at Discharge Tobacco Cessation Medication Prescribed at Discharge: Not Applicable/Non-Smoker (quit smoking 2 weeks prior to admission) Total Time Total Time Spent: Greater Than 30 Minutes Total Time Includes: Examination of the patient, Discharge Planning, Medication Reconciliation, Communication with other providers and As well as (304 IOC hearing) Discharge Data Lab Results 03/27/20 03/27/20 03/27/20 14:42 14:42 14:42 WBC RBC Hgb Hct MCV MCH MCHC RDW Std Deviation RDW Coeff of Yaya Plt Count MPV Immature Gran % (Auto) Neut % (Auto) Lymph % (Auto) [place] % (Auto) Eos % (Auto) Baso % (Auto) Neut # (Auto) Lymph # (Auto) [place] # (Auto) Eos # (Auto) Baso # (Auto) Immature Gran # (Auto) Sodium Potassium Chloride Carbon Dioxide Anion Gap BUN Creatinine Est Cr Clr Drug Dosing Est GFR ( Amer) Est GFR (Non-Af Amer) BUN/Creatinine Ratio Glucose Fasting Glucose Calcium Phosphorus Magnesium Total Bilirubin Direct Bilirubin AST ALT Alkaline Phosphatase Total Protein Albumin Globulin Albumin/Globulin Ratio Triglycerides Cholesterol LDL Cholesterol, Calc VLDL Cholesterol, Calc HDL Cholesterol Cholesterol/HDL Ratio TSH Urine Color [place] Urine Appearance Cloudy A Urine pH 7.5 Ur Specific [place] 1.007 Urine Protein 1+ H Urine Glucose (UA) Negative Urine Ketones 1+ H Urine Blood 3+ H Urine Nitrite Negative Urine Bilirubin Negative Urine Urobilinogen Negative Ur Leukocyte Esterase 3+ H Urine WBC (Auto) >30 H Urine RBC (Auto) 5-10 H U Hyaline Cast (Auto) 0 U Epithel Cells (Auto) >30 H Urine Bacteria (Auto) 1+ H Urine Yeast Not Reportable POC Ur Test NEG Salicylates Urine Opiates Screen Neg Ur Methadone, Qual Neg Acetaminophen Urine Barbiturates Neg Ur Phencyclidine (PCP) Neg U Amphetamin/Meth Scrn Neg MDMA (Ecstasy) Screen Neg U Benzodiazepines Scrn Neg Ur Cocaine Metabolite Neg U Marijuana (THC) Screen Neg Ethyl Alcohol mg/dL 03/27/20 03/27/20 03/27/20 15:09 15:09 15:09 WBC 8.75 RBC 4.71 Hgb 14.1 Hct 40.8 MCV 86.6 MCH 29.9 MCHC 34.6 RDW Std Deviation 39.7 RDW Coeff of Yaya 12.4 Plt Count 277 MPV 9.7 Immature Gran % (Auto) 0.3 Neut % (Auto) 73.9 Lymph % (Auto) 18.3 [place] % (Auto) 6.9 Eos % (Auto) 0.5 Baso % (Auto) 0.1 Neut # (Auto) 6.47 Lymph # (Auto) 1.60 [place] # (Auto) 0.60 H Eos # (Auto) 0.04 Baso # (Auto) 0.01 Immature Gran # (Auto) 0.03 H Sodium 137 Potassium 3.8 Chloride 105 Carbon Dioxide 26 Anion Gap 6.0 BUN 7 Creatinine 0.75 Est Cr Clr Drug Dosing 61.4 Est GFR ( Amer) 115.6 Est GFR (Non-Af Amer) 99.7 BUN/Creatinine Ratio 9.6 L Glucose 107 H Fasting Glucose Calcium 9.7 Phosphorus Magnesium Total Bilirubin 2.2 H Direct Bilirubin AST 11 L ALT 19 Alkaline Phosphatase 48 Total Protein 7.9 Albumin 4.4 Globulin 3.5 Albumin/Globulin Ratio 1.3 Triglycerides Cholesterol LDL Cholesterol, Calc VLDL Cholesterol, Calc HDL Cholesterol Cholesterol/HDL Ratio TSH 2.200 Urine Color Urine Appearance Urine pH Ur Specific [place] Urine Protein Urine Glucose (UA) Urine Ketones Urine Blood Urine Nitrite Urine Bilirubin Urine Urobilinogen Ur Leukocyte Esterase Urine WBC (Auto) Urine RBC (Auto) U Hyaline Cast (Auto) U Epithel Cells (Auto) Urine Bacteria (Auto) Urine Yeast POC Ur Test Salicylates Cancelled Urine Opiates Screen Ur Methadone, Qual Acetaminophen Cancelled Urine Barbiturates Ur Phencyclidine (PCP) U Amphetamin/Meth Scrn MDMA (Ecstasy) Screen U Benzodiazepines Scrn Ur Cocaine Metabolite U Marijuana (THC) Screen Ethyl Alcohol mg/dL 03/27/20 03/27/20 03/27/20 15:09 17:53 19:40 WBC RBC Hgb Hct MCV MCH MCHC RDW Std Deviation RDW Coeff of Yaya Plt Count MPV Immature Gran % (Auto) Neut % (Auto) Lymph % (Auto) [place] % (Auto) Eos % (Auto) Baso % (Auto) Neut # (Auto) Lymph # (Auto) [place] # (Auto) Eos # (Auto) Baso # (Auto) Immature Gran # (Auto) Sodium Potassium Chloride Carbon Dioxide Anion Gap BUN Creatinine Est Cr Clr Drug Dosing Est GFR ( Amer) Est GFR (Non-Af Amer) BUN/Creatinine Ratio Glucose Fasting Glucose Calcium Phosphorus Magnesium Total Bilirubin 2.4 H Direct Bilirubin 0.3 H AST 13 L ALT 19 Alkaline Phosphatase 44 L Total Protein 7.4 Albumin 4.2 Globulin Albumin/Globulin Ratio Triglycerides Cholesterol LDL Cholesterol, Calc VLDL Cholesterol, Calc HDL Cholesterol Cholesterol/HDL Ratio TSH Urine Color Urine Appearance Urine pH Ur Specific [place] Urine Protein Urine Glucose (UA) Urine Ketones Urine Blood Urine Nitrite Urine Bilirubin Urine Urobilinogen Ur Leukocyte Esterase Urine WBC (Auto) Urine RBC (Auto) U Hyaline Cast (Auto) U Epithel Cells (Auto) Urine Bacteria (Auto) Urine Yeast POC Ur Test Salicylates Cancelled Urine Opiates Screen Ur Methadone, Qual Acetaminophen Cancelled Urine Barbiturates Ur Phencyclidine (PCP) U Amphetamin/Meth Scrn MDMA (Ecstasy) Screen U Benzodiazepines Scrn Ur Cocaine Metabolite U Marijuana (THC) Screen Ethyl Alcohol mg/dL < 3.0 03/27/20 03/30/20 03/30/20 22:58 07:54 07:54 WBC RBC Hgb Hct MCV MCH MCHC RDW Std Deviation RDW Coeff of Yaya Plt Count MPV Immature Gran % (Auto) Neut % (Auto) Lymph % (Auto) [place] % (Auto) Eos % (Auto) Baso % (Auto) Neut # (Auto) Lymph # (Auto) [place] # (Auto) Eos # (Auto) Baso # (Auto) Immature Gran # (Auto) Sodium 142 Potassium 3.8 Chloride 106 Carbon Dioxide 25 Anion Gap 11.0 BUN 15 Creatinine 0.65 Est Cr Clr Drug Dosing 68.4 Est GFR ( Amer) 127.8 Est GFR (Non-Af Amer) 110.3 BUN/Creatinine Ratio Glucose Fasting Glucose 69 L Calcium 8.9 Phosphorus 3.7 Magnesium 2.2 Total Bilirubin 2.7 H Direct Bilirubin 0.4 H AST 14 L ALT 20 Alkaline Phosphatase 40 L Total Protein 7.0 Albumin 4.0 Globulin Albumin/Globulin Ratio Triglycerides 91 Cholesterol 201 H LDL Cholesterol, Calc 124 VLDL Cholesterol, Calc 18 HDL Cholesterol 59 Cholesterol/HDL Ratio 3 TSH Urine Color Urine Appearance Urine pH Ur Specific [place] Urine Protein Urine Glucose (UA) Urine Ketones Urine Blood Urine Nitrite Urine Bilirubin Urine Urobilinogen Ur Leukocyte Esterase Urine WBC (Auto) Urine RBC (Auto) U Hyaline Cast (Auto) U Epithel Cells (Auto) Urine Bacteria (Auto) Urine Yeast POC Ur Test Salicylates Urine Opiates Screen Ur Methadone, Qual Acetaminophen Urine Barbiturates Ur Phencyclidine (PCP) U Amphetamin/Meth Scrn MDMA (Ecstasy) Screen U Benzodiazepines Scrn Ur Cocaine Metabolite U Marijuana (THC) Screen Ethyl Alcohol mg/dL 04/02/20 14:34 WBC RBC Hgb Hct MCV MCH MCHC RDW Std Deviation RDW Coeff of Yaya Plt Count MPV Immature Gran % (Auto) Neut % (Auto) Lymph % (Auto) [place] % (Auto) Eos % (Auto) Baso % (Auto) Neut # (Auto) Lymph # (Auto) [place] # (Auto) Eos # (Auto) Baso # (Auto) Immature Gran # (Auto) Sodium 136 Potassium 3.8 Chloride 101 Carbon Dioxide 31 Anion Gap 4.0 BUN 13 Creatinine 0.83 Est Cr Clr Drug Dosing 54.6 Est GFR ( Amer) 101.5 Est GFR (Non-Af Amer) 87.6 BUN/Creatinine Ratio 15.3 Glucose 102 H Fasting Glucose Calcium 9.5 Phosphorus Magnesium Total Bilirubin Direct Bilirubin AST ALT Alkaline Phosphatase Total Protein Albumin Globulin Albumin/Globulin Ratio Triglycerides Cholesterol LDL Cholesterol, Calc VLDL Cholesterol, Calc HDL Cholesterol Cholesterol/HDL Ratio TSH Urine Color Urine Appearance Urine pH Ur Specific [place] Urine Protein Urine Glucose (UA) Urine Ketones Urine Blood Urine Nitrite Urine Bilirubin Urine Urobilinogen Ur Leukocyte Esterase Urine WBC (Auto) Urine RBC (Auto) U Hyaline Cast (Auto) U Epithel Cells (Auto) Urine Bacteria (Auto) Urine Yeast POC Ur Test Salicylates Urine Opiates Screen Ur Methadone, Qual Acetaminophen Urine Barbiturates Ur Phencyclidine (PCP) U Amphetamin/Meth Scrn MDMA (Ecstasy) Screen U Benzodiazepines Scrn Ur Cocaine Metabolite U Marijuana (THC) Screen Ethyl Alcohol mg/dL Hospital Course (1) Overdose: 03/28 - Overdose on 8 tablets of OTC sleeping pills the night prior to her ED presentation, but came to the ED the next day with ongoing depression and concerns she would attempt to overdose again - Pt denies active SI at present, but is unable to contract for safety outside of the hospital setting - Pt cleared medically in the ED prior to referral and acceptance to our unit 03/29--reviewed 04/07 -patient continues to deny SI, but is unable to engage in safety planning. 04/08 - patient continues to deny SI (2) Schizoaffective disorder, depressive type: 03/28 - Historical diagnosis of paranoid schizophrenia reported during 11/2018 admission to our unit. More recent records indicate a diagnosis of schizoaffective disorder, depressed type - no clearly active symptomatology at this time; however, recommendations for adjustment of paliperidone have been made by her outpatient psychiatrist which certainly seems reasonable - We have requested records and will attempt to coordinate care with her outpatient providers - Will order paliperidone 3mg (patient states she had not started the increased dose prior to admission) - Discuss consideration for an MCCULLOUGH to ensure compliance - Pt reports depressive symptoms for the past two weeks, since breaking up with her boyfriend. - Given short duration of depressive symptoms, will begin with recommendation for supportive treatment which includes attendance of group programming and individual counseling as indicated - Pt denies active SI at this time, but is not necessarily remorseful about her suicide attempt. She is frustrated and confused about her request to end the relationship and would benefit from processing these thoughts and feelings - Encourage development of healthy and effective coping strategies - Schedule phone meeting with outpatient supports 03/29--tolerating Invega, consider dose increase tomorrow, she is not yet agreeing to MCCULLOUGH. -consider Remeron given BMI and presentation. 03/30--unable to increase Invega today given physical complaints 03/31--reviewed past med trials, included Remeron, states most helpful was Effexor XR 12 years ago when living in [place], would like to retry that rather than a new medication. Risks/benefits/alternatives reviewed and ordered Effexor XR 37.5 mg daily. 04/01 - Pt reports she is not interested in titrating paliperidone due to various somatic complaints - collateral received from outpatient psychiatrist suggests that these complaints may actually be somatic preoccupation related to delusions - Pt remains unwilling to consider an MCCULLOUGH at this time - will continue conversation - Continue paliperidone and venlafaxine - titrating venlafaxine to 75mg tomorrow morning. Risks and potential side effects reviewed with patient, who is agreeable with dose increase - Schedule phone meeting with family, as patient continues to be somatically preoccupied and is limited in her ability to verbalize concrete treatment goals 04/02 -Patient continues to decline recommendations to increase paliperidone as well as transition to [place]. She remains psychotic, with poor insight and judgment. She is endorsing delusions that food she eats or medication she takes might cause her to lose her vision. She is severely underweight, is malnourished and some of her cognitive impairment is likely due to that. -Family meeting held with parents today. -Encourage increased outpatient supports, including a blended returned case inspector and day programming. 04/03 -Increase paliperidone to 6 mg daily. Encourage transition to Invega [place] given history of poor compliance. -Continue venlafaxine XR 75 mg daily, and further increase dose over the next few days. -Encourage B[facility] referral, and consider 304 IOC (although currently here voluntarily). -Encourage patient to be out of her bed during the day and fully participating in treatment. 04/04 - Continue as above, patient tolerating initial dose of paliperidone 6mg. Pt aware of plan to consider further titration over time and verbalized agreement. - Continue current dosage of venlafaxine 75mg, did not titrate today given reported episode of emesis (though nausea is reported to be chronic) - Will likely move forward with filing for an involuntary outpatient commitment given patient's history of noncompliance with outpatient treatment and limited willingness for appropriate outpatient psychiatric services, hesitancy to consent to appropriate titrate psychotropic medications to effective dosing, and refusal of recommended MCCULLOUGH. 04/05 - continue as above, exploring potential to titrate paliperidone and venlafaxine er further but maintaining at current doses for now given nausea concerns and these medications can have this s/e mj as starting and raising doses. as detailed below in eating disorder problem section switching MVI to chewable form and changing to be taken at dinner to minimize risk of nausea coming from MVI. 04/06 - maintained meds unchanged to minimize risk of s/e at this time, consider raising doses as appropriate. 04/07 - Encouraging MCCULLOUGH (Sustenna) which patient is still refusing; continue paliperidone 6 mg daily. Fasting labs were performed 03/30/2020; cholesterol 201, glucose 69. -Reviewed case w/ outpatient psychiatrist Dr. Duke who [facility] and [facility] are in favor of a 304 IOC. -Continue venlafaxine XR 75 mg daily. 04/08 - Continue as above - patient is still refusing to consider an MCCULLOUGH at this time - Continue current medication regimen - 304 hearing scheduled for tomorrow morning, anticipating discharge home after the hearing 04/09 -304 IOC hearing held and granted. Continue paliperidone 6 mg daily and venlafaxine XR 75 mg daily, and titrate as tolerated to an effective dose as an outpatient. Continue to encourage transition to [facility] for improved compliance. -Follow-up with Shelly for psychiatric intake as detailed below, Saw Foster for therapy (bridge appointment until transitions to [facility]), and [facility] Jeanine. (3) Eating disorder, unspecified: 03/28 - Pt is denying active eating disorder symptoms, but BMI is concerning at 14.9 - Potassium and other electrolytes appeared stable in the ED - Encourage patient to eat regular meals and make healthy food choices during admission, monitor intake per usual - Likely to trigger for dietary involvement due to low BMI - Assist with outpatient referrals for mess attendant crew or eating disorder treatment if willing 03/29--unclear how much boost is taking, if no improvement today in PO will repeat labs and institute regular weights. 04/02 -patient refusing multiple meals daily, appears severely malnourished, cachectic. Will start daily weights, encourage increased oral intake, and consult the dietitian for assistance with supplementation. Weight 38.8 kg (increased from admission when it was 38.3 kg). 04/03 -nutrition has seen the patient twice since admission, initially ordered boost, but patient then refused it. Continue offering small snacks throughout the day. Electrolytes rechecked yesterday and were normal. She remains hypotensive and tachycardic, continue to encourage adequate fluid intake. 04/04 - Continue as above, patient's BMI is 15.2 today and nutritional intake as been slightly improved. - Pt did have an episode of emesis today after taking her prescribed multivitamin, denies history of purging or any volitional aspect to this event - Appreciate input from dietitian. Continue to encourage appropriate intake and regular healthy snacks. - Unfortunately, it is unlikely patient will make significant progress with improving her eating habits without also demonstrating investment in her mental health treatment, as it is possible some of her disordered eating behaviors may be rooted in delusional thinking. Will continue to work on treatment for patient's entire clinical picture, including adequate nutrition. - There is consideration to pursue an involuntary outpatient commitment, which will likely indirectly benefit patient's consistency with her nutrition and aftercare appointments. 04/05 - reviewed mess attendant crew note from 04/05 and switching MVI to chewable form and converting to dinner timing of administration to minimize risk of nausea from MVI 04/06 - eating appears to be improving as of lunch today 04/08 -recommend eating disorder treatment and regular visits with a mess attendant crew. Follow-up with PCP Dr. Page scheduled for 04/17/2020. Psychoeducation has been provided here, have stressed to patient that her concerns about poor energy and foggy thinking are likely related to her poor nutritional status. It may be helpful to involve parents in treatment as well, as she lives with them and they are her primary support. (4) Urinary tract infection: 03/28 - Patient initiated on UTI treatment from the ED with recommendation for Macrobid 100mg BID x 5 days - will finish recommended course - Sample sent for culture, results pending 03/29--culture grew normal mixed syeda, will d/c Macrobid if N worsened. Currently requested Zofran. 03/30--d/c Macrobid as could be contributing to N, Zofran could contribute to visual complaints though could also be hypoglycemia. Mental Health & Subst Abuse Tx Psychiatrist Name of Psychiatrist: Shelly Farrar Psychiatrist's Date of Appointment with Psychiatrist: 04/22/20 Time of Appointment with Psychiatrist: 1:30 p.m. Psychiatric Appointment Comment: [address], [place], [place] Therapist Name of Therapist: ISAURO Foster Therapist's Date of Therapist Appointment: 04/10/20 Time of Therapist Appointment: 12:00 p.m. Therapy Appointment Comment: In person - [address], [place] [address] Hereditary Cancer Program Coordinator Name of Hereditary Cancer Program Coordinator: MAXIMINO Solorzano Phone Number for Hereditary Cancer Program Coordinator: [phone] Date of Appointment with Hereditary Cancer Program Coordinator: 04/10/20 Time of Appointment with Hereditary Cancer Program Coordinator: 10:00 a.m. Case Management Appointment Comment: Will meet you at your home Post Discharge Appointments Primary Care Physician Name Of Family Doctor: ISAURO Page Primary Care Date of Appointment with PCP: 04/17/20 Time of Appointment with PCP: 10:30 a.m. Provider Appointment Comment: In person - [address], [place] [address] Smoking Cessation Counseling Tobacco Cessation Medication Prescribed at Discharge: Not Applicable/Non-Smoker (quit smoking 2 weeks prior to admission) Contact Information Discharge Discharge Address: [address] [place] [id number] Discharge Plan Discharge Items Patient Disposition: Home - Self-Care Reason For Visit: OVERDOSE ON SLEEPING PILLS LAST NIGHT Discharge Diagnosis: Schizoaffective disorder Eating disorder Treatment noncompliance Activity: Per Instructions section Non-emergency contact: Primary Care Provider, Psychiatrist, Therapist and End Matcher Call non-emergency contact if: you have any medication questions and your symptoms worsen Follow-up/Referrals: [facility],Medicine [Primary Care Provider] - Diet: Regular Addtl Attending Provider Instructions: SPECIAL CARE INSTRUCTIONS: 1. Follow through with your scheduled aftercare appointments. You are being discharged on a 304 involuntary outpatient commitment (please see attached paperwork). 2. Take your medication only as prescribed. Medication should not be changed or stopped without the approval of your doctor. In the event of worsening symptoms or concerns about side effects, contact your doctor immediately. 3. Utilize new healthy coping skills, anger management skills, and stress management skills learned during your hospitalization. Journal feelings and process them with a support person. Identify stressors or situations that may result in relapse, deterioration or inappropriate behaviors and develop a plan to deal with those issues. 4. If your coping skills are ineffective and you are in crisis, contact your outpatient providers for direction. If unable to reach your providers, please call the CAN HELP LINE AT or go to the closest Emergency Room. 5. Avoid alcohol and un-prescribed drugs. 6. You have been provided with the Mental Health Advance Directives Pamphlet for your review. AFTERCARE APPOINTMENTS: * Please call your insurance company prior to your scheduled appointment to confirm your aftercare providers are covered. Take your insurance information to your appointments. WHO TO CALL AND WHEN: Medical Emergencies: For questions or emergencies related to your hospital stay, please contact the Inpatient Behavioral Health Unit at [phone]. A payroll tax specialist is on-call 21/03 for the Behavioral Health Unit for emergencies At any time you feel your situation is an emergency, you may also call 911 immediately. Your Doctors Instructions noted above were prepared by provider Alina Biswas MD. Pending Studies at Discharge: No Stand-Alone Forms: [facility], Smoking Cessation, Suicide Prevention Resources Medications and DC Order Prescriptions: New paliperidone [Invega] 3 mg Tablet Extended Release 24hr 6 mg PO QAM Qty: 30 RF: 0 venlafaxine 75 mg Capsule,Extended Release 24hr 75 mg PO QAM Qty: 30 RF: 0 Flintstones Complete (iron) Tablet,Chewable 1 tab PO QDD Qty: 1 RF: 0 Discontinued paliperidone 3 mg Tablet Extended Release 24hr 3 mg PO QAM RF: 0 Discharge Orders: Discharge Order (Routine); Ordered 04/09/20 Ordered By: Alina Biswas Admission Data Admit Date/Time: 03/28/20 01:00 Attending Provider: Alina Biswas Admit Provider: Alina Biswas Primary Care Provider: [facility],Medicine Other Interventions: PSY Interdisciplinary Discharge Planning Last Done: 04/08/20 14:42 Coding Level of Care Code 99602 D/C day mgmt > 30 min Diagnoses Overdose T50.902A Encounter type: initial encounter Injury intent: intentional self-harm Schizoaffective disorder, depressive type F25.1 Eating disorder, unspecified F50.9 Urinary tract infection N39.0
[2020-04-09] MEDS: VENLAFAXINE HCL XR 75 MG CAPXR PO SCH (08:37)
[2020-04-09] MEDS: PALIPERIDONE 3 MG TABCR PO SCH (08:37)
== END 2020-04-09 10:58 | disposition home or self-care (01) | DRG 881 ==
LOC: ED 14:31 → 3S 03-28 01:00

== ENCOUNTER 2020-04-19 17:51 | Inpatient (IN) ==
[2020-04-19] MEDS ORDERED: D5W AND NSS 1,000 ML IV STA (18:13)
--- NOTE | 2020-04-19 18:16 | Emergency Department Note ---
Impression & Plan Blurry vision, Eating disorder, Suicidal thoughts ED Provider Note NAME: CAROL ECKERT AGE: 40 SEX: F : 1980 ARRIVES VIA: Walk-In INFORMANT: [Patient] ED PROVIDER(S): [Christian Schwarz MD] CHIEF COMPLAINT: Blurry vision HISTORY OF PRESENT ILLNESS: The patient is a 40-year-old female presents to the ER with 3 weeks if not more of cloudy/blurry vision. She notices the visual disturbance after eating and as a result, she has not been eating very much. The patient states that she does have an eating disorder. The patient feels that this has been an ongoing issue since she overdosed on sleeping pills. During that hospitalization, she was placed on Effexor. The patient did see her eye doctor about 3 weeks ago when the symptoms first were noted and he felt her vision was unchanged and he saw no issues with her eyes. She does wear contacts. There has been no headache, no arm or leg weakness. No difficulty with her speech or swallow. She has had no fever, chills, cough or congestion. There has been no real eye pain. The patient states that she eats and then about an hour later, she has cloudy vision which lasts the entire day. When she wakes in the morning, her vision is back to normal and then when she eats, she is back to cloudy vision. REVIEW OF SYSTEMS: See HPI for pertinent positives and negatives. A total of ten systems were reviewed and were otherwise negative. PMHx/PSHx: See Below SOCIAL HISTORY: See Below. PHYSICAL EXAM: GENERAL: Patient is in no acute distress. HEENT: No acute trauma, normocephalic atraumatic, mucous membranes moist, no nasal congestion, no scleral icterus. Pupils equal round and reactive to light. There is no afferent pupillary defect. There is no conjunctivitis. No ex cessive tearing. NECK: No stridor, no adenopathy, no meningismus, trachea is midline. LUNGS: Clear to auscultation bilaterally, no wheeze, no rhonchi, breath sounds equal. HEART: Without murmurs gallops or rubs, regular rate and rhythm. ABDOMEN: Soft, nontender, bowel sounds positive, no hernias, no peritonitis. EXTREMITIES: No cyanosis or edema, full range of motion of all the joints without pain or difficulty, no signs for acute trauma. NEUROLOGIC: Oriented x 3, no acute motor or sensory deficits, no focal weakness. No speech slur, no extremity drift, no cerebellar dysfunction. SKIN: No rash, no jaundice, no diaphoresis. DIFFERENTIAL DIAGNOSIS: Mood disorder, infection, hypoglycemia, psychosis, dehydration, malnutrition, intracranial mass or bleed, vitreous hemorrhage, cataracts, conjunctivitis, eating disorder, electrolyte abnormalities, cardiac sources, intracerebral event, toxicologic, trauma, neurologic, as well as other pathologies. EMERGENCY DEPARTMENT COURSE/PROCEDURES: Visual acuity was 20/40 on the left and 20/50 on the right. MEDICAL DECISION MAKING: There is no leukocytosis or concerning anemia. There is a normal platelet count. Potassium slightly low at 3.3. No renal failure. Phosphorus slightly low at 2.4. The patient does have an elevated bilirubin however, she has a history of the same. The remaining liver enzymes were unremarkable. No evidence for thyroid dysfunction. The patient's testing was negative. Urinalysis shows ketones consistent with some dehydration, contamination was seen, no obvious infection. Urine tox was negative. Alcohol level was undetectable. Brain CT shows no acute bleed or mass-effect. Visual acuity did show some decreased vision in both eyes. Both eyes were reactive to light and there was normal extraocular movement. No conjunctivitis. Patient was given a dose of oral potassium. She received a liter of D5 with normal saline for hydration purposes. I discussed my findings with the patient. Because of her eating disorder history, because she has not been taking things in by mouth, I did have her seen by psychiatry case management. The patient confided to the psychiatry case management team that she has had some suicidal thoughts. She has become overwhelmed with the visual changes and the belief that the changes are from eating. She was not felt safe at home, she was willing to come into the psychiatric portion of this hospital. The patient was seen by our 3 S. psychiatric team, she has been accepted onto the psychiatric floor. The patient was transferred without incident. She has been cooperative during her stay. Of note, I did speak with the mopper on-call about her vision. He recommended close follow-up as an outpatient. No emergent intervention recommended. Past Med/Surg History Medical History Overdose Urinary tract infection UTI (urinary tract infection) Surgical History H/O tubal ligation Family History Other No pertinent family history Social History Smoking Status: Former smoker Preferred Language: Malaysian Communication Ability: Effective Game Manager Required: No Beliefs That Will Affect Care: None (attends [employer] with parents, but does not identify as particularly caodaism ) Feels Safe at Home: Yes Allergies Allergies Allergy/AdvReac Type Severity Reaction Status Date / Time No Known Allergies Allergy Verified 04/19/20 19:34 Home Meds Home Medications Medication Instructions Recorded Confirmed paliperidone [Invega] 6 mg PO 2XWK 04/19/20 04/19/20 Previous Rx's Medication Instructions Recorded albuterol sulfate 2 inh INHALATION Q4H PRN #8.5 g 04/09/20 venlafaxine 75 mg PO QAM #30 cap 04/09/20 Results & Data (ED) Vital Signs Vital Signs - 24 hr 04/19/20 17:58 Temperature 37.0 C Temperature Source Oral Pulse Rate 104 H Pulse Rhythm Regular Pulse Strength Normal Respiratory Rate 18 Respiratory Effort / Characteristics Non-Labored Respiratory Depth Normal Respiratory Pattern Regular Blood Pressure 123/87 Blood Pressure Mean 99 Blood Pressure Position Sitting Pulse Oximetry 96 Oxygen Delivery Method Room Air Sepsis Recent Fever Within 48 Hours No Sepsis New/Unexplained Change in Mental Status No Sepsis Action Taken by Nursing No Action Required Home Medications Current Medication List: was personally reviewed by me Laboratory Data Attestation: I reviewed the patient's lab results. Result diagrams: 04/19/20 18:24 04/19/20 18:24 Lab Results 04/19/20 04/19/20 04/19/20 Range/Units 18:24 18:24 18:24 WBC 8.55 (4.8-10.8) K/uL RBC 4.87 (4.2-5.4) M/uL Hgb 14.5 (12.0-16.0) g/dL Hct 42.4 (37-47) % MCV 87.1 (80-100) fL MCH 29.8 (25-34) pg MCHC 34.2 (32-36) g/dL RDW Std Deviation 39.3 (36.4-46.3) fL RDW Coeff of Yaya 12.3 (11.5-14.5) % Plt Count 213 (130-400) K/uL MPV 10.1 (7.4-10.4) fL Immature Gran % (Auto) 0.4 % Neut % (Auto) 70.0 % Lymph % (Auto) 20.2 % Wilcox % (Auto) 7.3 % Eos % (Auto) 1.9 % Baso % (Auto) 0.2 % Neut # (Auto) 5.99 (1.4-6.5) K/uL Lymph # (Auto) 1.73 (1.2-3.4) K/uL Wilcox # (Auto) 0.62 H (0.11-0.59) K/uL Eos # (Auto) 0.16 (0-0.5) K/uL Baso # (Auto) 0.02 (0-0.2) K/uL Immature Gran # (Auto) 0.03 H (0.00-0.02) K/uL Sodium 137 (136-145) mmol/L Potassium 3.3 L (3.5-5.1) mmol/L Chloride 103 (98-107) mmol/L Carbon Dioxide 24 (21-32) mmol/L Anion Gap 10.0 (3-11) BUN 13 (7-18) mg/dl Creatinine 0.71 (0.6-1.2) mg/dl Est Cr Clr Drug Dosing 61.9 ml/min Est GFR ( Amer) 122.6 Est GFR (Non-Af Amer) 105.8 BUN/Creatinine Ratio 18.3 (10-20) Glucose 81 (70-99) mg/dl Calcium 9.4 (8.5-10.1) mg/dl Phosphorus (2.5-4.9) mg/dl Magnesium 1.9 (1.8-2.4) mg/dl Total Bilirubin 2.3 H (0.2-1) mg/dl AST 13 L (15-37) U/L ALT 29 (12-78) U/L Alkaline Phosphatase 45 (45-117) U/L Total Protein 7.6 (6.4-8.2) gm/dl Albumin 4.4 (3.4-5.0) gm/dl Globulin 3.2 (2.5-4.0) gm/dl Albumin/Globulin Ratio 1.4 (0.9-2) TSH 1.150 (0.300-4.500) uIu/ml HCG, Qual Negative (Negative) Urine Color Urine Appearance (Clear) Urine pH (4.5-7.5) Ur Specific Melvin (1.000-1.030) Urine Protein (Negative) Urine Glucose (UA) (Negative) Urine Ketones (Negative) Urine Blood (Negative) Urine Nitrite (Negative) Urine Bilirubin (Negative) Urine Urobilinogen (Negative) Ur Leukocyte Esterase (Negative) Urine WBC (Auto) (0-5) /hpf Urine RBC (Auto) (0-4) /hpf U Hyaline Cast (Auto) (0-5) /lpf U Epithel Cells (Auto) (0-5) /lpf Urine Bacteria (Auto) (Negative) Urine Mucus (None Prsent) Urine Yeast Salicylates Urine Opiates Screen (Neg) Ur Methadone, Qual (Neg) Acetaminophen Urine Barbiturates (Neg) Ur Phencyclidine (PCP) (Neg) U Amphetamin/Meth Scrn (Neg) MDMA (Ecstasy) Screen (Neg) U Benzodiazepines Scrn (Neg) Ur Cocaine Metabolite (Neg) U Marijuana (THC) Screen (Neg) Ethyl Alcohol mg/dL (0-3) mg/dl 04/19/20 04/19/20 04/19/20 Range/Units 18:24 18:24 18:24 WBC (4.8-10.8) K/uL RBC (4.2-5.4) M/uL Hgb (12.0-16.0) g/dL Hct (37-47) % MCV (80-100) fL MCH (25-34) pg MCHC (32-36) g/dL RDW Std Deviation (36.4-46.3) fL RDW Coeff of Yaya (11.5-14.5) % Plt Count (130-400) K/uL MPV (7.4-10.4) fL Immature Gran % (Auto) % Neut % (Auto) % Lymph % (Auto) % Wilcox % (Auto) % Eos % (Auto) % Baso % (Auto) % Neut # (Auto) (1.4-6.5) K/uL Lymph # (Auto) (1.2-3.4) K/uL Wilcox # (Auto) (0.11-0.59) K/uL Eos # (Auto) (0-0.5) K/uL Baso # (Auto) (0-0.2) K/uL Immature Gran # (Auto) (0.00-0.02) K/uL Sodium (136-145) mmol/L Potassium (3.5-5.1) mmol/L Chloride (98-107) mmol/L Carbon Dioxide (21-32) mmol/L Anion Gap (3-11) BUN (7-18) mg/dl Creatinine (0.6-1.2) mg/dl Est Cr Clr Drug Dosing ml/min Est GFR ( Amer) Est GFR (Non-Af Amer) BUN/Creatinine Ratio (10-20) Glucose (70-99) mg/dl Calcium (8.5-10.1) mg/dl Phosphorus 2.4 L (2.5-4.9) mg/dl Magnesium (1.8-2.4) mg/dl Total Bilirubin (0.2-1) mg/dl AST (15-37) U/L ALT (12-78) U/L Alkaline Phosphatase (45-117) U/L Total Protein (6.4-8.2) gm/dl Albumin (3.4-5.0) gm/dl Globulin (2.5-4.0) gm/dl Albumin/Globulin Ratio (0.9-2) TSH (0.300-4.500) uIu/ml HCG, Qual (Negative) Urine Color Urine Appearance (Clear) Urine pH (4.5-7.5) Ur Specific Melvin (1.000-1.030) Urine Protein (Negative) Urine Glucose (UA) (Negative) Urine Ketones (Negative) Urine Blood (Negative) Urine Nitrite (Negative) Urine Bilirubin (Negative) Urine Urobilinogen (Negative) Ur Leukocyte Esterase (Negative) Urine WBC (Auto) (0-5) /hpf Urine RBC (Auto) (0-4) /hpf U Hyaline Cast (Auto) (0-5) /lpf U Epithel Cells (Auto) (0-5) /lpf Urine Bacteria (Auto) (Negative) Urine Mucus (None Prsent) Urine Yeast Salicylates TNP Urine Opiates Screen (Neg) Ur Methadone, Qual (Neg) Acetaminophen TNP Urine Barbiturates (Neg) Ur Phencyclidine (PCP) (Neg) U Amphetamin/Meth Scrn (Neg) MDMA (Ecstasy) Screen (Neg) U Benzodiazepines Scrn (Neg) Ur Cocaine Metabolite (Neg) U Marijuana (THC) Screen (Neg) Ethyl Alcohol mg/dL < 3.0 (0-3) mg/dl 04/19/20 04/19/20 Range/Units 19:30 19:30 WBC (4.8-10.8) K/uL RBC (4.2-5.4) M/uL Hgb (12.0-16.0) g/dL Hct (37-47) % MCV (80-100) fL MCH (25-34) pg MCHC (32-36) g/dL RDW Std Deviation (36.4-46.3) fL RDW Coeff of Yaya (11.5-14.5) % Plt Count (130-400) K/uL MPV (7.4-10.4) fL Immature Gran % (Auto) % Neut % (Auto) % Lymph % (Auto) % Wilcox % (Auto) % Eos % (Auto) % Baso % (Auto) % Neut # (Auto) (1.4-6.5) K/uL Lymph # (Auto) (1.2-3.4) K/uL Wilcox # (Auto) (0.11-0.59) K/uL Eos # (Auto) (0-0.5) K/uL Baso # (Auto) (0-0.2) K/uL Immature Gran # (Auto) (0.00-0.02) K/uL Sodium (136-145) mmol/L Potassium (3.5-5.1) mmol/L Chloride (98-107) mmol/L Carbon Dioxide (21-32) mmol/L Anion Gap (3-11) BUN (7-18) mg/dl Creatinine (0.6-1.2) mg/dl Est Cr Clr Drug Dosing ml/min Est GFR ( Amer) Est GFR (Non-Af Amer) BUN/Creatinine Ratio (10-20) Glucose (70-99) mg/dl Calcium (8.5-10.1) mg/dl Phosphorus (2.5-4.9) mg/dl Magnesium (1.8-2.4) mg/dl Total Bilirubin (0.2-1) mg/dl AST (15-37) U/L ALT (12-78) U/L Alkaline Phosphatase (45-117) U/L Total Protein (6.4-8.2) gm/dl Albumin (3.4-5.0) gm/dl Globulin (2.5-4.0) gm/dl Albumin/Globulin Ratio (0.9-2) TSH (0.300-4.500) uIu/ml HCG, Qual (Negative) Urine Color Yellow Urine Appearance Cloudy A (Clear) Urine pH 6.0 (4.5-7.5) Ur Specific Melvin 1.026 (1.000-1.030) Urine Protein Negative (Negative) Urine Glucose (UA) Negative (Negative) Urine Ketones 3+ H (Negative) Urine Blood 1+ H (Negative) Urine Nitrite Negative (Negative) Urine Bilirubin Negative (Negative) Urine Urobilinogen Negative (Negative) Ur Leukocyte Esterase 2+ H (Negative) Urine WBC (Auto) 10-30 H (0-5) /hpf Urine RBC (Auto) 0-4 (0-4) /hpf U Hyaline Cast (Auto) 1-5 (0-5) /lpf U Epithel Cells (Auto) >30 H (0-5) /lpf Urine Bacteria (Auto) 1+ H (Negative) Urine Mucus Present A (None Prsent) Urine Yeast Not Reportable Salicylates Urine Opiates Screen Neg (Neg) Ur Methadone, Qual Neg (Neg) Acetaminophen Urine Barbiturates Neg (Neg) Ur Phencyclidine (PCP) Neg (Neg) U Amphetamin/Meth Scrn Neg (Neg) MDMA (Ecstasy) Screen Neg (Neg) U Benzodiazepines Scrn Neg (Neg) Ur Cocaine Metabolite Neg (Neg) U Marijuana (THC) Screen Neg (Neg) Ethyl Alcohol mg/dL (0-3) mg/dl Administered Medications Discontinued Medications Dextrose/Sodium Chloride (D5w And Nss) 1,000 mls @ 999 mls/hr IV .[id number] STA Stop: 04/19/20 19:13 Last Infusion: 04/19/20 21:00 Dose: 0 mls/hr Documented by: [id number] Admin: 04/19/20 18:47 Dose: 999 mls/hr Documented by: [id number] Potassium Chloride (Potassium Chloride 20 Meq Tabcr) 20 meq PO NOW STA Stop: 04/19/20 19:02 Last Admin: 04/19/20 19:05 Dose: 20 meq Documented by: [id number] Imaging Data Radiologist's Impression: HEAD CT NONCONTRAST CT DOSE: 537.48 mGy.cm HISTORY: blurry vision TECHNIQUE: Multiaxial CT images of the head were performed without the use of intravenous contrast. Automated exposure control was utilized for this study. A dose lowering technique was utilized adhering to the principles of ALARA. Comparison: Head CT 04/21/2017. Findings: The paranasal sinuses and mastoid air cells are clear. The calvarium and skull base are intact. The ventricles and sulci are within normal limits. There is no mass, hematoma, midline shift, or acute infarct. Impression: No acute intracranial abnormality. Blood Pressure Blood Pressure Findings: Elevated blood pressure Blood Pressure Disposition: Referred to patients primary care provider Discharge Plan Visit Data Chief Complaint: Visual Disturbance Stated Complaint: CLOUDY VISION ED Provider: Christian Schwarz Discharge Problem: Blurry vision, Eating disorder, Suicidal thoughts Patient Disposition: Admitted As Inpatient Condition: Fair Discharge Instructions Interventions: ED Discharge Assessment Last Done: 04/19/20 23:59 Discharge Problem: Eating disorder Qualifiers: Eating disorder type: unspecified eating disorder Qualified Code(s): F50.9 - Eating disorder, unspecified
[2020-04-19 18:36] LABS: Basophils # (auto) 0.02 K/uL (0-0.2); Basophils % (auto) 0.2 %; Eosinophils # (auto) 0.16 K/uL (0-0.5); Eosinophils % (auto) 1.9 %; Hematocrit (blood only) 42.4 % (37-47); Hemoglobin 14.5 g/dL (12.0-16.0); Immature Granulocytes # (auto) 0.03 K/uL (0.00-0.02); Immature Granulocytes % (auto) 0.4 %; Lymphocytes # (auto) 1.73 K/uL (1.2-3.4); Lymphocytes % (auto) 20.2 %; Mean Corpuscular Hemoglobin 29.8 pg (25-34); Mean Corpuscular Hgb Conc 34.2 g/dL (32-36); Mean Corpuscular Volume 87.1 fL (80-100); Mean Platelet Volume 10.1 fL (7.4-10.4); Monocytes # (auto) 0.62 K/uL (0.11-0.59); Monocytes % (auto) 7.3 %; Neutrophils # (auto) 5.99 K/uL (1.4-6.5); Platelet Count 213 K/uL (130-400); RDW Coefficient of Variation 12.3 % (11.5-14.5); RDW Standard Deviation 39.3 fL (36.4-46.3); Red Blood Count 4.87 M/uL (4.2-5.4); White Blood Count 8.55 K/uL (4.8-10.8)
[2020-04-19 18:59] LABS: Albumin Level 4.4 gm/dl (3.4-5.0); BUN Creatinine Ratio 18.3 (10-20); Calcium 9.4 mg/dl (8.5-10.1); Creatinine Clr Calc Pharmacy 61.9 ml/min; Est GFR (African American) 122.6; Est GFR (Non-African American) 105.8; Magnesium 1.9 mg/dl (1.8-2.4); Potassium 3.3 mmol/L (3.5-5.1)
[2020-04-19] MEDS ORDERED: POTASSIUM CHLORIDE 20 MEQ TABCR PO STA (19:01)
[2020-04-19 19:02] LABS: Pregnancy Test, Serum Negative (Negative)
[2020-04-19 19:10] LABS: Albumin Globulin Ratio 1.4 (0.9-2); Bilirubin,Total 2.3 mg/dl (0.2-1); Globulin 3.2 gm/dl (2.5-4.0); Thyroid Stimulating Hormone 1.15 uIu/ml (0.300-4.500); Total Protein 7.6 gm/dl (6.4-8.2)
--- NOTE | 2020-04-19 19:58 | CT Scan Report ---
HEAD CT NONCONTRAST CT DOSE: 537.48 mGy.cm HISTORY: blurry vision TECHNIQUE: Multiaxial CT images of the head were performed without the use of intravenous contrast. A utomated exposure control was utilized for this study. A dose lowering technique was utilized adheri ng to the principles of ALARA. Comparison: Head CT 04/21/2017. Findings: The paranasal sinuses and mastoid air cells are clear. The calvarium and skull base are int act. The ventricles and sulci are within normal limits. There is no mass, hematoma, midline shift, or acute infarct. Impression: No acute intracranial abnormality. ACT 112: Negative or not required by law. Electronically signed by: Oren Donahue M.D. 04/19/2020 7:57 PM
[2020-04-19 20:01] LABS: Appearance Urine Cloudy (Clear); Bacteria Urine Automated 1+ (Negative); Bilirubin Urine Negative (Negative); Blood Urine 1+ (Negative); Color Urine Yellow; Epithelial Cell Urine Auto >30 /lpf (0-5); Glucose Urine UA Negative (Negative); Ketones Urine 3+ (Negative); Leukocyte Esterase Urine 2+ (Negative); Nitrite Urine Negative (Negative); Protein Urine Negative (Negative); Specific Gravity Urine 1.026 (1.000-1.030); Urobilinogen Urine Negative (Negative)
[2020-04-19 20:22] LABS: Mucus Urine Present (None Prsent); RBC Urine Automated 0-4 /hpf (0-4)
[2020-04-19 20:24] LABS: Amphetamines+Metham, Urine Neg (Neg); Barbiturates, Urine Neg (Neg); Benzodiazepine, Urine Neg (Neg); Cocaine, Urine Neg (Neg); MDMA (Ecstacy), Urine Neg (Neg); Methadone, Urine Neg (Neg); Opiate, Urine Neg (Neg); Phencyclidine, Urine Neg (Neg)
[2020-04-19] MEDS ORDERED: ACETAMINOPHEN 325 MG TAB PO PRN (23:15)
[2020-04-19] MEDS ORDERED: MAGNESIUM HYDROXIDE SUSP 30 ML UDC PO PRN (23:15)
[2020-04-19] MEDS ORDERED: SODIUM CHLORIDE 0.65% NA SOLN 45 ML (OCEAN) PRN (23:15)
[2020-04-19] MEDS ORDERED: ALUMINUM/MAGNESIUM SUSP 30 ML UDC PO PRN (23:15)
[2020-04-19] MEDS ORDERED: BISMUTH SUBSALICYLATE PER ML OMNICELL CHARGE PO PRN (23:15)
[2020-04-19] MEDS ORDERED: ALBUTEROL HFA 8 GM INHALER INH PRN (23:19)
[2020-04-20] MEDS: VENLAFAXINE HCL XR 75 MG CAPXR PO SCH (09:59)
--- NOTE | 2020-04-20 10:07 | History & Physical ---
Date of Service April 20, 2020 Impression / Recommendations Impression 40 yo female, recent admission s/p antihistamine OD, represents with ongoing weight loss related to somatic delusion that eating causes her to lose vision. Although SI is passive, her condition is resulting in her being unable to meet her nutritional needs resulting in electrolyte disturbance. (1) Schizoaffective disorder, depressive type: The patient was admitted to the [facility] ([facility] inpatient mental health unit) on q15 min checks (behavioral with suicide precautions) for safety. The patient will participate in group, recreational, and milieu therapies and will b e offered additional individual and family sessions as clinically appropriate. Will continue Effexor XR at 75 mg for now, should likely be increased to further retrial but for now plan to hold Invega as failing to cover her symptoms and complaints about vision started around the time it was started. Again, most likely delusion but will reassess in am and treating clinician at that time can coordinate with outpatient prescriber. (2) Eating disorder, unspecified: seems driven by delusion rather than traditional body dysmorphia. Will monitor PO intake and recheck lytes, renals in am. daily weights. Reconsult nutrition. If not engaging in regular meals may need to reinstitute I's and O's. Ideally patient would agree to inpatient residential ED treatment for refeeding but she has traditionally not been amenable and such units will not accept on a commitment. Dietary consult for nutritional supplement/calorie recs. Inventory Assets Strengths: family support, love of children, intelligent Needs: improve insight Risk Factors Assessment : Yes Do You Have Access To A Gun?: No Mental Health Diagnoses: Yes Substance Use Disorders: No Previous Attempt: Yes Family History of Suicide: No Previous Psychiatric Hospitalization: Yes Protective Factors Assessment : No Responsible for Young Children: Yes (as a secondary caregiver) Employed: No Supportive Family: Yes Psychiatric History Identifying Data MIRYAM ECKERT is a 40-year-old F who was recently discharged from , has a history of a schizophrenia diagnosis, presented last admission with inability to care for self and restrictive eating patterns, and was admitted on 04/19/20 23:17 on a 201 voluntary commitment for SI and ongoing weight loss. Chief Complaint "blurry vision after I eat". History of Present Illness Miryam presented to the ED c/o blurry vision. She has had a persistent somatic delusion over the past several weeks that she is losing her vision, won't be able to see her kids and ties it to her eating. During her last stay her PO intake was very sporadic and apparently has a 5 lb weight loss since earlier in the month. She remains quite tired in the am, low motivation and interest. She does not attribute her symptoms to poor PO intake. Head CT in ED was negative, electrolytes largely unremarkable other than a repleted K. A phosphorous was added and PO intake ensured in ED so we can appropriately monitor for any refeeding syndrome. No IVF can be administered on the unit. She was slow to respond to questions, states solely staying with sister for past few days as parent's house is too hot/father doesn't run the air conditioner and feels calmer there. Denies that there was conflict or any issues with med compliance. States her mood is simply, "the same as last time". She denied vegetative symptoms. Denies specific plan to self-harm. Mainly states "I get sick of feeling this way and would rather go." Past Psychiatric History Current Psychiatric Diagnosis: Schizophrenia, PTSD Outpatient Services: Outpatient psychiatric services through [facility] (Dr. Duke) transfer to [facility]; Haroldo Foster - James - Daphney - Client Services Analyst Previous Psych Admissions: [facility] 11/2018 and 03/2020; [facility] 01/2020 and prior to 11/2018 Do You Have Access To A Gun?: No History of Previous Suicide Attempt: Yes Describe Attempts in the Past: Overdose antihistamine February, plus a previous OD Past Medication Trials: 1. Invega 2. Risperdal 3. Zyprexa 4. Remeron 5. Abilify 6. Zoloft 7. Effexor 8. Paxil 9. BuSpar Allergies Allergy/AdvReac Type Severity Reaction Status Date / Time No Known Allergies Allergy Verified 04/19/20 19:34 Home Medications Home Medications Medication Instructions Recorded Confirmed Type albuterol sulfate 2 inh INHALATION Q4H PRN #8.5 g 04/09/20 04/19/20 Rx venlafaxine 75 mg PO QAM #30 cap 04/09/20 04/19/20 Rx paliperidone [Invega] 6 mg PO 2XWK 04/19/20 04/19/20 History Family History Family History of: Depression Alcohol History Hx of Alcohol Use Over the Past 12 Months: No AUDIT Total Score: 2 Smoking Use tobacco type: e-cigarettes Smoking Status: Former smoker Substance History Hx of Prescription Med Misuse Over the Past 12 Months: No Hx of Over the Counter Med Misuse Over the Past 12 Months: No Hx of Inhalent Misuse Over the Past 12 Months: No Hx of Organic Substance Use Over the Past 12 Months: No Hx of Illegal Substances/Street Drug Use Over Past 12 Months: No Problems as a Result of Past Substance Use: None Identified Personal History Living Arrangements: Home Born In: Grew up locally. Raised by both mother and father. She has 2 sisters Highest Grade Completed: College ([employer]) Employment Status: Disabled Number Of Children: 2 (10 yo daughter and 9 yo son) in custody of her parents Beliefs That Will Affect Care: None Current Legal Problems: No Hx Legal Problems: Yes (legal proceedings for custody agreements) Hx Traumatic Life Events: Yes (reports coporal punishment as a child) Patient History Medical History Overdose Urinary tract infection UTI (urinary tract infection) Surgical History H/O tubal ligation Family History Other No pertinent family history Social History Smoking Status: Former smoker Preferred Language: Cambodian Communication Ability: Effective X Ray Tech Required: No Beliefs That Will Affect Care: None Feels Safe at Home: Yes Review of Systems Review of Systems: All systems reviewed & are unremarkable except as noted in HPI & below Physical Exam Psychiatric: Orientation: alert Eye Contact: + poor eye contact Motor Behavior: no abnormal motor movements non spontaneous Affect: + depressed affect Mood: + depressed mood Thought Process: + concrete thought process Thought Content: + delusions (re: cause of visual disturbance) passive SI Homicidal Thoughts: denies homicidal thoughts Hallucinations: no auditory hallucinations and no visual hallucinations Cognition: language grossly intact; + attention not intact Estimated Intelligence: consistent with education level Insight: + impaired insight Judgement: + impaired judgement Vital Signs (Past 24 Hours): Last Vital Signs Temp 36.5 C 04/20/20 06:26 Pulse 83 08/23/20 06:27 Resp 18 04/20/20 06:26 BP 97/66 L 04/20/20 06:27 Pulse Ox 98 04/20/20 02:26 Exam Statement: A physical exam was performed in the ED by Dr. Schwarz for the purposes of medical clearance. I accept that physical as correct and adequate for the purposes of the inpatient physical exam. Results & Data ([facility]) Laboratory Results Laboratory Results - last 24 hr 04/19/20 04/19/20 04/19/20 18:24 18:24 18:24 WBC 8.55 RBC 4.87 Hgb 14.5 Hct 42.4 MCV 87.1 MCH 29.8 MCHC 34.2 RDW Std Deviation 39.3 RDW Coeff of Yaya 12.3 Plt Count 213 MPV 10.1 Immature Gran % (Auto) 0.4 Neut % (Auto) 70.0 Lymph % (Auto) 20.2 [place] % (Auto) 7.3 Eos % (Auto) 1.9 Baso % (Auto) 0.2 Neut # (Auto) 5.99 Lymph # (Auto) 1.73 [place] # (Auto) 0.62 H Eos # (Auto) 0.16 Baso # (Auto) 0.02 Immature Gran # (Auto) 0.03 H Sodium 137 Potassium 3.3 L Chloride 103 Carbon Dioxide 24 Anion Gap 10.0 BUN 13 Creatinine 0.71 Est Cr Clr Drug Dosing 61.9 Est GFR ( Amer) 122.6 Est GFR (Non-Af Amer) 105.8 BUN/Creatinine Ratio 18.3 Glucose 81 Calcium 9.4 Phosphorus Magnesium 1.9 Total Bilirubin 2.3 H AST 13 L ALT 29 Alkaline Phosphatase 45 Total Protein 7.6 Albumin 4.4 Globulin 3.2 Albumin/Globulin Ratio 1.4 TSH 1.150 HCG, Qual Negative Urine Color Urine Appearance Urine pH Ur Specific [place] Urine Protein Urine Glucose (UA) Urine Ketones Urine Blood Urine Nitrite Urine Bilirubin Urine Urobilinogen Ur Leukocyte Esterase Urine WBC (Auto) Urine RBC (Auto) U Hyaline Cast (Auto) U Epithel Cells (Auto) Urine Bacteria (Auto) Urine Mucus Urine Yeast Salicylates Urine Opiates Screen Ur Methadone, Qual Acetaminophen Urine Barbiturates Ur Phencyclidine (PCP) U Amphetamin/Meth Scrn MDMA (Ecstasy) Screen U Benzodiazepines Scrn Ur Cocaine Metabolite U Marijuana (THC) Screen Ethyl Alcohol mg/dL 04/19/20 04/19/20 04/19/20 18:24 18:24 18:24 WBC RBC Hgb Hct MCV MCH MCHC RDW Std Deviation RDW Coeff of Yaya Plt Count MPV Immature Gran % (Auto) Neut % (Auto) Lymph % (Auto) [place] % (Auto) Eos % (Auto) Baso % (Auto) Neut # (Auto) Lymph # (Auto) [place] # (Auto) Eos # (Auto) Baso # (Auto) Immature Gran # (Auto) Sodium Potassium Chloride Carbon Dioxide Anion Gap BUN Creatinine Est Cr Clr Drug Dosing Est GFR ( Amer) Est GFR (Non-Af Amer) BUN/Creatinine Ratio Glucose Calcium Phosphorus 2.4 L Magnesium Total Bilirubin AST ALT Alkaline Phosphatase Total Protein Albumin Globulin Albumin/Globulin Ratio TSH HCG, Qual Urine Color Urine Appearance Urine pH Ur Specific [place] Urine Protein Urine Glucose (UA) Urine Ketones Urine Blood Urine Nitrite Urine Bilirubin Urine Urobilinogen Ur Leukocyte Esterase Urine WBC (Auto) Urine RBC (Auto) U Hyaline Cast (Auto) U Epithel Cells (Auto) Urine Bacteria (Auto) Urine Mucus Urine Yeast Salicylates TNP Urine Opiates Screen Ur Methadone, Qual Acetaminophen TNP Urine Barbiturates Ur Phencyclidine (PCP) U Amphetamin/Meth Scrn MDMA (Ecstasy) Screen U Benzodiazepines Scrn Ur Cocaine Metabolite U Marijuana (THC) Screen Ethyl Alcohol mg/dL < 3.0 04/19/20 04/19/20 19:30 19:30 WBC RBC Hgb Hct MCV MCH MCHC RDW Std Deviation RDW Coeff of Yaya Plt Count MPV Immature Gran % (Auto) Neut % (Auto) Lymph % (Auto) [place] % (Auto) Eos % (Auto) Baso % (Auto) Neut # (Auto) Lymph # (Auto) [place] # (Auto) Eos # (Auto) Baso # (Auto) Immature Gran # (Auto) Sodium Potassium Chloride Carbon Dioxide Anion Gap BUN Creatinine Est Cr Clr Drug Dosing Est GFR ( Amer) Est GFR (Non-Af Amer) BUN/Creatinine Ratio Glucose Calcium Phosphorus Magnesium Total Bilirubin AST ALT Alkaline Phosphatase Total Protein Albumin Globulin Albumin/Globulin Ratio TSH HCG, Qual Urine Color Yellow Urine Appearance Cloudy A Urine pH 6.0 Ur Specific [place] 1.026 Urine Protein Negative Urine Glucose (UA) Negative Urine Ketones 3+ H Urine Blood 1+ H Urine Nitrite Negative Urine Bilirubin Negative Urine Urobilinogen Negative Ur Leukocyte Esterase 2+ H Urine WBC (Auto) 10-30 H Urine RBC (Auto) 0-4 U Hyaline Cast (Auto) 1-5 U Epithel Cells (Auto) >30 H Urine Bacteria (Auto) 1+ H Urine Mucus Present A Urine Yeast Not Reportable Salicylates Urine Opiates Screen Neg Ur Methadone, Qual Neg Acetaminophen Urine Barbiturates Neg Ur Phencyclidine (PCP) Neg U Amphetamin/Meth Scrn Neg MDMA (Ecstasy) Screen Neg U Benzodiazepines Scrn Neg Ur Cocaine Metabolite Neg U Marijuana (THC) Screen Neg Ethyl Alcohol mg/dL Current Inpatient Medications Current Inpatient Medications: Current Inpatient Medications Acetaminophen (Acetaminophen 325 Mg Tab) 650 mg PO Q4H PRN PRN Reason: Headache or Minor Fever Stop: 05/19/20 23:14 Al Hydrox/Mg Hydrox/Simethicone (Aluminum/Magnesium Susp 30 Ml Udc) 30 ml PO Q4H PRN PRN Reason: GI Upset Stop: 05/19/20 23:14 Albuterol (Albuterol Hfa 8 Gm Inhaler) 2 puffs INH Q4H PRN PRN Reason: shortness of breath or wheezing Stop: 05/19/20 23:18 Bismuth Subsalicylate (Bismuth Subsalicylate Per Ml Omnicell Charge) 15 ml PO PRN PRN PRN Reason: Loose Stool Stop: 05/19/20 23:14 Hydroxyzine HCl (Hydroxyzine Hcl 25 Mg Tab) 50 mg PO HSZ PRN PRN Reason: Insomnia Stop: 05/19/20 23:14 Hydroxyzine HCl (Hydroxyzine Hcl 25 Mg Tab) 25 mg PO Q4H PRN PRN Reason: Anxiety Stop: 05/19/20 23:14 Magnesium Hydroxide (Magnesium Hydroxide Susp 30 Ml Udc) 30 ml PO DAILY PRN PRN Reason: Constipation Stop: 05/19/20 23:14 Sodium Chloride (Sodium Chloride 0.65% Na Soln 45 Ml ([place])) 1 - 2 sprays NA PRN PRN PRN Reason: Nasal Dryness/Congestion Stop: 05/19/20 23:14 Venlafaxine HCl (Venlafaxine Hcl Xr 75 Mg Capxr) 75 mg PO QAM ABHIJEET Stop: 05/20/20 08:59
[2020-04-20] MEDS: NICOTINE POLACRILEX 2 MG GUM MT PRN ×2 (11:05→13:41)
--- NOTE | 2020-04-21 08:24 | Psychiatric Progress Note ---
Date of Service April 21, 2020 Impression / Recommendations Impression 40 y/o female who lives with family, is disabled/unemployed, readmitted 10 days after discharge for psychosis due to medication noncompliance with prominent somatic delusions and poor p.o. intake resulting in a 4 pound weight loss with BMI 14.3 and electrolyte abnormalities. Her recent admission was for a antihistamine OD and a suicide attempt. Her weight loss is related to somatic delusion that eating causes her to lose vision. She has not been taking her antipsychotic, and is refusing recommendations for a long-acting injectable antipsychotic. Although SI is passive, her condition is resulting in her being unable to meet her nutritional needs resulting in electrolyte disturbance. She was discharged on a 304 IOC, and a conversion hearing will be scheduled for tomorrow. (1) Schizoaffective disorder, depressive type: 04/20 - The patient was admitted to the [facility] ([facility] mental health unit) on q15 min checks (behavioral with suicide precautions) for safety. The patient will participate in group, recreational, and milieu therapies and will be offered additional individual and family sessions as clinically appropriate. Will continue Effexor XR at 75 mg for now, should likely be increased to further retrial but for now plan to hold Invega as failing to cover her symptoms and complaints about vision started around the time it was started. Again, most likely delusion but will reassess in am and treating clinician at that time can coordinate with outpatient prescriber. 04/21 - Patient refusing Invega, Zyprexa, and Risperdal, but is agreeable to a trial of Haldol. Reviewed risks, benefits, side effects, and alternatives. Specifically reviewed risk of EPS, tardive dyskinesia, sedation, dystonic reaction. Start 2.5 mg twice daily, with 2.5 mg every 6 hours as needed for psychosis. If effective, can transition to Haldol Decanoate, given repeated noncompliance and related decompensation/rehospitalization. -File for 306 conversion hearing (was discharged on a 304 IOC on 04/09). Refer to [facility] for long-term inpatient treatment, as acute treatment has not been sufficient to control her symptoms. -Get collateral information from family (recently staying with sister while parents on vacation), and outpatient Jeanine AGUILAR. (2) Eating disorder, unspecified: 04/20 - seems driven by delusion rather than traditional body dysmorphia. Will monitor PO intake and recheck lytes, renals in am. daily weights. Reconsult nutrition. If not engaging in regular meals may need to reinstitute I's and O's. Ideally patient would agree to inpatient residential ED treatment for refeeding but she has traditionally not been amenable and such units will not accept on a commitment. Dietary consult for nutritional supplement/calorie recs. 04/21 -hypokalemic on admission 04/19/2020 with potassium 3.3, improved to 3.5 on 04/21/2020. -Continue daily weights, dietary consult. -Not yet psychiatrically stable for discussion of inpatient eating disorder treatment. Inventory Assets Strengths: family support, love of children, intelligent Needs: improve insight Risk Factors Assessment Male: No : Yes Do You Have Access To A Gun?: No Health Problems: Yes Mental Health Diagnoses: Yes Substance Use Disorders: No Previous Attempt: Yes Family History of Suicide: No Previous Psychiatric Hospitalization: Yes Hopelessness: Yes Smoker: No Protective Factors Assessment Jewish Beliefs: No : No Responsible for Young Children: Yes (as a secondary caregiver) Employed: No Stable Relationships: No Supportive Family: Yes Interval History Chief Complaint "I was having problems with my vision, it was getting worse every time I would eat something". Review of Systems Notes Denies pain, constipation, diarrhea, nausea, vomiting, self induced purging Sleep Information Total Hours of Sleep: 7 Sleep Comments: pt on q-15 minute checks Meal Information Percent Meal Consumed - Breakfast: 0 Percent Meal Consumed - Lunch: 50 Percent Meal Consumed - Dinner: 60 Nutrition Comment: pt. asleep; meal dated, labeled and refrigerated Subjective Subjective Patient was seen & assessed and interval progress reviewed with treatment team. Staff report she remains delusional, is eating very little, and goes to groups with partial participation. She demonstrates very poor insight. Her Invega was held on admission as she had not been taking it. She had hypokalemia on admission, and ketones in her urine. On my assessment, she states she "couldn't eat" because "I lost my vision every time I ate something," and is aware she lost 4 lbs, "I could see my ribs." She says she only took Invega for a few days after discharge, because "I felt spaced out." She has also been reporting feeling "spaced out" here, and when asked that, she appears confused, "I don't think so...." She is refusing to consider a trial of Zyprexa, Risperidone, or Invega, stating "those didn't work out for me." Reviewed all antipsychotic options, and she chose Haldol, which she says she has never tried before. Sleep is disrupted, "keep waking up," and got hydroxyzine which helped. She reports ongoing hopelessness and thoughts that she'd be better off . She says she has been staying at her sister's since last Tuesday because her parents and her two children went on vacation, although she can't recall where they went. She did not attend her follow up appts, including one with her PCP (Dr. Page at [facility]) on 04/17 as "I couldn't see, couldn't get a ride." She did meet with her human services case manager Jeanine and therapist Haroldo Foster. Physical Exam Psychiatric Orientation: alert and cooperative (poor historian) Apperance: appropriately dressed and appropriately groomed Very thin, cachectic WF appearing younger than stated age. Eye Contact: + poor eye contact Slowed movements, slow gait Delayed, slowed Affect: + depressed affect and + constricted affect; + mood not congruent with affect "good" Thought Process: goal directed thought process and + concrete thought process paucity of thought content Suicidal Thoughts: denies suicidal thoughts Homicidal Thoughts: denies homicidal thoughts Hallucinations: no auditory hallucinations and no visual hallucinations Cognition: language grossly intact; + recent memory not intact and + attention not intact Insight: + severely impaired insight Judgement: + severely impaired judgement Vital Signs (Past 24 Hours) Last Vital Signs Temp 36.7 C 04/21/20 06:36 Pulse 92 H 04/21/20 06:37 Resp 18 04/21/20 06:36 BP 100/65 04/21/20 06:37 Pulse Ox 98 04/20/20 02:26 Results & Data ([facility]) Current Inpatient Medications Current Inpatient Medications: Current Inpatient Medications Acetaminophen (Acetaminophen 325 Mg Tab) 650 mg PO Q4H PRN PRN Reason: Headache or Minor Fever Stop: 05/19/20 23:14 Al Hydrox/Mg Hydrox/Simethicone (Aluminum/Magnesium Susp 30 Ml Udc) 30 ml PO Q4H PRN PRN Reason: GI Upset Stop: 05/19/20 23:14 Albuterol (Albuterol Hfa 8 Gm Inhaler) 2 puffs INH Q4H PRN PRN Reason: shortness of breath or wheezing Stop: 05/19/20 23:18 Bismuth Subsalicylate (Bismuth Subsalicylate Per Ml Omnicell Charge) 15 ml PO PRN PRN PRN Reason: Loose Stool Stop: 05/19/20 23:14 Hydroxyzine HCl (Hydroxyzine Hcl 25 Mg Tab) 50 mg PO HSZ PRN PRN Reason: Insomnia Stop: 05/19/20 23:14 Last Admin: 04/20/20 23:20 Dose: 50 mg Documented by: Hydroxyzine HCl (Hydroxyzine Hcl 25 Mg Tab) 25 mg PO Q4H PRN PRN Reason: Anxiety Stop: 05/19/20 23:14 Magnesium Hydroxide (Magnesium Hydroxide Susp 30 Ml Udc) 30 ml PO DAILY PRN PRN Reason: Constipation Stop: 05/19/20 23:14 Nicotine Polacrilex (Nicotine Polacrilex 2 Mg Gum) 1 piece MT PRN PRN PRN Reason: Nicotine Withdrawal Stop: 05/20/20 10:24 Last Admin: 04/20/20 13:41 Dose: 1 piece Documented by: Sodium Chloride (Sodium Chloride 0.65% Na Soln 45 Ml ([place])) 1 - 2 sprays NA PRN PRN PRN Reason: Nasal Dryness/Congestion Stop: 05/19/20 23:14 Venlafaxine HCl (Venlafaxine Hcl Xr 75 Mg Capxr) 75 mg PO QAM ABHIJEET Stop: 05/20/20 08:59 Last Admin: 04/20/20 09:59 Dose: 75 mg Documented by: Mental Health & Subst Abuse Tx Therapist Name of Therapist: ISAURO Moore Date of Therapist Appointment: 04/29/20 Mooner Name of Mooner: Jeanine Post Discharge Appointments Primary Care Physician Name Of Family Doctor: Dr. Elias Sethi
[2020-04-21] MEDS: VENLAFAXINE HCL XR 75 MG CAPXR PO SCH (08:46)
[2020-04-21 09:10] LABS: BUN Creatinine Ratio 16.9 (10-20); Creatinine Clr Calc Pharmacy 66.7 ml/min; Est GFR (African American) 128.5; Est GFR (Non-African American) 110.8; Potassium 3.5 mmol/L (3.5-5.1)
[2020-04-21] MEDS: NICOTINE POLACRILEX 2 MG GUM MT PRN ×2 (09:10→11:29)
[2020-04-21] MEDS ORDERED: haloperidoL 5 MG TAB PO PRN (09:44)
[2020-04-21] MEDS: haloperidoL 5 MG TAB PO SCH ×2 (10:51→21:22)
[2020-04-22 08:51] LABS: BUN Creatinine Ratio 27.9 (10-20); Calcium 9.4 mg/dl (8.5-10.1); Creatinine Clr Calc Pharmacy 66.5 ml/min; Est GFR (African American) 128.5; Est GFR (Non-African American) 110.8; Potassium 3.8 mmol/L (3.5-5.1)
--- NOTE | 2020-04-22 09:31 | Psychiatric Progress Note ---
Date of Service April 22, 2020 Impression / Recommendations Impression 40 y/o female who lives with family, is disabled/unemployed, readmitted 10 days after discharge for psychosis due to medication noncompliance with prominent somatic delusions and poor p.o. intake resulting in a 4 pound weight loss with BMI 14.3 and electrolyte abnormalities. Her recent admission was for a antihistamine OD and a suicide attempt. Her weight loss is related to somatic delusion that eating causes her to lose vision. She has not been taking her antipsychotic, and is refusing recommendations for a long-acting injectable antipsychotic. Although SI is passive currently, she had a suicide attempt 03/28 which prompted hospitalization, and her condition is resulting in her being unable to meet her nutritional needs resulting in electrolyte disturbance. She was discharged on a 304 IOC, and a conversion hearing is scheduled for tomorrow. (1) Schizoaffective disorder, depressive type: 04/20 - The patient was admitted to the [facility] ([facility]) on q15 min checks (behavioral with suicide precautions) for safety. The patient will participate in group, recreational, and milieu therapies and will be offered additional individual and family sessions as clinically appropriate. Will continue Effexor XR at 75 mg for now, should likely be increased to further retrial but for now plan to hold Invega as failing to cover her symptoms and complaints about vision started around the time it was started. Again, most likely delusion but will reassess in am and treating clinician at that time can coordinate with outpatient prescriber. 04/21 - Patient refusing Invega, Zyprexa, and Risperdal, but is agreeable to a trial of Haldol. Reviewed risks, benefits, side effects, and alternatives. Specifically reviewed risk of EPS, tardive dyskinesia, sedation, dystonic reaction. Start 2.5 mg twice daily, with 2.5 mg every 6 hours as needed for psychosis. If effective, can transition to Haldol Decanoate, given repeated noncompliance and related decompensation/rehospitalization. -File for 306 conversion hearing (was discharged on a 304 IOC on 04/09). Refer to [facility] for long-term inpatient treatment, as acute treatment has not been sufficient to control her symptoms. -Get collateral information from family (recently staying with sister while parents on vacation), and outpatient Jeanine AGUILAR. 04/22 -Family meeting held with mother. Discussed plans for 306 tomorrow, [facility] referral, med changes, recs for MCCULLOUGH, need to work on eating/nutrition. -AIMS 0. -Continue haloperidol and titrate to effective dose. -306 tomorrow, will refer to [facility]. (2) Eating disorder, unspecified: 04/20 - seems driven by delusion rather than traditional body dysmorphia. Will monitor PO intake and recheck lytes, renals in am. daily weights. Reconsult nutrition. If not engaging in regular meals may need to reinstitute I's and O's. Ideally patient would agree to inpatient residential ED treatment for refeeding but she has traditionally not been amenable and such units will not accept on a commitment. Dietary consult for nutritional supplement/calorie recs. 04/21 -hypokalemic on admission 04/19/2020 with potassium 3.3, improved to 3.5 on 04/21/2020. -Continue daily weights, dietary consult. -Not yet psychiatrically stable for discussion of inpatient eating disorder treatment. 04/22 -pt refused Boost during last hospitalization, but now agreeing after discussion and family meeting, specifically reviewing that her cognitive impairment is likely multifactorial and due in part to malnutrition- will reconsult dietitian. -Would benefit from OP buncher hand- will check with PCP (Anuj). Inventory Assets Strengths: family support, love of children, intelligent Needs: improve insight Risk Factors Assessment Male: No : Yes Do You Have Access To A Gun?: No Health Problems: Yes Mental Health Diagnoses: Yes Substance Use Disorders: No Previous Attempt: Yes Family History of Suicide: No Previous Psychiatric Hospitalization: Yes Hopelessness: Yes Smoker: No Protective Factors Assessment Jehovah'S Witness Beliefs: No : No Responsible for Young Children: Yes (as a secondary caregiver) Employed: No Stable Relationships: No Supportive Family: Yes Interval History Chief Complaint " I just do not want to be foggy, that's all". Review of Systems Sleep Information Total Hours of Sleep: 7.75 Sleep Comments: pt on q-15 minute checks Meal Information Percent Meal Consumed - Breakfast: 50 Percent Meal Consumed - Lunch: 40 Percent Meal Consumed - Dinner: 50 Nutrition Comment: pt. believes her vision is impaired after eating Subjective Subjective Patient was seen & assessed and interval progress reviewed with nursing and social work. Staff report she lost 0.1kg from yesterday until today. She is eating some of each meal, and attending groups. She complains of feeling bored here. BMP checked today and is normal. She continues to complain of "feeling spaced out," which she blames on medications (although had not been on any for a week). Participated in family meeting with social media community manager, mother, and patient: reviewed her course of treatment, discussions with her OP treatment team, concerns about ongoing psychotic symptoms and cognitive impairment, which we believe is a result of untreated psychotic symptoms and malnutrition. Reviewed recommendations for an MCCULLOUGH and eating disorder treatment as an OP, and plan to h ave conversion hearing tomorrow, with referral to [facility] for halfway treatment as has failed short term IP treatment. Discussed her concerns about her vision, that eating is not likely to impact her vision and that this is likely a delusion. Mother states she has long standing problems with not eating. Reviewed outpatient supports, and questioned what mother thinks would help her remain stable at home - she would like to monitor patient's meds, give them to her daily, which patient agreed to. Patient identified goals of not feeling "spaced out," as would like to be able to return to work at some point. 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 Also discussed option of working with [facility]. Physical Exam Psychiatric Orientation: alert and cooperative Poor historian. Apperance: appropriately dressed and appropriately groomed Appears younger than stated age. Extremely thin, cachectic. Proptosis. Eye Contact: + poor eye contact Motor Behavior: steady gait and station and + psychomotor retardation Slowed, delayed. Louder at times w/ irritated tone when discussing treatment recommendations w/ her parents. Affect: + blunted affect; + mood not congruent with affect "Good." Thought Process: goal directed thought process and + thought blocking Thought Content: + paranoid (believes medications cause her psychotic symptoms, and blindness) and + delusions Somatic delusions Suicidal Thoughts: denies suicidal thoughts Homicidal Thoughts: denies homicidal thoughts Hallucinations: no auditory hallucinations Cognition: language grossly intact; + attention not intact Insight: + poor insight Judgement: + poor judgement Vital Signs (Past 24 Hours) Last Vital Signs Temp 36.4 C L 04/22/20 06:31 Pulse 96 H 04/22/20 06:32 Resp 18 04/22/20 06:31 BP 91/59 L 04/22/20 06:32 Pulse Ox 98 04/20/20 02:26 Results & Data ([facility]) Laboratory Results Laboratory Results - last 24 hr 04/22/20 08:19 Sodium 139 Potassium 3.8 Chloride 104 Carbon Dioxide 29 Anion Gap 5.0 BUN 18 D Creatinine 0.64 Est Cr Clr Drug Dosing 66.5 Est GFR ( Amer) 128.5 Est GFR (Non-Af Amer) 110.8 BUN/Creatinine Ratio 27.9 H Glucose 79 Calcium 9.4 Current Inpatient Medications Current Inpatient Medications: Current Inpatient Medications Acetaminophen (Acetaminophen 325 Mg Tab) 650 mg PO Q4H PRN PRN Reason: Headache or Minor Fever Stop: 05/19/20 23:14 Al Hydrox/Mg Hydrox/Simethicone (Aluminum/Magnesium Susp 30 Ml Udc) 30 ml PO Q4H PRN PRN Reason: GI Upset Stop: 05/19/20 23:14 Albuterol (Albuterol Hfa 8 Gm Inhaler) 2 puffs INH Q4H PRN PRN Reason: shortness of breath or wheezing Stop: 05/19/20 23:18 Bismuth Subsalicylate (Bismuth Subsalicylate Per Ml Omnicell Charge) 15 ml PO PRN PRN PRN Reason: Loose Stool Stop: 05/19/20 23:14 Haloperidol (Haloperidol 5 Mg Tab) 2.5 mg PO BID ABHIJEET Stop: 05/21/20 09:44 Last Admin: 04/21/20 21:22 Dose: 2.5 mg Documented by: Haloperidol (Haloperidol 5 Mg Tab) 2.5 mg PO Q6H PRN PRN Reason: psychosis Stop: 05/21/20 09:43 Hydroxyzine HCl (Hydroxyzine Hcl 25 Mg Tab) 50 mg PO HSZ PRN PRN Reason: Insomnia Stop: 05/19/20 23:14 Last Admin: 04/20/20 23:20 Dose: 50 mg Documented by: Hydroxyzine HCl (Hydroxyzine Hcl 25 Mg Tab) 25 mg PO Q4H PRN PRN Reason: Anxiety Stop: 05/19/20 23:14 Magnesium Hydroxide (Magnesium Hydroxide Susp 30 Ml Udc) 30 ml PO DAILY PRN PRN Reason: Constipation Stop: 05/19/20 23:14 Nicotine Polacrilex (Nicotine Polacrilex 2 Mg Gum) 1 piece MT PRN PRN PRN Reason: Nicotine Withdrawal Stop: 05/20/20 10:24 Last Admin: 04/21/20 11:29 Dose: 1 piece Documented by: Sodium Chloride (Sodium Chloride 0.65% Na Soln 45 Ml ([place])) 1 - 2 sprays NA PRN PRN PRN Reason: Nasal Dryness/Congestion Stop: 05/19/20 23:14 Venlafaxine HCl (Venlafaxine Hcl Xr 75 Mg Capxr) 75 mg PO QAM ABHIJEET Stop: 05/20/20 08:59 Last Admin: 04/21/20 08:46 Dose: 75 mg Documented by: Mental Health & Subst Abuse Tx Psychiatrist Name of Psychiatrist: Shelly Phelan Psychiatrist's Date of Appointment with Psychiatrist: 05/06/20 Time of Appointment with Psychiatrist: 1:45 p.m. Psychiatric Appointment Comment: [phone] [facility] Therapist Name of Therapist: ISAURO Foster Therapist's Date of Therapist Appointment: 04/29/20 Therapy Appointment Comment: [phone], [place] [address] Security Systems Manager Name of Security Systems Manager: MAXIMINO Solorzano Case Management Appointment Comment: [phone] [facility], [place] Post Discharge Appointments Primary Care Physician Name Of Family Doctor: Anuj Griffin Primary Care Provider Appointment Comment: [address] [facility] Contact Information Discharge Discharge Address: [address] [place] [id number]
[2020-04-22] MEDS: VENLAFAXINE HCL XR 75 MG CAPXR PO SCH (10:00)
[2020-04-22] MEDS: haloperidoL 5 MG TAB PO SCH ×2 (10:00→22:00)
[2020-04-22] MEDS: NICOTINE POLACRILEX 2 MG GUM MT PRN ×3 (10:25→17:55)
--- NOTE | 2020-04-23 08:38 | Psychiatric Progress Note ---
Date of Service April 23, 2020 Impression / Recommendations Impression 40 y/o female who lives with family, is disabled/unemployed, readmitted 10 days after discharge for psychosis due to medication noncompliance with prominent somatic delusions and poor p.o. intake resulting in a 4 pound weight loss with BMI 14.3 and electrolyte abnormalities. Her recent admission was for a antihistamine OD and a suicide attempt. Her weight loss is related to somatic delusion that eating causes her to lose vision. She has not been taking her antipsychotic, and is refusing recommendations for a long-acting injectable antipsychotic. Although SI is passive currently, she had a suicide attempt 03/28 which prompted hospitalization, and her condition is resulting in her being unable to meet her nutritional needs resulting in electrolyte disturbance. She was discharged on a 304 IOC, and a conversion hearing was held today 04/23. She has been started on Haldol which is being titrated, and has lost weight in the hospital, refusing nutritional supplementation recommended by the correction officer city or county jail. She remains delusional and depressed, and we are referring her to the [facility] for long-term inpatient treatment. (1) Schizoaffective disorder, depressive type: 04/20 - The patient was admitted to the [facility] ([facility] mental health unit) on q15 min checks (behavioral with suicide precautions) for safety. The patient will participate in group, recreational, and milieu therapies and will be offered additional individual and family sessions as clinically appropriate. Will continue Effexor XR at 75 mg for now, should likely be increased to further retrial but for now plan to hold Invega as failing to cover her symptoms and complaints about vision started around the time it was started. Again, most likely delusion but will reassess in am and treating clinician at that time can coordinate with outpatient prescriber. 04/21 - Patient refusing Invega, Zyprexa, and Risperdal, but is agreeable to a trial of Haldol. Reviewed risks, benefits, side effects, and alternatives. Specifically reviewed risk of EPS, tardive dyskinesia, sedation, dystonic reaction. Start 2.5 mg twice daily, with 2.5 mg every 6 hours as needed for psychosis. If effective, can transition to Haldol Decanoate, given repeated noncompliance and related decompensation/rehospitalization. -File for 306 conversion hearing (was discharged on a 304 IOC on 04/09). Refer to [facility] for long-term inpatient treatment, as acute treatment has not been sufficient to control her symptoms. -Get collateral information from family (recently staying with sister while parents on vacation), and outpatient BCMJeanine. 04/22 -Family meeting held with mother. Discussed plans for 306 tomorrow, [facility] referral, med changes, recs for [facility], need to work on eating/nutrition. -AIMS 0. -Continue haloperidol and titrate to effective dose. -306 tomorrow, will refer to [facility]. 04/23 -306 conversion held, patient now on a 304 involuntary commitment. Refer to [facility] for long-term inpatient treatment, short-term acute treatment here has not been effective and she quickly decompensated and returned to the hospital. -Met with her BCMJeanine, from the [facility] to review treatment plan. -Increase Haldol to 2.5 mg every morning and 5 mg at bedtime. Transition to Haldol Decanoate once on an effective dose. -Continue venlafaxine and increase to 112.5 mg daily to target depressed mood. -Advised patient that if she is retreating to bed and napping during the day, with resulting poor sleep at night, we will lock her door during group times to encourage her to be out of her room and participating in treatment. (2) Eating disorder, unspecified: 04/20 - seems driven by delusion rather than traditional body dysmorphia. Will monitor PO intake and recheck lytes, renals in am. daily weights. Reconsult nutrition. If not engaging in regular meals may need to reinstitute I's and O's. Ideally patient would agree to inpatient residential ED treatment for refeeding but she has traditionally not been amenable and such units will not accept on a commitment. Dietary consult for nutritional supplement/calorie recs. 04/21 -hypokalemic on admission 04/19/2020 with potassium 3.3, improved to 3.5 on 04/21/2020. -Continue daily weights, dietary consult. -Not yet psychiatrically stable for discussion of inpatient eating disorder treatment. 04/22 -pt refused Boost during last hospitalization, but now agreeing after discussion and family meeting, specifically reviewing that her cognitive impairment is likely multifactorial and due in part to malnutrition- will reconsult dietitian. -Would benefit from OP correction officer city or county jail- will check with PCP (Anuj). 11/21 -appreciate correction officer city or county jail's recommendations. Continue to offer boost and additional snacks, although patient has been resistant/refusing. -Weight is down 3.5 ounces since admission (36.5 kg on admit, 36.4 kg today). Remains hypotensive and tachycardic. Continue to encourage improved p.o. intake. Inventory Assets Strengths: family support, love of children, intelligent Needs: improve insight Risk Factors Assessment Male: No : Yes Do You Have Access To A Gun?: No Health Problems: Yes Mental Health Diagnoses: Yes Substance Use Disorders: No Previous Attempt: Yes Family History of Suicide: No Previous Psychiatric Hospitalization: Yes Hopelessness: Yes Smoker: No Protective Factors Assessment Zoroastrian Beliefs: No : No 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 She is on a 304 IOC, and was transitioned to a 304 inpatient commitment after a conversion hearing on 04/23/2020. Chief Complaint " Tired". Review of Systems Notes 10 systems reviewed and negative except as stated: Denies visual changes currently, but continues to report them intermittently. Cannot recall when her last bowel movement was. Denies nausea and vomiting. Intermittent "fogginess" Sleep Information Total Hours of Sleep: 6.5 Sleep Comments: pt on q-15 minute checks Meal Information Percent Meal Consumed - Breakfast: 50 Percent Meal Consumed - Lunch: 75 Percent Meal Consumed - Dinner: 75 Nutrition Comment: pt. believes her vision is impaired after eating Subjective Subjective Patient was seen & assessed and interval progress reviewed with treatment team. Staff report she remains focused on somatic complaints, including blurred vision which comes and goes, and feeling mentally "foggy." Records from her assistant women's tennis coach were received and reviewed and show no change in her vision in 3 years. She declined to attend her 306 conversion today, but her [facility] Jeanine, attended, and she was converted to a 304 inpatient commitment. She reports she did not speak to her hand grinder or attends the hearing because "I don't need to." She describes her mood as "tired," and says she has been unable to attend groups if she is spending her time in bed. Although staff reported she slept well over night, she states she woke up multiple times and does not feel rested. She admits to retreating to bed during the day and napping. During her family meeting yesterday, she agreed to meet with a correction officer city or county jail and to use boost and other nutritional supplements, but is now refusing the boost, stating she does not like the way it tastes. She was unwilling to consider inpatient eating disorder treatment, stating she needed to be out of the hospital by her daughter's birthday at the end of April. Ongoing education regarding her severe underweight status with weight loss in the hospital and the impact of restricting her intake on her physical and mental health. They also recommended that she be restricted from using the bathroom for 1 hour after meals. She denies hallucinations and suicidal thoughts, but continues to express concerns that her vision changes based on her p.o. intake. Reviewed her optometry records with her, which was not reassuring to her as she believes that someone in the ER told her that her vision had changed. Denies vision problems currently. Denies side effects to medications, although told staff last night that she thought medications were causing blurry vision and foggy thinking. Physical Exam Psychiatric Orientation: alert and cooperative (partially) Apperance: appropriately dressed and appropriately groomed Extremely thin, cachectic WF who is lygin in bed awake and in NAD, with the blankets pulled over her mouth, making it difficult to hear her. Eye Contact: + poor eye contact Motor Behavior: + psychomotor retardation Minimal, monotone Affect: + blunted affect; + mood not congruent with affect "Okay." Thought Process: goal directed thought process and + concrete thought process Thought Content: + cognitive distortions and + delusions Paucity of thought content Suicidal Thoughts: denies suicidal thoughts Homicidal Thoughts: denies homicidal thoughts Hallucinations: no auditory hallucinations Cognition: attention grossly intact and language grossly intact; + recent memory not intact Insight: + severely impaired insight Judgement: + severely impaired judgement Vital Signs (Past 24 Hours) Last Vital Signs Temp 36.2 C L 04/23/20 06:34 Pulse 98 H 04/23/20 06:35 Resp 18 04/23/20 06:34 BP 90/60 L 04/23/20 06:35 Pulse Ox 98 04/20/20 02:26 Results & Data ([facility]) Laboratory Results Laboratory Results - last 24 hr 04/22/20 08:19 Sodium 139 Potassium 3.8 Chloride 104 Carbon Dioxide 29 Anion Gap 5.0 BUN 18 D Creatinine 0.64 Est Cr Clr Drug Dosing 66.5 Est GFR ( Amer) 128.5 Est GFR (Non-Af Amer) 110.8 BUN/Creatinine Ratio 27.9 H Glucose 79 Calcium 9.4 Current Inpatient Medications Current Inpatient Medications: Current Inpatient Medications Acetaminophen (Acetaminophen 325 Mg Tab) 650 mg PO Q4H PRN PRN Reason: Headache or Minor Fever Stop: 05/19/20 23:14 Al Hydrox/Mg Hydrox/Simethicone (Aluminum/Magnesium Susp 30 Ml Udc) 30 ml PO Q4H PRN PRN Reason: GI Upset Stop: 05/19/20 23:14 Albuterol (Albuterol Hfa 8 Gm Inhaler) 2 puffs INH Q4H PRN PRN Reason: shortness of breath or wheezing Stop: 05/19/20 23:18 Bismuth Subsalicylate (Bismuth Subsalicylate Per Ml Omnicell Charge) 15 ml PO PRN PRN PRN Reason: Loose Stool Stop: 05/19/20 23:14 Haloperidol (Haloperidol 5 Mg Tab) 2.5 mg PO BID ABHIJEET Stop: 05/21/20 09:44 Last Admin: 04/22/20 22:00 Dose: 2.5 mg Documented by: Haloperidol (Haloperidol 5 Mg Tab) 2.5 mg PO Q6H PRN PRN Reason: psychosis Stop: 05/21/20 09:43 Hydroxyzine HCl (Hydroxyzine Hcl 25 Mg Tab) 50 mg PO HSZ PRN PRN Reason: Insomnia Stop: 05/19/20 23:14 Last Admin: 04/20/20 23:20 Dose: 50 mg Documented by: Hydroxyzine HCl (Hydroxyzine Hcl 25 Mg Tab) 25 mg PO Q4H PRN PRN Reason: Anxiety Stop: 05/19/20 23:14 Last Admin: 04/22/20 16:44 Dose: 25 mg Documented by: Magnesium Hydroxide (Magnesium Hydroxide Susp 30 Ml Udc) 30 ml PO DAILY PRN PRN Reason: Constipation Stop: 05/19/20 23:14 Nicotine Polacrilex (Nicotine Polacrilex 2 Mg Gum) 1 piece MT PRN PRN PRN Reason: Nicotine Withdrawal Stop: 05/20/20 10:24 Last Admin: 04/22/20 17:55 Dose: 1 piece Documented by: Sodium Chloride (Sodium Chloride 0.65% Na Soln 45 Ml ([place])) 1 - 2 sprays NA PRN PRN PRN Reason: Nasal Dryness/Congestion Stop: 05/19/20 23:14 Venlafaxine HCl (Venlafaxine Hcl Xr 75 Mg Capxr) 75 mg PO QAM ABHIJEET Stop: 05/20/20 08:59 Last Admin: 04/22/20 10:00 Dose: 75 mg Documented by: Mental Health & Subst Abuse Tx Psychiatrist Name of Psychiatrist: Shelly Phelan Psychiatrist's Date of Appointment with Psychiatrist: 05/06/20 Time of Appointment with Psychiatrist: 1:45 p.m. Psychiatric Appointment Comment: [id number] [facility] Therapist Name of Therapist: ISAURO Foster Therapist's Date of Therapist Appointment: 04/29/20 Therapy Appointment Comment: [facility], [place] [address] Dog Groomer Name of Dog Groomer: MAXIMINO Solorzano Case Management Appointment Comment: [address] [facility], [place] Post Discharge Appointments Primary Care Physician Name Of Family Doctor: Anuj Griffin Primary Care Provider Appointment Comment: [address] [facility] Contact Information Discharge Discharge Address: [address] [place] [id number]
[2020-04-23] MEDS: VENLAFAXINE HCL XR 75 MG CAPXR PO SCH (08:44)
[2020-04-23] MEDS: haloperidoL 5 MG TAB PO SCH ×2 (08:44→20:23)
[2020-04-24] MEDS: VENLAFAXINE HCL XR 37.5 MG CAPXR PO SCH (09:07)
[2020-04-24] MEDS: haloperidoL 1 MG TAB PO SCH (09:09)
[2020-04-24] MEDS: NICOTINE POLACRILEX 2 MG GUM MT PRN ×3 (09:11→16:31)
--- NOTE | 2020-04-24 10:22 | Psychiatric Progress Note ---
Date of Service April 24, 2020 Impression / Recommendations Impression 40 y/o female who lives with family, is disabled/unemployed, readmitted 10 days after discharge for psychosis due to medication noncompliance with prominent somatic delusions and poor p.o. intake resulting in a 4 pound weight loss with BMI 14.3 and electrolyte abnormalities. Her recent admission was for a antihistamine OD and a suicide attempt. Her weight loss is related to somatic delusion that eating causes her to lose vision. She has not been taking her antipsychotic, and is refusing recommendations for a long-acting injectable antipsychotic. Although SI is passive currently, she had a suicide attempt 03/28 which prompted hospitalization, and her condition is resulting in her being unable to meet her nutritional needs resulting in electrolyte disturbance. She was discharged on a 304 IOC, and a conversion hearing was held today 04/23. She has been started on Haldol which is being titrated, and has lost weight in the hospital, refusing nutritional supplementation recommended by the outside industrial sales representative. She remains delusional and depressed, and we are referring her to the [facility] for long-term inpatient treatment. (1) Schizoaffective disorder, depressive type: 04/20 - The patient was admitted to the [facility] ([facility] health unit) on q15 min checks (behavioral with suicide precautions) for safety. The patient will participate in group, recreational, and milieu therapies and will be offered additional individual and family sessions as clinically appropriate. Will continue Effexor XR at 75 mg for now, should likely be increased to further retrial but for now plan to hold Invega as failing to cover her symptoms and complaints about vision started around the time it was started. Again, most likely delusion but will reassess in am and treating clinician at that time can coordinate with outpatient prescriber. 04/21 - Patient refusing Invega, Zyprexa, and Risperdal, but is agreeable to a trial of Haldol. Reviewed risks, benefits, side effects, and alternatives. Specifically reviewed risk of EPS, tardive dyskinesia, sedation, dystonic reaction. Start 2.5 mg twice daily, with 2.5 mg every 6 hours as needed for psychosis. If effective, can transition to Haldol Decanoate, given repeated noncompliance and related decompensation/rehospitalization. -File for 306 conversion hearing (was discharged on a 304 IOC on 04/09). Refer to [facility] for long-term inpatient treatment, as acute treatment has not been sufficient to control her symptoms. -Get collateral information from family (recently staying with sister while parents on vacation), and outpatient BCMJeanine. 04/22 -Family meeting held with mother. Discussed plans for 306 tomorrow, [facility] referral, med changes, recs for [facility], need to work on eating/nutrition. -AIMS 0. -Continue haloperidol and titrate to effective dose. -306 tomorrow, will refer to [facility]. 04/23 -306 conversion held, patient now on a 304 involuntary commitment. Refer to [facility] for long-term inpatient treatment, short-term acute treatment here has not been effective and she quickly decompensated and returned to the hospital. -Met with her BCM, Jeanine, from the [facility] to review treatment plan. -Increase Haldol to 2.5 mg every morning and 5 mg at bedtime. Transition to Haldol Decanoate once on an effective dose. -Continue venlafaxine and increase to 112.5 mg daily to target depressed mood. -Advised patient that if she is retreating to bed and napping during the day, with resulting poor sleep at night, we will lock her door during group times to encourage her to be out of her room and participating in treatment. 04/24 - Continue haloperidol 2.5mg qAM and 5mg qHS - patient reporting fatigue. We discussed that once patient is to effective dosing, we can adjust dosing to minimize fatigue - but reviewed this is not an unusual side effect. - Continue venlafaxine at increased dosage - BCM to meet with patient tomorrow - Referral being faxed to [facility] - will call to confirm packet has been received (2) Eating disorder, unspecified: 04/20 - seems driven by delusion rather than traditional body dysmorphia. Will monitor PO intake and recheck lytes, renals in am. daily weights. Reconsult nutrition. If not engaging in regular meals may need to reinstitute I's and O's. Ideally patient would agree to inpatient residential ED treatment for refeeding but she has traditionally not been amenable and such units will not accept on a commitment. Dietary consult for nutritional supplement/calorie recs. 04/21 -hypokalemic on admission 04/19/2020 with potassium 3.3, improved to 3.5 on 04/21/2020. -Continue daily weights, dietary consult. -Not yet psychiatrically stable for discussion of inpatient eating disorder tr eatment. 04/22 -pt refused Boost during last hospitalization, but now agreeing after discussion and family meeting, specifically reviewing that her cognitive impairment is likely multifactorial and due in part to malnutrition- will reconsult dietitian. -Would benefit from OP outside industrial sales representative- will check with PCP (Anuj). 04/23 -appreciate outside industrial sales representative's recommendations. Continue to offer boost and additional snacks, although patient has been resistant/refusing. -Weight is down 3.5 ounces since admission (36.5 kg on admit, 36.4 kg today). Remains hypotensive and tachycardic. Continue to encourage improved p.o. intake. 04/24 - Weight has increased 3.5oz since yesterday. 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 She is on a 304 IOC, and was transitioned to a 304 inpatient commitment after a conversion hearing on 04/23/2020. Chief Complaint "Um, I'm tired." Review of Systems Notes Constitutional: reports fatigue Cardiovascular: denied Respiratory: denied Gastrointestinal: denied Neurological: denied Psychiatric: denies symptoms other than stated above Total of at least 10 systems reviewed, pertinent positives as above and in HPI. Sleep Information Total Hours of Sleep: 8.5 Sleep Comments: pt on q-15 minute checks Meal Information Percent Meal Consumed - Breakfast: 100 Percent Meal Consumed - Lunch: 75 Percent Meal Consumed - Dinner: 75 Nutrition Comment: pt. believes her vision is impaired after eating Subjective Subjective Patient was seen & assessed and interval progress reviewed with nursing and social work. Staff report the patient has been attending some group programming, and often isolates in her room. Her BCM is planning to visit tomorrow. Pt rated her mood a 3/10 and "depressed" last evening. Pt was seen today to assess progress since admission. Pt was found in her room, laying in bed. She does not move from that position, not even to turn her head slightly to make eye contact. She tells this provider that she is "tired". Pt attended morning community meeting and rated her mood a "4/10" per her report. She states her daily goal was to get a shower. Pt shares that she feels her dose of haloperidol is "too high", as "it makes me really sleepy." We discussed that initial goal is to work toward therapeutic dosing, but that we can also make dose adjustments that allow for higher dosing at bedtime. Pt did not report any other perceived medication side effects at this time. Pt denied other needs or concerns today. Physical Exam Psychiatric Orientation: alert, oriented x 3 and + guarded (only superficially cooperative, limited engagement in conversation) Apperance: appropriately dressed and appropriately groomed cachectic appearing, very thin. Laying in bed in no acute distress. Eye Contact: + poor eye contact (staring off in the distance, does not move head to make eye contact) Motor Behavior: + psychomotor retardation Speech: normal rate/rhythm/volume of speech (soft tone, very brief responses to questions) Affect: + flat affect; + mood not congruent with affect Mood: "tired" Thought Process: goal directed thought process and + concrete thought process Thought Content: + cognitive distortions and + delusions Suicidal Thoughts: denies suicidal thoughts Cognition: attention grossly intact and language grossly intact; + recent memory not intact Insight: + severely impaired insight Judgement: + severely impaired judgement Vital Signs (Past 24 Hours) Last Vital Signs Temp 36.2 C L 04/24/20 06:57 Pulse 97 H 04/24/20 06:58 Resp 18 04/24/20 06:57 BP 110/71 08/27/20 06:58 Pulse Ox 98 04/20/20 02:26 Results & Data ([facility]) Current Inpatient Medications Current Inpatient Medications: Current Inpatient Medications Acetaminophen (Acetaminophen 325 Mg Tab) 650 mg PO Q4H PRN PRN Reason: Headache or Minor Fever Stop: 05/19/20 23:14 Al Hydrox/Mg Hydrox/Simethicone (Aluminum/Magnesium Susp 30 Ml Udc) 30 ml PO Q4H PRN PRN Reason: GI Upset Stop: 05/19/20 23:14 Albuterol (Albuterol Hfa 8 Gm Inhaler) 2 puffs INH Q4H PRN PRN Reason: shortness of breath or wheezing Stop: 05/19/20 23:18 Bismuth Subsalicylate (Bismuth Subsalicylate Per Ml Omnicell Charge) 15 ml PO PRN PRN PRN Reason: Loose Stool Stop: 05/19/20 23:14 Haloperidol (Haloperidol 5 Mg Tab) 2.5 mg PO Q6H PRN PRN Reason: psychosis Stop: 05/21/20 09:43 Haloperidol (Haloperidol 1 Mg Tab) 2.5 mg PO QAM ABHIJEET Stop: 05/24/20 08:59 Last Admin: 04/24/20 09:09 Dose: 2.5 mg Documented by: Haloperidol (Haloperidol 5 Mg Tab) 5 mg PO HS ABHIJEET Stop: 05/23/20 21:59 Last Admin: 04/23/20 20:23 Dose: 5 mg Documented by: Hydroxyzine HCl (Hydroxyzine Hcl 25 Mg Tab) 50 mg PO HSZ PRN PRN Reason: Insomnia Stop: 05/19/20 23:14 Last Admin: 04/20/20 23:20 Dose: 50 mg Documented by: Hydroxyzine HCl (Hydroxyzine Hcl 25 Mg Tab) 25 mg PO Q4H PRN PRN Reason: Anxiety Stop: 05/19/20 23:14 Last Admin: 04/22/20 16:44 Dose: 25 mg Documented by: Magnesium Hydroxide (Magnesium Hydroxide Susp 30 Ml Udc) 30 ml PO DAILY PRN PRN Reason: Constipation Stop: 05/19/20 23:14 Nicotine Polacrilex (Nicotine Polacrilex 2 Mg Gum) 1 piece MT PRN PRN PRN Reason: Nicotine Withdrawal Stop: 05/20/20 10:24 Last Admin: 04/24/20 09:11 Dose: 1 piece Documented by: Sodium Chloride (Sodium Chloride 0.65% Na Soln 45 Ml (Citrus)) 1 - 2 sprays NA PRN PRN PRN Reason: Nasal Dryness/Congestion Stop: 05/19/20 23:14 Venlafaxine HCl (Venlafaxine Hcl Xr 37.5 Mg Capxr) 112.5 mg PO QAM ABHIJEET Stop: 05/24/20 08:59 Last Admin: 04/24/20 09:07 Dose: 112.5 mg Documented by: Mental Health & Subst Abuse Tx Psychiatrist Name of Psychiatrist: Shelly Phelan Psychiatrist's Date of Appointment with Psychiatrist: 05/06/20 Time of Appointment with Psychiatrist: 1:45 p.m. Psychiatric Appointment Comment: [id number] [facility] Therapist Name of Therapist: ISAURO Foster Therapist's Date of Therapist Appointment: 04/29/20 Therapy Appointment Comment: [facility] [address], [place] [address] Manager Flight Name of Manager Flight: MAXIMINO Solorzano Case Management Appointment Comment: [id number] [facility], [place] Post Discharge Appointments Primary Care Physician Name Of Family Doctor: Anuj Griffin Primary Care Provider Appointment Comment: [phone] [facility] Contact Information Discharge Discharge Address: [address] [place] [address]
[2020-04-24] MEDS: haloperidoL 5 MG TAB PO SCH (20:29)
[2020-04-25] MEDS: VENLAFAXINE HCL XR 37.5 MG CAPXR PO SCH (09:49)
[2020-04-25] MEDS: haloperidoL 1 MG TAB PO SCH (09:49)
--- NOTE | 2020-04-25 10:16 | Psychiatric Progress Note ---
Date of Service April 25, 2020 Impression / Recommendations Impression 40 y/o female who lives with family, is disabled/unemployed, readmitted 10 days after discharge for psychosis due to medication noncompliance with prominent somatic delusions and poor p.o. intake resulting in a 4 pound weight loss with BMI 14.3 and electrolyte abnormalities. Her recent admission was for a antihistamine OD and a suicide attempt. Her weight loss is related to somatic delusion that eating causes her to lose vision. She has not been taking her antipsychotic, and is refusing recommendations for a long-acting injectable antipsychotic. Although SI is passive currently, she had a suicide attempt 03/28 which prompted hospitalization, and her condition is resulting in her being unable to meet her nutritional needs resulting in electrolyte disturbance. She was discharged on a 304 IOC, and a conversion hearing was held today 04/23. She has been started on Haldol which is being titrated, weight has been rather stable in the hospital but patient had ~5lb weight loss between her two admissions, she is intermittently refusing nutritional supplementation recommended by the ticketing agent. She remains delusional and depressed, and we are referring her to the [facility] for long-term inpatient treatment. (1) Schizoaffective disorder, depressive type: 04/20 - The patient was admitted to the [facility] ([facility] inpatient mental health unit) on q15 min checks (behavioral with suicide precautions) for safety. The patient will participate in group, recreational, and milieu therapies and will be offered additional individual and family sessions as clinically appropriate. Will continue Effexor XR at 75 mg for now, should likely be increased to further retrial but for now plan to hold Invega as failing to cover her symptoms and complaints about vision started around the time it was started. Again, most likely delusion but will reassess in am and treating clinician at that time can coordinate with outpatient prescriber. 04/21 - Patient refusing Invega, Zyprexa, and Risperdal, but is agreeable to a trial of Haldol. Reviewed risks, benefits, side effects, and alternatives. Specifically reviewed risk of EPS, tardive dyskinesia, sedation, dystonic reaction. Start 2.5 mg twice daily, with 2.5 mg every 6 hours as needed for psychosis. If effective, can transition to Haldol Decanoate, given repeated noncompliance and related decompensation/rehospitalization. -File for 306 conversion hearing (was discharged on a 304 IOC on 04/09). Refer to [facility] for long-term inpatient treatment, as acute treatment has not been sufficient to control her symptoms. -Get collateral information from family (recently staying with sister while parents on vacation), and outpatient BCMJeanine. 04/22 -Family meeting held with mother. Discussed plans for 306 tomorrow, [facility] referral, med changes, recs for [facility], need to work on eating/nutrition. -AIMS 0. -Continue haloperidol and titrate to effective dose. -306 tomorrow, will refer to [facility]. 04/23 -306 conversion held, patient now on a 304 involuntary commitment. Refer to [facility] for long-term inpatient treatment, short-term acute treatment here has not been effective and she quickly decompensated and returned to the hospital. -Met with her BCM, Jeanine, from the [facility] to review treatment plan. -Increase Haldol to 2.5 mg every morning and 5 mg at bedtime. Transition to Haldol Decanoate once on an effective dose. -Continue venlafaxine and increase to 112.5 mg daily to target depressed mood. -Advised patient that if she is retreating to bed and napping during the day, with resulting poor sleep at night, we will lock her door during group times to encourage her to be out of her room and participating in treatment. 04/24 - Continue haloperidol 2.5mg qAM and 5mg qHS - patient reporting fatigue. We discussed that once patient is to effective dosing, we can adjust dosing to minimize fatigue - but reviewed this is not an unusual side effect. - Continue venlafaxine at increased dosage - BCM to meet with patient tomorrow - Referral being faxed to [facility] - will call to confirm packet has been received 04/25 - Continue current medication regimen as above, titrating as tolerated - Pt continues to be isolative in the mornings, but improves in the evening - this was observed even prior to starting the haloperidol. Continue to monitor for daytime sedation, and can adjust medication accordingly - Referral faxed to [facility] to pursue state hospitalization (2) Eating disorder, unspecified: 04/20 - seems driven by delusion rather than traditional body dysmorphia. Will monitor PO intake and recheck lytes, renals in am. daily weights. Reconsult nutrition. If not engaging in regular meals may need to reinstitute I's and O's. Ideally patient would agree to inpatient residential ED treatment for refeeding but she has traditionally not been amenable and such units will not accept on a commitment. Dietary consult for nutritional supplement/calorie recs. 04/21 -hypokalemic on admission 04/19/2020 with potassium 3.3, improved to 3.5 on 04/21/2020. -Continue daily weights, dietary consult. -Not yet psychiatrically stable for discussion of inpatient eating disorder treatment. 04/22 -pt refused Boost during last hospitalization, but now agreeing after discussion and family meeting, specifically reviewing that her cognitive impairment is likely multifactorial and due in part to malnutrition- will reconsult dietitian. -Would benefit from OP ticketing agent- will check with PCP (Anuj). 04/23 -appreciate ticketing agent's recommendations. Continue to offer boost and additional snacks, although patient has been resistant/refusing. -Weight is down 3.5 ounces since admission (36.5 kg on admit, 36.4 kg today). Remains hypotensive and tachycardic. Continue to encourage improved p.o. intake. 04/24 - Weight has increased 3.5oz since yesterday. 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 She is on a 304 IOC, and was transitioned to a 304 inpatient commitment after a conversion hearing on 04/23/2020. Chief Complaint "I'm tired. How are you?" Review of Systems Notes Constitutional: reports feeling "tired" HEENT: denies any exacerbation of reported "vision changes" Cardiovascular: denied Respiratory: denied Gastrointestinal: denied Neurological: denied Psychiatric: denies symptoms other than stated above Total of at least 10 systems reviewed, pertinent positives as above and in HPI. Sleep Information Total Hours of Sleep: 9 Sleep Comments: pt on q-15 minute checks Meal Information Percent Meal Consumed - Breakfast: 100 Percent Meal Consumed - Lunch: 75 Percent Meal Consumed - Dinner: 75 Nutrition Comment: pt. believes her vision is impaired after eating Subjective Subjective Patient was seen & assessed and interval progress reviewed with treatment team. Staff report the patient has been attending group programming, but at times arrives rather late. She is generally more active in the milieu in the evenings, which is consistent with previous admissions. Pt was seen today to assess progress since admission. Pt states she is "tired", and conversation occurs while she is laying in bed. Pt was awake for breakfast earlier and attended community meeting. She said she is a 5/10 and used the feeling word "content", but states "I think I actually meant 'tired'." Pt reports her goal again today is to shower, and was proud she accomplished this goal yesterday. Pt continues to believe that her fatigue is related to the haloperidol; however, she was reminded that this is not an unusual presentation from admissions where she had not been prescribed this medication. Pt also admits that she has less energy in the mornings at home as well. We reviewed the concept of behavioral activation and patient was encouraged to participate in groups or even do activities individually that may improve energy level in the morning. Pt was encouraged to attend all of exercise group in order to begin this practice. Pt denied SI and otherwise did not have much to contribute to the conversation. She denied other needs or concerns. Physical Exam Psychiatric Orientation: alert and + guarded (limited engagement in interview, superficial cooperation) Apperance: appropriately dressed (casually), + disheveled (hair appearing unkempt, likely from sleep) and appeared stated age Cachectic appearance, sunken face/eyes Eye Contact: + poor eye contact (staring off in distance, very few episodes of direct eye contact) Motor Behavior: + psychomotor retardation (motor activity is very slowed) Speech: normal rate/rhythm/volume of speech (brief responses to questions, monotone) Affect: + flat affect Mood: no depressed mood (denied depression, but reported mood is "content, but actually tired") and no anxious mood Thought Process: goal directed thought process, + perseveration and + concrete thought process Thought Content: + cognitive distortions and + delusions Suicidal Thoughts: denies suicidal thoughts Homicidal Thoughts: denies homicidal thoughts Hallucinations: no auditory hallucinations and no visual hallucinations Cognition: attention grossly intact and language grossly intact Insight: + severely impaired insight Judgement: + severely impaired judgement Vital Signs (Past 24 Hours) Last Vital Signs Temp 36.4 C L 04/25/20 06:00 Pulse 85 04/25/20 06:23 Resp 15 04/25/20 06:00 BP 97/66 L 04/25/20 06:23 Pulse Ox 98 04/20/20 02:26 Results & Data ([facility]) Current Inpatient Medications Current Inpatient Medications: Current Inpatient Medications Acetaminophen (Acetaminophen 325 Mg Tab) 650 mg PO Q4H PRN PRN Reason: Headache or Minor Fever Stop: 05/19/20 23:14 Al Hydrox/Mg Hydrox/Simethicone (Aluminum/Magnesium Susp 30 Ml Udc) 30 ml PO Q4H PRN PRN Reason: GI Upset Stop: 05/19/20 23:14 Albuterol (Albuterol Hfa 8 Gm Inhaler) 2 puffs INH Q4H PRN PRN Reason: shortness of breath or wheezing Stop: 05/19/20 23:18 Bismuth Subsalicylate (Bismuth Subsalicylate Per Ml Omnicell Charge) 15 ml PO PRN PRN PRN Reason: Loose Stool Stop: 05/19/20 23:14 Haloperidol (Haloperidol 5 Mg Tab) 2.5 mg PO Q6H PRN PRN Reason: psychosis Stop: 05/21/20 09:43 Haloperidol (Haloperidol 1 Mg Tab) 2.5 mg PO QAM ABHIJEET Stop: 05/24/20 08:59 Last Admin: 04/25/20 09:49 Dose: 2.5 mg Documented by: Haloperidol (Haloperidol 5 Mg Tab) 5 mg PO HS ABHIJEET Stop: 05/23/20 21:59 Last Admin: 04/24/20 20:29 Dose: 5 mg Documented by: Hydroxyzine HCl (Hydroxyzine Hcl 25 Mg Tab) 50 mg PO HSZ PRN PRN Reason: Insomnia Stop: 05/19/20 23:14 Last Admin: 04/20/20 23:20 Dose: 50 mg Documented by: Hydroxyzine HCl (Hydroxyzine Hcl 25 Mg Tab) 25 mg PO Q4H PRN PRN Reason: Anxiety Stop: 05/19/20 23:14 Last Admin: 04/24/20 17:27 Dose: 25 mg Documented by: Magnesium Hydroxide (Magnesium Hydroxide Susp 30 Ml Udc) 30 ml PO DAILY PRN PRN Reason: Constipation Stop: 05/19/20 23:14 Nicotine Polacrilex (Nicotine Polacrilex 2 Mg Gum) 1 piece MT PRN PRN PRN Reason: Nicotine Withdrawal Stop: 05/20/20 10:24 Last Admin: 04/24/20 16:31 Dose: 1 piece Documented by: Sodium Chloride (Sodium Chloride 0.65% Na Soln 45 Ml ([place])) 1 - 2 sprays NA PRN PRN PRN Reason: Nasal Dryness/Congestion Stop: 05/19/20 23:14 Venlafaxine HCl (Venlafaxine Hcl Xr 37.5 Mg Capxr) 112.5 mg PO QAM ABHIJEET Stop: 05/24/20 08:59 Last Admin: 04/25/20 09:49 Dose: 112.5 mg Documented by: Mental Health & Subst Abuse Tx Psychiatrist Name of Psychiatrist: Shelly Phelan Psychiatrist's Date of Appointment with Psychiatrist: 05/06/20 Time of Appointment with Psychiatrist: 1:45 p.m. Psychiatric Appointment Comment: [id number] [facility] Therapist Name of Therapist: ISAURO Foster Therapist's Date of Therapist Appointment: 04/29/20 Therapy Appointment Comment: [id number], [place] [address] Facility Engineer Name of Facility Engineer: MAXIMINO Solorzano Case Management Appointment Comment: [id number] [facility] [place] Post Discharge Appointments Primary Care Physician Name Of Family Doctor: Anuj Griffin Primary Care Provider Appointment Comment: [address] [facility] Contact Information Discharge Discharge Address: [facility] [address], [place] [address]
[2020-04-25] MEDS: haloperidoL 5 MG TAB PO SCH (20:18)
--- NOTE | 2020-04-26 08:54 | Psychiatric Progress Note ---
Date of Service April 26, 2020 Impression / Recommendations Impression 40 y/o female who lives with her parents, who cares for her 2 minor children, is disabled/unemployed, readmitted 10 days after discharge for psychosis due to medication noncompliance with prominent somatic delusions and poor p.o. intake resulting in a 4 pound weight loss with BMI 14.3 and electrolyte abnormalities. Her recent admission was for a antihistamine OD and a suicide attempt. Her weight loss is related to somatic delusion that eating causes her to lose vision. She has not been taking her antipsychotic, and is refusing recommendations for a long-acting injectable antipsychotic. Although SI is pas sive currently, she had a suicide attempt 03/28 which prompted hospitalization, and her condition is resulting in her being unable to meet her nutritional needs resulting in electrolyte disturbance. She was discharged on a 304 IOC, and a conversion hearing was held today 04/23. She has been started on Haldol which is being titrated, weight has been rather stable in the hospital but patient had ~5lb weight loss between her two admissions, she is intermittently refusing nutritional supplementation recommended by the supply clerk. She remains delusional and depressed, and we have referred her to the [facility] for long-term inpatient treatment. (1) Schizoaffective disorder, depressive type: 04/20 - The patient was admitted to the [facility] ([facility] inpatient mental health unit) on q15 min checks (behavioral with suicide precautions) for safety. The patient will participate in group, recreational, and milieu therapies and will be offered additional individual and family sessions as clinically appropriate. Will continue Effexor XR at 75 mg for now, should likely be increased to further retrial but for now plan to hold Invega as failing to cover her symptoms and complaints about vision started around the time it was started. Again, most likely delusion but will reassess in am and treating clinician at that time can coordinate with outpatient prescriber. 04/21 - Patient refusing Invega, Zyprexa, and Risperdal, but is agreeable to a trial of Haldol. Reviewed risks, benefits, side effects, and alternatives. Specifically reviewed risk of EPS, tardive dyskinesia, sedation, dystonic reaction. Start 2.5 mg twice daily, with 2.5 mg every 6 hours as needed for psychosis. If effective, can transition to Haldol Decanoate, given repeated noncompliance and related decompensation/rehospitalization. -File for 306 conversion hearing (was discharged on a 304 IOC on 04/09). Refer to [facility] for long-term inpatient treatment, as acute treatment has not been sufficient to control her symptoms. -Get collateral information from family (recently staying with sister while parents on vacation), and outpatient Jeanine AGUILAR. 04/22 -Family meeting held with mother. Discussed plans for 306 tomorrow, [facility] referral, med changes, recs for [facility], need to work on eating/nutrition. -AIMS 0. -Continue haloperidol and titrate to effective dose. -306 tomorrow, will refer to [facility]. 04/23 -306 conversion held, patient now on a 304 involuntary commitment. Refer to [facility] for long-term inpatient treatment, short-term acute treatment here has not been effective and she quickly decompensated and returned to the hospital. -Met with her BCM, Jeanine, from the [facility] to review treatment plan. -Increase Haldol to 2.5 mg every morning and 5 mg at bedtime. Transition to Haldol Decanoate once on an effective dose. -Continue venlafaxine and increase to 112.5 mg daily to target depressed mood. -Advised patient that if she is retreating to bed and napping during the day, with resulting poor sleep at night, we will lock her door during group times to encourage her to be out of her room and participating in treatment. 04/24 - Continue haloperidol 2.5mg qAM and 5mg qHS - patient reporting fatigue. We discussed that once patient is to effective dosing, we can adjust dosing to minimize fatigue - but reviewed this is not an unusual side effect. - Continue venlafaxine at increased dosage - BCM to meet with patient tomorrow - Referral being faxed to [facility] - will call to confirm packet has been received 04/25 - Continue current medication regimen as above, titrating as tolerated - Pt continues to be isolative in the mornings, but improves in the evening - this was observed even prior to starting the haloperidol. Continue to monitor for daytime sedation, and can adjust medication accordingly - Referral faxed to [facility] to pursue state hospitalization 04/26 -Continue current dose of Haldol, and encourage patient to transition to Haldol Decanoate (would start with a 75 mg IM dose). (2) Eating disorder, unspecified: 04/20 - seems driven by delusion rather than traditional body dysmorphia. Will monitor PO intake and recheck lytes, renals in am. daily weights. Reconsult nutrition. If not engaging in regular meals may need to reinstitute I's and O's. Ideally patient would agree to inpatient residential ED treatment for refeeding but she has traditionally not been amenable and such units will not accept on a commitment. Dietary consult for nutritional supplement/calorie recs. 04/21 -hypokalemic on admission 04/19/2020 with potassium 3.3, improved to 3.5 on 04/21/2020. -Continue daily weights, dietary consult. -Not yet psychiatrically stable for discussion of inpatient eating disorder treatment. 04/22 -pt refused Boost during last hospitalization, but now agreeing after discussion and family meeting, specifically reviewing that her cognitive impairment is likely multifactorial and due in part to malnutrition- will reconsult dietitian. -Would benefit from OP supply clerk- will check with PCP (Anuj). 04/23 -appreciate supply clerk's recommendations. Continue to offer boost and additional snacks, although patient has been resistant/refusing. -Weight is down 3.5 ounces since admission (36.5 kg on admit, 36.4 kg today). Remains hypotensive and tachycardic. Continue to encourage improved p.o. intake. 04/24 - Weight has increased 3.5oz since yesterday. 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 She is on a 304 IOC, and was transitioned to a 304 inpatient commitment after a conversion hearing on 04/23/2020. Chief Complaint " My vision, not eating well". Review of Systems Sleep Information Total Hours of Sleep: 8.5 Sleep Comments: pt on q-15 minute checks Meal Information Percent Meal Consumed - Breakfast: 75 Percent Meal Consumed - Lunch: 70 Percent Meal Consumed - Dinner: 100 Nutrition Comment: pt. believes her vision is impaired after eating Subjective Subjective Patient was seen & assessed and interval progress reviewed with nursing. Staff reports she continues to eat very little, although is eating some of each meal, and weight is now increased from admission by 0.4 kg. Her BCM, Pat, met with her yesterday. She continues to retreat to bed, appears less tired in the afternoon. She showered and did laundry. On my assessment, she states that she is here because of her vision, and continues to report blurry vision which is intermittent, will typically last all day, last episode yesterday, but today denies any visual problems. She states it affects both near and far vision, and she continues to struggle with whether or not this is related to her p.o. intake. She states her appetite is good, but is still eating very little. She describes mood is "good," but then states it is "not very good, tired a lot," and describes it as better in the morning and better in the evening. She denies suicidal thoughts. She continues to report low energy and motivation. Sleep was disrupted last night, with frequent awakening, denies any triggers. Continues to report feeling "foggy" at times, but is unable to give a clear timeline of symptoms. Physical Exam Psychiatric Orientation: alert and cooperative Apperance: appropriately dressed Very thin, cachectic. Seated on the edge of her bed in no acute distress wearing scrub pants and a sweatshirt with snowman on it. Eye Contact: + fair eye contact Fleeting eye contact Motor Behavior: + psychomotor retardation Slowed, delayed, minimal Affect: + depressed affect; + mood not congruent with affect "Good." Thought Process: goal directed thought process and + concrete thought process Suicidal Thoughts: denies suicidal thoughts Homicidal Thoughts: denies homicidal thoughts Hallucinations: no auditory hallucinations Cognition: attention grossly intact and language grossly intact; + recent memory not intact (Gives inconsistent reports, unable to give timeline of symptoms) Estimated Intelligence: average estimated intelligence Insight: + impaired insight Judgement: + impaired judgement Vital Signs (Past 24 Hours) Last Vital Signs Temp 36.6 C 04/26/20 06:00 Pulse 80 04/26/20 06:37 Resp 16 04/26/20 06:00 BP 91/60 L 04/26/20 06:37 Pulse Ox 98 04/20/20 02:26 Results & Data ([facility]) Current Inpatient Medications Current Inpatient Medications: Current Inpatient Medications Acetaminophen (Acetaminophen 325 Mg Tab) 650 mg PO Q4H PRN PRN Reason: Headache or Minor Fever Stop: 05/19/20 23:14 Al Hydrox/Mg Hydrox/Simethicone (Aluminum/Magnesium Susp 30 Ml Udc) 30 ml PO Q4H PRN PRN Reason: GI Upset Stop: 05/19/20 23:14 Albuterol (Albuterol Hfa 8 Gm Inhaler) 2 puffs INH Q4H PRN PRN Reason: shortness of breath or wheezing Stop: 05/19/20 23:18 Bismuth Subsalicylate (Bismuth Subsalicylate Per Ml Omnicell Charge) 15 ml PO PRN PRN PRN Reason: Loose Stool Stop: 05/19/20 23:14 Haloperidol (Haloperidol 5 Mg Tab) 2.5 mg PO Q6H PRN PRN Reason: psychosis Stop: 05/21/20 09:43 Haloperidol (Haloperidol 1 Mg Tab) 2.5 mg PO QAM ABHIJEET Stop: 05/24/20 08:59 Last Admin: 04/25/20 09:49 Dose: 2.5 mg Documented by: Haloperidol (Haloperidol 5 Mg Tab) 5 mg PO HS ABHIJEET Stop: 05/23/20 21:59 Last Admin: 04/25/20 20:18 Dose: 5 mg Documented by: Hydroxyzine HCl (Hydroxyzine Hcl 25 Mg Tab) 50 mg PO HSZ PRN PRN Reason: Insomnia Stop: 05/19/20 23:14 Last Admin: 04/20/20 23:20 Dose: 50 mg Documented by: Hydroxyzine HCl (Hydroxyzine Hcl 25 Mg Tab) 25 mg PO Q4H PRN PRN Reason: Anxiety Stop: 05/19/20 23:14 Last Admin: 04/24/20 17:27 Dose: 25 mg Documented by: Magnesium Hydroxide (Magnesium Hydroxide Susp 30 Ml Udc) 30 ml PO DAILY PRN PRN Reason: Constipation Stop: 05/19/20 23:14 Nicotine Polacrilex (Nicotine Polacrilex 2 Mg Gum) 1 piece MT PRN PRN PRN Reason: Nicotine Withdrawal Stop: 05/20/20 10:24 Last Admin: 04/24/20 16:31 Dose: 1 piece Documented by: Sodium Chloride (Sodium Chloride 0.65% Na Soln 45 Ml ([facility])) 1 - 2 sprays NA PRN PRN PRN Reason: Nasal Dryness/Congestion Stop: 05/19/20 23:14 Venlafaxine HCl (Venlafaxine Hcl Xr 37.5 Mg Capxr) 112.5 mg PO QAM ABHIJEET Stop: 05/24/20 08:59 Last Admin: 04/25/20 09:49 Dose: 112.5 mg Documented by: Mental Health & Subst Abuse Tx Psychiatrist Name of Psychiatrist: Shelly Phelan Psychiatrist's Date of Appointment with Psychiatrist: 05/06/20 Time of Appointment with Psychiatrist: 1:45 p.m. Psychiatric Appointment Comment: [id number] [facility] Therapist Name of Therapist: ISAURO Foster Therapist's Date of Therapist Appointment: 04/29/20 Therapy Appointment Comment: [address], [place] [address] Private [facility] Name of Private Eye: MAXIMINO Solorzano Case Management Appointment Comment: [address] [facility], [place] Post Discharge Appointments Primary Care Physician Name Of Family Doctor: Anuj Griffin Primary Care Provider Appointment Comment: [address] [facility] Contact Information Discharge Discharge Address: [address] [place] [id number]
[2020-04-26] MEDS: VENLAFAXINE HCL XR 37.5 MG CAPXR PO SCH (09:37)
[2020-04-26] MEDS: haloperidoL 1 MG TAB PO SCH (09:39)
[2020-04-26] MEDS: haloperidoL 5 MG TAB PO SCH (21:13)
[2020-04-27] MEDS: VENLAFAXINE HCL XR 37.5 MG CAPXR PO SCH (08:33)
[2020-04-27] MEDS: haloperidoL 1 MG TAB PO SCH (08:34)
[2020-04-27] MEDS ORDERED: ARIPiprazole 5 MG TAB PO ONE (10:50)
--- NOTE | 2020-04-27 10:52 | Psychiatric Progress Note ---
Date of Service April 27, 2020 Impression / Recommendations Impression 40 y/o female who lives with her parents, who cares for her 2 minor children, is disabled/unemployed, readmitted 10 days after discharge for psychosis due to medication noncompliance with prominent somatic delusions and poor p.o. intake resulting in a 4 pound weight loss with BMI 14.3 and electrolyte abnormalities. Her recent admission was for a antihistamine OD and a suicide attempt. Her weight loss is related to somatic delusion that eating causes her to lose vision. She has not been taking her antipsychotic, and is refusing recommendations for a long-acting injectable antipsychotic. Although SI is pas sive currently, she had a suicide attempt 03/28 which prompted hospitalization, and her condition is resulting in her being unable to meet her nutritional needs resulting in electrolyte disturbance. She was discharged on a 304 IOC, and a conversion hearing was held 04/23. She has been started on Haldol, but is now requesting to switch to a different medication as she thinks it is making her feel tired. We have repeatedly discussed that she is likely fatigued in large part due to her poor p.o. intake and being severely underweight, but she is not open to this explanation. Weight has been fairly stable in the hospital but patient had ~5lb weight loss between her two admissions, she has not been compliant with nutritional supplementation recommended by the fiberglass laminator. She remains delusional and depressed, and we have referred her to the [facility] for long-term inpatient treatment. (1) Schizoaffective disorder, depressive type: 04/20 - The patient was admitted to the [facility]) on q15 min checks (behavioral with suicide precautions) for safety. The patient will participate in group, recreational, and milieu therapies and will be offered additional individual and family sessions as clinically appropriate. Will continue Effexor XR at 75 mg for now, should likely be increased to further retrial but for now plan to hold Invega as failing to cover her symptoms and complaints about vision started around the time it was started. Again, most likely delusion but will reassess in am and treating clinician at that time can coordinate with outpatient prescriber. 04/21 - Patient refusing Invega, Zyprexa, and Risperdal, but is agreeable to a trial of Haldol. Reviewed risks, benefits, side effects, and alternatives. Specifically reviewed risk of EPS, tardive dyskinesia, sedation, dystonic reaction. Start 2.5 mg twice daily, with 2.5 mg every 6 hours as needed for psychosis. If effective, can transition to Haldol Decanoate, given repeated noncompliance and related decompensation/rehospitalization. -File for 306 conversion hearing (was discharged on a 304 IOC on 04/09). Refer to [facility] for long-term inpatient treatment, as acute treatment has not been sufficient to control her symptoms. -Get collateral information from family (recently staying with sister while parents on vacation), and outpatient Jeanine AGUILAR. 04/22 -Family meeting held with mother. Discussed plans for 306 tomorrow, [facility] referral, med changes, recs for [facility], need to work on eating/nutrition. -AIMS 0. -Continue haloperidol and titrate to effective dose. -306 tomorrow, will refer to [facility]. 04/23 -306 conversion held, patient now on a 304 involuntary commitment. Refer to [facility] for long-term inpatient treatment, short-term acute treatment here has not been effective and she quickly decompensated and returned to the hospital. -Met with her BCMJeanine, from the [facility] to review treatment plan. -Increase Haldol to 2.5 mg every morning and 5 mg at bedtime. Transition to Haldol Decanoate once on an effective dose. -Continue venlafaxine and increase to 112.5 mg daily to target depressed mood. -Advised patient that if she is retreating to bed and napping during the day, with resulting poor sleep at night, we will lock her door during group times to encourage her to be out of her room and participating in treatment. 04/24 - Continue haloperidol 2.5mg qAM and 5mg qHS - patient reporting fatigue. We discussed that once patient is to effective dosing, we can adjust dosing to mini shruthi fatigue - but reviewed this is not an unusual side effect. - Continue venlafaxine at increased dosage - BCM to meet with patient tomorrow - Referral being faxed to [facility] - will call to confirm packet has been received 04/25 - Continue current medication regimen as above, titrating as tolerated - Pt continues to be isolative in the mornings, but improves in the evening - this was observed even prior to starting the haloperidol. Continue to monitor for daytime sedation, and can adjust medication accordingly - Referral faxed to [facility] to pursue state hospitalization 04/26 -Continue current dose of Haldol, and encourage patient to transition to Haldol Decanoate (would start with a 75 mg IM dose). 04/27 -Patient requested to decrease her Haldol dose, advised that this is not recomme nded as her current dose is not even sufficient to adequately treat her symptoms. She then requested to switch to a different medication, and reviewed other antipsychotics that have an M[facility]OUGH option, including aripiprazole, paliperidone, and risperidone. She opted for a trial of aripiprazole, noting she had been on it before but could not recall her response. Reviewed risks, benefits, and side effects, including akathisia. Discontinue Haldol and start aripiprazole 2.5 mg today, and 5 mg tomorrow morning. Advised her that the plan would be to transition to a long-acting injectable when she demonstrates tolerability and efficacy. (2) Eating disorder, unspecified: 04/20 - seems driven by delusion rather than traditional body dysmorphia. Will monitor PO intake and recheck lytes, renals in am. daily weights. Reconsult nutrition. If not engaging in regular meals may need to reinstitute I's and O's. Ideally patient would agree to inpatient residential ED treatment for refeeding but she has traditionally not been amenable and such units will not accept on a commitment. Dietary consult for nutritional supplement/calorie recs. 04/21 -hypokalemic on admission 04/19/2020 with potassium 3.3, improved to 3.5 on 04/21/2020. -Continue daily weights, dietary consult. -Not yet psychiatrically stable for discussion of inpatient eating disorder treatment. 04/22 -pt refused Boost during last hospitalization, but now agreeing after discussion and family meeting, specifically reviewing that her cognitive impairment is likely multifactorial and due in part to malnutrition- will reconsult dietitian. -Would benefit from OP fiberglass laminator- will check with PCP (Anuj). 04/23 -appreciate fiberglass laminator's recommendations. Continue to offer boost and additional snacks, although patient has been resistant/refusing. -Weight is down 3.5 ounces since admission (36.5 kg on admit, 36.4 kg today). Remains hypotensive and tachycardic. Continue to encourage improved p.o. intake. 04/24 - Weight has increased 3.5oz since yesterday. 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 She is on a 304 IOC, and was transitioned to a 304 inpatient commitment after a conversion hearing on 04/23/2020. Chief Complaint "I sienna wanna lower the dose of my Haldol or try something else". Review of Systems Sleep Information Total Hours of Sleep: 7.5 Sleep Comments: pt on q-15 minute checks Meal Information Percent Meal Consumed - Breakfast: 70 Percent Meal Consumed - Lunch: 50 Percent Meal Consumed - Dinner: 100 Nutrition Comment: pt. believes her vision is impaired after eating Subjective Subjective Patient was seen & assessed and interval progress reviewed with nursing. Staff reports she remains isolated in her room, often retreating to bed. She struggles to get up in the morning, and yesterday stayed in bed and refused breakfast. She attended community meeting and rated lower mood in the morning, but improved in the evening. She told staff that her eyesight is getting worse because she is eating. On my assessment, she states that she believes Haldol is causing her to feel more tired, and would like to try different medication. Rev iewed the options and she opted for a trial of Abilify. She thinks she has been on it before, but does not recall her response. Physical Exam Psychiatric Orientation: alert and cooperative Apperance: appropriately dressed Extremely thin. Gets into bed and covers her mouth with the blankets. Eye Contact: + poor eye contact Motor Behavior: + psychomotor retardation Slowed movements Minimal, delayed, slowed. Affect: + depressed affect and + constricted affect Thought Process: + concrete thought process Focused on perceived side effects of medications Suicidal Thoughts: denies suicidal thoughts Homicidal Thoughts: denies homicidal thoughts Hallucinations: no auditory hallucinations Cognition: recent memory grossly intact and language grossly intact; + attention not intact Insight: + poor insight Judgement: + poor judgement Vital Signs (Past 24 Hours) Last Vital Signs Temp 36.4 C L 04/27/20 06:43 Pulse 75 04/27/20 06:44 Resp 18 04/27/20 06:43 BP 95/62 L 04/27/20 06:44 Pulse Ox 98 04/20/20 02:26 Results & Data ([facility] [place]) Current Inpatient Medications Current Inpatient Medications: Current Inpatient Medications Acetaminophen (Acetaminophen 325 Mg Tab) 650 mg PO Q4H PRN PRN Reason: Headache or Minor Fever Stop: 05/19/20 23:14 Al Hydrox/Mg Hydrox/Simethicone (Aluminum/Magnesium Susp 30 Ml Udc) 30 ml PO Q4H PRN PRN Reason: GI Upset Stop: 05/19/20 23:14 Albuterol (Albuterol Hfa 8 Gm Inhaler) 2 puffs INH Q4H PRN PRN Reason: shortness of breath or wheezing Stop: 05/19/20 23:18 Bismuth Subsalicylate (Bismuth Subsalicylate Per Ml Omnicell Charge) 15 ml PO PRN PRN PRN Reason: Loose Stool Stop: 05/19/20 23:14 Haloperidol (Haloperidol 5 Mg Tab) 2.5 mg PO Q6H PRN PRN Reason: psychosis Stop: 05/21/20 09:43 Haloperidol (Haloperidol 1 Mg Tab) 2.5 mg PO QAM ABHIJEET Stop: 05/24/20 08:59 Last Admin: 04/27/20 08:34 Dose: 2.5 mg Documented by: Haloperidol (Haloperidol 5 Mg Tab) 5 mg PO HS ABHIJEET Stop: 05/23/20 21:59 Last Admin: 04/26/20 21:13 Dose: 5 mg Documented by: Hydroxyzine HCl (Hydroxyzine Hcl 25 Mg Tab) 50 mg PO HSZ PRN PRN Reason: Insomnia Stop: 05/19/20 23:14 Last Admin: 04/26/20 21:22 Dose: 50 mg Documented by: Hydroxyzine HCl (Hydroxyzine Hcl 25 Mg Tab) 25 mg PO Q4H PRN PRN Reason: Anxiety Stop: 05/19/20 23:14 Last Admin: 04/24/20 17:27 Dose: 25 mg Documented by: Magnesium Hydroxide (Magnesium Hydroxide Susp 30 Ml Udc) 30 ml PO DAILY PRN PRN Reason: Constipation Stop: 05/19/20 23:14 Nicotine Polacrilex (Nicotine Polacrilex 2 Mg Gum) 1 piece MT PRN PRN PRN Reason: Nicotine Withdrawal Stop: 05/20/20 10:24 Last Admin: 04/24/20 16:31 Dose: 1 piece Documented by: Sodium Chloride (Sodium Chloride 0.65% Na Soln 45 Ml ([place])) 1 - 2 sprays NA PRN PRN PRN Reason: Nasal Dryness/Congestion Stop: 05/19/20 23:14 Venlafaxine HCl (Venlafaxine Hcl Xr 37.5 Mg Capxr) 112.5 mg PO QAM ABHIJEET Stop: 05/24/20 08:59 Last Admin: 04/27/20 08:33 Dose: 112.5 mg Documented by: Mental Health & Subst Abuse Tx Psychiatrist Name of Psychiatrist: Shelly Phelan Psychiatrist's Date of Appointment with Psychiatrist: 05/06/20 Time of Appointment with Psychiatrist: 1:45 p.m. Psychiatric Appointment Comment: [id number] [facility] Therapist Name of Therapist: ISAURO Foster Therapist's Date of Therapist Appointment: 04/29/20 Therapy Appointment Comment: [phone], [place] [address] Clinical Informatics Specialist Name of Clinical Informatics Specialist: MAXIMINO Solorzano Case Management Appointment Comment: [id number] [facility], [place], [place] Post Discharge Appointments Primary Care Physician Name Of Family Doctor: Anuj Griffin Primary Care Provider Appointment Comment: [address] [facility] Contact Information Discharge Discharge Address: [address] [place] [address] [place] [address]
[2020-04-28] MEDS: ARIPiprazole 5 MG TAB PO SCH (08:23)
[2020-04-28] MEDS: VENLAFAXINE HCL XR 37.5 MG CAPXR PO SCH (08:24)
--- NOTE | 2020-04-28 10:16 | Psychiatric Progress Note ---
Date of Service April 28, 2020 Impression / Recommendations Impression 40 y/o female who lives with her parents, who cares for her 2 minor children, is disabled/unemployed, readmitted 10 days after discharge for psychosis due to medication noncompliance with prominent somatic delusions and poor p.o. intake resulting in a 4 pound weight loss with BMI 14.3 and electrolyte abnormalities. Her recent admission was for a antihistamine OD and a suicide attempt. Her weight loss is related to somatic delusion that eating causes her to lose vision. She has not been taking her antipsychotic, and is refusing recommendations for a long-acting injectable antipsychotic. Although SI is pas sive currently, she had a suicide attempt 03/28 which prompted hospitalization, and her condition is resulting in her being unable to meet her nutritional needs resulting in electrolyte disturbance. She was discharged on a 304 IOC, and a conversion hearing was held 04/23. She has been started on Haldol, but is now requesting to switch to a different medication as she thinks it is making her feel tired. We have repeatedly discussed that she is likely fatigued in large part due to her poor p.o. intake and being severely underweight, but she is not open to this explanation. Weight has been fairly stable in the hospital but patient had ~5lb weight loss between her two admissions, she has not been compliant with nutritional supplementation recommended by the civil engineering design draftsperson. She remains delusional and depressed, and we have referred her to the [facility] for long-term inpatient treatment. (1) Schizoaffective disorder, depressive type: 04/20 - The patient was admitted to the [facility] ([facility] unit) on q15 min checks (behavioral with suicide precautions) for safety. The patient will participate in group, recreational, and milieu therapies and will be offered additional individual and family sessions as clinically appropriate. Will continue Effexor XR at 75 mg for now, should likely be increased to further retrial but for now plan to hold Invega as failing to cover her symptoms and complaints about vision started around the time it was started. Again, most likely delusion but will reassess in am and treating clinician at that time can coordinate with outpatient prescriber. 04/21 - Patient refusing Invega, Zyprexa, and Risperdal, but is agreeable to a trial of Haldol. Reviewed risks, benefits, side effects, and alternatives. Specifically reviewed risk of EPS, tardive dyskinesia, sedation, dystonic reaction. Start 2.5 mg twice daily, with 2.5 mg every 6 hours as needed for psychosis. If effective, can transition to Haldol Decanoate, given repeated noncompliance and related decompensation/rehospitalization. -File for 306 conversion hearing (was discharged on a 304 IOC on 04/09). Refer to [facility] for long-term inpatient treatment, as acute treatment has not been sufficient to control her symptoms. -Get collateral information from family (recently staying with sister while parents on vacation), and outpatient Jeanine AGUILAR. 04/22 -Family meeting held with mother. Discussed plans for 306 tomorrow, [facility] referral, med changes, recs for MCCULLOUGH, need to work on eating/nutrition. -AIMS 0. -Continue haloperidol and titrate to effective dose. -306 tomorrow, will refer to [facility]. 04/23 -306 conversion held, patient now on a 304 involuntary commitment. Refer to [facility] for long-term inpatient treatment, short-term acute treatment here has not been effective and she quickly decompensated and returned to the hospital. -Met with her BCMJeanine, from the [facility] to review treatment plan. -Increase Haldol to 2.5 mg every morning and 5 mg at bedtime. Transition to Haldol Decanoate once on an effective dose. -Continue venlafaxine and increase to 112.5 mg daily to target depressed mood. -Advised patient that if she is retreating to bed and napping during the day, with resulting poor sleep at night, we will lock her door during group times to encourage her to be out of her room and participating in treatment. 04/24 - Continue haloperidol 2.5mg qAM and 5mg qHS - patient reporting fatigue. We discussed that once patient is to effective dosing, we can adjust dosing to mini shruthi fatigue - but reviewed this is not an unusual side effect. - Continue venlafaxine at increased dosage - BCM to meet with patient tomorrow - Referral being faxed to [facility] - will call to confirm packet has been received 04/25 - Continue current medication regimen as above, titrating as tolerated - Pt continues to be isolative in the mornings, but improves in the evening - this was observed even prior to starting the haloperidol. Continue to monitor for daytime sedation, and can adjust medication accordingly - Referral faxed to [facility] to pursue state hospitalization 04/26 -Continue current dose of Haldol, and encourage patient to transition to Haldol Decanoate (would start with a 75 mg IM dose). 04/27 -Patient requested to decrease her Haldol dose, advised that this is not recomme nded as her current dose is not even sufficient to adequately treat her symptoms. She then requested to switch to a different medication, and reviewed other antipsychotics that have an MCCULLOUGH option, including aripiprazole, paliperidone, and risperidone. She opted for a trial of aripiprazole, noting she had been on it before but could not recall her response. Reviewed risks, benefits, and side effects, including akathisia. Discontinue Haldol and start aripiprazole 2.5 mg today, and 5 mg tomorrow morning. Advised her that the plan would be to transition to a long-acting injectable when she demonstrates tolerability and efficacy. 04/28 - Pt received 5mg of aripiprazole this morning - denied present side effects, but continues to verbalize that injectable medications contribute to patient f eeling "spaced out" - continued to provide education on this and encourage ongoing consideration of an MCCULLOUGH. - Continue titration of aripiprazole as tolerated/indicated - Continue current dosage of venlafaxine 112.5mg - Awaiting response from [facility] regarding faxed referral (2) Eating disorder, unspecified: 04/20 - seems driven by delusion rather than traditional body dysmorphia. Will monitor PO intake and recheck lytes, renals in am. daily weights. Reconsult nutrition. If not engaging in regular meals may need to reinstitute I's and O's. Ideally patient would agree to inpatient residential ED treatment for refeeding but she has traditionally not been amenable and such units will not accept on a commitment. Dietary consult for nutritional supplement/calorie recs. 04/21 -hypokalemic on admission 04/19/2020 with potassium 3.3, improved to 3.5 on 04/21/2020. -Continue daily weights, dietary consult. -Not yet psychiatrically stable for discussion of inpatient eating disorder treatment. 04/22 -pt refused Boost during last hospitalization, but now agreeing after discussion and family meeting, specifically reviewing that her cognitive impairment is likely multifactorial and due in part to malnutrition- will reconsult dietitian. -Would benefit from OP civil engineering design draftsperson- will check with PCP (Anuj). 04/23 -appreciate civil engineering design draftsperson's recommendations. Continue to offer boost and additional snacks, although patient has been resistant/refusing. -Weight is down 3.5 ounces since admission (36.5 kg on admit, 36.4 kg today). Remains hypotensive and tachycardic. Continue to encourage improved p.o. intake. 04/24 - Weight has increased 3.5oz since yesterday. - Continue to encourage interventions outlined above, monitoring for use of bathroom after meals - thus far there has been no indication of purging 04/28 - Pt continues to gain small amounts of weight daily (+0.2kg, or 7oz, gain since yesterday). 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 She is on a 304 IOC, and was transitioned to a 304 inpatient commitment after a conversion hearing on 04/23/2020. Chief Complaint "I'm alright." Review of Systems Notes Constitutional: denied HEENT: does not verbalize any vision concerns today Cardiovascular: denied Respiratory: denied Gastrointestinal: denied Neurological: denied Psychiatric: denies symptoms other than stated above Total of at least 10 systems reviewed, pertinent positives as above and in HPI. Sleep Information Total Hours of Sleep: 7.5 Sleep Comments: pt on q-15 minute checks Meal Information Percent Meal Consumed - Breakfast: 100 Percent Meal Consumed - Lunch: 50 Percent Meal Consumed - Dinner: 70 Nutrition Comment: pt. believes her vision is impaired after eating Subjective Subjective Patient was seen & assessed and interval progress reviewed with treatment team. Staff report the patient has not displayed much change in behavior over the course of the weekend. Pt continues to appears slowed, but has been attending group programming with encouragement. Last evening, she rated her mood a 6/10. We are awaiting new regarding referral sent to [facility]. Pt reportedly gained 0.2kg since yesterday. Pt was seen today to assess progress since admission. Pt states she is "alright." She provides vague answers to questions, admitting her weekend went well and reporting awareness that her medications are being adjusted. Pt denies present concerns related to starting aripiprazole, but continues to verbalize hesitation with eventual conversion to Abilify Maintena. Pt states "every other injectable I've been on made me feel spaced out." Pt was reminded that her outpatient providers have heard this concern, even during times patient states she is not taking medication consistently. Pt states "that's not true, it's only medications." This provider redirected conversation to benefits of Lianne with regard to ensuring compliance and reminded patient that she has not previously taken this medication in an MCCULLOUGH form, so response may be different. Pt reports her mood is "ok", and denies SI today. Pt admits to goals to "shower later and get to some groups." As our conversation ended, patient was observed to get out of bed and head to the group room for community meeting. Physical Exam Psychiatric Orientation: alert and + guarded (superficially cooperative, limited engagement in conversation) Apperance: appropriately dressed and appropriately groomed Extremely thin Eye Contact: + fair eye contact Motor Behavior: no abnormal motor movements and + psychomotor retardation Speech: normal rate/rhythm/volume of speech (brief responses to questions, generally nonspontaneous) Affect: + depressed affect and + flat affect; + mood not congruent with affect Mood: no depressed mood ("Ok") Thought Process: goal directed thought process and + concrete thought process Thought Content: + preoccupation (with somatic concerns) and + delusions; no hopelessness Suicidal Thoughts: denies suicidal thoughts Hallucinations: no auditory hallucinations and no visual hallucinations Cognition: attention grossly intact and language grossly intact Insight: + impaired insight Judgement: + impaired judgement Vital Signs (Past 24 Hours) Last Vital Signs Temp 36.2 C L 04/28/20 06:35 Pulse 85 04/28/20 06:35 Resp 18 04/28/20 06:35 BP 92/60 L 04/28/20 06:35 Pulse Ox 98 04/20/20 02:26 Results & Data ([facility]) Current Inpatient Medications Current Inpatient Medications: Current Inpatient Medications Acetaminophen (Acetaminophen 325 Mg Tab) 650 mg PO Q4H PRN PRN Reason: Headache or Minor Fever Stop: 05/19/20 23:14 Al Hydrox/Mg Hydrox/Simethicone (Aluminum/Magnesium Susp 30 Ml Udc) 30 ml PO Q4H PRN PRN Reason: GI Upset Stop: 05/19/20 23:14 Albuterol (Albuterol Hfa 8 Gm Inhaler) 2 puffs INH Q4H PRN PRN Reason: shortness of breath or wheezing Stop: 05/19/20 23:18 Aripiprazole (Aripiprazole 5 Mg Tab) 5 mg PO QAM ABHIJEET Stop: 05/28/20 08:59 Last Admin: 04/28/20 08:23 Dose: 5 mg Documented by: Bismuth Subsalicylate (Bismuth Subsalicylate Per Ml Omnicell Charge) 15 ml PO PRN PRN PRN Reason: Loose Stool Stop: 05/19/20 23:14 Haloperidol (Haloperidol 5 Mg Tab) 2.5 mg PO Q6H PRN PRN Reason: psychosis Stop: 05/21/20 09:43 Hydroxyzine HCl (Hydroxyzine Hcl 25 Mg Tab) 50 mg PO HSZ PRN PRN Reason: Insomnia Stop: 05/19/20 23:14 Last Admin: 04/27/20 21:44 Dose: 50 mg Documented by: Hydroxyzine HCl (Hydroxyzine Hcl 25 Mg Tab) 25 mg PO Q4H PRN PRN Reason: Anxiety Stop: 05/19/20 23:14 Last Admin: 04/24/20 17:27 Dose: 25 mg Documented by: Magnesium Hydroxide (Magnesium Hydroxide Susp 30 Ml Udc) 30 ml PO DAILY PRN PRN Reason: Constipation Stop: 05/19/20 23:14 Nicotine Polacrilex (Nicotine Polacrilex 2 Mg Gum) 1 piece MT PRN PRN PRN Reason: Nicotine Withdrawal Stop: 05/20/20 10:24 Last Admin: 04/24/20 16:31 Dose: 1 piece Documented by: Sodium Chloride (Sodium Chloride 0.65% Na Soln 45 Ml ([place])) 1 - 2 sprays NA PRN PRN PRN Reason: Nasal Dryness/Congestion Stop: 05/19/20 23:14 Venlafaxine HCl (Venlafaxine Hcl Xr 37.5 Mg Capxr) 112.5 mg PO QAM ABHIJEET Stop: 05/24/20 08:59 Last Admin: 04/28/20 08:24 Dose: 112.5 mg Documented by: Mental Health & Subst Abuse Tx Psychiatrist Name of Psychiatrist: Shelly Phelan Psychiatrist's Date of Appointment with Psychiatrist: 05/06/20 Time of Appointment with Psychiatrist: 1:45 p.m. Psychiatric Appointment Comment: [id number] [facility] Therapist Name of Therapist: ISAURO Foster Therapist's Date of Therapist Appointment: 04/29/20 Therapy Appointment Comment: [id number], [place] [address] Air Dispatcher Name of Air Dispatcher: MAXIMINO Solorzano Case Management Appointment Comment: [address] [facility], [place] Post Discharge Appointments Primary Care Physician Name Of Family Doctor: Anuj Griffin Primary Care Provider Appointment Comment: [address] [facility] Contact Information Discharge Discharge Address: [address] [place] [id number]
[2020-04-28] MEDS: NICOTINE POLACRILEX 2 MG GUM MT PRN ×2 (12:51→16:05)
[2020-04-29] MEDS: ARIPiprazole 5 MG TAB PO SCH (09:46)
[2020-04-29] MEDS: VENLAFAXINE HCL XR 37.5 MG CAPXR PO SCH (09:46)
--- NOTE | 2020-04-29 11:01 | Psychiatric Progress Note ---
Date of Service April 29, 2020 Impression / Recommendations Impression 40 y/o female who lives with her parents, who cares for her 2 minor children, is disabled/unemployed, readmitted 10 days after discharge for psychosis due to medication noncompliance with prominent somatic delusions and poor p.o. intake resulting in a 4 pound weight loss with BMI 14.3 and electrolyte abnormalities. Her recent admission was for a antihistamine OD and a suicide attempt. Her weight loss is related to somatic delusion that eating causes her to lose vision. She has not been taking her antipsychotic, and is refusing recommendations for a long-acting injectable antipsychotic. Although SI is p assive currently, she had a suicide attempt 03/28 which prompted hospitalization, and her condition is resulting in her being unable to meet her nutritional needs resulting in electrolyte disturbance. She was discharged on a 304 IOC, and a conversion hearing was held 04/23. She has been started on Haldol, but is now requesting to switch to a different medication as she thinks it is making her feel tired. We have repeatedly discussed that she is likely fatigued in large part due to her poor p.o. intake and being severely underweight, but she is not open to this explanation. Weight has been fairly stable in the hospital but patient had ~5lb weight loss between her two admissions, she has not been compliant with nutritional supplementation recommended by the document management consultant. She remains delusional and depressed, and we have referred her to the [facility] for long-term inpatient treatment. (1) Schizoaffective disorder, depressive type: 04/20 - The patient was admitted to the [facility] on q15 min checks (behavioral with suicide precautions) for safety. The patient will participate in group, recreational, and milieu therapies and will be offered additional individual and family sessions as clinically appropriate. Will continue Effexor XR at 75 mg for now, should likely be increased to further retrial but for now plan to hold Invega as failing to cover her symptoms and complaints about vision started around the time it was started. Again, most likely delusion but will reassess in am and treating clinician at that time can coordinate with outpatient prescriber. 04/21 - Patient refusing Invega, Zyprexa, and Risperdal, but is agreeable to a trial of Haldol. Reviewed risks, benefits, side effects, and alternatives. Specifically reviewed risk of EPS, tardive dyskinesia, sedation, dystonic reaction. Start 2.5 mg twice daily, with 2.5 mg every 6 hours as needed for psychosis. If effective, can transition to Haldol Decanoate, given repeated noncompliance and related decompensation/rehospitalization. -File for 306 conversion hearing (was discharged on a 304 IOC on 04/09). Refer to [facility] for long-term inpatient treatment, as acute treatment has not been sufficient to control her symptoms. -Get collateral information from family (recently staying with sister while parents on vacation), and outpatient Jeanine AGUILAR. 04/22 -Family meeting held with mother. Discussed plans for 306 tomorrow, [facility] referral, med changes, recs for MCCULLOUGH, need to work on eating/nutrition. -AIMS 0. -Continue haloperidol and titrate to effective dose. -306 tomorrow, will refer to [facility]. 04/23 -306 conversion held, patient now on a 304 involuntary commitment. Refer to [facility] for long-term inpatient treatment, short-term acute treatment here has not been effective and she quickly decompensated and returned to the hospital. -Met with her BCMJeanine, from the [facility] to review treatment plan. -Increase Haldol to 2.5 mg every morning and 5 mg at bedtime. Transition to Haldol Decanoate once on an effective dose. -Continue venlafaxine and increase to 112.5 mg daily to target depressed mood. -Advised patient that if she is retreating to bed and napping during the day, with resulting poor sleep at night, we will lock her door during group times to encourage her to be out of her room and participating in treatment. 04/24 - Continue haloperidol 2.5mg qAM and 5mg qHS - patient reporting fatigue. We discussed that once patient is to effective dosing, we can adjust dosing to mi nimize fatigue - but reviewed this is not an unusual side effect. - Continue venlafaxine at increased dosage - BCM to meet with patient tomorrow - Referral being faxed to [facility] - will call to confirm packet has been received 04/25 - Continue current medication regimen as above, titrating as tolerated - Pt continues to be isolative in the mornings, but improves in the evening - this was observed even prior to starting the haloperidol. Continue to monitor for daytime sedation, and can adjust medication accordingly - Referral faxed to [facility] to pursue state hospitalization 04/26 -Continue current dose of Haldol, and encourage patient to transition to Haldol Decanoate (would start with a 75 mg IM dose). 04/27 -Patient requested to decrease her Haldol dose, advised that this is not recom mended as her current dose is not even sufficient to adequately treat her symptoms. She then requested to switch to a different medication, and reviewed other antipsychotics that have an MCCULLOUGH option, including aripiprazole, paliperidone, and risperidone. She opted for a trial of aripiprazole, noting she had been on it before but could not recall her response. Reviewed risks, benefits, and side effects, including akathisia. Discontinue Haldol and start aripiprazole 2.5 mg today, and 5 mg tomorrow morning. Advised her that the plan would be to transition to a long-acting injectable when she demonstrates tolerability and efficacy. 04/28 - Pt received 5mg of aripiprazole this morning - denied present side effects, but continues to verbalize that injectable medications contribute to patient feeling "spaced out" - continued to provide education on this and encourage ongoing consideration of an MCCULLOUGH. - Continue titration of aripiprazole as tolerated/indicated - Continue current dosage of venlafaxine 112.5mg - Awaiting response from [facility] regarding faxed referral 04/29 - Pt continues to be hesitant to adjust medications, but is agreeable willing for gradual increase of aripiprazole. Due to patient's preoccupation with various somatic complaints, will increase to 7.5mg tomorrow and then 10mg for 05/01. Pt made aware of plan to continue titration as needed to target ongoing psychiatric symptoms. Pt continues to be reluctant to discussing the option for Abilify Maintena - Continue venlafaxine 112.5mg - Pt did admit to suicidal thoughts last evening, but was unable to identify if they were related to any specific trigger - Awaiting response from [facility] regarding referral (2) Eating disorder, unspecified: 04/20 - seems driven by delusion rather than traditional body dysmorphia. Will monitor PO intake and recheck lytes, renals in am. daily weights. Reconsult nutrition. If not engaging in regular meals may need to reinstitute I's and O's. Ideally patient would agree to inpatient residential ED treatment for refeeding but she has traditionally not been amenable and such units will not accept on a commitment. Dietary consult for nutritional supplement/calorie recs. 04/21 -hypokalemic on admission 04/19/2020 with potassium 3.3, improved to 3.5 on 04/21/2020. -Continue daily weights, dietary consult. -Not yet psychiatrically stable for discussion of inpatient eating disorder treatment. 04/22 -pt refused Boost during last hospitalization, but now agreeing after discussion and family meeting, specifically reviewing that her cognitive impairment is likely multifactorial and due in part to malnutrition- will reconsult dietitian. -Would benefit from OP document management consultant- will check with PCP (Anuj). 04/23 -appreciate document management consultant's recommendations. Continue to offer boost and additional snacks, although patient has been resistant/refusing. -Weight is down 3.5 ounces since admission (36.5 kg on admit, 36.4 kg today). Remains hypotensive and tachycardic. Continue to encourage improved p.o. intake. 04/24 - Weight has increased 3.5oz since yesterday. - Continue to encourage interventions outlined above, monitoring for use of bathroom after meals - thus far there has been no indication of purging 04/28 - Pt continues to gain small amounts of weight daily (+0.2kg, or 7oz, gain since yesterday). 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 She is on a 304 IOC, and was transitioned to a 304 inpatient commitment after a conversion hearing on 04/23/2020. Chief Complaint "Um, ok." Review of Systems Notes Constitutional: reports improvement in level of morning fatigue Cardiovascular: denied Respiratory: denied Gastrointestinal: denied Neurological: denied Psychiatric: denies symptoms other than stated above Total of at least 10 systems reviewed, pertinent positives as above and in HPI. Sleep Information Total Hours of Sleep: 8.25 Sleep Comments: pt on q-15 minute checks Meal Information Percent Meal Consumed - Breakfast: 0 Percent Meal Consumed - Lunch: 85 Percent Meal Consumed - Dinner: 80 Nutrition Comment: pt. believes her vision is impaired after eating Subjective Subjective Patient was seen & assessed and interval progress reviewed with nursing and social work. Staff report the patient is more present in the milieu in the evenings, but generally has limited interaction with peers. Pt rated her mood a 5/10 and "thoughtful" last evening. Pt was seen today to assess progress since admission. Pt states she is "ok" today and admits that she continues to be tired. Pt has been interviewed in the same position for the last 3 days, as she is usually in bed sleeping when not in a formal group during the mornings. Pt admits that she is generally more active at night, even at home. She states she has been less tired during the day since haloperidol was discontinued. We continues to discuss behavioral activation and patient was encouraged to try to stay out of her room in between morning groups. Pt rated her mood a 5 and "calm" during our conversation. When asked about SI, the patient has a very delayed response, and then says "no." Pt then states "well, yeah, I guess I did." Pt admits to SI last evening, but was not forthcoming with follow-up questions by this provider. She did not directly answer any questions about specific triggers or emotions and diverted the conversation to begin talking about back pain. Pt admits to feeling safe on the unit. She continues to be reluctant to agree to an MCCULLOUGH, but did agree to continued titration of oral aripiprazole. Pt denied other needs or concerns at this time. Physical Exam Psychiatric Orientation: alert and + guarded (only superficially cooperative, limited engagement with conversation) Apperance: appropriately dressed and + disheveled (laying in bed, appearing unkempt) Eye Contact: + fair eye contact (often staring off in distance) Motor Behavior: no abnormal motor movements (observed while laying in bed) Speech: normal rate/rhythm/volume of speech (very brief responses to questions) Affect: + flat affect and + constricted affect; + mood not congruent with affect Mood: no depressed mood ("5" and "calm") Thought Process: goal directed thought process and + concrete thought process Thought Content: + preoccupation (with various somatic complaints), + cognitive distortions, + delusions and + hopelessness Suicidal Thoughts: + reports suicidal thoughts (reports SI last evening) Homicidal Thoughts: denies homicidal thoughts Hallucinations: no auditory hallucinations and no visual hallucinations Cognition: attention grossly intact and language grossly intact Insight: + impaired insight Judgement: + impaired judgement Vital Signs (Past 24 Hours) Last Vital Signs Temp 36.2 C L 04/29/20 06:49 Pulse 80 04/29/20 06:51 Resp 16 04/29/20 06:49 BP 87/55 L 04/29/20 06:51 Pulse Ox 98 04/20/20 02:26 Results & Data ([facility]) Current Inpatient Medications Current Inpatient Medications: Current Inpatient Medications Acetaminophen (Acetaminophen 325 Mg Tab) 650 mg PO Q4H PRN PRN Reason: Headache or Minor Fever Stop: 05/19/20 23:14 Al Hydrox/Mg Hydrox/Simethicone (Aluminum/Magnesium Susp 30 Ml Udc) 30 ml PO Q4H PRN PRN Reason: GI Upset Stop: 05/19/20 23:14 Albuterol (Albuterol Hfa 8 Gm Inhaler) 2 puffs INH Q4H PRN PRN Reason: shortness of breath or wheezing Stop: 05/19/20 23:18 Aripiprazole (Aripiprazole 5 Mg Tab) 5 mg PO QAM ABHIJEET Stop: 05/28/20 08:59 Last Admin: 04/29/20 09:46 Dose: 5 mg Documented by: Bismuth Subsalicylate (Bismuth Subsalicylate Per Ml Omnicell Charge) 15 ml PO PRN PRN PRN Reason: Loose Stool Stop: 05/19/20 23:14 Haloperidol (Haloperidol 5 Mg Tab) 2.5 mg PO Q6H PRN PRN Reason: psychosis Stop: 05/21/20 09:43 Hydroxyzine HCl (Hydroxyzine Hcl 25 Mg Tab) 50 mg PO HSZ PRN PRN Reason: Insomnia Stop: 05/19/20 23:14 Last Admin: 04/28/20 20:40 Dose: 50 mg Documented by: Hydroxyzine HCl (Hydroxyzine Hcl 25 Mg Tab) 25 mg PO Q4H PRN PRN Reason: Anxiety Stop: 05/19/20 23:14 Last Admin: 04/24/20 17:27 Dose: 25 mg Documented by: Magnesium Hydroxide (Magnesium Hydroxide Susp 30 Ml Udc) 30 ml PO DAILY PRN PRN Reason: Constipation Stop: 05/19/20 23:14 Nicotine Polacrilex (Nicotine Polacrilex 2 Mg Gum) 1 piece MT PRN PRN PRN Reason: Nicotine Withdrawal Stop: 05/20/20 10:24 Last Admin: 04/28/20 16:05 Dose: 1 piece Documented by: Sodium Chloride (Sodium Chloride 0.65% Na Soln 45 Ml ([place])) 1 - 2 sprays NA PRN PRN PRN Reason: Nasal Dryness/Congestion Stop: 05/19/20 23:14 Venlafaxine HCl (Venlafaxine Hcl Xr 37.5 Mg Capxr) 112.5 mg PO QAM ABHIJEET Stop: 05/24/20 08:59 Last Admin: 04/29/20 09:46 Dose: 112.5 mg Documented by: [facility] Psychiatrist Name of Psychiatrist: Shelly Phelan Psychiatrist's Date of Appointment with Psychiatrist: 05/06/20 Time of Appointment with Psychiatrist: 1:45 p.m. Psychiatric Appointment Comment: [phone] [facility] Therapist Name of Therapist: ISAURO Foster Therapist's Date of Therapist Appointment: 04/29/20 Therapy Appointment Comment: [phone], [place] [address] Senior Outside Sales Representative Name of Senior Outside Sales Representative: MAXIMINO Solorzano Case Management Appointment Comment: [phone] [facility], [place], [place] Post Discharge Appointments Primary Care Physician Name Of Family Doctor: Anuj Griffin Primary Care Provider Appointment Comment: [phone] [facility] Contact Information Discharge Discharge Address: [address] [place] [address] [place] [address]
[2020-04-29] MEDS: NICOTINE POLACRILEX 2 MG GUM MT PRN (17:41)
[2020-04-30] MEDS: VENLAFAXINE HCL XR 37.5 MG CAPXR PO SCH (08:44)
[2020-04-30] MEDS ORDERED: ARIPiprazole 5 MG TAB PO ONE (09:00)
--- NOTE | 2020-04-30 10:38 | Psychiatric Progress Note ---
Date of Service April 30, 2020 Impression / Recommendations Impression 40 y/o female who lives with her parents, who cares for her 2 minor children, is disabled/unemployed, readmitted 10 days after discharge for psychosis due to medication noncompliance with prominent somatic delusions and poor p.o. intake resulting in a 4 pound weight loss with BMI 14.3 and electrolyte abnormalities. Her recent admission was for a antihistamine OD and a suicide attempt. Her weight loss is related to somatic delusion that eating causes her to lose vision. She has not been taking her antipsychotic, and is refusing recommendations for a long-acting injectable antipsychotic. Although SI is p assive currently, she had a suicide attempt 03/28 which prompted hospitalization, and her condition is resulting in her being unable to meet her nutritional needs resulting in electrolyte disturbance. She was discharged on a 304 IOC, and a conversion hearing was held 04/23. She has been started on Haldol, but is now requesting to switch to a different medication as she thinks it is making her feel tired. We have repeatedly discussed that she is likely fatigued in large part due to her poor p.o. intake and being severely underweight, but she is not open to this explanation. Weight has been fairly stable in the hospital but patient had ~5lb weight loss between her two admissions, she has not been compliant with nutritional supplementation recommended by the county assessor. She remains delusional and depressed, and we have referred [facility] treatment. (1) Schizoaffective disorder, depressive type: 04/20 - The patient was admitted to the [facility] ([facility] unit) on q15 min checks (behavioral with suicide precautions) for safety. The patient will participate in group, recreational, and milieu therapies and will be offered additional individual and family sessions as clinically appropriate. Will continue Effexor XR at 75 mg for now, should likely be increased to further retrial but for now plan to hold Invega as failing to cover her symptoms and complaints about vision started around the time it was started. Again, most likely delusion but will reassess in am and treating clinician at that time can coordinate with outpatient prescriber. 04/21 - Patient refusing Invega, Zyprexa, and Risperdal, but is agreeable to a trial of Haldol. Reviewed risks, benefits, side effects, and alternatives. Specifically reviewed risk of EPS, tardive dyskinesia, sedation, dystonic reaction. Start 2.5 mg twice daily, with 2.5 mg every 6 hours as needed for psychosis. If effective, can transition to Haldol Decanoate, given repeated noncompliance and related decompensation/rehospitalization. -File for 306 conversion hearing (was discharged on a 304 IOC on 04/09). Refer to [facility] for long-term inpatient treatment, as acute treatment has not been sufficient to control her symptoms. -Get collateral information from family (recently staying with sister while parents on vacation), and outpatient Jeanine AGUILAR. 04/22 -Family meeting held with mother. Discussed plans for 306 tomorrow, [facility], med changes, recs for M[facility]OUGH, need to work on eating/nutrition. -AIMS 0. -Continue haloperidol and titrate to effective dose. -306 tomorrow, [facility] 04/23 -306 conversion held, patient now on a 304 involuntary commitment. Refer to [facility] for long-term inpatient treatment, short-term acute treatment here has not been effective and she quickly decompensated and returned to the hospital. -Met with her BCMJeanine, from the [facility] to review treatment plan. -Increase Haldol to 2.5 mg every morning and 5 mg at bedtime. Transition to Haldol Decanoate once on an effective dose. -Continue venlafaxine and increase to 112.5 mg daily to target depressed mood. -Advised patient that if she is retreating to bed and napping during the day, with resulting poor sleep at night, we will lock her door during group times to encourage her to be out of her room and participating in treatment. 04/24 - Continue haloperidol 2.5mg qAM and 5mg qHS - patient reporting fatigue. We discussed that once patient is to effective dosing, we can adjust dosing to mi nimize fatigue - but reviewed this is not an unusual side effect. - Continue venlafaxine at increased dosage - BCM to meet with patient tomorrow - Referral being faxed to [facility] - will call to confirm packet has been received 04/25 - Continue current medication regimen as above, titrating as tolerated - Pt continues to be isolative in the mornings, but improves in the evening - this was observed even prior to starting the haloperidol. Continue to monitor for daytime sedation, and can adjust medication accordingly - Referral faxed to [facility] to pursue state hospitalization 04/26 -Continue current dose of Haldol, and encourage patient to transition to Haldol Decanoate (would start with a 75 mg IM dose). 04/27 -Patient requested to decrease her Haldol dose, advised that this is not recom mended as her current dose is not even sufficient to adequately treat her symptoms. She then requested to switch to a different medication, and reviewed other antipsychotics that have an MCCULLOUGH option, including aripiprazole, paliperidone, and risperidone. She opted for a trial of aripiprazole, noting she had been on it before but could not recall her response. Reviewed risks, benefits, and side effects, including akathisia. Discontinue Haldol and start aripiprazole 2.5 mg today, and 5 mg tomorrow morning. Advised her that the plan would be to transition to a long-acting injectable when she demonstrates tolerability and efficacy. 04/28 - Pt received 5mg of aripiprazole this morning - denied present side effects, but continues to verbalize that injectable medications contribute to patient feeling "spaced out" - continued to provide education on this and encourage ongoing consideration of an MCCULLOUGH. - Continue titration of aripiprazole as tolerated/indicated - Continue current dosage of venlafaxine 112.5mg - Awaiting response from [facility] regarding faxed referral 04/29 - Pt continues to be hesitant to adjust medications, but is agreeable willing for gradual increase of aripiprazole. Due to patient's preoccupation with various somatic complaints, will increase to 7.5mg tomorrow and then 10mg for 05/01. Pt made aware of plan to continue titration as needed to target ongoing psychiatric symptoms. Pt continues to be reluctant to discussing the option for Abilify Maintena - Continue venlafaxine 112.5mg - Pt did admit to suicidal thoughts last evening, but was unable to identify if they were related to any specific trigger - Awaiting response from [facility] regarding referral 04/30 - Aripiprazole was titrated to 7.5mg for this morning, increasing to 10mg tomorrow morning - orders entered - Continue venlafaxine 112.5mg - [facility] referral in place (2) Eating disorder, unspecified: 04/20 - seems driven by delusion rather than traditional body dysmorphia. Will monitor PO intake and recheck lytes, renals in am. daily weights. Reconsult nutrition. If not engaging in regular meals may need to reinstitute I's and O's. Ideally patient would agree to inpatient residential ED treatment for refeeding but she has traditionally not been amenable and such units will not accept on a commitment. Dietary consult for nutritional supplement/calorie recs. 04/21 -hypokalemic on admission 04/19/2020 with potassium 3.3, improved to 3.5 on 04/21/2020. -Continue daily weights, dietary consult. -Not yet psychiatrically stable for discussion of inpatient eating disorder treatment. 04/22 -pt refused Boost during last hospitalization, but now agreeing after discussion and family meeting, specifically reviewing that her cognitive impairment is likely multifactorial and due in part to malnutrition- will reconsult dietitian. -Would benefit from OP county assessor- will check with PCP (Anuj). 04/23 -appreciate county assessor's recommendations. Continue to offer boost and additional snacks, although patient has been resistant/refusing. -Weight is down 3.5 ounces since admission (36.5 kg on admit, 36.4 kg today). Remains hypotensive and tachycardic. Continue to encourage improved p.o. intake. 04/24 - Weight has increased 3.5oz since yesterday. - Continue to encourage interventions outlined above, monitoring for use of bathroom after meals - thus far there has been no indication of purging 04/28 - Pt continues to gain small amounts of weight daily (+0.2kg, or 7oz, gain since yesterday). 04/30 - Pt did lose almost a pound from yesterday. Nursing notes suggest patient did not eat breakfast or lunch yesterday. She ate a decent portion of breakfast today. 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 She is on a 304 IOC, and was transitioned to a 304 inpatient commitment after a conversion hearing on 04/23/2020. Chief Complaint "Um, I'm ok. How are you? I'm still tired." Review of Systems Notes Constitutional: reports fatigue and feeling "spacey" Cardiovascular: denied Respiratory: denied Gastrointestinal: denied Neurological: denied Psychiatric: denies symptoms other than stated above Total of at least 10 systems reviewed, pertinent positives as above and in HPI. Sleep Information Total Hours of Sleep: 6 Sleep Comments: Pt q15 minute checks. Meal Information Percent Meal Consumed - Breakfast: 0 Percent Meal Consumed - Lunch: 0 Percent Meal Consumed - Dinner: 70 Nutrition Comment: pt. believes her vision is impaired after eating Subjective Subjective Patient was seen & assessed and interval progress reviewed with treatment team. Staff report the patient has continued to be more withdrawn during the morning and afternoon, though last evening was also less interactive. Pt reportedly did not eat breakfast or lunch yesterday, and did lose nearly a pound since yesterday's weight check. Pt was seen today to assess progress since admission. Pt states she is "ok", and admits she is more tired. She states she had a difficult day yesterday, but could not explain any particular reason for this initially. She later admitted that she has been more focused on her vision changes. Pt denied SI throughout the day yesterday. Pt is agreeable with continuing medication adjustments suggested yesterday. She denied other needs or concerns. Pt was encouraged to attend exercise group which is to be starting shortly after our interview. Pt was observed after discussion and did not leave room. She stated to our recreational therapist that she was feeling "too spacey" to participate. Physical Exam Psychiatric Orientation: alert and oriented x 3 Apperance: appropriately dressed and appropriately groomed Extremely-thin Eye Contact: + fair eye contact Motor Behavior: no abnormal motor movements (observed while laying in bed) Speech: normal rate/rhythm/volume of speech (rather brief responses to questions) Affect: + flat affect and + constricted affect Mood: + depressed mood Thought Process: goal directed thought process and + concrete thought process Thought Content: + cognitive distortions, + delusions and + hopelessness Suicidal Thoughts: denies suicidal thoughts and denies suicidal intent Homicidal Thoughts: denies homicidal thoughts Hallucinations: no auditory hallucinations and no visual hallucinations Cognition: attention grossly intact and language grossly intact; + recent memory not intact Insight: + severely impaired insight Judgement: + severely impaired judgement Vital Signs (Past 24 Hours) Last Vital Signs Temp 36.2 C L 04/30/20 06:42 Pulse 79 04/30/20 06:42 Resp 16 04/30/20 06:42 BP 96/64 L 04/30/20 06:42 Pulse Ox 98 04/20/20 02:26 Results & Data ([facility]) Current Inpatient Medications Current Inpatient Medications: Current Inpatient Medications Acetaminophen (Acetaminophen 325 Mg Tab) 650 mg PO Q4H PRN PRN Reason: Headache or Minor Fever Stop: 05/19/20 23:14 Al Hydrox/Mg Hydrox/Simethicone (Aluminum/Magnesium Susp 30 Ml Udc) 30 ml PO Q4H PRN PRN Reason: GI Upset Stop: 05/19/20 23:14 Albuterol (Albuterol Hfa 8 Gm Inhaler) 2 puffs INH Q4H PRN PRN Reason: shortness of breath or wheezing Stop: 05/19/20 23:18 Aripiprazole (Aripiprazole 10 Mg Tab) 10 mg PO QAM ABHIJEET Stop: 05/31/20 08:59 Bismuth Subsalicylate (Bismuth Subsalicylate Per Ml Omnicell Charge) 15 ml PO PRN PRN PRN Reason: Loose Stool Stop: 05/19/20 23:14 Haloperidol (Haloperidol 5 Mg Tab) 2.5 mg PO Q6H PRN PRN Reason: psychosis Stop: 05/21/20 09:43 Hydroxyzine HCl (Hydroxyzine Hcl 25 Mg Tab) 50 mg PO HSZ PRN PRN Reason: Insomnia Stop: 05/19/20 23:14 Last Admin: 04/28/20 20:40 Dose: 50 mg Documented by: Hydroxyzine HCl (Hydroxyzine Hcl 25 Mg Tab) 25 mg PO Q4H PRN PRN Reason: Anxiety Stop: 05/19/20 23:14 Last Admin: 04/24/20 17:27 Dose: 25 mg Documented by: Magnesium Hydroxide (Magnesium Hydroxide Susp 30 Ml Udc) 30 ml PO DAILY PRN PRN Reason: Constipation Stop: 05/19/20 23:14 Nicotine Polacrilex (Nicotine Polacrilex 2 Mg Gum) 1 piece MT PRN PRN PRN Reason: Nicotine Withdrawal Stop: 05/20/20 10:24 Last Admin: 04/29/20 17:41 Dose: 1 piece Documented by: Sodium Chloride (Sodium Chloride 0.65% Na Soln 45 Ml (Caroline)) 1 - 2 sprays NA PRN PRN PRN Reason: Nasal Dryness/Congestion Stop: 05/19/20 23:14 Venlafaxine HCl (Venlafaxine Hcl Xr 37.5 Mg Capxr) 112.5 mg PO QAM ABHIJEET Stop: 05/24/20 08:59 Last Admin: 04/30/20 08:44 Dose: 112.5 mg Documented by: Mental Health [facility] Subst Abuse [facility] Psychiatrist Name of Psychiatrist: Shelly Phelan Psychiatrist's Date of Appointment with Psychiatrist: 05/06/20 Time of Appointment with Psychiatrist: 1:45 p.m. Psychiatric Appointment Comment: [id number] [facility] Therapist Name of Therapist: ISAURO Foster Therapist's Date of Therapist Appointment: 04/29/20 Therapy Appointment Comment: [id number], [place] [address] Tank Inspector Name of Tank Inspector: MAXIMINO Solorzano Case Management Appointment Comment: [id number] [facility], [place] Post Discharge Appointments Primary Care Physician Name Of Family Doctor: Anuj Griffin Primary Care Provider Appointment Comment: [address] [facility] Contact Information Discharge Discharge Address: [address] [place] [id number]
[2020-04-30] MEDS: NICOTINE POLACRILEX 2 MG GUM MT PRN ×2 (12:12→18:43)
[2020-05-01] MEDS: ARIPiprazole 10 MG TAB PO SCH (08:03)
[2020-05-01] MEDS: VENLAFAXINE HCL XR 37.5 MG CAPXR PO SCH (08:04)
--- NOTE | 2020-05-01 09:09 | Psychiatric Progress Note ---
Date of Service May 01, 2020 Impression / Recommendations Impression 40 y/o female who lives with her parents, who cares for her 2 minor children, is disabled/unemployed, readmitted 10 days after discharge for psychosis due to medication noncompliance with prominent somatic delusions and poor p.o. intake resulting in a 4 pound weight loss with BMI 14.3 and electrolyte abnormalities. Her recent admission was for a antihistamine OD and a suicide attempt. Her weight loss is related to somatic delusion that eating causes her to lose vision. She has not been taking her antipsychotic, and is refusing recommendations for a long-acting injectable antipsychotic. Although SI is p assive currently, she had a suicide attempt 03/28 which prompted hospitalization, and her condition is resulting in her being unable to meet her nutritional needs resulting in electrolyte disturbance. She was discharged on a 304 IOC, and a conversion hearing was held 04/23. She has been started on Haldol, but is now requesting to switch to a different medication as she thinks it is making her feel tired. We have repeatedly discussed that she is likely fatigued in large part due to her poor p.o. intake and being severely underweight, but she is not open to this explanation. Weight has been fairly stable in the hospital but patient had ~5lb weight loss between her two admissions, she has not been compliant with nutritional supplementation recommended by the hand box folder. She remains delusional and depressed, and we have referred her to the [facility] for long-term inpatient treatment. (1) Schizoaffective disorder, depressive type: 04/20 - The patient was admitted to the [facility] on q15 min checks (behavioral with suicide precautions) for safety. The patient will participate in group, recreational, and milieu therapies and will be offered additional individual and family sessions as clinically appropriate. Will continue Effexor XR at 75 mg for now, should likely be increased to further retrial but for now plan to hold Invega as failing to cover her symptoms and complaints about vision started around the time it was started. Again, most likely delusion but will reassess in am and treating clinician at that time can coordinate with outpatient prescriber. 04/21 - Patient refusing Invega, Zyprexa, and Risperdal, but is agreeable to a trial of Haldol. Reviewed risks, benefits, side effects, and alternatives. Specifically reviewed risk of EPS, tardive dyskinesia, sedation, dystonic reaction. Start 2.5 mg twice daily, with 2.5 mg every 6 hours as needed for psychosis. If effective, can transition to Haldol Decanoate, given repeated noncompliance and related decompensation/rehospitalization. -File for 306 conversion hearing (was discharged on a 304 IOC on 04/09). Refer to [facility] for long-term inpatient treatment, as acute treatment has not been sufficient to control her symptoms. -Get collateral information from family (recently staying with sister while parents on vacation), and outpatient Jeanine AGUILAR. 04/22 -Family meeting held with mother. Discussed plans for 306 tomorrow, [facility] referral, med changes, recs for MCCULLOUGH, need to work on eating/nutrition. -AIMS 0. -Continue haloperidol and titrate to effective dose. -306 tomorrow, will refer to [facility]. 04/23 -306 conversion held, patient now on a 304 involuntary commitment. Refer to [facility] for long-term inpatient treatment, short-term acute treatment here has not been effective and she quickly decompensated and returned to the hospital. -Met with her BCMJeannie, from the [facility] to review treatment plan. -Increase Haldol to 2.5 mg every morning and 5 mg at bedtime. Transition to Haldol Decanoate once on an effective dose. -Continue venlafaxine and increase to 112.5 mg daily to target depressed mood. -Advised patient that if she is retreating to bed and napping during the day, with resulting poor sleep at night, we will lock her door during group times to encourage her to be out of her room and participating in treatment. 04/24 - Continue haloperidol 2.5mg qAM and 5mg qHS - patient reporting fatigue. We discussed that once patient is to effective dosing, we can adjust dosing to mi nimize fatigue - but reviewed this is not an unusual side effect. - Continue venlafaxine at increased dosage - BCM to meet with patient tomorrow - Referral being faxed to [facility] - will call to confirm packet has been received 04/25 - Continue current medication regimen as above, titrating as tolerated - Pt continues to be isolative in the mornings, but improves in the evening - this was observed even prior to starting the haloperidol. Continue to monitor for daytime sedation, and can adjust medication accordingly - Referral faxed to [facility] to pursue state hospitalization 04/26 -Continue current dose of Haldol, and encourage patient to transition to Haldol Decanoate (would start with a 75 mg IM dose). 04/27 -Patient requested to decrease her Haldol dose, advised that this is not recom mended as her current dose is not even sufficient to adequately treat her symptoms. She then requested to switch to a different medication, and reviewed other antipsychotics that have an MCCULLOUGH option, including aripiprazole, paliperidone, and risperidone. She opted for a trial of aripiprazole, noting she had been on it before but could not recall her response. Reviewed risks, benefits, and side effects, including akathisia. Discontinue Haldol and start aripiprazole 2.5 mg today, and 5 mg tomorrow morning. Advised her that the plan would be to transition to a long-acting injectable when she demonstrates tolerability and efficacy. 04/28 - Pt received 5mg of aripiprazole this morning - denied present side effects, but continues to verbalize that injectable medications contribute to patient feeling "spaced out" - continued to provide education on this and encourage ongoing consideration of an MCCULLOUGH. - Continue titration of aripiprazole as tolerated/indicated - Continue current dosage of venlafaxine 112.5mg - Awaiting response from [facility] regarding faxed referral 04/29 - Pt continues to be hesitant to adjust medications, but is agreeable willing for gradual increase of aripiprazole. Due to patient's preoccupation with various somatic complaints, will increase to 7.5mg tomorrow and then 10mg for 05/01. Pt made aware of plan to continue titration as needed to target ongoing psychiatric symptoms. Pt continues to be reluctant to discussing the option for Abilify Maintena - Continue venlafaxine 112.5mg - Pt did admit to suicidal thoughts last evening, but was unable to identify if they were related to any specific trigger - Awaiting response from [facility] regarding referral 04/30 - Aripiprazole was titrated to 7.5mg for this morning, increasing to 10mg tomorrow morning - orders entered - Continue venlafaxine 112.5mg - [facility] referral in place 05/01 - Continues aripiprazole 10mg each morning; continue venlafaxine 112.5mg daily - Pt continues to be resistant to MCCULLOUGH, will continue to offer the recommendation and answer questions - Still have not heard result of [facility] referral (2) Eating disorder, unspecified: 04/20 - seems driven by delusion rather than traditional body dysmorphia. Will monitor PO intake and recheck lytes, renals in am. daily weights. Reconsult nutrition. If not engaging in regular meals may need to reinstitute I's and O's. Ideally patient would agree to inpatient residential ED treatment for refeeding but she has traditionally not been amenable and such units will not accept on a commitment. Dietary consult for nutritional supplement/calorie recs. 04/21 -hypokalemic on admission 04/19/2020 with potassium 3.3, improved to 3.5 on 04/21/2020. -Continue daily weights, dietary consult. -Not yet psychiatrically stable for discussion of inpatient eating disorder treatment. 04/22 -pt refused Boost during last hospitalization, but now agreeing after discussion and family meeting, specifically reviewing that her cognitive impairment is likely multifactorial and due in part to malnutrition- will reconsult dietitian. -Would benefit from OP hand box folder- will check with PCP (Anuj). 04/23 -appreciate hand box folder's recommendations. Continue to offer boost and additional snacks, although patient has been resistant/refusing. -Weight is down 3.5 ounces since admission (36.5 kg on admit, 36.4 kg today). Remains hypotensive and tachycardic. Continue to encourage improved p.o. intake. 04/24 - Weight has increased 3.5oz since yesterday. - Continue to encourage interventions outlined above, monitoring for use of bathroom after meals - thus far there has been no indication of purging 04/28 - Pt continues to gain small amounts of weight daily (+0.2kg, or 7oz, gain since yesterday). 04/30 - Pt did lose almost a pound from yesterday. Nursing notes suggest patient did not eat breakfast or lunch yesterday. She ate a decent portion of breakfast today. - If weight continues to decrease or nutritional intake is reduced, consider repeating BMP 05/01- Pt gained >1lb since yesterday, continues to have improved nutritional intake Inventory Assets Strengths: family support, love of children, intelligent Needs: improve insight Risk Factors Assessment Male: No : Yes Do You Have Access To A Gun?: No Health Problems: Yes Mental Health Diagnoses: Yes Substance Use Disorders: No Previous Attempt: Yes Family History of Suicide: No Previous Psychiatric Hospitalization: Yes Hopelessness: Yes Smoker: No Protective Factors Assessment Voodoo Beliefs: No : No 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 She is on a 304 IOC, and was transitioned to a 304 inpatient commitment after a conversion hearing on 04/23/2020. Chief Complaint "I'm ok. I was worse this morning, feeling like I was out of it." Review of Systems Notes Constitutional: reports spacey feeling this morning Cardiovascular: denied Respiratory: denied Gastrointestinal: denied Neurological: denied Psychiatric: denies symptoms other than stated above Total of at least 10 systems reviewed, pertinent positives as above and in HPI. Sleep Information Total Hours of Sleep: 6.5 Sleep Comments: Pt q15 minute checks. Meal Information Percent Meal Consumed - Breakfast: 100 Percent Meal Consumed - Lunch: 0 Percent Meal Consumed - Dinner: 75 Nutrition Comment: pt. believes her vision is impaired after eating Subjective Subjective Patient was seen & assessed and interval progress reviewed with nursing and social work. Staff report the patient continues to be more active in the evenings. She remains on daily weight checks and has gained >1lb since yesterday. Pt was seen today to assess progress since admission. Pt states she is "ok", and reports "I was worse this morning, feeling like I was out of it." She again describes the feeling as "spacey." Pt admits that it is a bit improved at the time of our conversation. Pt was praised for being out of her room this morning, as she has been in the day area reading a book since group ended. We continued to discuss that her "spacey" feeling is most likely related to poor nutritional intake and limited activity. Pt was reminded of increased aripiprazole dosing for today. She was asked if she had any additional questions regarding recommended conversion to an MCCULLOUGH. Pt states "I just don't know why it would be beneficial, I have to pick the Effexor up from the pharmacy anyway." We discussed that benefits are not limited to convenience and compliance, but that Lianne can contribute to reduced symptoms, reduced frequency of psychotic episodes, reduced hospitalization/urgent appointments and improve the prognosis of psychiatric conditions. Pt continues to not be convinced that this will benefit her. Pt was reminded this is our recommendation and we will continue to discuss this topic. Pt denies SI as well as other needs or concerns at this time. She was encouraged to continue to stay out of her room this shift. Physical Exam Psychiatric Orientation: alert and + guarded (superficially cooperative, not overly engaged in conversation) Apperance: appropriately dressed, appropriately groomed and appeared stated age Very thin Eye Contact: good eye contact Motor Behavior: no abnormal motor movements (observed while sitting on couch in activity room) Speech: normal rate/rhythm/volume of speech (very brief responses to questions, nonspontaneous ) Affect: + flat affect and + constricted affect; + mood not congruent with affect Mood: no depressed mood ("ok") Thought Process: goal directed thought process and + concrete thought process Thought Content: + preoccupation (with various somatic complaints), + cognitive distortions and + delusions Suicidal Thoughts: denies suicidal thoughts Homicidal Thoughts: denies homicidal thoughts Hallucinations: no auditory hallucinations and no visual hallucinations Cognition: attention grossly intact and language grossly intact Insight: + impaired insight Judgement: + impaired judgement Vital Signs (Past 24 Hours) Last Vital Signs Temp 36.3 C L 05/01/20 06:35 Pulse 74 05/01/20 06:35 Resp 16 05/01/20 06:35 BP 94/60 L 05/01/20 06:35 Pulse Ox 98 04/20/20 02:26 Results & Data (U) Current Inpatient Medications Current Inpatient Medications: Current Inpatient Medications Acetaminophen (Acetaminophen 325 Mg Tab) 650 mg PO Q4H PRN PRN Reason: Headache or Minor Fever Stop: 05/19/20 23:14 Al Hydrox/Mg Hydrox/Simethicone (Aluminum/Magnesium Susp 30 Ml Udc) 30 ml PO Q4H PRN PRN Reason: GI Upset Stop: 05/19/20 23:14 Albuterol (Albuterol Hfa 8 Gm Inhaler) 2 puffs INH Q4H PRN PRN Reason: shortness of breath or wheezing Stop: 05/19/20 23:18 Aripiprazole (Aripiprazole 10 Mg Tab) 10 mg PO QAM ABHIJEET Stop: 05/31/20 08:59 Last Admin: 05/01/20 08:03 Dose: 10 mg Documented by: Bismuth Subsalicylate (Bismuth Subsalicylate Per Ml Omnicell Charge) 15 ml PO PRN PRN PRN Reason: Loose Stool Stop: 05/19/20 23:14 Haloperidol (Haloperidol 5 Mg Tab) 2.5 mg PO Q6H PRN PRN Reason: psychosis Stop: 05/21/20 09:43 Hydroxyzine HCl (Hydroxyzine Hcl 25 Mg Tab) 50 mg PO HSZ PRN PRN Reason: Insomnia Stop: 05/19/20 23:14 Last Admin: 04/30/20 21:56 Dose: 50 mg Documented by: Hydroxyzine HCl (Hydroxyzine Hcl 25 Mg Tab) 25 mg PO Q4H PRN PRN Reason: Anxiety Stop: 05/19/20 23:14 Last Admin: 04/24/20 17:27 Dose: 25 mg Documented by: Magnesium Hydroxide (Magnesium Hydroxide Susp 30 Ml Udc) 30 ml PO DAILY PRN PRN Reason: Constipation Stop: 05/19/20 23:14 Nicotine Polacrilex (Nicotine Polacrilex 2 Mg Gum) 1 piece MT PRN PRN PRN Reason: Nicotine Withdrawal Stop: 05/20/20 10:24 Last Admin: 04/30/20 18:43 Dose: 1 piece Documented by: Sodium Chloride (Sodium Chloride 0.65% Na Soln 45 Ml ([facility])) 1 - 2 sprays NA PRN PRN PRN Reason: Nasal Dryness/Congestion Stop: 05/19/20 23:14 Venlafaxine HCl (Venlafaxine Hcl Xr 37.5 Mg Capxr) 112.5 mg PO QAM ABHIJEET Stop: 05/24/20 08:59 Last Admin: 05/01/20 08:04 Dose: 112.5 mg Documented by: Mental Health & Subst Abuse [facility]x Psychiatrist [facility] Date of Appointment with Psychiatrist: 05/06/20 Time of Appointment with Psychiatrist: 1:45 p.m. Psychiatric Appointment Comment: [id number] [facility] Therapist Name of Therapist: ISAURO Foster Therapist's Date of Therapist Appointment: 04/29/20 Therapy Appointment Comment: [id number], [place] [address] Replanting Machine Crew Name of Replanting Machine Crew: MAXIMINO Solorzano Case Management Appointment Comment: [id number] [facility], [place], [place] Post Discharge Appointments Primary Care Physician Name Of Family Doctor: Anuj Griffin Primary Care Provider Appointment Comment: [address] [facility] Contact Information Discharge Discharge Address: [address] [place] [address] [place] [id number]
[2020-05-01] MEDS: NICOTINE POLACRILEX 2 MG GUM MT PRN ×3 (09:39→19:37)
[2020-05-02] MEDS: ARIPiprazole 10 MG TAB PO SCH (09:03)
[2020-05-02] MEDS: VENLAFAXINE HCL XR 37.5 MG CAPXR PO SCH (09:03)
[2020-05-02] MEDS: NICOTINE POLACRILEX 2 MG GUM MT PRN ×4 (09:03→18:41)
--- NOTE | 2020-05-02 09:52 | Psychiatric Progress Note ---
Date of Service May 02, 2020 Impression / Recommendations Impression 40 y/o female who lives with her parents, who cares for her 2 minor children, is disabled/unemployed, readmitted 10 days after discharge for psychosis due to medication noncompliance with prominent somatic delusions and poor p.o. intake resulting in a 4 pound weight loss with BMI 14.3 and electrolyte abnormalities. Her recent admission was for a antihistamine OD and a suicide attempt. Her weight loss is related to somatic delusion that eating causes her to lose vision. She has not been taking her antipsychotic, and was refusing recommendations for a long-acting injectable antipsychotic. Although SI is fluctuating between passive or resolved, she had a suicide attempt 03/28 which prompted hospitalization, and her condition is resulting in her being unable to meet her nutritional needs resulting in electrolyte disturbance. She was discharged on a 304 IOC, and a conversion hearing was held 04/23. She has been started on Haldol, but requested to switch to a different medication as she thinks it was making her feel tired. We have repeatedly discussed that she is likely fatigued in large part due to her poor p.o. intake and being severely underweight, but she is not open to this explanation. Weight has been fairly stable in the hospital but patient had ~5lb weight loss between her two admissions, she has not been compliant with nutritional supplementation recommended by the credentialer. She remains delusional and depressed, and we have referred her to the [facility] for long-term inpatient treatment. Pt did decide on 05/02/2020 that she would be willing to receive the initial injec tion of Abilify Maintena - receiving 300mg IM injection due to low BMI. (1) Schizoaffective disorder, depressive type: 04/20 - The patient was admitted to the [facility] ([facility] unit) on q15 min checks (behavioral with suicide precautions) for safety. The patient will participate in group, recreational, and milieu therapies and will be offered additional individual and family sessions as clinically appropriate. Will continue Effexor XR at 75 mg for now, should likely be increased to further retrial but for now plan to hold Invega as failing to cover her symptoms and complaints about vision started around the time it was started. Again, most likely delusion but will reassess in am and treating clinician at that time can coordinate with outpatient prescriber. 04/21 - Patient refusing Invega, Zyprexa, and Risperdal, but is agreeable to a trial of Haldol. Reviewed risks, benefits, side effects, and alternatives. Specifically reviewed risk of EPS, tardive dyskinesia, sedation, dystonic reaction. Start 2.5 mg twice daily, with 2.5 mg every 6 hours as needed for psychosis. If effective, can transition to Haldol Decanoate, given repeated noncompliance and related decompensation/rehospitalization. -File for 306 conversion hearing (was discharged on a 304 IOC on 04/09). Refer to [facility] for long-term inpatient treatment, as acute treatment has not been sufficient to control her symptoms. -Get collateral information from family (recently staying with sister while parents on vacation), and outpatient Jeanine AGUILAR. 04/22 -Family meeting held with mother. Discussed plans for 306 tomorrow, [facility] referral, med changes, recs for MCCULLOUGH, need to work on eating/nutrition. -AIMS 0. -Continue haloperidol and titrate to effective dose. -306 tomorrow, will refer to [facility]. 04/23 -306 conversion held, patient now on a 304 involuntary commitment. Refer to [facility] for long-term inpatient treatment, short-term acute treatment here has not been effective and she quickly decompensated and returned to the hospital. -Met with her BCMJeanine, from the [facility] to review treatment plan. -Increase Haldol to 2.5 mg every morning and 5 mg at bedtime. Transition to Haldol Decanoate once on an effective dose. -Continue venlafaxine and increase to 112.5 mg daily to target depressed mood. -Advised patient that if she is retreating to bed and napping during the day, with resulting poor sleep at night, we will lock her door during group times to encourage her to be out of her room and participating in treatment. 04/24 - Continue haloperidol 2.5mg qAM and 5mg qHS - patient reporting fatigue. We discussed that once patient is to effective dosing, we can adjust dosing to minimize fatigue - but reviewed this is not an unusual side effect. - Continue venlafaxine at increased dosage - BCM to meet with patient tomorrow - Referral being faxed to [facility] - will call to confirm packet has been received 04/25 - Continue current medication regimen as above, titrating as tolerated - Pt continues to be isolative in the mornings, but improves in the evening - this was observed even prior to starting the haloperidol. Continue to monitor for daytime sedation, and can adjust medication accordingly - Referral faxed to [facility] to pursue state hospitalization 04/26 -Continue current dose of Haldol, and encourage patient to transition to Haldol Decanoate (would start with a 75 mg IM dose). 04/27 -Patient requested to decrease her Haldol dose, advised that this is not recommended as her current dose is not even sufficient to adequately treat her symptoms. She then requested to switch to a different medication, and reviewed other antipsychotics that have an MCCULLOUGH option, including aripiprazole, paliper idone, and risperidone. She opted for a trial of aripiprazole, noting she had been on it before but could not recall her response. Reviewed risks, benefits, and side effects, including akathisia. Discontinue Haldol and start aripiprazole 2.5 mg today, and 5 mg tomorrow morning. Advised her that the plan would be to transition to a long-acting injectable when she demonstrates tolerability and efficacy. 04/28 - Pt received 5mg of aripiprazole this morning - denied present side effects, but continues to verbalize that injectable medications contribute to patient feeling "spaced out" - continued to provide education on this and encourage ongoing consideration of an MCCULLOUGH. - Continue titration of aripiprazole as tolerated/indicated - Continue current dosage of venlafaxine 112.5mg - Awaiting response from [facility] regarding faxed referral 04/29 - Pt continues to be hesitant to adjust medications, but is agreeable willing for gradual increase of aripiprazole. Due to patient's preoccupation with various somatic complaints, will increase to 7.5mg tomorrow and then 10mg for 05/01. Pt made aware of plan to continue titration as needed to target ongoing psychiatric symptoms. Pt continues to be reluctant to discussing the option for Abilify Maintena - Continue venlafaxine 112.5mg - Pt did admit to suicidal thoughts last evening, but was unable to identify if they were related to any specific trigger - Awaiting response from [facility] regarding referral 04/30 - Aripiprazole was titrated to 7.5mg for this morning, increasing to 10mg tomorrow morning - orders entered - Continue venlafaxine 112.5mg - [facility] referral in place 05/01 - Continue aripiprazole 10mg each morning; continue venlafaxine 112.5mg daily - Pt continues to be resistant to MCCULLOUGH, will continue to offer the recommendation and answer questions - Still have not heard result of [facility] referral 05/02 - Increasing aripiprazole to 15mg starting tomorrow morning. Pt did agree to Abiliviolet Maintena which we will initiate today. Can continue oral dosing for ~2 weeks with taper of oral medication as appropriate. Pt will receive the 300mg IM injection given low BMI. Risks, benefits, and potential side effects were reviewed. Pt verbalized understanding and is agreeable with receiving the MCCULLOUGH. - Continue venlafaxine 112.5mg - No word on whether or not patient is accepted at [facility] - hopefully patient agreeing to the MCCULLOUGH will contribute to more appropriate discharge planning, and diversion may be able to be considered. (2) Eating disorder, unspecified: 04/20 - seems driven by delusion rather than traditional body dysmorphia. Will monitor PO intake and recheck lytes, renals in am. daily weights. Reconsult nutrition. If not engaging in regular meals may need to reinstitute I's and O's. Ideally patient would agree to inpatient residential ED treatment for refeeding but she has traditionally not been amenable and such units will not accept on a commitment. Dietary consult for nutritional supplement/calorie recs. 04/21 -hypokalemic on admission 04/19/2020 with potassium 3.3, improved to 3.5 on 04/21/2020. -Continue daily weights, dietary consult. -Not yet psychiatrically stable for discussion of inpatient eating disorder treatment. 04/22 -pt refused Boost during last hospitalization, but now agreeing after discussion and family meeting, specifically reviewing that her cognitive impairment is likely multifactorial and due in part to malnutrition- will reconsult dietitian. -Would benefit from OP credentialer- will check with PCP (Anuj). 04/23 -appreciate credentialer's recommendations. Continue to offer boost and additional snacks, although patient has been resistant/refusing. -Weight is down 3.5 ounces since admission (36.5 kg on admit, 36.4 kg today). Remains hypotensive and tachycardic. Continue to encourage improved p.o. intake. 04/24 - Weight has increased 3.5oz since yesterday. - Continue to encourage interventions outlined above, monitoring for use of bathroom after meals - thus far there has been no indication of purging 04/28 - Pt continues to gain small amounts of weight daily (+0.2kg, or 7oz, gain since yesterday). 04/30 - Pt did lose almost a pound from yesterday. Nursing notes suggest patient did not eat breakfast or lunch yesterday. She ate a decent portion of breakfast today. - If weight continues to decrease or nutritional intake is reduced, consider repeating BMP 05/01- Pt gained >1lb since yesterday, continues to have improved nutritional intake Inventory Assets Strengths: family support, love of children, intelligent Needs: improve insight Risk Factors Assessment Male: No : Yes Do You Have Access To A Gun?: No Health Problems: Yes Mental Health Diagnoses: Yes Substance Use Disorders: No Previous Attempt: Yes Family History of Suicide: No Previous Psychiatric Hospitalization: Yes Hopelessness: Yes Smoker: No Protective Factors Assessment Cheondoism Beliefs: No : No 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 She is on a 304 IOC, and was transitioned to a 304 inpatient commitment after a conversion hearing on 04/23/2020. Chief Complaint "Um. I'm ok." Review of Systems Notes Constitutional: reports waves of feeling "spacey" HEENT: does not report any concerns about vision today Cardiovascular: denied Respiratory: denied Gastrointestinal: denied Neurological: denied Psychiatric: denies symptoms other than stated above Total of at least 10 systems reviewed, pertinent positives as above and in HPI. Sleep Information Total Hours of Sleep: 7 Sleep Comments: Pt on Q 15 minute checks. Meal Information Percent Meal Consumed - Breakfast: 75 Percent Meal Consumed - Lunch: 75 Percent Meal Consumed - Dinner: 75 Nutrition Comment: pt. believes her vision is impaired after eating Subjective Subjective Patient was seen & assessed and interval progress reviewed with treatment team. Staff report the patient has appears brighter in the last two days and has been out of her room more during the morning. Pt met with her corrections caseworker yesterday. Pt was seen today to assess progress since admission. Pt states she is "ok" and denies any new concerns. She is found to be in the day area, reading a book. Pt was praised for her efforts to remain out of her room in the morning and admits that she is happy she has been able to do so. Pt states "I just really wish I could get rid of this spacey feeling." We discussed that it is unlikely this feeling is directly related to her psychotropic medications. We discussed plan to further titrate her aripiprazole. We reviewed recommendation for an MCCULLOUGH, and patient continued to state "I don't think so. It's just that I had trouble with injectables in the past...I don't know." We reviewed reasons for recommendation and anticipated benefits. During this conversation, she declined initiation and denied having further questions. After our conversation, patient had agreed to review her treatment plan with staff. Pt reportedly admitted to concern about the possibility of state hospitalization and was not wanting to remain in the hospital for the estimated 20-40 day length of stay. Pt reviewed recommendation for MCCULLOUGH and admitted to our recreational therapist that she would be willing to try the injection. This provider met with the patient again to answer any questions and explain administration schedule. Risks, benefits, and potential side effects were reviewed. Pt denied any additional concerns. Case reviewed with supervising physician, who agreed with lower initial dose given low BMI. Physical Exam Psychiatric Orientation: alert and + guarded (only superficially cooperative ) Apperance: appropriately dressed and appropriately groomed Extremely thin Eye Contact: + poor eye contact Motor Behavior: no abnormal motor movements and + psychomotor retardation Speech: normal rate/rhythm/volume of speech (rather brief responses to questions) Affect: + flat affect and + constricted affect; + mood not congruent with affect Mood: no depressed mood ("ok") Thought Process: goal directed thought process, + perseveration and + concrete thought process Thought Content: + preoccupation (with somatic complaints), + cognitive distortions and + delusions Suicidal Thoughts: denies suicidal thoughts Homicidal Thoughts: denies homicidal thoughts Hallucinations: no auditory hallucinations and no visual hallucinations Cognition: attention grossly intact and language grossly intact Insight: + impaired insight Judgement: + impaired judgement Vital Signs (Past 24 Hours) Last Vital Signs Temp 36.2 C L 05/02/20 06:00 Pulse 76 05/02/20 06:39 Resp 16 05/02/20 06:00 BP 93/61 L 05/02/20 06:39 Pulse Ox 98 04/20/20 02:26 Results & Data ([facility]) Current Inpatient Medications Current Inpatient Medications: Current Inpatient Medications Acetaminophen (Acetaminophen 325 Mg Tab) 650 mg PO Q4H PRN PRN Reason: Headache or Minor Fever Stop: 05/19/20 23:14 Al Hydrox/Mg Hydrox/Simethicone (Aluminum/Magnesium Susp 30 Ml Udc) 30 ml PO Q4H PRN PRN Reason: GI Upset Stop: 05/19/20 23:14 Albuterol (Albuterol Hfa 8 Gm Inhaler) 2 puffs INH Q4H PRN PRN Reason: shortness of breath or wheezing Stop: 05/19/20 23:18 Aripiprazole (Aripiprazole 10 Mg Tab) 10 mg PO QAM ABHIJEET Stop: 05/31/20 08:59 Last Admin: 05/02/20 09:03 Dose: 10 mg Documented by: Bismuth Subsalicylate (Bismuth Subsalicylate Per Ml Omnicell Charge) 15 ml PO PRN PRN PRN Reason: Loose Stool Stop: 05/19/20 23:14 Haloperidol (Haloperidol 5 Mg Tab) 2.5 mg PO Q6H PRN PRN Reason: psychosis Stop: 05/21/20 09:43 Hydroxyzine HCl (Hydroxyzine Hcl 25 Mg Tab) 50 mg PO HSZ PRN PRN Reason: Insomnia Stop: 05/19/20 23:14 Last Admin: 04/30/20 21:56 Dose: 50 mg Documented by: Hydroxyzine HCl (Hydroxyzine Hcl 25 Mg Tab) 25 mg PO Q4H PRN PRN Reason: Anxiety Stop: 05/19/20 23:14 Last Admin: 04/24/20 17:27 Dose: 25 mg Documented by: Magnesium Hydroxide (Magnesium Hydroxide Susp 30 Ml Udc) 30 ml PO DAILY PRN PRN Reason: Constipation Stop: 05/19/20 23:14 Nicotine Polacrilex (Nicotine Polacrilex 2 Mg Gum) 1 piece MT PRN PRN PRN Reason: Nicotine Withdrawal Stop: 05/20/20 10:24 Last Admin: 05/02/20 09:03 Dose: 1 piece Documented by: Sodium Chloride (Sodium Chloride 0.65% Na Soln 45 Ml ([place])) 1 - 2 sprays NA PRN PRN PRN Reason: Nasal Dryness/Congestion Stop: 05/19/20 23:14 Venlafaxine HCl (Venlafaxine Hcl Xr 37.5 Mg Capxr) 112.5 mg PO QAM ABHIJEET Stop: 05/24/20 08:59 Last Admin: 05/02/20 09:03 Dose: 112.5 mg Documented by: Mental Health & Subst Abuse [facility]x Psychiatrist Name of Psychiatrist: Shelly Phelan Psychiatrist's Date of Appointment with Psychiatrist: 05/06/20 Time of Appointment with Psychiatrist: 1:45 p.m. Psychiatric Appointment Comment: [id number] [facility] Therapist Name of Therapist: ISAURO Foster Therapist's Date of Therapist Appointment: 04/29/20 Therapy Appointment Comment: [id number], [place] [address] Apple Picker Name of Apple Picker: MAXIMINO Solorzano Case Management Appointment Comment: [phone] [facility], [place], [place] Post Discharge Appointments Primary Care Physician Name Of Family Doctor: Anuj Griffin Primary Care Provider Appointment Comment: [phone] [facility] Contact Information Discharge Discharge Address: [address] [place] [id number]
[2020-05-02] MEDS ORDERED: ARIPIPRAZOLE 400 MG KIT IM ONE (12:15)
[2020-05-03] MEDS: VENLAFAXINE HCL XR 37.5 MG CAPXR PO SCH (08:54)
[2020-05-03] MEDS: ARIPiprazole 15 MG TAB PO SCH (08:55)
[2020-05-03] MEDS: NICOTINE POLACRILEX 2 MG GUM MT PRN ×3 (08:55→18:09)
--- NOTE | 2020-05-03 08:58 | Psychiatric Progress Note ---
Date of Service May 03, 2020 Impression / Recommendations Impression 40 y/o female who lives with her parents, who cares for her 2 minor children, is disabled/unemployed, readmitted 10 days after discharge for psychosis due to medication noncompliance with prominent somatic delusions and poor p.o. intake resulting in a 4 pound weight loss with BMI 14.3 and electrolyte abnormalities. Her recent admission was for a antihistamine OD and a suicide attempt. Her weight loss is related to somatic delusion that eating causes her to lose vision. She has not been taking her antipsychotic, and was refusing recommendations for a long-acting injectable antipsychotic. Although SI is fluctuating between passive or resolved, she had a suicide attempt 03/28 which prompted hospitalization, and her condition is resulting in her being unable to meet her nutritional needs resulting in electrolyte disturbance. She was discharged on a 304 IOC, and a conversion hearing was held 04/23. She has been started on Haldol, but requested to switch to a different medication as she thinks it was making her feel tired. We have repeatedly discussed that she is likely fatigued in large part due to her poor p.o. intake and being severely underweight, but she is not open to this explanation. Weight has been fairly stable in the hospital but patient had ~5lb weight loss between her two admissions, she has not been compliant with nutritional supplementation recommended by the high rigger. She remains delusional and depressed, and we have referred her [facility] for [facility] inpatient treatment. Pt did decide on 05/02/2020 that she would be willing to receive the initial inje ction of Abilify Maintena - receiving 300mg IM injection due to low BMI. 05/03--reviewed, Plan: no acute issue overnight. Will continue current meds and treatment plan. Inventory Assets Strengths: family support, love of children, intelligent Needs: improve insight Risk Factors Assessment Male: No : Yes Do You Have Access To A Gun?: No Health Problems: Yes Mental Health Diagnoses: Yes Substance Use Disorders: No Previous Attempt: Yes Family History of Suicide: No Previous Psychiatric Hospitalization: Yes Hopelessness: Yes Smoker: No Protective Factors Assessment Anabaptist Beliefs: No : No 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 She is on a 304 IOC, and was transitioned to a 304 inpatient commitment after a conversion hearing on 04/23/2020. reviewed. Chief Complaint "[]". Review of Systems Sleep Information Total Hours of Sleep: 6.5 Sleep Comments: Pt on Q 15 minute checks. Meal Information Percent Meal Consumed - Breakfast: 75 Percent Meal Consumed - Lunch: 75 Percent Meal Consumed - Dinner: 80 Nutrition Comment: pt. believes her vision is impaired after eating Subjective Subjective Patient was seen & assessed and interval progress reviewed with nursing and social work. Patient has been more active on unit in the ams. She is motivated toward diversion and did agree to [place] and received first dose of maintenna. She maintains that eating affecting her vision in the past but states "that's better", her main concern is feeling spacey. Reviewed that in fact a symptom of thought blocking or ongoing anxiety as mainly notes short attention span in groups and starting to worry and become internally preoccupied about the [facility], health in general, etc. Physical Exam Psychiatric Orientation: alert, oriented x 3 and cooperative Apperance: appropriately dressed and appropriately groomed Eye Contact: good eye contact, + fair eye contact and + poor eye contact Motor Behavior: steady gait and station and no abnormal motor movements Speech: normal rate/rhythm/volume of speech (rather brief responses to questions) Affect: + depressed affect Mood: + anxious mood Thought Process: goal directed thought process and + thought blocking Thought Content: + preoccupation (with somatic complaints) Suicidal Thoughts: denies suicidal thoughts and denies suicidal intent Homicidal Thoughts: denies homicidal thoughts Hallucinations: no auditory hallucinations and no visual hallucinations Cognition: attention grossly intact and language grossly intact; + recent memory not intact Estimated Intelligence: average estimated intelligence and consistent with education level Insight: + poor insight Judgement: + poor judgement Vital Signs (Past 24 Hours) Last Vital Signs Temp 36.7 C 05/03/20 06:00 Pulse 73 05/03/20 06:47 Resp 15 05/03/20 06:00 BP 97/65 L 05/03/20 06:47 Pulse Ox 98 04/20/20 02:26 Results & Data ([facility]) Current Inpatient Medications Current Inpatient Medications: Current Inpatient Medications Acetaminophen (Acetaminophen 325 Mg Tab) 650 mg PO Q4H PRN PRN Reason: Headache or Minor Fever Stop: 05/19/20 23:14 Al Hydrox/Mg Hydrox/Simethicone (Aluminum/Magnesium Susp 30 Ml Udc) 30 ml PO Q4H PRN PRN Reason: GI Upset Stop: 05/19/20 23:14 Albuterol (Albuterol Hfa 8 Gm Inhaler) 2 puffs INH Q4H PRN PRN Reason: shortness of breath or wheezing Stop: 05/19/20 23:18 Aripiprazole (Aripiprazole 15 Mg Tab) 15 mg PO QAM ABHIJEET Stop: 06/02/20 08:59 Last Admin: 05/03/20 08:55 Dose: 15 mg Documented by: Bismuth Subsalicylate (Bismuth Subsalicylate Per Ml Omnicell Charge) 15 ml PO PRN PRN PRN Reason: Loose Stool Stop: 05/19/20 23:14 Haloperidol (Haloperidol 5 Mg Tab) 2.5 mg PO Q6H PRN PRN Reason: psychosis Stop: 05/21/20 09:43 Hydroxyzine HCl (Hydroxyzine Hcl 25 Mg Tab) 50 mg PO HSZ PRN PRN Reason: Insomnia Stop: 05/19/20 23:14 Last Admin: 04/30/20 21:56 Dose: 50 mg Documented by: Hydroxyzine HCl (Hydroxyzine Hcl 25 Mg Tab) 25 mg PO Q4H PRN PRN Reason: Anxiety Stop: 05/19/20 23:14 Last Admin: 04/24/20 17:27 Dose: 25 mg Documented by: Magnesium Hydroxide (Magnesium Hydroxide Susp 30 Ml Udc) 30 ml PO DAILY PRN PRN Reason: Constipation Stop: 05/19/20 23:14 Nicotine Polacrilex (Nicotine Polacrilex 2 Mg Gum) 1 piece MT PRN PRN PRN Reason: Nicotine Withdrawal Stop: 05/20/20 10:24 Last Admin: 05/03/20 08:55 Dose: 1 piece Documented by: Sodium Chloride (Sodium Chloride 0.65% Na Soln 45 Ml ([place])) 1 - 2 sprays NA PRN PRN PRN Reason: Nasal Dryness/Congestion Stop: 05/19/20 23:14 Venlafaxine HCl (Venlafaxine Hcl Xr 37.5 Mg Capxr) 112.5 mg PO QAM ABHIJEET Stop: 05/24/20 08:59 Last Admin: 05/03/20 08:54 Dose: 112.5 mg Documented by: Mental Health & Subst Abuse Tx Psychiatrist Name of Psychiatrist: Shelly Phelan Psychiatrist's Date of Appointment with Psychiatrist: 05/21/20 Time of Appointment with Psychiatrist: 10:00 a.m. Psychiatric Appointment Comment: [id number] [facility] Therapist Name of Therapist: ISAURO Foster Therapist's Date of Therapist Appointment: 04/29/20 Therapy Appointment Comment: [address], [place] [address] Manager Income Tax Name of Manager Income Tax: MATIASU - Jeanine Phone Number for Manager Income Tax: [phone] Case Management Appointment Comment: [address] [facility], [place], [place] Post Discharge Appointments Primary Care Physician Name Of Family Doctor: Anuj Griffin Primary Care Provider Appointment Comment: [address] [facility] Contact Information Discharge Discharge Address: [address] [place] [id number]
[2020-05-04] MEDS: ARIPiprazole 15 MG TAB PO SCH (09:12)
[2020-05-04] MEDS: VENLAFAXINE HCL XR 150 MG CAPXR PO SCH (09:12)
[2020-05-04] MEDS: NICOTINE POLACRILEX 2 MG GUM MT PRN ×3 (09:12→17:44)
--- NOTE | 2020-05-04 12:47 | Psychiatric Progress Note ---
Date of Service May 04, 2020 Impression / Recommendations Impression 40 y/o female who lives with her parents, who cares for her 2 minor children, is disabled/unemployed, readmitted 10 days after discharge for psychosis due to medication noncompliance with prominent somatic delusions and poor p.o. intake resulting in a 4 pound weight loss with BMI 14.3 and electrolyte abnormalities. Her recent admission was for a antihistamine OD and a suicide attempt. Her weight loss is related to somatic delusion that eating causes her to lose vision. She has not been taking her antipsychotic, and was refusing recommendations for a long-acting injectable antipsychotic. Although SI is fluctuating between passive or resolved, she had a suicide attempt 03/28 which prompted hospitalization, and her condition is resulting in her being unable to meet her nutritional needs resulting in electrolyte disturbance. She was discharged on a 304 IOC, and a conversion hearing was held 04/23. She has been started on Haldol, but requested to switch to a different medication as she thinks it was making her feel tired. We have repeatedly discussed that she is likely fatigued in large part due to her poor p.o. intake and being severely underweight, but she is not open to this explanation. Weight has been fairly stable in the hospital but patient had ~5lb weight loss between her two admissions, she has not been compliant with nutritional supplementation recommended by the supervisor public message service. She remains delusional and depressed, and we have referred her to the [facility] for long-term inpatient treatment. Pt did decide on 05/02/2020 that she would be willing to receive the initial inje ction of Abilify Maintena - receiving 300mg IM injection due to low BMI. 05/03--reviewed 05/04--tolerating increase in Effexor XR to 150 mg po qam to address residual anxiety. Inventory Assets Strengths: family support, love of children, intelligent Needs: improve insight Risk Factors Assessment Male: No : Yes Do You Have Access To A Gun?: No Health Problems: Yes Mental Health Diagnoses: Yes Substance Use Disorders: No Previous Attempt: Yes Family History of Suicide: No Previous Psychiatric Hospitalization: Yes Hopelessness: Yes Smoker: No Protective Factors Assessment Mormon Beliefs: No : No 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 She is on a 304 IOC, and was transitioned to a 304 inpatient commitment after a conversion hearing on 04/23/2020. reviewed. Chief Complaint "I feel less spacey today". Review of Systems Sleep Information Total Hours of Sleep: 7.75 Sleep Comments: Pt on Q 15 minute checks. Meal Information Percent Meal Consumed - Breakfast: 75 Percent Meal Consumed - Lunch: 100 Percent Meal Consumed - Dinner: 75 Nutrition Comment: pt. believes her vision is impaired after eating Subjective Subjective Patient was seen & assessed and interval progress reviewed with nursing and social work. Patient is eating well, attending groups, doesn't seem inattentive per staff. Patient has mixed feelings about living with sister vs return home to parents to assist son with his school work. Physical Exam Psychiatric Orientation: alert Apperance: appropriately dressed and appropriately groomed Eye Contact: good eye contact Motor Behavior: no abnormal motor movements Speech: normal rate/rhythm/volume of speech Affect: + depressed affect Mood: + anxious mood Thought Process: goal directed thought process Thought Content: reality based without delusions Suicidal Thoughts: denies suicidal thoughts Homicidal Thoughts: denies homicidal thoughts Hallucinations: no auditory hallucinations and no visual hallucinations Insight: + limited insight Judgement: + limited judgement Vital Signs (Past 24 Hours) Last Vital Signs Temp 36.6 C 05/04/20 06:26 Pulse 80 05/04/20 06:26 Resp 14 05/04/20 06:26 BP 91/57 L 05/04/20 06:26 Pulse Ox 98 04/20/20 02:26 Results & Data ([facility]) Current Inpatient Medications Current Inpatient Medications: Current Inpatient Medications Acetaminophen (Acetaminophen 325 Mg Tab) 650 mg PO Q4H PRN PRN Reason: Headache or Minor Fever Stop: 05/19/20 23:14 Al Hydrox/Mg Hydrox/Simethicone (Aluminum/Magnesium Susp 30 Ml Udc) 30 ml PO Q4H PRN PRN Reason: GI Upset Stop: 05/19/20 23:14 Albuterol (Albuterol Hfa 8 Gm Inhaler) 2 puffs INH Q4H PRN PRN Reason: shortness of breath or wheezing Stop: 05/19/20 23:18 Aripiprazole (Aripiprazole 15 Mg Tab) 15 mg PO QAM ABHIJEET Stop: 06/02/20 08:59 Last Admin: 05/04/20 09:12 Dose: 15 mg Documented by: Bismuth Subsalicylate (Bismuth Subsalicylate Per Ml Omnicell Charge) 15 ml PO PRN PRN PRN Reason: Loose Stool Stop: 05/19/20 23:14 Haloperidol (Haloperidol 5 Mg Tab) 2.5 mg PO Q6H PRN PRN Reason: psychosis Stop: 05/21/20 09:43 Hydroxyzine HCl (Hydroxyzine Hcl 25 Mg Tab) 50 mg PO HSZ PRN PRN Reason: Insomnia Stop: 05/19/20 23:14 Last Admin: 04/30/20 21:56 Dose: 50 mg Documented by: Hydroxyzine HCl (Hydroxyzine Hcl 25 Mg Tab) 25 mg PO Q4H PRN PRN Reason: Anxiety Stop: 05/19/20 23:14 Last Admin: 04/24/20 17:27 Dose: 25 mg Documented by: Magnesium Hydroxide (Magnesium Hydroxide Susp 30 Ml Udc) 30 ml PO DAILY PRN PRN Reason: Constipation Stop: 05/19/20 23:14 Nicotine Polacrilex (Nicotine Polacrilex 2 Mg Gum) 2 piece MT PRN PRN PRN Reason: Nicotine Withdrawal Stop: 05/20/20 10:24 Last Admin: 05/04/20 09:12 Dose: 2 piece Documented by: Sodium Chloride (Sodium Chloride 0.65% Na Soln 45 Ml ([place])) 1 - 2 sprays NA PRN PRN PRN Reason: Nasal Dryness/Congestion Stop: 05/19/20 23:14 Venlafaxine HCl (Venlafaxine Hcl Xr 150 Mg Capxr) 150 mg PO QAM ABHIJEET Stop: 06/03/20 08:59 Last Admin: 05/04/20 09:12 Dose: 150 mg Documented by: Mental Health & Subst Abuse Tx Psychiatrist Name of Psychiatrist: Shelly Phelan Psychiatrist's Date of Appointment with Psychiatrist: 05/21/20 Time of Appointment with Psychiatrist: 10:00 a.m. Psychiatric Appointment Comment: [address] [facility] Therapist Name of Therapist: ISAURO Zarco [facility] Therapist's Date of Therapist Appointment: 04/29/20 Therapy Appointment Comment: [address], [place] [address] Contact Lens Blocker And Cutter Name of Contact Lens Blocker And Cutter: MAXIMINO Solorzano Phone Number for Contact Lens Blocker And Cutter: [phone] Case Management Appointment Comment: [address] [facility], [place], [place] Post Discharge Appointments Primary Care Physician Name Of Family Doctor: Anuj Griffin Primary Care Provider Appointment Comment: 200 [facility] Contact Information Discharge Discharge Address: [address] [place] [address] [place] [address]
[2020-05-05] MEDS: VENLAFAXINE HCL XR 150 MG CAPXR PO SCH (09:44)
[2020-05-05] MEDS: ARIPiprazole 15 MG TAB PO SCH (09:44)
--- NOTE | 2020-05-05 11:22 | Psychiatric Progress Note ---
Date of Service May 05, 2020 Impression / Recommendations Impression 40 y/o female who lives with her parents, who cares for her 2 minor children, is disabled/unemployed, readmitted 10 days after discharge for psychosis due to medication noncompliance with prominent somatic delusions and poor p.o. intake resulting in a 4 pound weight loss with BMI 14.3 and electrolyte abnormalities. Her recent admission was for a antihistamine OD and a suicide attempt. Her weight loss is related to somatic delusion that eating causes her to lose vision. She has not been taking her antipsychotic, and was refusing recommendations for a long-acting injectable antipsychotic. Although SI is fluctuating between passive or resolved, she had a suicide attempt 03/28 which prompted hospitalization, and her condition is resulting in her being unable to meet her nutritional needs resulting in electrolyte disturbance. She was discharged on a 304 IOC, and a conversion hearing was held 04/23. She has been started on Haldol, but requested to switch to a different medication as she thinks it was making her feel tired. We have repeatedly discussed that she is likely fatigued in large part due to her poor p.o. intake and being severely underweight, but she is not open to this explanation. Weight has been fairly stable in the hospital but patient had ~5lb weight loss between her two admissions, she has not been compliant with nutritional supplementation recommended by the hydraulic operator. She remains delusional and depressed, and we have referred her to the [facility] for long-term inpatient treatment. Pt did decide on 05/02/2020 that she would be willing to receive the initial inje ction of Abilify Maintena - receiving 300mg IM injection due to low BMI. 05/03--reviewed 05/04--tolerating increase in Effexor XR to 150 mg po qam to address residual anxiety. 05/05--continue current meds and treatment plan. Inventory Assets Strengths: family support, love of children, intelligent Needs: improve insight Risk Factors Assessment Male: No : Yes Do You Have Access To A Gun?: No Health Problems: Yes Mental Health Diagnoses: Yes Substance Use Disorders: No Previous Attempt: Yes Family History of Suicide: No Previous Psychiatric Hospitalization: Yes Hopelessness: Yes Smoker: No Protective Factors Assessment Mosque Beliefs: No : No Responsible for Young Children: Yes (as a secondary caregiver) Employed: No Stable Relationships: No Supportive Family: Yes Interval History Identifying Information CAROL TRENGER is a 40-year-old F who was recently discharged from , has a history of a schizophrenia diagnosis, presented last admission with inability to care for self and restrictive eating patterns, and was admitted on 04/19/20 23:17 on a 201 voluntary commitment for SI and ongoing weight loss. She is on a 304 IOC, and was transitioned to a 304 inpatient commitment after a conversion hearing on 04/23/2020. reviewed. Chief Complaint "I woke up a lot last night". Review of Systems Sleep Information Total Hours of Sleep: 6 Sleep Comments: Pt on Q 15 minute checks. Meal Information Percent Meal Consumed - Breakfast: 0 Percent Meal Consumed - Lunch: 75 Percent Meal Consumed - Dinner: 100 Nutrition Comment: pt. believes her vision is impaired after eating Subjective Subjective Patient was seen & assessed and interval progress reviewed with nursing. No issues overnight reported. She is unsure why harder time other than did get a new roommate. Continues to eat more throughout the day. Less vocal with her beliefs about food causing her eye sight changes. Unsure who she wants to live with after discharge. Physical Exam Psychiatric Orientation: alert Apperance: appropriately groomed Eye Contact: + fair eye contact Motor Behavior: no abnormal motor movements Speech: normal rate/rhythm/volume of speech Affect: + depressed affect Mood: + anxious mood Thought Process: + concrete thought process Thought Content: + paranoid (re: food) Suicidal Thoughts: denies suicidal thoughts Homicidal Thoughts: denies homicidal thoughts Hallucinations: no auditory hallucinations and no visual hallucinations Estimated Intelligence: consistent with education level Insight: + poor insight Judgement: + poor judgement Vital Signs (Past 24 Hours) Last Vital Signs Temp 36.6 C 05/04/20 20:26 Pulse 65 05/05/20 06:22 Resp 16 05/05/20 06:21 BP 70/42 L 05/05/20 06:22 Pulse Ox 98 04/20/20 02:26 Results & Data ([facility] [[email or web address] Current Inpatient Medications Current Inpatient Medications: Current Inpatient Medications Acetaminophen (Acetaminophen 325 Mg Tab) 650 mg PO Q4H PRN PRN Reason: Headache or Minor Fever Stop: 05/19/20 23:14 Al Hydrox/Mg Hydrox/Simethicone (Aluminum/Magnesium Susp 30 Ml Udc) 30 ml PO Q4H PRN PRN Reason: GI Upset Stop: 05/19/20 23:14 Albuterol (Albuterol Hfa 8 Gm Inhaler) 2 puffs INH Q4H PRN PRN Reason: shortness of breath or wheezing Stop: 05/19/20 23:18 Aripiprazole (Aripiprazole 15 Mg Tab) 15 mg PO QAM ABHIJEET Stop: 06/02/20 08:59 Last Admin: 05/05/20 09:44 Dose: 15 mg Documented by: Bismuth Subsalicylate (Bismuth Subsalicylate Per Ml Omnicell Charge) 15 ml PO PRN PRN PRN Reason: Loose Stool Stop: 05/19/20 23:14 Haloperidol (Haloperidol 5 Mg Tab) 2.5 mg PO Q6H PRN PRN Reason: psychosis Stop: 05/21/20 09:43 Hydroxyzine HCl (Hydroxyzine Hcl 25 Mg Tab) 50 mg PO HSZ PRN PRN Reason: Insomnia Stop: 05/19/20 23:14 Last Admin: 04/30/20 21:56 Dose: 50 mg Documented by: Hydroxyzine HCl (Hydroxyzine Hcl 25 Mg Tab) 25 mg PO Q4H PRN PRN Reason: Anxiety Stop: 05/19/20 23:14 Last Admin: 04/24/20 17:27 Dose: 25 mg Documented by: Magnesium Hydroxide (Magnesium Hydroxide Susp 30 Ml Udc) 30 ml PO DAILY PRN PRN Reason: Constipation Stop: 05/19/20 23:14 Nicotine Polacrilex (Nicotine Polacrilex 2 Mg Gum) 2 piece MT PRN PRN PRN Reason: Nicotine Withdrawal Stop: 05/20/20 10:24 Last Admin: 05/04/20 17:44 Dose: 2 piece Documented by: Sodium Chloride (Sodium Chloride 0.65% Na Soln 45 Ml ([place])) 1 - 2 sprays NA PRN PRN PRN Reason: Nasal Dryness/Congestion Stop: 05/19/20 23:14 Venlafaxine HCl (Venlafaxine Hcl Xr 150 Mg Capxr) 150 mg PO QAM ABHIJEET Stop: 06/03/20 08:59 Last Admin: 05/05/20 09:44 Dose: 150 mg Documented by: Mental Health & Subst Abuse Tx Psychiatrist [facility] Date of Appointment with Psychiatrist: 05/21/20 Time of Appointment with Psychiatrist: 10:00 a.m. Psychiatric Appointment Comment: [id number] [facility] Therapist Name of Therapist: ISAURO Foster Therapist's Date of Therapist Appointment: 04/29/20 Therapy Appointment Comment: [facility], [place] [address] Information Technology Internship Name of Information Technology Internship: MAXIMINO Solorzano Phone Number for Information Technology Internship: [phone] Case Management Appointment Comment: [address] [facility], [place] Post Discharge Appointments Primary Care Physician Name Of Family Doctor: Anuj Griffin Primary Care Provider Appointment Comment: [address] [facility] Contact Information Discharge Discharge Address: [address] [place] [id number]
[2020-05-05] MEDS: NICOTINE POLACRILEX 2 MG GUM MT PRN ×2 (12:54→18:08)
[2020-05-06] MEDS: ARIPiprazole 15 MG TAB PO SCH (09:38)
[2020-05-06] MEDS: VENLAFAXINE HCL XR 150 MG CAPXR PO SCH (09:38)
[2020-05-06] MEDS: NICOTINE POLACRILEX 2 MG GUM MT PRN ×3 (09:38→17:45)
--- NOTE | 2020-05-06 10:25 | Psychiatric Progress Note ---
Date of Service May 06, 2020 Impression / Recommendations Impression 40 y/o female who lives with her parents, who cares for her 2 minor children, is disabled/unemployed, readmitted 10 days after discharge for psychosis due to medication noncompliance with prominent somatic delusions and poor p.o. intake resulting in a 4 pound weight loss with BMI 14.3 and electrolyte abnormalities. Her recent admission was for a antihistamine OD and a suicide attempt. Her weight loss is related to somatic delusion that eating causes her to lose vision. She has not been taking her antipsychotic, and was refusing recommendations for a long-acting injectable antipsychotic. Although SI is fluctuating between passive or resolved, she had a suicide attempt 03/28 which prompted hospitalization, and her condition is resulting in her being unable to meet her nutritional needs resulting in electrolyte disturbance. She was discharged on a 304 IOC, and a conversion hearing was held 04/23. She has been started on Haldol, but requested to switch to a different medication as she thinks it was making her feel tired. We have repeatedly discussed that she is likely fatigued in large part due to her poor p.o. intake and being severely underweight, but she is not open to this explanation. Weight has been fairly stable in the hospital but patient had ~5lb weight loss between her two admissions, she has not been compliant with nutritional supplementation recommended by the hop worker. She remains delusional and depressed, and we have referred her to the [facility] for long-term inpatient treatment. Pt did decide on 05/02/2020 that she would be willing to receive the initial injec tion of Abilify Maintena - receiving 300mg IM injection due to low BMI. (1) Schizoaffective disorder, depressive type: 04/20 - The patient was admitted to the [facility] ([facility]) on q15 min checks (behavioral with suicide precautions) for safety. The patient will participate in group, recreational, and milieu therapies and will be offered additional individual and family sessions as clinically appropriate. Will continue Effexor XR at 75 mg for now, should likely be increased to further retrial but for now plan to hold Invega as failing to cover her symptoms and complaints about vision started around the time it was started. Again, most likely delusion but will reassess in am and treating clinician at that time can coordinate with outpatient prescriber. 04/21 - Patient refusing Invega, Zyprexa, and Risperdal, but is agreeable to a trial of Haldol. Reviewed risks, benefits, side effects, and alternatives. Specifically reviewed risk of EPS, tardive dyskinesia, sedation, dystonic reaction. Start 2.5 mg twice daily, with 2.5 mg every 6 hours as needed for psychosis. If effective, can transition to Haldol Decanoate, given repeated noncompliance and related decompensation/rehospitalization. -File for 306 conversion hearing (was discharged on a 304 IOC on 04/09). Refer to [facility] for long-term inpatient treatment, as acute treatment has not been sufficient to control her symptoms. -Get collateral information from family (recently staying with sister while parents on vacation), and outpatient Jeanine AGUILAR. 04/22 -Family meeting held with mother. Discussed plans for 306 tomorrow, [facility] referral, med changes, recs for MCCULLOUGH, need to work on eating/nutrition. -AIMS 0. -Continue haloperidol and titrate to effective dose. -306 tomorrow, will refer to [facility]. 04/23 -306 conversion held, patient now on a 304 involuntary commitment. Refer to [facility] for long-term inpatient treatment, short-term acute treatment here has not been effective and she quickly decompensated and returned to the hospital. -Met with her BCMJeanine, from the [facility] to review treatment plan. -Increase Haldol to 2.5 mg every morning and 5 mg at bedtime. Transition to Haldol Decanoate once on an effective dose. -Continue venlafaxine and increase to 112.5 mg daily to target depressed mood. -Advised patient that if she is retreating to bed and napping during the day, with resulting poor sleep at night, we will lock her door during group times to encourage her to be out of her room and participating in treatment. 04/24 - Continue haloperidol 2.5mg qAM and 5mg qHS - patient reporting fatigue. We discussed that once patient is to effective dosing, we can adjust dosing to minimize fatigue - but reviewed this is not an unusual side effect. - Continue venlafaxine at increased dosage - BCM to meet with patient tomorrow - Referral being faxed to [facility] - will call to confirm packet has been received 04/25 - Continue current medication regimen as above, titrating as tolerated - Pt continues to be isolative in the mornings, but improves in the evening - this was observed even prior to starting the haloperidol. Continue to monitor for daytime sedation, and can adjust medication accordingly - Referral faxed to [facility] to pursue state hospitalization 04/26 -Continue current dose of Haldol, and encourage patient to transition to Haldol Decanoate (would start with a 75 mg IM dose). 04/27 -Patient requested to decrease her Haldol dose, advised that this is not recommended as her current dose is not even sufficient to adequately treat her symptoms. She then requested to switch to a different medication, and reviewed other antipsychotics that have an MCCULLOUGH option, including aripiprazole, paliperidone, and risperidone. She opted for a trial of aripiprazole, noting she had been on it before but could not recall her response. Reviewed risks, benefits, and side effects, including akathisia. Discontinue Haldol and start aripiprazole 2.5 mg today, and 5 mg tomorrow morning. Advised her that the plan would be to transition to a long-acting injectable when she demonstrates mateo ability and efficacy. 04/28 - Pt received 5mg of aripiprazole this morning - denied present side effects, but continues to verbalize that injectable medications contribute to patient feeling "spaced out" - continued to provide education on this and encourage ongoing consideration of an MCCULLOUGH. - Continue titration of aripiprazole as tolerated/indicated - Continue current dosage of venlafaxine 112.5mg - Awaiting response from [facility] regarding faxed referral 04/29 - Pt continues to be hesitant to adjust medications, but is agreeable willing for gradual increase of aripiprazole. Due to patient's preoccupation with various somatic complaints, will increase to 7.5mg tomorrow and then 10mg for 05/01. Pt made aware of plan to continue titration as needed to target ongoing psychiatric symptoms. Pt continues to be reluctant to discussing the option for Abilify Maintena - Continue venlafaxine 112.5mg - Pt did admit to suicidal thoughts last evening, but was unable to identify if they were related to any specific trigger - Awaiting response from [facility] regarding referral 04/30 - Aripiprazole was titrated to 7.5mg for this morning, increasing to 10mg tomorrow morning - orders entered - Continue venlafaxine 112.5mg - [facility] referral in place 05/01 - Continue aripiprazole 10mg each morning; continue venlafaxine 112.5mg daily - Pt continues to be resistant to MCCULLOUGH, will continue to offer the recommendation and answer questions - Still have not heard result of [facility] referral 05/02 - Increasing aripiprazole to 15mg starting tomorrow morning. Pt did agree to Kavitha Prescott which we will initiate today. Can continue oral dosing for ~2 weeks with taper of oral medication as appropriate. Pt will receive the 300mg IM injection given low BMI. Risks, benefits, and potential side effects were reviewed. Pt verbalized understanding and is agreeable with receiving the MCCULLOUGH. - Continue venlafaxine 112.5mg - No word on whether or not patient is accepted at [facility] - hopefully patient agreeing to the MCCULLOUGH will contribute to more appropriate discharge planning, and diversion may be able to be considered. 05/03--reviewed 05/04--tolerating increase in Effexor XR to 150 mg po qam to address residual anxiety. 05/05--continue current meds and treatment plan. 05/06 - Continue current treatment plan - Will assist with arranging meetings with family and outpatient supports in o rder to discuss possible diversion plan - Referral to [facility] is still pending, though no word on acceptance (2) Eating disorder, unspecified: 04/20 - seems driven by delusion rather than traditional body dysmorphia. Will monitor PO intake and recheck lytes, renals in am. daily weights. Reconsult nutrition. If not engaging in regular meals may need to reinstitute I's and O's. Ideally patient would agree to inpatient residential ED treatment for refeeding but she has traditionally not been amenable and such units will not accept on a commitment. Dietary consult for nutritional supplement/calorie recs. 04/21 -hypokalemic on admission 04/19/2020 with potassium 3.3, improved to 3.5 on 04/21/2020. -Continue daily weights, dietary consult. -Not yet psychiatrically stable for discussion of inpatient eating disorder treatment. 04/22 -pt refused Boost during last hospitalization, but now agreeing after discussion and family meeting, specifically reviewing that her cognitive impairment is likely multifactorial and due in part to malnutrition- will reconsult dietitian. -Would benefit from OP hop worker- will check with PCP (Anuj). 04/23 -appreciate hop worker's recommendations. Continue to offer boost and additional snacks, although patient has been resistant/refusing. -Weight is down 3.5 ounces since admission (36.5 kg on admit, 36.4 kg today). Remains hypotensive and tachycardic. Continue to encourage improved p.o. intake. 04/24 - Weight has increased 3.5oz since yesterday. - Continue to encourage interventions outlined above, monitoring for use of bathroom after meals - thus far there has been no indication of purging 04/28 - Pt continues to gain small amounts of weight daily (+0.2kg, or 7oz, gain since yesterday). 04/30 - Pt did lose almost a pound from yesterday. Nursing notes suggest patient did not eat breakfast or lunch yesterday. She ate a decent portion of breakfast today. - If weight continues to decrease or nutritional intake is reduced, consider repeating BMP 05/01- Pt gained >1lb since yesterday, continues to have improved nutritional intake 05/06 - Nutritional intake and weight have been steady over the last several days Inventory Assets Strengths: family support, love of children, intelligent Needs: improve insight Risk Factors Assessment Male: No : Yes Do You Have Access To A Gun?: No Health Problems: Yes Mental Health Diagnoses: Yes Substance Use Disorders: No Previous Attempt: Yes Family History of Suicide: No Previous Psychiatric Hospitalization: Yes Hopelessness: Yes Smoker: No Protective Factors Assessment Spiritism Beliefs: No : No 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 She is on a 304 IOC, and was transitioned to a 304 inpatient commitment after a conversion hearing on 04/23/2020. Chief Complaint "Um, I'm feeling pretty good today." Review of Systems Notes Constitutional: denied Cardiovascular: denied Respiratory: denied Gastrointestinal: denied Neurological: denied Psychiatric: denies symptoms other than stated above Total of at least 10 systems reviewed, pertinent positives as above and in HPI. Sleep Information Total Hours of Sleep: 5.5 Sleep Comments: Pt on Q 15 minute checks. Meal Information Percent Meal Consumed - Breakfast: 0 Percent Meal Consumed - Lunch: 75 Percent Meal Consumed - Dinner: 75 Nutrition Comment: pt. believes her vision is impaired after eating Subjective Subjective Patient was seen & assessed and interval progress reviewed with treatment team. Staff report the patient has continued to demonstrate improvements in her condition. She continues to appear more social in the evenings, and she is more isolative in the mornings. Appetite and weight have been more consistent. Pt was seen today to assess progress since admission. Pt states she is "feeling pretty good today." Pt reports improvement in mood and admits to being hopeful for discharge soon. We did discuss reduced length of stay, as it seems more likely that patient may be diverted from original plan for [facility] transfer. Pt denies significant concerns since agreeing to Abilify Maintena on 05/02/2020 and she is indicating willingness to continue the injectable medication on an outpatient basis as well. Pt admits to feeling "spacey" intermittently, but today she is able to say "but...I guess I've feel that way for a while, so I'm getting used to it." Pt did not make any statements indicating correlation of spacey feeling with medication side eff ects. We reviewed schedule for future Abilify Maintena injections and for 2- week overlap of oral Abilify. Pt was asked her thoughts regarding housing on discharge - as she has stayed with both her sister as well as her parents recently. We discussed importance of development of a safe and supportive discharge plan if discharge to the community was to be considered. Pt reports willingness for a family meeting with her sister to discuss her options. Pt denied SI or other safety concerns. She denied other needs at this time. Physical Exam Psychiatric Orientation: alert, oriented x 3 and cooperative Apperance: appropriately dressed, appropriately groomed and appeared stated age Extremely thin Eye Contact: + fair eye contact Pt still stares for long periods of time off in the distance, but had more episodes of intentional direct eye contact today Motor Behavior: steady gait and station and + psychomotor retardation (somewhat less slowed today) Speech: normal rate/rhythm/volume of speech (more spontaneous) Affect: + blunted affect and + constricted affect Mood: no depressed mood and no anxious mood Thought Process: goal directed thought process and + concrete thought process Thought Content: + preoccupation (with various somatic complaints, though less focused today) and + delusions; no hopelessness Suicidal Thoughts: denies suicidal thoughts, denies suicidal plan and denies suicidal intent Homicidal Thoughts: denies homicidal thoughts Hallucinations: no auditory hallucinations and no visual hallucinations Cognition: attention grossly intact and language grossly intact Insight: + limited insight Judgement: + fair judgement Vital Signs (Past 24 Hours) Last Vital Signs Temp 36.2 C L 05/06/20 06:46 Pulse 92 H 05/06/20 06:47 Resp 16 05/06/20 06:46 BP 96/59 L 05/06/20 06:47 Pulse Ox 98 04/20/20 02:26 Results & Data ([facility]) Current Inpatient Medications Current Inpatient Medications: Current Inpatient Medications Acetaminophen (Acetaminophen 325 Mg Tab) 650 mg PO Q4H PRN PRN Reason: Headache or Minor Fever Stop: 05/19/20 23:14 Al Hydrox/Mg Hydrox/Simethicone (Aluminum/Magnesium Susp 30 Ml Udc) 30 ml PO Q4H PRN PRN Reason: GI Upset Stop: 05/19/20 23:14 Albuterol (Albuterol Hfa 8 Gm Inhaler) 2 puffs INH Q4H PRN PRN Reason: shortness of breath or wheezing Stop: 05/19/20 23:18 Aripiprazole (Aripiprazole 15 Mg Tab) 15 mg PO QAM ABHIJEET Stop: 06/02/20 08:59 Last Admin: 05/06/20 09:38 Dose: 15 mg Documented by: Bismuth Subsalicylate (Bismuth Subsalicylate Per Ml Omnicell Charge) 15 ml PO PRN PRN PRN Reason: Loose Stool Stop: 05/19/20 23:14 Haloperidol (Haloperidol 5 Mg Tab) 2.5 mg PO Q6H PRN PRN Reason: psychosis Stop: 05/21/20 09:43 Hydroxyzine HCl (Hydroxyzine Hcl 25 Mg Tab) 50 mg PO HSZ PRN PRN Reason: Insomnia Stop: 05/19/20 23:14 Last Admin: 04/30/20 21:56 Dose: 50 mg Documented by: Hydroxyzine HCl (Hydroxyzine Hcl 25 Mg Tab) 25 mg PO Q4H PRN PRN Reason: Anxiety Stop: 05/19/20 23:14 Last Admin: 04/24/20 17:27 Dose: 25 mg Documented by: Magnesium Hydroxide (Magnesium Hydroxide Susp 30 Ml Udc) 30 ml PO DAILY PRN PRN Reason: Constipation Stop: 05/19/20 23:14 Nicotine Polacrilex (Nicotine Polacrilex 2 Mg Gum) 2 piece MT PRN PRN PRN Reason: Nicotine Withdrawal Stop: 05/20/20 10:24 Last Admin: 05/06/20 09:38 Dose: 2 piece Documented by: Sodium Chloride (Sodium Chloride 0.65% Na Soln 45 Ml ([place])) 1 - 2 sprays NA PRN PRN PRN Reason: Nasal Dryness/Congestion Stop: 05/19/20 23:14 Venlafaxine HCl (Venlafaxine Hcl Xr 150 Mg Capxr) 150 mg PO QAM ABHIJEET Stop: 06/03/20 08:59 Last Admin: 05/06/20 09:38 Dose: 150 mg Documented by: Mental Health & Subst Abuse Tx Psychiatrist Name of Psychiatrist: Shelly Phelan Psychiatrist's Date of Appointment with Psychiatrist: 05/21/20 Time of Appointment with Psychiatrist: 10:00 a.m. Psychiatric Appointment Comment: [id number] [facility] Therapist Name of Therapist: ISAURO Foster Therapist's Date of Therapist Appointment: 04/29/20 Therapy Appointment Comment: [facility], [place] [address] Gifts Officer Name of Gifts Officer: MAXIMINO Solorzano Phone Number for Gifts Officer: [phone] Case Management Appointment Comment: [id number] [facility], [place] Post Discharge Appointments Primary Care Physician Name Of Family Doctor: Anuj Griffin Primary Care Provider Appointment Comment: [address] [facility] Contact Information Discharge Discharge Address: [address] [place] [id number]
[2020-05-07] MEDS: VENLAFAXINE HCL XR 150 MG CAPXR PO SCH (08:38)
[2020-05-07] MEDS: ARIPiprazole 15 MG TAB PO SCH (08:38)
[2020-05-07] MEDS: NICOTINE POLACRILEX 2 MG GUM MT PRN ×3 (09:06→18:11)
--- NOTE | 2020-05-07 09:06 | Psychiatric Progress Note ---
Date of Service May 07, 2020 Impression / Recommendations Impression 40 y/o female who lives with her parents, who cares for her 2 minor children, is disabled/unemployed, readmitted 10 days after discharge for psychosis due to medication noncompliance with prominent somatic delusions and poor p.o. intake resulting in a 4 pound weight loss with BMI 14.3 and electrolyte abnormalities. Her recent admission was for a antihistamine OD and a suicide attempt. Her weight loss is related to somatic delusion that eating causes her to lose vision. She has not been taking her antipsychotic, and was refusing recommendations for a long-acting injectable antipsychotic. Although SI is fluctuating between passive or resolved, she had a suicide attempt 03/28 which prompted hospitalization, and her condition is resulting in her being unable to meet her nutritional needs resulting in electrolyte disturbance. She was discharged on a 304 IOC, and a conversion hearing was held 04/23. She has been started on Haldol, but requested to switch to a different medication as she thinks it was making her feel tired. We have repeatedly discussed that she is likely fatigued in large part due to her poor p.o. intake and being severely underweight, but she is not open to this explanation. Weight has been fairly stable in the hospital but patient had ~5lb weight loss between her two admissions, she has not been compliant with nutritional supplementation recommended by the manual plate filler. Pt did decide on 05/02/2020 that she would be willing to receive the initial injection of Abilify Maintena - receiving 300mg IM injection due to low BMI - next dose due on 05/30/2020 - and 2-week overlap of oral aripiprazole can be discontinued on 05/16/2020. Patient had been referred to the [facility] [place] [facility] due to concern for ongoing delusions significantly interfering with ability to care for self. There has been some improvement with this and, although referral to [facility] is still in place, it appears patient may be appropriate to be discharged to the community when psychiatrically stable. We have been engaging her outpatient support team in discussions to solidify discharge planning. (1) Schizoaffective disorder, depressive type: 04/20 - The patient was admitted to the [facility] ([facility]) on q15 min checks (behavioral with suicide precautions) for safety. The patient will participate in group, recreational, and milieu therapies and will be offered additional individual and family sessions as clinically appropriate. Will continue Effexor XR at 75 mg for now, should likely be increased to further retrial but for now plan to hold Invega as failing to cover her symptoms and complaints about vision started around the time it was started. Again, most likely delusion but will reassess in am and treating clinician at that time can coordinate with outpatient prescriber. 04/21 - Patient refusing Invega, Zyprexa, and Risperdal, but is agreeable to a trial of Haldol. Reviewed risks, benefits, side effects, and alternatives. Specifically reviewed risk of EPS, tardive dyskinesia, sedation, dystonic reaction. Start 2.5 mg twice daily, with 2.5 mg every 6 hours as needed for psychosis. If effective, can transition to Haldol Decanoate, given repeated noncompliance and related decompensation/rehospitalization. -File for 306 conversion hearing (was discharged on a 304 IOC on 04/09). Refer to [facility] for long-term inpatient treatment, as acute treatment has not been sufficient to control her symptoms. -Get collateral information from family (recently staying with sister while parents on vacation), and outpatient Jeanine AGUILAR. 04/22 -Family meeting held with mother. Discussed plans for 306 tomorrow, [facility] referral, med changes, recs for MCCULLOUGH, need to work on eating/nutrition. -AIMS 0. -Continue haloperidol and titrate to effective dose. -306 tomorrow, will refer to [facility]. 04/23 -306 conversion held, patient now on a 304 involuntary commitment. Refer to [facility] for long-term inpatient treatment, short-term acute treatment here has not been effective and she quickly decompensated and returned to the hospital. -Met with her NOAHMJeanine, from the [facility] to review treatment plan. -Increase Haldol to 2.5 mg every morning and 5 mg at bedtime. Transition to Haldol Decanoate once on an effective dose. -Continue venlafaxine and increase to 112.5 mg daily to target depressed mood. -Advised patient that if she is retreating to bed and napping during the day, with resulting poor sleep at night, we will lock her door during group times to encourage her to be out of her room and participating in treatment. 04/24 - Continue haloperidol 2.5mg qAM and 5mg qHS - patient reporting fatigue. We discussed that once patient is to effective dosing, we can adjust dosing to minimize fatigue - but reviewed this is not an unusual side effect. - Continue venlafaxine at increased dosage - BCM to meet with patient tomorrow - Referral being faxed to [facility] - will call to confirm packet has been received 04/25 - Continue current medication regimen as above, titrating as tolerated - Pt continues to be isolative in the mornings, but improves in the evening - this was observed even prior to starting the haloperidol. Continue to monitor for daytime sedation, and can adjust medication accordingly - Referral faxed to [facility] to pursue state hospitalization 04/26 -Continue current dose of Haldol, and encourage patient to transition to Haldol Decanoate (would start with a 75 mg IM dose). 04/27 -Patient requested to decrease her Haldol dose, advised that this is not recommended as her current dose is not even sufficient to adequately treat her symptoms. She then requested to switch to a different medication, and reviewed other antipsychotics that have an MCCULLOUGH option, including aripiprazole, paliperidone, and risperidone. She opted for a trial of aripiprazole, noting she had been on it before but could not recall her response. Reviewed risks, benefits, and side effects, including akathisia. Discontinue Haldol and start aripiprazole 2.5 mg today, and 5 mg tomorrow morning. Advised her that the plan would be to transition to a long-acting injectable when she demonstrates tolerability and efficacy. 04/28 - Pt received 5mg of aripiprazole this morning - denied present side effects, but continues to verbalize that injectable medications contribute to patient feeling "spaced out" - continued to provide education on this and encourage ongoing consideration of an MCCULLOUGH. - Continue titration of aripiprazole as tolerated/indicated - Continue current dosage of venlafaxine 112.5mg - Awaiting response from [facility] regarding faxed referral 04/29 - Pt continues to be hesitant to adjust medications, but is agreeable willing for gradual increase of aripiprazole. Due to patient's preoccupation with various somatic complaints, will increase to 7.5mg tomorrow and then 10mg for 05/01. Pt made aware of plan to continue titration as needed to target ongoing psychiatric symptoms. Pt continues to be reluctant to discussing the option for Abilify Maintena - Continue venlafaxine 112.5mg - Pt did admit to suicidal thoughts last evening, but was unable to identify if they were related to any specific trigger - Awaiting response from [facility] regarding referral 04/30 - Aripiprazole was titrated to 7.5mg for this morning, increasing to 10mg clifton rrow morning - orders entered - Continue venlafaxine 112.5mg - [facility] referral in place 05/01 - Continue aripiprazole 10mg each morning; continue venlafaxine 112.5mg daily - Pt continues to be resistant to MCCULLOUGH, will continue to offer the recommendation and answer questions - Still have not heard result of [facility] referral 05/02 - Increasing aripiprazole to 15mg starting tomorrow morning. Pt did agree to Abilify Maintena which we will initiate today. Can continue oral dosing for ~2 weeks with taper of oral medication as appropriate. Pt will receive the 300mg IM injection given low BMI. Risks, benefits, and potential side effects were reviewed. Pt verbalized understanding and is agreeable with receiving the MCCULLOUGH. - Continue venlafaxine 112.5mg - No word on whether or not patient is accepted at [facility] - hopefully patient agreeing to the MCCULLOUGH will contribute to more appropriate discharge planning, and diversion may be able to be considered. 05/03--reviewed 05/04--tolerating increase in Effexor XR to 150 mg po qam to address residual anxiety. 05/05--continue current meds and treatment plan. 05/06 - Continue current treatment plan - Will assist with arranging meetings with family and outpatient supports in order to discuss possible diversion plan - Referral to [facility] is still pending, though no word on acceptance 05/07 - Continue current medication regimen - Support meeting held yesterday with rn case manager hospice, unit social and human services assistant, and patient's sister - patient is planning to live with sister on discharge (2) Eating disorder, unspecified: 04/20 - seems driven by delusion rather than traditional body dysmorphia. Will monitor PO intake and recheck lytes, renals in am. daily weights. Reconsult nutrition. If not engaging in regular meals may need to reinstitute I's and O's. Ideally patient would agree to inpatient residential ED treatment for refeeding but she has traditionally not been amenable and such units will not accept on a commitment. Dietary consult for nutritional supplement/calorie recs. 04/21 -hypokalemic on admission 04/19/2020 with potassium 3.3, improved to 3.5 on 04/21/2020. -Continue daily weights, dietary consult. -Not yet psychiatrically stable for discussion of inpatient eating disorder treatment. 04/22 -pt refused Boost during last hospitalization, but now agreeing after discussion and family meeting, specifically reviewing that her cognitive impairment is likely multifactorial and due in part to malnutrition- will reconsult dietitian. -Would benefit from OP manual plate filler- will check with PCP (Anuj). 04/23 -appreciate manual plate filler's recommendations. Continue to offer boost and additional snacks, although patient has been resistant/refusing. -Weight is down 3.5 ounces since admission (36.5 kg on admit, 36.4 kg today). Remains hypotensive and tachycardic. Continue to encourage improved p.o. intake. 04/24 - Weight has increased 3.5oz since yesterday. - Continue to encourage interventions outlined above, monitoring for use of bathroom after meals - thus far there has been no indication of purging 04/28 - Pt continues to gain small amounts of weight daily (+0.2kg, or 7oz, gain since yesterday). 04/30 - Pt did lose almost a pound from yesterday. Nursing notes suggest patient did not eat breakfast or lunch yesterday. She ate a decent portion of breakfast today. - If weight continues to decrease or nutritional intake is reduced, consider repeating BMP 05/01- Pt gained >1lb since yesterday, continues to have improved nutritional intake 05/06 - Nutritional intake and weight have been steady over the last several days Inventory Assets Strengths: family support, love of children, intelligent Needs: improve insight Risk Factors Assessment Male: No : Yes Do You Have Access To A Gun?: No Health Problems: Yes Mental Health Diagnoses: Yes Substance Use Disorders: No Previous Attempt: Yes Family History of Suicide: No Previous Psychiatric Hospitalization: Yes Hopelessness: Yes Smoker: No Protective Factors Assessment Denominational Beliefs: No : No 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 She is on a 304 IOC, and was transitioned to a 304 inpatient commitment after a conversion hearing on 04/23/2020. Chief Complaint "I'm alright. I'm feeling pretty good." Review of Systems Notes Constitutional: denied HEENT: reports ongoing concern regarding her vision Cardiovascular: denied Respiratory: denied Gastrointestinal: denied Neurological: denied Psychiatric: denies symptoms other than stated above Total of at least 10 systems reviewed, pertinent positives as above and in HPI. Sleep Information Total Hours of Sleep: 6.5 Sleep Comments: pt on q-15 minute checks Meal Information Percent Meal Consumed - Breakfast: 0 Percent Meal Consumed - Lunch: 100 Percent Meal Consumed - Dinner: 75 Nutrition Comment: pt. believes her vision is impaired after eating Subjective Subjective Patient was seen & assessed and interval progress reviewed with treatment team. Staff report the patient has been displaying a less constricted affect and reports improvement in mood. Patient has been more consistently denying a perceived correlation between reported vision changes and medications. She participated in a meeting yesterday involving her sister, rn case manager hospice, and our unit social and human services assistant. It has been reported that the patient is permitted to live with her sister on discharge. Pt was seen today to assess progress since admission. Pt reports she is "alright" today. Pt denies new concerns since yesterday. She shares that her meetings went well yesterday and that she feels comfortable living with her sister. Pt also states that they discussed a referral for [facility]. Pt denies SI and reports her mood is improved. Pt is agreeable with plans to work toward and appropriate discharge within the next few days. Sleep and appetite are reportedly stable and patient denies other needs or concerns. Physical Exam Psychiatric Orientation: alert, oriented x 3 and cooperative Apperance: appropriately dressed, appropriately groomed and appeared stated age Appearing extremely thin Eye Contact: good eye contact Motor Behavior: no abnormal motor movements and + psychomotor retardation (movements continue to be slowed, but improved over course of admission) Speech: normal rate/rhythm/volume of speech (conversation is more spontaneous ) Affect: + flat affect and + constricted affect though demonstrating somewhat brighter affect Mood: no depressed mood Thought Process: goal directed thought process and + concrete thought process Thought Content: + preoccupation (with somatic delusions, though lessened) and + delusions (less fixated); no hopelessness Suicidal Thoughts: denies suicidal thoughts Homicidal Thoughts: denies homicidal thoughts Hallucinations: no auditory hallucinations and no visual hallucinations Cognition: attention grossly intact and language grossly intact Insight: + limited insight (though seems to be improving) Judgement: + limited judgement (though somewhat improved) Vital Signs (Past 24 Hours) Last Vital Signs Temp 36.2 C L 05/07/20 06:35 Pulse 103 H 05/07/20 06:35 Resp 18 05/07/20 06:35 BP 98/61 L 05/07/20 06:35 Pulse Ox 98 04/20/20 02:26 Results & Data ([facility] [place]) Current Inpatient Medications Current Inpatient Medications: Current Inpatient Medications Acetaminophen (Acetaminophen 325 Mg Tab) 650 mg PO Q4H PRN PRN Reason: Headache or Minor Fever Stop: 05/19/20 23:14 Al Hydrox/Mg Hydrox/Simethicone (Aluminum/Magnesium Susp 30 Ml Udc) 30 ml PO Q4H PRN PRN Reason: GI Upset Stop: 05/19/20 23:14 Albuterol (Albuterol Hfa 8 Gm Inhaler) 2 puffs INH Q4H PRN PRN Reason: shortness of breath or wheezing Stop: 05/19/20 23:18 Aripiprazole (Aripiprazole 15 Mg Tab) 15 mg PO QAM ABHIJEET Stop: 06/02/20 08:59 Last Admin: 05/07/20 08:38 Dose: 15 mg Documented by: Bismuth Subsalicylate (Bismuth Subsalicylate Per Ml Omnicell Charge) 15 ml PO PRN PRN PRN Reason: Loose Stool Stop: 05/19/20 23:14 Haloperidol (Haloperidol 5 Mg Tab) 2.5 mg PO Q6H PRN PRN Reason: psychosis Stop: 05/21/20 09:43 Hydroxyzine HCl (Hydroxyzine Hcl 25 Mg Tab) 50 mg PO HSZ PRN PRN Reason: Insomnia Stop: 05/19/20 23:14 Last Admin: 05/06/20 23:00 Dose: 50 mg Documented by: Hydroxyzine HCl (Hydroxyzine Hcl 25 Mg Tab) 25 mg PO Q4H PRN PRN Reason: Anxiety Stop: 05/19/20 23:14 Last Admin: 04/24/20 17:27 Dose: 25 mg Documented by: Magnesium Hydroxide (Magnesium Hydroxide Susp 30 Ml Udc) 30 ml PO DAILY PRN PRN Reason: Constipation Stop: 05/19/20 23:14 Nicotine Polacrilex (Nicotine Polacrilex 2 Mg Gum) 2 piece MT PRN PRN PRN Reason: Nicotine Withdrawal Stop: 05/20/20 10:24 Last Admin: 05/06/20 17:45 Dose: 2 piece Documented by: Sodium Chloride (Sodium Chloride 0.65% Na Soln 45 Ml (Anza)) 1 - 2 sprays NA PRN PRN PRN Reason: Nasal Dryness/Congestion Stop: 05/19/20 23:14 Venlafaxine HCl (Venlafaxine Hcl Xr 150 Mg Capxr) 150 mg PO QAM ABHIJEET Stop: 06/03/20 08:59 Last Admin: 05/07/20 08:38 Dose: 150 mg Documented by: Mental Health & Subst Abuse Tx Psychiatrist Name of Psychiatrist: Shelly Phelan Psychiatrist's Date of Appointment with Psychiatrist: 05/21/20 Time of Appointment with Psychiatrist: 10:00 a.m. Psychiatric Appointment Comment: [id number] [facility] Therapist Name of Therapist: ISAURO Foster Therapist's Date of Therapist Appointment: 04/29/20 Therapy Appointment Comment: [facility] [address], [place] [address] Blown Film Extrusion Operator Name of Blown Film Extrusion Operator: MAXIMINO Solorzano Phone Number for Blown Film Extrusion Operator: [phone] Date of Appointment with Blown Film Extrusion Operator: 05/15/20 Time of Appointment with Blown Film Extrusion Operator: 10:00 a.m. Case Management Appointment Comment: [id number] [facility], [place], [place] Post Discharge Appointments Primary Care Physician Name Of Family Doctor: Anuj Griffin Primary Care Date of Appointment with PCP: 05/15/20 Time of Appointment with PCP: 2:20 p.m. (please arrive at 2:05 p.m.) Provider Appointment Comment: [address] [facility] Other #1: Name of Aftercare Appointment: [facility] Phone Number of Aftercare Appointment: [phone] Contact Information Discharge Discharge [address]: [address] [place] [id number]
[2020-05-08] MEDS: ARIPiprazole 15 MG TAB PO SCH (09:02)
[2020-05-08] MEDS: VENLAFAXINE HCL XR 150 MG CAPXR PO SCH (09:02)
[2020-05-08] MEDS: NICOTINE POLACRILEX 2 MG GUM MT PRN ×2 (09:02→13:35)
--- NOTE | 2020-05-08 10:36 | Psychiatric Progress Note ---
Date of Service May 08, 2020 Impression / Recommendations Impression 40 y/o female who lives with her parents, who cares for her 2 minor children, is disabled/unemployed, readmitted 10 days after discharge for psychosis due to medication noncompliance with prominent somatic delusions and poor p.o. intake resulting in a 4 pound weight loss with BMI 14.3 and electrolyte abnormalities. Her recent admission was for a antihistamine OD and a suicide attempt. Her weight loss is related to somatic delusion that eating causes her to lose vision. She has not been taking her antipsychotic, and was refusing recommendations for a long-acting injectable antipsychotic. Although SI is fluctuating between passive or resolved, she had a suicide attempt 03/28 which prompted hospitalization, and her condition is resulting in her being unable to meet her nutritional needs resulting in electrolyte disturbance. She was discharged on a 304 IOC, and a conversion hearing was held 04/23. She has been started on Haldol, but requested to switch to a different medication as she thinks it was making her feel tired. We have repeatedly discussed that she is likely fatigued in large part due to her poor p.o. intake and being severely underweight, but she is not open to this explanation. Weight has been fairly stable in the hospital but patient had ~5lb weight loss between her two admissions, she has not been compliant with nutritional supplementation recommended by the stockfeed miller. Pt did decide on 05/02/2020 that she would be willing to receive the initial injection of Abilify Maintena - receiving 300mg IM injection due to low BMI - next dose due on 05/30/2020 - and 2-week overlap of oral aripiprazole can be discontinued on 05/16/2020. Patient had been referred to the [place] [facility] due to concern for ongoing delusions significantly interfering with ability to care for self. There has been some improvement with this and, although referral to [facility] is still in place, it appears patient may be appropriate to be discharged to the community when psychiatrically stable. We have been engaging her outpatient support team in discussions to solidify discharge planning. (1) Schizoaffective disorder, depressive type: 04/20 - The patient was admitted to the [facility] ([facility] mental health unit) on q15 min checks (behavioral with suicide precautions) for safety. The patient will participate in group, recreational, and milieu therapies and will be offered additional individual and family sessions as clinically appropriate. Will continue Effexor XR at 75 mg for now, should likely be increa sed to further retrial but for now plan to hold Invega as failing to cover her symptoms and complaints about vision started around the time it was started. Again, most likely delusion but will reassess in am and treating clinician at that time can coordinate with outpatient prescriber. 04/21 - Patient refusing Invega, Zyprexa, and Risperdal, but is agreeable to a trial of Haldol. Reviewed risks, benefits, side effects, and alternatives. Specifically reviewed risk of EPS, tardive dyskinesia, sedation, dystonic reaction. Start 2.5 mg twice daily, with 2.5 mg every 6 hours as needed for psychosis. If effective, can transition to Haldol Decanoate, given repeated noncompliance and related decompensation/rehospitalization. -File for 306 conversion hearing (was discharged on a 304 IOC on 04/09). Refer to [facility] for long-term inpatient treatment, as acute treatment has not been sufficient to control her symptoms. -Get collateral information from family (recently staying with sister while parents on vacation), and outpatient Jeanine AGUILAR. 04/22 -Family meeting held with mother. Discussed plans for 306 tomorrow, [facility] referral, med changes, recs for MCCULLOUGH, need to work on eating/nutrition. -AIMS 0. -Continue haloperidol and titrate to effective dose. -306 tomorrow, will refer to [facility]. 04/23 -306 conversion held, patient now on a 304 involuntary commitment. Refer to [facility] for long-term inpatient treatment, short-term acute treatment here has not been effective and she quickly decompensated and returned to the hospital. -Met with her BCMJeanine, from the [facility] to review treatment plan. -Increase Haldol to 2.5 mg every morning and 5 mg at bedtime. Transition to Haldol Decanoate once on an effective dose. -Continue venlafaxine and increase to 112.5 mg daily to target depressed mood. -Advised patient that if she is retreating to bed and napping during the day, with resulting poor sleep at night, we will lock her door during group times to encourage her to be out of her room and participating in treatment. 04/24 - Continue haloperidol 2.5mg qAM and 5mg qHS - patient reporting fatigue. We discussed that once patient is to effective dosing, we can adjust dosing to minimize fatigue - but reviewed this is not an unusual side effect. - Continue venlafaxine at increased dosage - BCM to meet with patient tomorrow - Referral being faxed to [facility] - will call to confirm packet has been received 04/25 - Continue current medication regimen as above, titrating as tolerated - Pt continues to be isolative in the mornings, but improves in the evening - this was observed even prior to starting the haloperidol. Continue to monitor for daytime sedation, and can adjust medication accordingly - Referral faxed to [facility] to pursue state hospitalization 04/26 -Continue current dose of Haldol, and encourage patient to transition to Haldol Decanoate (would start with a 75 mg IM dose). 04/27 -Patient requested to decrease her Haldol dose, advised that this is not recommended as her current dose is not even sufficient to adequately treat her symptoms. She then requested to switch to a different medication, and reviewed other antipsychotics that have an MCCULLOUGH option, including aripiprazole, paliperidone, and risperidone. She opted for a trial of aripiprazole, noting she had been on it before but could not recall her response. Reviewed risks, benefits, and side effects, including akathisia. Discontinue Haldol and start aripiprazole 2.5 mg today, and 5 mg tomorrow morning. Advised her that the plan would be to transition to a long-acting injectable when she demonstrates tolerability and efficacy. 04/28 - Pt received 5mg of aripiprazole this morning - denied present side effects, but continues to verbalize that injectable medications contribute to patient feeling "spaced out" - continued to provide education on this and encourage ongoing consideration of an MCCULLOUGH. - Continue titration of aripiprazole as tolerated/indicated - Continue current dosage of venlafaxine 112.5mg - Awaiting response from [facility] regarding faxed referral 04/29 - Pt continues to be hesitant to adjust medications, but is agreeable willing for gradual increase of aripiprazole. Due to patient's preoccupation with various somatic complaints, will increase to 7.5mg tomorrow and then 10mg for 05/01. Pt made aware of plan to continue titration as needed to target ongoing psychiatric symptoms. Pt continues to be reluctant to discussing the option for Abilify Maintena - Continue venlafaxine 112.5mg - Pt did admit to suicidal thoughts last evening, but was unable to identify if they were related to any specific trigger - Awaiting response from [facility] regarding referral 04/30 - Aripiprazole was titrated to 7.5mg for this morning, increasing to 10mg gladis orrow morning - orders entered - Continue venlafaxine 112.5mg - [facility] referral in place 05/01 - Continue aripiprazole 10mg each morning; continue venlafaxine 112.5mg daily - Pt continues to be resistant to MCCULLOUGH, will continue to offer the recommendation and answer questions - Still have not heard result of [facility] referral 05/02 - Increasing aripiprazole to 15mg starting tomorrow morning. Pt did agree to Abilify Maintena which we will initiate today. Can continue oral dosing for ~2 weeks with taper of oral medication as appropriate. Pt will receive the 300mg IM injection given low BMI. Risks, benefits, and potential side effects were reviewed. Pt verbalized understanding and is agreeable with receiving the MCCULLOUGH. - Continue venlafaxine 112.5mg - No word on whether or not patient is accepted at [facility] - hopefully patient agreeing to the MCCULLOUGH will contribute to more appropriate discharge planning, and diversion may be able to be considered. 05/03--reviewed 05/04--tolerating increase in Effexor XR to 150 mg po qam to address residual anxiety. 05/05--continue current meds and treatment plan. 05/06 - Continue current treatment plan - Will assist with arranging meetings with family and outpatient supports in order to discuss possible diversion plan - Referral to [facility] is still pending, though no word on acceptance 05/07 - Continue current medication regimen - Support meeting held yesterday with community case manager, unit renal social worker, and patient's sister - patient is planning to live with sister on discharge 05/08 - Continue current treatment plan - Anticipate discharge tomorrow, care coordinated with patient's outpatient support team (2) Eating disorder, unspecified: 04/20 - seems driven by delusion rather than traditional body dysmorphia. Will monitor PO intake and recheck lytes, renals in am. daily weights. Reconsult nutrition. If not engaging in regular meals may need to reinstitute I's and O's. Ideally patient would agree to inpatient residential ED treatment for refeeding but she has traditionally not been amenable and such units will not accept on a commitment. Dietary consult for nutritional supplement/calorie recs. 04/21 -hypokalemic on admission 04/19/2020 with potassium 3.3, improved to 3.5 on 04/21/2020. -Continue daily weights, dietary consult. -Not yet psychiatrically stable for discussion of inpatient eating disorder treatment. 04/22 -pt refused Boost during last hospitalization, but now agreeing after discussion and family meeting, specifically reviewing that her cognitive impairment is likely multifactorial and due in part to malnutrition- will reconsult dietitian. -Would benefit from OP stockfeed miller- will check with PCP (Anuj). 04/23 -appreciate stockfeed miller's recommendations. Continue to offer boost and additional snacks, although patient has been resistant/refusing. -Weight is down 3.5 ounces since admission (36.5 kg on admit, 36.4 kg today). Remains hypotensive and tachycardic. Continue to encourage improved p.o. intake. 04/24 - Weight has increased 3.5oz since yesterday. - Continue to encourage interventions outlined above, monitoring for use of bathroom after meals - thus far there has been no indication of purging 04/28 - Pt continues to gain small amounts of weight daily (+0.2kg, or 7oz, gain since yesterday). 04/30 - Pt did lose almost a pound from yesterday. Nursing notes suggest patient did not eat breakfast or lunch yesterday. She ate a decent portion of breakfast today. - If weight continues to decrease or nutritional intake is reduced, consider repeating BMP 05/01- Pt gained >1lb since yesterday, continues to have improved nutritional intake 05/06 - Nutritional intake and weight have been steady over the last several days Inventory Assets Strengths: family support, love of children, intelligent Needs: improve insight Risk Factors Assessment Male: No : Yes Do You Have Access To A Gun?: No Health Problems: Yes Mental Health Diagnoses: Yes Substance Use Disorders: No Previous Attempt: Yes Family History of Suicide: No Previous Psychiatric Hospitalization: Yes Hopelessness: Yes Smoker: No Protective Factors Assessment Orthodox Beliefs: No : No 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 She is on a 304 IOC, and was transitioned to a 304 inpatient commitment after a conversion hearing on 04/23/2020. Chief Complaint "I'm good. Feeling ok today." Review of Systems Notes Constitutional: denied Cardiovascular: denied Respiratory: denied Gastrointestinal: denied Neurological: denied Psychiatric: denies symptoms other than stated above Total of at least 10 systems reviewed, pertinent positives as above and in HPI. Sleep Information Total Hours of Sleep: 7.25 Sleep Comments: pt on q-15 minute checks Meal Information Percent Meal Consumed - Breakfast: 100 Percent Meal Consumed - Lunch: 90 Percent Meal Consumed - Dinner: 100 Nutrition Comment: pt. believes her vision is impaired after eating Subjective Subjective Patient was seen & assessed and interval progress reviewed with nursing and social work. Staff report the patient continues to be less preoccupied on somatic delusions verbalized earlier in her stay. She continues to participate in group programming and is having appropriate conversations with peers. Weight remains stable. Pt is to have a meeting with her community case manager this afternoon to review discharge planning. Pt was seen today to assess progress since admission. She reports "I'm good" and admits to ongoing improvement in mood. She denies any physical concerns today and continues to be less focused somatic delusions. Pt continues to verbalize willingness to follow through with aftercare appointments and continue medications as currently prescribed. Pt denies SI and other safety concerns. She is able to verbalize discharge plans and is reporting perceived readiness for discharge tomorrow. Pt denies other needs or concerns at this time. Physical Exam Psychiatric Orientation: alert, oriented x 3 and cooperative Apperance: appropriately dressed, appropriately groomed and appeared stated age Extremely thin Eye Contact: + fair eye contact Motor Behavior: + psychomotor retardation (slowed) Speech: normal rate/rhythm/volume of speech (more spontaneous) Affect: + blunted affect (but demonstrating brighter affect today) Mood: no depressed mood and no anxious mood Thought Process: goal directed thought process, clear/coherent thought process and + concrete thought process Thought Content: + cognitive distortions; no hopelessness and no worthlessness Suicidal Thoughts: denies suicidal thoughts and denies suicidal intent Homicidal Thoughts: denies homicidal thoughts Hallucinations: no auditory hallucinations and no visual hallucinations Cognition: recent memory grossly intact, attention grossly intact and language grossly intact Insight: + fair insight Judgement: + fair judgement Vital Signs (Past 24 Hours) Last Vital Signs Temp 36.7 C 05/08/20 06:39 Pulse 71 05/08/20 06:39 Resp 16 05/08/20 06:39 BP 108/67 05/08/20 06:39 Pulse Ox 98 04/20/20 02:26 Results & Data ([facility]) Current Inpatient Medications Current Inpatient Medications: Current Inpatient Medications Acetaminophen (Acetaminophen 325 Mg Tab) 650 mg PO Q4H PRN PRN Reason: Headache or Minor Fever Stop: 05/19/20 23:14 Al Hydrox/Mg Hydrox/Simethicone (Aluminum/Magnesium Susp 30 Ml Udc) 30 ml PO Q4H PRN PRN Reason: GI Upset Stop: 05/19/20 23:14 Albuterol (Albuterol Hfa 8 Gm Inhaler) 2 puffs INH Q4H PRN PRN Reason: shortness of breath or wheezing Stop: 05/19/20 23:18 Aripiprazole (Aripiprazole 15 Mg Tab) 15 mg PO QAM ABHIJEET Stop: 06/02/20 08:59 Last Admin: 05/08/20 09:02 Dose: 15 mg Documented by: Bismuth Subsalicylate (Bismuth Subsalicylate Per Ml Omnicell Charge) 15 ml PO PRN PRN PRN Reason: Loose Stool Stop: 05/19/20 23:14 Haloperidol (Haloperidol 5 Mg Tab) 2.5 mg PO Q6H PRN PRN Reason: psychosis Stop: 05/21/20 09:43 Hydroxyzine HCl (Hydroxyzine Hcl 25 Mg Tab) 50 mg PO HSZ PRN PRN Reason: Insomnia Stop: 05/19/20 23:14 Last Admin: 05/06/20 23:00 Dose: 50 mg Documented by: Hydroxyzine HCl (Hydroxyzine Hcl 25 Mg Tab) 25 mg PO Q4H PRN PRN Reason: Anxiety Stop: 05/19/20 23:14 Last Admin: 08/27/20 17:27 Dose: 25 mg Documented by: Magnesium Hydroxide (Magnesium Hydroxide Susp 30 Ml Udc) 30 ml PO DAILY PRN PRN Reason: Constipation Stop: 05/19/20 23:14 Nicotine Polacrilex (Nicotine Polacrilex 2 Mg Gum) 2 piece MT PRN PRN PRN Reason: Nicotine Withdrawal Stop: 05/20/20 10:24 Last Admin: 05/08/20 09:02 Dose: 2 piece Documented by: Sodium Chloride (Sodium Chloride 0.65% Na Soln 45 Ml (Kaser)) 1 - 2 sprays NA PRN PRN PRN Reason: Nasal Dryness/Congestion Stop: 05/19/20 23:14 Venlafaxine HCl (Venlafaxine Hcl Xr 150 Mg Capxr) 150 mg PO QAM ABHIJEET Stop: 06/03/20 08:59 Last Admin: 05/08/20 09:02 Dose: 150 mg Documented by: Mental Health & Subst Abuse Tx Psychiatrist Name of Psychiatrist: Shelly Phelan Psychiatrist's Date of Appointment with Psychiatrist: 05/21/20 Time of Appointment with Psychiatrist: 10:00 a.m. Psychiatric Appointment Comment: Next injection due on or around 05/30 Therapist Name of Therapist: ISAURO Foster Therapist's Date of Therapist Appointment: 05/13/20 Time of Therapist Appointment: 11:00 a.m. (In person) Therapy Appointment Comment: [address], [place] [address] Eyeglass Frames Polisher Name of Eyeglass Frames Polisher: MAXIMINO Solorzano Phone Number for Eyeglass Frames Polisher: [phone] Date of Appointment with Eyeglass Frames Polisher: 05/12/20 Time of Appointment with Eyeglass Frames Polisher: 9:00 a.m. Case Management Appointment Comment: Will see you at your sister's house Post Discharge Appointments Primary Care Physician Name Of Family Doctor: Anuj Griffin Primary [facility] Date of Appointment with PCP: 05/15/20 Time of Appointment with PCP: 2:20 p.m. (please arrive at 2:05 p.m.) [facility]ment [facility] [place] Other #1: Name of Aftercare Appointment: [employer] [facility]ication [facility] Phone Number of Aftercare Appointment: [phone] Contact Information Discharge Discharge [address]: [address] [place], [place] [address] quan [id number]
[2020-05-09] MEDS: ARIPiprazole 15 MG TAB PO SCH (10:12)
[2020-05-09] MEDS: VENLAFAXINE HCL XR 150 MG CAPXR PO SCH (10:12)
[2020-05-09] MEDS: NICOTINE POLACRILEX 2 MG GUM MT PRN (10:30)
--- NOTE | 2020-05-09 11:31 | Discharge Summary ---
Date of Service May 09, 2020 History of Present Illness Miryam presented to the ED c/o blurry vision. She has had a persistent somatic delusion over the past several weeks that she is losing her vision, won't be able to see her kids and ties it to her eating. During her last stay her PO intake was very sporadic and apparently has a 5 lb weight loss since earlier in the month. She remains quite tired in the am, low motivation and interest. She does not attribute her symptoms to poor PO intake. Head CT in ED was negative, electrolytes largely unremarkable other than a repleted K. A phosphorous was added and PO intake ensured in ED so we can appropriately monitor for any refeeding syndrome. No IVF can be administered on the unit. She was slow to respond to questions, states solely staying with sister for past few days as parent's house is too hot/father doesn't run the air conditioner and feels calmer there. Denies that there was conflict or any issues with med compliance. States her mood is simply, "the same as last time". She denied vegetative symptoms. Denies specific plan to self-harm. Mainly states "I get sick of feeling this way and would rather go." Physical Exam Psychiatric Orientation: alert, oriented x 3 and cooperative Apperance: appropriately dressed, appropriately groomed and appeared stated age Remains extremely thin Eye Contact: good eye contact Motor Behavior: no abnormal motor movements and + psychomotor retardation (movements remain slowed, but improved from admission) Speech: normal rate/rhythm/volume of speech (more spontaneous, but still somewhat delayed) Affect: + blunted affect and + constricted affect Overall demonstrating a broader, more cheerful affect when compared to admission Mood: no depressed mood and no anxious mood Thought Process: goal directed thought process, clear/coherent thought process and + concrete thought process Thought Content: + cognitive distortions and + delusions (ongoing underlying somatic delusions, but far less preoccupation); no hopelessness and no worthlessness Suicidal Thoughts: denies suicidal thoughts, denies suicidal plan and denies suicidal intent Homicidal Thoughts: denies homicidal thoughts Hallucinations: no auditory hallucinations and no visual hallucinations Cognition: recent memory grossly intact, attention grossly intact and language grossly intact Estimated Intelligence: consistent with education level Insight: + fair insight Judgement: + fair judgement Vital Signs (Past 24 Hours) Last Vital Signs Temp 36.4 C L 05/09/20 06:42 Pulse 108 H 05/09/20 06:43 Resp 16 05/09/20 06:42 BP 103/70 05/09/20 06:43 Pulse Ox 98 04/20/20 02:26 Principal Diagnosis - Schizoaffective disorder, depressed type - Eating disorder, unspecified Psychiatric Data 40-year-old female admitted voluntarily for inpatient psychiatric treatment, though had been on a 304 IOC prior to admission. Pt was admitted on 04/19/2020 due to concerns for inability to care for self and continued restrictive eating patterns in the setting of various somatic delusions related to her diagnosis of schizoaffective disorder. Pt had been admitted to our unit from 03/28/2020 - 04/09/2020 following an overdose by antihistamine which was reportedly a suicide attempt in the context of depressed mood and recent break-up with boyfriend. At that time, it was clear patient was not able to maintain her safety and care for herself without additional support and she was discharged on a 304 IOC, but had declined recommendations for MCCULLOUGH to improve medication compliance. On this admission, patient was converted to an inpatient 304 commitment following a 306 hearing on 04/23/2020. Pt was initially started on haloperidol, but had reported feeling too sedated on the medication. At our recommendation continued to be for eventual conversion to an MCCULLOUGH, oral aripiprazole was agreed upon and patient tolerated this medication adjustment and began to demonstrate improvement in mood as well as less preoccupation with somatic delusions. Due to chronic concern for patient's delusions, medication/appointment noncompliance, inability to care for self, concerning restrictive eating behaviors, and poor insight - a referral was made to [facility] for long-term psychiatric hospitalization to target these concerns. Pt tolerated medication adjustments and began to demonstrate improvement in nutritional intake and insight during her admission. Pt ultimately agreed to an MCCULLOUGH and was initiated on Abilify Maintena on 05/02/2020. 300mg IM injection was utilized for initial injection and is being suggested for early maintenance injection due to concern for low BMI. Pt did tolerate initial injection without reported side effects. Next injection will be due on 05/30/2020 and 300mg IM syringe was sent to [facility]. Pt's current outpatient support system includes BCM, psychiatric physician events assistant through [employer], therapist, [facility], and continued support from a [address] [place] [address]. Pt was involved in discharge planning, which was ultimate diversion from the [facility]. Pt will be staying with her sister on discharge. Pt completed a safety plan during her admission and denied any safety concern prior to discharge. Pt is future oriented, affect is brighter, she is denying SI, and insight has improved overall. Based on review of patient's case and their current presentation, risk of harm to self or others is no longer perceived to be acute. Management of symptoms on an outpatient basis seems the most appropriate and least restrictive setting. Pt seems appropriate for discharge with recommendation for consistent follow-up with outpatient psychiatric prescriber, therapist and wrapper caser. Pt verbalized understanding of discharge plan reviewed and is agreeable with plan to be discharged home with sister today. Day of Discharge Assessment Patient's case was reviewed and discussed during treatment team. Outpatient supports are aware of anticipated discharge today and were reportedly in agreement with plan. Pt did meet with her BCM yesterday afternoon. Pt was seen today to assess progress since admission. Pt states she is feeling "good" today and denies any nervousness surrounding discharge. Pt reports her mood continues to be improved and she denies SI. Pt believes her mother will be coming to pick her up and they will also be able to black pickler prescriptions. Pt was reminded of need to continue oral aripiprazole for 7 more days, and then she will be maintained on Abilify Maintena. She was also reminded to continue daily venlafaxine. Pt reports feeling ready for discharge and states she is hopeful to "stay healthy." Pt denies other needs or concerns prior to discharge today. ROS: Constitutional: denied Cardiovascular: denied Respiratory: denied Gastrointestinal: denied Neurological: denied Psychiatric: denies symptoms other than stated above Total of at least 10 systems reviewed, pertinent positives as above and in HPI. Transition of Care Transition Of Care Record: was reviewed with the patient Advance Directives Advance Directives Information Provided: Yes Advance Directives: No Mental Health Advance Directive: No Advance Directives on File: No Living Will: No Power of Solar Sales Assessor: No Advance Directives Reason:: Declines as Mental Health Visit. Risk Factors Assessment Presenting risk factors reviewed on discharge. Precipitating stressors mitigated by: admission for inpatient psychiatric observation and treatment, appropriate adjustments to medications to target symptoms, attendance of therapeutic treatment groups, development of healthy and effective coping strategies, involvement of outpatient supports, completion of a safety plan, confirmation of guns and weapons being secured, initiation of a long-acting injectable, and continued involuntarily outpatient commitment for support, and education on diagnoses. Pt has demonstrated improvement in condition with regard to improvement mood and broader affect, denial of suicidal ideation, improved nutritional intake, willingness for MCCULLOUGH, and continued support of 304 C. At this time, patient is requesting discharge and is no longer considered to be at acute risk of harm to herself or others. Pt will be discharged with recommendation for ongoing outpatient psychiatric treatment. Pt is at increased risk of harm to self or others when compared to the general population and there are several risk factors which are not likely to be mitigated in an inpatient treatment setting. Male: No : Yes Do You Have Access To A Gun?: No Health Problems: Yes Mental Health Diagnoses: Yes Substance Use Disorders: No Previous Attempt: Yes Family History of Suicide: No Previous Psychiatric Hospitalization: Yes Hopelessness: Yes Smoker: No Protective Factors Assessment Hoahaoism Beliefs: No : No Responsible for Young Children: Yes (as a secondary caregiver) Employed: No Stable Relationships: No Supportive Family: Yes Tobacco Cessation at Discharge Tobacco Cessation Medication Prescribed at Discharge: Not Applicable/Non-Smoker (uses nicorette replacement products at home, has home supply) Practical counseling provided including: developing coping skills and providing basic information about quitting Antipsychotic Medications Pt is discharged on both oral dosing of aripiprazole and initiation of Abilify Maintena - as cross-taper was still ongoing at time of discharge. Pt will likely be maintained on Abilify Maintena as antipsychotic monotherapy. Total Time Total Time Spent: Greater Than 30 Minutes Total Time Includes: Examination of the patient, Discharge Planning, Medication Reconciliation and Communication with other providers Discharge Data Lab Results 04/19/20 04/19/20 04/19/20 18:24 18:24 18:24 WBC 8.55 RBC 4.87 Hgb 14.5 Hct 42.4 MCV 87.1 MCH 29.8 MCHC 34.2 RDW Std Deviation 39.3 RDW Coeff of Yaya 12.3 Plt Count 213 MPV 10.1 Immature Gran % (Auto) 0.4 Neut % (Auto) 70.0 Lymph % (Auto) 20.2 Oldham % (Auto) 7.3 Eos % (Auto) 1.9 Baso % (Auto) 0.2 Neut # (Auto) 5.99 Lymph # (Auto) 1.73 Oldham # (Auto) 0.62 H Eos # (Auto) 0.16 Baso # (Auto) 0.02 Immature Gran # (Auto) 0.03 H Sodium 137 Potassium 3.3 L Chloride 103 Carbon Dioxide 24 Anion Gap 10.0 BUN 13 Creatinine 0.71 Est Cr Clr Drug Dosing 61.9 Est GFR ( Amer) 122.6 Est GFR (Non-Af Amer) 105.8 BUN/Creatinine Ratio 18.3 Glucose 81 Calcium 9.4 Phosphorus Magnesium 1.9 Total Bilirubin 2.3 H AST 13 L ALT 29 Alkaline Phosphatase 45 Total Protein 7.6 Albumin 4.4 Globulin 3.2 Albumin/Globulin Ratio 1.4 TSH 1.150 HCG, Qual Negative Urine Color Urine Appearance Urine pH Ur Specific Verona Urine Protein Urine Glucose (UA) Urine Ketones Urine Blood Urine Nitrite Urine Bilirubin Urine Urobilinogen Ur Leukocyte Esterase Urine WBC (Auto) Urine RBC (Auto) U Hyaline Cast (Auto) U Epithel Cells (Auto) Urine Bacteria (Auto) Urine Mucus Urine Yeast Salicylates Urine Opiates Screen Ur Methadone, Qual Acetaminophen Urine Barbiturates Ur Phencyclidine (PCP) U Amphetamin/Meth Scrn MDMA (Ecstasy) Screen U Benzodiazepines Scrn Ur Cocaine Metabolite U Marijuana (THC) Screen Ethyl Alcohol mg/dL 04/19/20 04/19/20 04/19/20 18:24 18:24 18:24 WBC RBC Hgb Hct MCV MCH MCHC RDW Std Deviation RDW Coeff of Yaya Plt Count MPV Immature Gran % (Auto) Neut % (Auto) Lymph % (Auto) Oldham % (Auto) Eos % (Auto) Baso % (Auto) Neut # (Auto) Lymph # (Auto) Oldham # (Auto) Eos # (Auto) Baso # (Auto) Immature Gran # (Auto) Sodium Potassium Chloride Carbon Dioxide Anion Gap BUN Creatinine Est Cr Clr Drug Dosing Est GFR ( Amer) Est GFR (Non-Af Amer) BUN/Creatinine Ratio Glucose Calcium Phosphorus 2.4 L Magnesium Total Bilirubin AST ALT Alkaline Phosphatase Total Protein Albumin Globulin Albumin/Globulin Ratio TSH HCG, Qual Urine Color Urine Appearance Urine pH Ur Specific Verona Urine Protein Urine Glucose (UA) Urine Ketones Urine Blood Urine Nitrite Urine Bilirubin Urine Urobilinogen Ur Leukocyte Esterase Urine WBC (Auto) Urine RBC (Auto) U Hyaline Cast (Auto) U Epithel Cells (Auto) Urine Bacteria (Auto) Urine Mucus Urine Yeast Salicylates TNP Urine Opiates Screen Ur Methadone, Qual Acetaminophen TNP Urine Barbiturates Ur Phencyclidine (PCP) U Amphetamin/Meth Scrn MDMA (Ecstasy) Screen U Benzodiazepines Scrn Ur Cocaine Metabolite U Marijuana (THC) Screen Ethyl Alcohol mg/dL < 3.0 04/19/20 04/19/20 04/21/20 19:30 19:30 08:25 WBC RBC Hgb Hct MCV MCH MCHC RDW Std Deviation RDW Coeff of Yaya Plt Count MPV Immature Gran % (Auto) Neut % (Auto) Lymph % (Auto) Oldham % (Auto) Eos % (Auto) Baso % (Auto) Neut # (Auto) Lymph # (Auto) Oldham # (Auto) Eos # (Auto) Baso # (Auto) Immature Gran # (Auto) Sodium 139 Potassium 3.5 Chloride 104 Carbon Dioxide 30 Anion Gap 5.0 BUN 11 Creatinine 0.64 Est Cr Clr Drug Dosing 66.7 Est GFR ( Amer) 128.5 Est GFR (Non-Af Amer) 110.8 BUN/Creatinine Ratio 16.9 Glucose 75 Calcium 9.0 Phosphorus 3.0 Magnesium Total Bilirubin AST ALT Alkaline Phosphatase Total Protein Albumin Globulin Albumin/Globulin Ratio TSH HCG, Qual Urine Color Yellow Urine Appearance Cloudy A Urine pH 6.0 Ur Specific Verona 1.026 Urine Protein Negative Urine Glucose (UA) Negative Urine Ketones 3+ H Urine Blood 1+ H Urine Nitrite Negative Urine Bilirubin Negative Urine Urobilinogen Negative Ur Leukocyte Esterase 2+ H Urine WBC (Auto) 10-30 H Urine RBC (Auto) 0-4 U Hyaline Cast (Auto) 1-5 U Epithel Cells (Auto) >30 H Urine Bacteria (Auto) 1+ H Urine Mucus Present A Urine Yeast Not Reportable Salicylates Urine Opiates Screen Neg Ur Methadone, Qual Neg Acetaminophen Urine Barbiturates Neg Ur Phencyclidine (PCP) Neg U Amphetamin/Meth Scrn Neg MDMA (Ecstasy) Screen Neg U Benzodiazepines Scrn Neg Ur Cocaine Metabolite Neg U Marijuana (THC) Screen Neg Ethyl Alcohol mg/dL 04/22/20 08:19 WBC RBC Hgb Hct MCV MCH MCHC RDW Std Deviation RDW Coeff of Yaya Plt Count MPV Immature Gran % (Auto) Neut % (Auto) Lymph % (Auto) Oldham % (Auto) Eos % (Auto) Baso % (Auto) Neut # (Auto) Lymph # (Auto) Oldham # (Auto) Eos # (Auto) Baso # (Auto) Immature Gran # (Auto) Sodium 139 Potassium 3.8 Chloride 104 Carbon Dioxide 29 Anion Gap 5.0 BUN 18 D Creatinine 0.64 Est Cr Clr Drug Dosing 66.5 Est GFR ( Amer) 128.5 Est GFR (Non-Af Amer) 110.8 BUN/Creatinine Ratio 27.9 H Glucose 79 Calcium 9.4 Phosphorus Magnesium Total Bilirubin AST ALT Alkaline Phosphatase Total Protein Albumin Globulin Albumin/Globulin Ratio TSH HCG, Qual Urine Color Urine Appearance Urine pH Ur Specific Verona Urine Protein Urine Glucose (UA) Urine Ketones Urine Blood Urine Nitrite Urine Bilirubin Urine Urobilinogen Ur Leukocyte Esterase Urine WBC (Auto) Urine RBC (Auto) U Hyaline Cast (Auto) U Epithel Cells (Auto) Urine Bacteria (Auto) Urine Mucus Urine Yeast Salicylates Urine Opiates Screen Ur Methadone, Qual Acetaminophen Urine Barbiturates Ur Phencyclidine (PCP) U Amphetamin/Meth Scrn MDMA (Ecstasy) Screen U Benzodiazepines Scrn Ur Cocaine Metabolite U Marijuana (THC) Screen Ethyl Alcohol mg/dL Hospital Course (1) Schizoaffective disorder, depressive type: 04/20 - The patient was admitted to the [facility] ([facility] unit) on q15 min checks (behavioral with suicide precautions) for safety. The patient will participate in group, recreational, and milieu therapies and will be offered additional individual and family sessions as clinically appropriate. Will continue Effexor XR at 75 mg for now, should likely be increased to further retrial but for now plan to hold Invega as failing to cover her symptoms and complaints about vision started around the time it was started. Again, most likely delusion but will reassess in am and treating clinician at that time can coordinate with outpatient prescriber. 04/21 - Patient refusing Invega, Zyprexa, and Risperdal, but is agreeable to a trial of Haldol. Reviewed risks, benefits, side effects, and alternatives. Specifically reviewed risk of EPS, tardive dyskinesia, sedation, dystonic reaction. Start 2.5 mg twice daily, with 2.5 mg every 6 hours as needed for psychosis. If effective, can transition to Haldol Decanoate, given repeated noncompliance and related decompensation/rehospitalization. -File for 306 conversion hearing (was discharged on a 304 IOC on 04/09). Refer to [facility] for long-term inpatient treatment, as acute treatment has not been sufficient to control her symptoms. -Get collateral information from family (recently staying with sister while parents on vacation), and outpatient Jeanine AGUILAR. 04/22 -Family meeting held with mother. Discussed plans for 306 tomorrow, [facility] referral, med changes, recs for MCCULLOUGH, need to work on eating/nutrition. -AIMS 0. -Continue haloperidol and titrate to effective dose. -306 tomorrow, will refer to [facility]. 04/23 -306 conversion held, patient now on a 304 involuntary commitment. Refer to [facility] for long-term inpatient treatment, short-term acute treatment here has not been effective and she quickly decompensated and returned to the hospital. -Met with her BCMJeanine, from the [facility] to review treatment plan. -Increase Haldol to 2.5 mg every morning and 5 mg at bedtime. Transition to Haldol Decanoate once on an effective dose. -Continue venlafaxine and increase to 112.5 mg daily to target depressed mood. -Advised patient that if she is retreating to bed and napping during the day, with resulting poor sleep at night, we will lock her door during group times to encourage her to be out of her room and participating in treatment. 04/24 - Continue haloperidol 2.5mg qAM and 5mg qHS - patient reporting fatigue. We discussed that once patient is to effective dosing, we can adjust dosing to minimize fatigue - but reviewed this is not an unusual side effect. - Continue venlafaxine at increased dosage - BCM to meet with patient tomorrow - Referral being faxed to [facility] - will call to confirm packet has been received 04/25 - Continue current medication regimen as above, titrating as tolerated - Pt continues to be isolative in the mornings, but improves in the evening - this was observed even prior to starting the haloperidol. Continue to monitor for daytime sedation, and can adjust medication accordingly - Referral faxed to [facility] to pursue state hospitalization 04/26 -Continue current dose of Haldol, and encourage patient to transition to Haldol Decanoate (would start with a 75 mg IM dose). 04/27 -Patient requested to decrease her Haldol dose, advised that this is not recommended as her current dose is not even sufficient to adequately treat her symptoms. She then requested to switch to a different medication, and reviewed other antipsychotics that have an MCCULLOUGH option, including aripiprazole, paliperidone, and risperidone. She opted for a trial of aripiprazole, noting she had been on it before but could not recall her response. Reviewed risks, benefits, and side effects, including akathisia. Discontinue Haldol and start aripiprazole 2.5 mg today, and 5 mg tomorrow morning. Advised her that the plan would be to transition to a long-acting injectable when she demonstrates tolerability and efficacy. 04/28 - Pt received 5mg of aripiprazole this morning - denied present side effects, but continues to verbalize that injectable medications contribute to patient feeling "spaced out" - continued to provide education on this and encourage ongoing consideration of an MCCULLOUGH. - Continue titration of aripiprazole as tolerated/indicated - Continue current dosage of venlafaxine 112.5mg - Awaiting response from [facility] regarding faxed referral 04/29 - Pt continues to be hesitant to adjust medications, but is agreeable willing for gradual increase of aripiprazole. Due to patient's preoccupation with various somatic complaints, will increase to 7.5mg tomorrow and then 10mg for 05/01. Pt made aware of plan to continue titration as needed to target ongoing psychiatric symptoms. Pt continues to be reluctant to discussing the option for Kavitha Quigleywoody - Continue venlafaxine 112.5mg - Pt did admit to suicidal thoughts last evening, but was unable to identify if they were related to any specific trigger - Awaiting response from [facility] regarding referral 04/30 - Aripiprazole was titrated to 7.5mg for this morning, increasing to 10mg tomorrow morning - orders entered - Continue venlafaxine 112.5mg - [facility] referral in place 05/01 - Continue aripiprazole 10mg each morning; continue venlafaxine 112.5mg daily - Pt continues to be resistant to MCCULLOUGH, will continue to offer the recommendation and answer questions - Still have not heard result of [facility] referral 05/02 - Increasing aripiprazole to 15mg starting tomorrow morning. Pt did agree to Abilify Maintena which we will initiate today. Can continue oral dosing for ~2 weeks with taper of oral medication as appropriate. Pt will receive the 300mg IM injection given low BMI. Risks, benefits, and potential side effects were reviewed. Pt verbalized understanding and is agreeable with receiving the MCCULLOUGH. - Continue venlafaxine 112.5mg - No word on whether or not patient is accepted at [facility] - hopefully patient agreeing to the MCCULLOUGH will contribute to more appropriate discharge planning, and diversion may be able to be considered. 05/03--reviewed 05/04--tolerating increase in Effexor XR to 150 mg po qam to address residual anxiety. 05/05--continue current meds and treatment plan. 05/06 - Continue current treatment plan - Will assist with arranging meetings with family and outpatient supports in order to discuss possible diversion plan - Referral to [facility] is still pending, though no word on acceptance 05/07 - Continue current medication regimen - Support meeting held yesterday with wrapper caser, unit high school social studies tutor, and patient's sister - patient is planning to live with sister on discharge 05/08 - Continue current treatment plan - Anticipate discharge tomorrow, care coordinated with patient's outpatient support team (2) Eating disorder, unspecified: 04/20 - seems driven by delusion rather than traditional body dysmorphia. Will monitor PO intake and recheck lytes, renals in am. daily weights. Reconsult nutrition. If not engaging in regular meals may need to reinstitute I's and O's. Ideally patient would agree to inpatient residential ED treatment for refeeding but she has traditionally not been amenable and such units will not accept on a commitment. Dietary consult for nutritional supplement/calorie recs. 04/21 -hypokalemic on admission 04/19/2020 with potassium 3.3, improved to 3.5 on 04/21/2020. -Continue daily weights, dietary consult. -Not yet psychiatrically stable for discussion of inpatient eating disorder treatment. 04/22 -pt refused Boost during last hospitalization, but now agreeing after discussion and family meeting, specifically reviewing that her cognitive impairment is likely multifactorial and due in part to malnutrition- will reconsult dietitian. -Would benefit from OP meat stuffer- will check with PCP (Anuj). 04/23 -appreciate meat stuffer's recommendations. Continue to offer boost and additional snacks, although patient has been resistant/refusing. -Weight is down 3.5 ounces since admission (36.5 kg on admit, 36.4 kg today). Remains hypotensive and tachycardic. Continue to encourage improved p.o. intake. 04/24 - Weight has increased 3.5oz since yesterday. - Continue to encourage interventions outlined above, monitoring for use of bathroom after meals - thus far there has been no indication of purging 04/28 - Pt continues to gain small amounts of weight daily (+0.2kg, or 7oz, gain since yesterday). 04/30 - Pt did lose almost a pound from yesterday. Nursing notes suggest patient did not eat breakfast or lunch yesterday. She ate a decent portion of breakfast today. - If weight continues to decrease or nutritional intake is reduced, consider repeating BMP 05/01- Pt gained >1lb since yesterday, continues to have improved nutritional in take 05/06 - Nutritional intake and weight have been steady over the last several days Mental Health & Subst Abuse Tx Psychiatrist Name of Psychiatrist: Shelly Phelan Psychiatrist's Date of Appointment with Psychiatrist: 05/21/20 Time of Appointment with Psychiatrist: 10:00 a.m. Psychiatric Appointment Comment: Next injection due on or around 05/30 Psychiatrist Release of Information: Obtained, Reviewed and Signed Therapist Name of Therapist: ISAURO Foster Therapist's Date of Therapist Appointment: 05/13/20 Time of Therapist Appointment: 11:00 a.m. (In person) Therapy Appointment Comment: [address], [place] [address] Therapist Release of Information: Obtained, Reviewed and Signed Kettle Cook Name of Kettle Cook: MAXIMINO Solorzano Phone Number for Kettle Cook: [phone] Date of Appointment with Kettle Cook: 05/12/20 Time of Appointment with Kettle Cook: 9:00 a.m. Case Management Appointment Comment: Will see you at your sister's house Kettle Cook Release of Information: Obtained, Reviewed and Signed Post Discharge Appointments Primary Care Physician Name Of Family Doctor: Anuj Griffin Primary [facility] Date of Appointment with PCP: 05/15/20 Time of Appointment with PCP: 2:20 p.m. (please arrive at 2:05 p.m.) Provider Appointment Comment: [facility] Release of Information: Obtained, Reviewed and Signed Smoking Cessation Counseling Tobacco Cessation Medication Prescribed at Discharge: Not Applicable/Non-Smoker (uses nicorette replacement products at home, has home supply) Other #1: Name of Aftercare Appointment: [facility] Phone Number of Aftercare Appointment: [phone] Aftercare Appointment Comment: Will follow up with you once you're discharged Release of Information Aftercare Appointment: Obtained, Reviewed and Signed Contact Information Discharge Discharge Address: [address] [place] [address] Discharge Plan Discharge Items Patient Disposition: Home - Self-Care Reason For Visit: PSYCHOSIS Discharge Diagnosis: - Schizoaffective disorder, depressed type - Eating disorder, unspecified Condition on Discharge: Fair Health Concerns: Continued concern for low BMI - continue recommendations per dietary team. Nutritional intake improved during admission, and your weight remained stable. Activity: Resume your previous activity Non-emergency contact: Primary Care Provider, Psychiatrist, Therapist and Environmental Services Director Call non-emergency contact if: you have any medication questions and your symptoms worsen Follow-up/Referrals: Kimmy Griffin MD [Primary Care Provider] - Diet: Regular Addtl Attending Provider Instructions: SPECIAL CARE INSTRUCTIONS: 1. Follow through with your scheduled aftercare appointments. If unable to keep an appointment, please call to reschedule. 2. Take your medication only as prescribed. Medication should not be changed or stopped without the approval of your doctor. In the event of worsening symptoms or concerns about side effects, contact your doctor immediately. 3. Utilize new healthy coping skills, anger management skills, and stress management skills learned during your hospitalization. Journal feelings and process them with a support person. Identify stressors or situations that may result in relapse, deterioration or inappropriate behaviors and develop a plan to deal with those issues. 4. If your coping skills are ineffective and you are in crisis, contact your outpatient providers for direction. If unable to reach your providers, please call the [facility] CRISIS LINE AT , go to the [facility] walk-in center at [address], [address], [place], or go to the closest Emergency Room. 5. Avoid alcohol and un-prescribed drugs. 6. You have been provided with the Mental Health Advance Directives Pamphlet for your review. 7. You are due for your next injection of Abilify Maintena on 05/30/2020 - you will receive this injection at [facility], please ensure appointment time is discussed before this injection is due. AFTERCARE APPOINTMENTS: * Please call your insurance company prior to your scheduled appointment to confirm your aftercare providers are covered. Take your insurance information to your appointments. WHO TO CALL AND WHEN: Medical Emergencies: For questions or emergencies related to your hospital stay, please contact the Inpatient Behavioral Health Unit at [phone]. A balance weigher is on-call 21/03 for the Behavioral Health Unit for emergencies At any time you feel your situation is an emergency, you may also call 911 immediately. Pending Studies at Discharge: No Stand-Alone Forms: [facility], Smoking Cessation Medications and DC Order Prescriptions: New venlafaxine 150 mg Capsule,Extended Release 24hr 150 mg PO QAM 30 Days Qty: 30 RF: 0 aripiprazole 10 mg tablet 10 mg PO QAM 7 Days Qty: 7 RF: 0 Abilify Maintena 300 mg suspension,extended rel recon 300 mg IM Q4WK Qty: 1 RF: 0 Continued albuterol sulfate 90 mcg/actuation HFA aerosol inhaler 2 inh inhalation Q4H PRN (Reason: shortness of breath or wheezing) Qty: 8.5 RF: 1 Discontinued venlafaxine 75 mg Capsule,Extended Release 24hr 75 mg PO QAM Qty: 30 RF: 0 paliperidone [Invega] 6 mg tablet extended release 24hr 6 mg PO DAILY RF: 0 Discharge Orders: Discharge Order (Routine); Ordered 05/09/20 Ordered By: Camryn Sol Admission Data Admit Date/Time: 04/19/20 23:17 Attending Provider: Alina Biswas Admit Provider: Maddie Winslow Primary Care Provider: Kimmy Griffin Other Interventions: PSY Interdisciplinary Discharge Planning Last Done: 05/09/20 10:23 Coding Level of Care Code 06891 D/C day mgmt > 30 min Diagnoses Schizoaffective disorder, depressive type F25.1 Eating disorder, unspecified F50.9
== END 2020-05-09 13:40 | disposition home or self-care (01) | DRG 885 ==
LOC: ED 17:51 → 3S 23:17 → SUATTDRO 23:17 → 3S 23:59